=== PATIENT | male | born 1940 | race Caucasian/White ===

== ENCOUNTER → 2016-08-28 | Outpatient (CLI) | payer OTHER ==
[~2016-08-28] MED LIST: ASPEC81 PO; CMD5 PO; CRD2 PO; CRDCD240 PO; DXY100 PO; GLC5 PO; GLC500 PO; LISI-725 PO; METO1TAB69 PO; SIMV20TA2 PO; SULF800T23 PO
[2016-08-28 09:54] LABS: BASO % 0.3 %; BASO ABS # 0.02 K/uL (0-0.2); COMPLETE YES; EOS % 1.4 %; HEMATOCRIT 41.4 % (42-52); IG% 0.3 %; LYMPH ABS # 1.67 K/uL (1.2-3.4); MEAN CELL VOLUME 88.7 fL (80-100); MEAN CORPUSCULAR HEMOGLOBIN 31.5 pg (25-34); MEAN CORPUSCULAR HGB CONC 35.5 g/dl (32-36); MEAN PLATELET VOLUME 11.2 fL (7.4-10.4); MONO % 7.3 %; NEUT % 69.7 %; PLATELET COUNT 218 K/uL (130-400); RED BLOOD COUNT 4.67 M/uL (4.7-6.1); WHITE BLOOD COUNT 7.97 K/uL (4.8-10.8)
[2016-08-28 11:43] LABS: ALT/SGPT 24 U/L (12-78); BLOOD UREA NITROGEN 18 mg/dl (7-18); BUN/CREATININE RATIO 15.9 (10-20); CALCIUM 9.3 mg/dl (8.5-10.1); CARBON DIOXIDE 30 mmol/L (21-32); CHLORIDE 100 mmol/L (98-107); CHOLESTEROL 113 mg/dl (0-200); GLUCOSE 179 mg/dl (70-99); POTASSIUM 3.3 mmol/L (3.5-5.1); SODIUM 139 mmol/L (136-145)
[2016-08-28 11:56] LABS: AST/SGOT 13 U/L (15-37); CHOLESTEROL/HDL RATIO 2.5; HDL CHOLESTEROL 45 mg/dl; LDL CHOLESTEROL CALCULATED 48 mg/dl; TRIGLYCERIDES 102 mg/dl (0-150); VERY LOW DENSITY LIPOPROT CALC 20 mg/dl
[2016-08-28 12:09] LABS: URINE APPEARANCE CLEAR (CLEAR); URINE BILIRUBIN NEG (NEG); URINE COLOR YELLOW; URINE EPITHELIAL CELL AUTO 20-30 /lpf (0-5); URINE NITRITE NEG (NEG); UROBILINOGEN NEG (NEG)
[2016-08-28 12:13] LABS: ESTIMATED AVERAGE GLUCOSE 171 mg/dl; HA1C FLAG Normal (Normal)
[2016-08-28 12:14] LABS: MANUAL MICROSCOPIC REQUIRED? NO; REVIEW REQ? NO
--- NOTE | 2016-09-03 09:24 | CODING QUERY MEDICAL NECESSITY ---
SUPPORTING DIAGNOSIS NEEDED A supporting diagnosis is required for the test/procedure performed on this patient in order for us to be reimbursed by the patient's insurance. Please provide a supporting diagnosis for the following test/procedure listed below next to the test name along with your signature. *If there is no additional diagnosis for this patient that would support the following test/procedure please document that below next to the test/procedure. Test(s)/Procedure(s) that require a supporting diagnosis: * GLYCATED HEMOGLOBIN DIAGNOSIS: * DOS: 08/28/16 Provider Signature: Date: Thank you Venessa Luong Health Information Management Once completed, please kindly fax back to [phone] For questions please call [phone]
== END | disposition home or self-care (01) ==
LOC: C.LAB1850 08:59
PROVIDERS: ATTEND Internal Medicine
DX: I25.10 Atherosclerotic heart disease of native coronary artery without angina pectoris (principal); E11.9 Type 2 diabetes mellitus without complications

== ENCOUNTER → 2016-09-21 | Outpatient (CLI) | payer OTHER ==
[2016-09-21 13:09] LABS: BASO % 0.4 %; BASO ABS # 0.03 K/uL (0-0.2); COMPLETE YES; EOS % 0.3 %; HEMATOCRIT 42.7 % (42-52); IG% 0.1 %; LYMPH % 11.5 %; MEAN CELL VOLUME 89.7 fL (80-100); MEAN CORPUSCULAR HEMOGLOBIN 30.7 pg (25-34); MEAN CORPUSCULAR HGB CONC 34.2 g/dl (32-36); MEAN PLATELET VOLUME 11.2 fL (7.4-10.4); MONO % 10.7 %; PLATELET COUNT 202 K/uL (130-400); RED BLOOD COUNT 4.76 M/uL (4.7-6.1); WHITE BLOOD COUNT 7.84 K/uL (4.8-10.8)
[2016-09-21 13:18] LABS: ALT/SGPT 25 U/L (12-78); AST/SGOT 19 U/L (15-37); BLOOD UREA NITROGEN 27 mg/dl (7-18); BUN/CREATININE RATIO 18.3 (10-20); CALCIUM 8.8 mg/dl (8.5-10.1); CARBON DIOXIDE 31 mmol/L (21-32); CHLORIDE 94 mmol/L (98-107); GLUCOSE 142 mg/dl (70-99); POTASSIUM 3.3 mmol/L (3.5-5.1); SODIUM 136 mmol/L (136-145)
[2016-09-21 13:21] LABS: ALB/GLOB RATIO 1.1 (0.9-2); ALKALINE PHOSPHATASE 57 U/L (45-117)
[2016-09-21 13:23] LABS: URINE APPEARANCE CLOUDY (CLEAR); URINE BILIRUBIN NEG (NEG); URINE COLOR DK YELLOW; URINE NITRITE NEG (NEG); URINE SPECIFIC GRAVITY 1.027 (1.000-1.030); UROBILINOGEN NEG (NEG); ZZUR CULT IF INDIC CLEAN CATCH NO
[2016-09-21 13:36] LABS: MANUAL MICROSCOPIC REQUIRED? NO; REVIEW REQ? NO
== END | disposition home or self-care (01) ==
LOC: C.LABBC 11:50
PROVIDERS: ATTEND Internal Medicine
DX: R63.0 Anorexia (principal); R53.83 Other fatigue; I51.7 Cardiomegaly

== ENCOUNTER → 2016-09-21 | Outpatient (CLI) | payer OTHER ==
--- NOTE | 2016-09-21 14:08 | DIAGNOSTIC IMAGING REPORT ---
TWO VIEW CHEST CLINICAL HISTORY: Fatigue. Congestion. FINDINGS: PA and lateral chest radiographs are obtained. No prior studies are available for comparison at the time of dictation. The patient is status post midline sternotomy. The heart is enlarged and there is atherosclerotic calcification of the thoracic aorta. The pulmonary vasculature is noncongested. Nonspecific interstitial thickening is noted. Small calcified granulomas are suspected. No airspace consolidation or pleural effusion is seen. There is no pneumothorax. The skeletal structures appear osteopenic. Mild degenerative change is present in the thoracic spine. IMPRESSION: Cardiac enlargement with no acute cardiopulmonary abnormality. Electronically signed by: Burt Houser M.D. 09/21/2016 2:06 PM Dictated Date/Time: 09/21/2016 2:05 PM
== END | disposition home or self-care (01) ==
LOC: C.RADBC 12:17
PROVIDERS: ATTEND Internal Medicine
DX: R53.83 Other fatigue (principal); I51.7 Cardiomegaly

== ENCOUNTER → 2016-09-24 | Outpatient (CLI) | payer OTHER ==
[2016-09-24 15:51] LABS: BLOOD UREA NITROGEN 17 mg/dl (7-18); BUN/CREATININE RATIO 14.4 (10-20); CALCIUM 9.6 mg/dl (8.5-10.1); CARBON DIOXIDE 31 mmol/L (21-32); CHLORIDE 95 mmol/L (98-107); GLUCOSE 144 mg/dl (70-99); POTASSIUM 3.1 mmol/L (3.5-5.1); SODIUM 138 mmol/L (136-145)
== END | disposition home or self-care (01) ==
LOC: C.LAB1850 14:32
PROVIDERS: ATTEND Internal Medicine
DX: E11.9 Type 2 diabetes mellitus without complications (principal); R05 Cough; R53.83 Other fatigue

== ENCOUNTER → 2016-12-05 | Outpatient (CLI) | payer OTHER ==
[~2016-12-05] MED LIST changes: +METO100T44 PO; -METO1TAB69 PO
[2016-12-05 14:27] LABS: ESTIMATED AVERAGE GLUCOSE 171 mg/dl; HA1C FLAG Normal (Normal)
== END | disposition home or self-care (01) ==
LOC: C.LAB1850 11:40
PROVIDERS: ATTEND Internal Medicine
DX: E11.9 Type 2 diabetes mellitus without complications (principal)

== ENCOUNTER → 2017-03-06 | Outpatient (CLI) | payer OTHER ==
[~2017-03-06] MED LIST changes: -METO100T44 PO; +METO1TAB69 PO
[2017-03-06 11:58] LABS: BASO % 0.5 %; BASO ABS # 0.04 K/uL (0-0.2); COMPLETE YES; EOS % 1.5 %; HEMATOCRIT 40.9 % (42-52); IG% 0.2 %; LYMPH % 18.6 %; MEAN CELL VOLUME 89.3 fL (80-100); MEAN CORPUSCULAR HEMOGLOBIN 31.7 pg (25-34); MEAN CORPUSCULAR HGB CONC 35.5 g/dl (32-36); MEAN PLATELET VOLUME 11.6 fL (7.4-10.4); MONO % 8.4 %; NEUT % 70.8 %; PLATELET COUNT 211 K/uL (130-400); RED BLOOD COUNT 4.58 M/uL (4.7-6.1); WHITE BLOOD COUNT 8.59 K/uL (4.8-10.8)
[2017-03-06 12:08] LABS: URINE APPEARANCE CLEAR (CLEAR); URINE BILIRUBIN NEG (NEG); URINE COLOR YELLOW; URINE NITRITE NEG (NEG); URINE SPECIFIC GRAVITY 1.018 (1.000-1.030); UROBILINOGEN NEG (NEG)
[2017-03-06 12:10] LABS: MANUAL MICROSCOPIC REQUIRED? NO; REVIEW REQ? NO
[2017-03-06 12:23] LABS: ALT/SGPT 27 U/L (12-78); AST/SGOT 16 U/L (15-37); BLOOD UREA NITROGEN 23 mg/dl (7-18); BUN/CREATININE RATIO 21.1 (10-20); CALCIUM 9.1 mg/dl (8.5-10.1); CARBON DIOXIDE 33 mmol/L (21-32); CHLORIDE 101 mmol/L (98-107); CHOLESTEROL 110 mg/dl (0-200); GLUCOSE 149 mg/dl (70-99); POTASSIUM 3.5 mmol/L (3.5-5.1); SODIUM 138 mmol/L (136-145); TRIGLYCERIDES 87 mg/dl (0-150); VERY LOW DENSITY LIPOPROT CALC 17 mg/dl
[2017-03-06 12:31] LABS: ESTIMATED AVERAGE GLUCOSE 163 mg/dl; HA1C FLAG Normal (Normal)
[2017-03-06 12:35] LABS: CHOLESTEROL/HDL RATIO 2.8; HDL CHOLESTEROL 40 mg/dl; LDL CHOLESTEROL CALCULATED 53 mg/dl
[2017-03-06 12:41] LABS: RATIO 120.9 mcg/mg (0-30.0)
== END | disposition home or self-care (01) ==
LOC: C.LAB1850 10:17
PROVIDERS: ATTEND Internal Medicine
DX: E11.9 Type 2 diabetes mellitus without complications (principal)

== ENCOUNTER → 2017-06-10 | Outpatient (CLI) | payer OTHER ==
[~2017-06-10] MED LIST changes: +METO100T44 PO; -METO1TAB69 PO
[2017-06-11 08:05] LABS: ESTIMATED AVERAGE GLUCOSE 177 mg/dl; HA1C FLAG Normal (Normal)
== END | disposition home or self-care (01) ==
LOC: C.LAB1850 15:05
PROVIDERS: ATTEND Internal Medicine
DX: E11.9 Type 2 diabetes mellitus without complications (principal)

== ENCOUNTER 2017-07-25 17:07 | Emergency (ER) | payer OTHER ==
[~2017-07-25] VITALS: Ht 180.3 cm; Wt 104.0 kg
[2017-07-25 17:10] VITALS: TEMP 36.3; Ht 180.3 cm; Wt 104.0 kg
[2017-07-25] MEDS ORDERED: OXYMETAZOLINE HCL 0.05% NA SPR 15 ML BTL ONE (17:16)
[2017-07-25 18:14] LABS: BASO % 0.3 %; BASO ABS # 0.02 K/uL (0-0.2); EOS % 1.3 %; HEMOGLOBIN 15.1 g/dL (14.0-18.0); IG# 0.01 K/uL (0.00-0.02); LYMPH % 19.6 %; LYMPH ABS # 1.52 K/uL (1.2-3.4); MEAN CELL VOLUME 89.6 fL (80-100); MEAN CORPUSCULAR HEMOGLOBIN 31.5 pg (25-34); MEAN CORPUSCULAR HGB CONC 35.1 g/dl (32-36); MEAN PLATELET VOLUME 11.2 fL (7.4-10.4); MONO % 9.7 %; MONO ABS # 0.75 K/uL (0.11-0.59); NEUT ABS # 5.37 K/uL (1.4-6.5); PLATELET COUNT 228 K/uL (130-400); RED CELL DISTRIBUTION WIDTH CV 12.7 % (11.5-14.5); RED CELL DISTRIBUTION WIDTH SD 41.5 fL (36.4-46.3); WHITE BLOOD COUNT 7.77 K/uL (4.8-10.8)
[2017-07-25] MEDS ORDERED: HYDR12.55 PO (18:15)
[2017-07-25] MEDS ORDERED: COEN1CAP17 PO (18:16)
[2017-07-25] MEDS ORDERED: PSYL58.636 PO (18:16)
[2017-07-25 18:21] LABS: INR 1.9 (0.9-1.1); PTT PATIENT 29.5 SECONDS (21.0-31.0)
[2017-07-25] MEDS ORDERED: CLONIDINE HCL 0.1 MG TAB PO ONE (18:45)
[2017-07-25] MEDS ORDERED: AMOXICILLIN/CLAVULANATE TAB 875 MG TAB PO ONE (20:30)
--- NOTE | 2017-07-25 20:50 | EMERGENCY ROOM VISIT NOTE ---
ED Visit Note First contact with patient: 17:28 I have personally evaluated this patient examined her and reviewed the pertinent labs and data. I have discussed the case with Roc Nicolas, the physician assistant in nursing and agree with the plan. Please refer to the PA note. This patient comes in complaining of right-sided nosebleed. he is on Coumadin as a started shortly before arrival despite Afrin. he still was having some bleeding mostly coming down the front but a little bit in the back. This seems he caused some anxiety. I did place a rapid Rhino 5.5 cm. The patient tolerated this well. I applied approximate 5 mL of air and the patient no further bleeding he was observed in the ER multiple hours. His initial blood pressure was high and seemed to go up higher. I think secondary to pain. he was given clonidine 0.1 and his blood pressure was trending downwards to a systolic in the 170s. he was resting comfortably and seemed a little more anxious and was having some pain associated with this I think this raises blood pressure little bit as well. We are going put him on antibiotics with Augmentin and have him follow-up with ENT on Friday for removal or he can return here either Friday or Friday if he has any difficulty getting in with ENT or case management team will help him do this as well . he is to check his blood pressure frequently. Prior to discharge he had no bleeding for several hours. He had some mild discomfort from the balloon. 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 I encouraged him return to ER if he has discomfort or further bleeding or any new problems or concerns. He was happy the plan and discharged home.
[2017-07-25] MEDS ORDERED: NORCO 5/325MG HOME PACK PO ONE (21:00)
[2017-07-25] MEDS ORDERED: AMOXICIL/CLAVU 875MG HOME PACK PO ONE (21:00)
[2017-07-25] MEDS ORDERED: AMOX875T PO (21:00)
[2017-07-25 21:22] VITALS: BP 216/109; PULSE 92; O2SAT 96
--- NOTE | 2017-07-26 00:36 | EMERGENCY ROOM VISIT NOTE ---
ED Visit Note First contact with patient: 17:28 Chief Complaint: Right sided nosebleed. History of Present Illness: Mr. Brar is a 77-year-old white male who ambulates into the ED accompanied by female friend complaining of nasal bleeding from the right nostril. Historically patient reports he has never had an episode of nosebleed. He does report that he is on Coumadin. He reports his last INR was performed at couple weeks ago and was 2.3. He also has a history of hypertension. Patient reports approximately 30 minutes prior to arrival at the hospital patient was at home and at rest and reports a spontaneous start of bleeding from the right nostril. He reports he made multiple attempts to pinch the nose shot but it continued to bleed. He denies nose picking, recent trauma to his nose, changes in medication. He has not identified any aggravating or alleviating factors related to his bleeding. He has not taken any medications or therapies prior to arrival at the hospital. Associated with his bleeding he finds a difficulty breathing through his nose. He denies any associated symptoms including headache, dizziness, lightheadedness, sinus congestion, upper respiratory tract symptoms, shortness of breath, abdominal pain, nausea, vomiting, easy bruising, easy bleeding, unusual bleeding. Review of Systems: As noted above in history of present illness. Past Medical History: As noted above and diabetes, constipation, hypertension, coronary, status post CABG, unspecified ankle surgery and bilateral ankle surgery. Current Medications: Medications Dose Route/Sig Max Daily Dose Days Date Category Co Q 10 (Coenzyme Q10 (Ubidecarenone)) 100 Mg Cap 100 Mg PO DAILY 07/25/17 Reported Metamucil Fiber (Psyllium) 51.7 % Memo 1 Dose PO DAILY 07/25/17 Reported Hydrochlorothiazide 12.5 Mg Tab 25 Mg PO DAILY 07/25/17 Reported Ecotrin Or Generic * (Aspirin) 81 Mg Ectab 81 Mg PO DAILY 06/24/10 Reported Zestril (Lisinopril) 20 Mg Tab 20 Mg PO DAILY 12/09/06 Reported Coumadin * (Warfarin Sodium) 5 Mg Tab 5 Mg PO DAILY 12/09/06 Reported Zocor (Simvastatin) 20 Mg Tab 20 Mg PO QPM 12/09/06 Reported Glucophage * (Metformin HCl) 500 Mg Tab 1,000 Mg PO BID 12/09/06 Reported Glucotrol * (Glipizide) 5 Mg Tab 5 Mg PO BID 12/09/06 Reported Cardura * (Doxazosin Mesylate) 2 Mg Tab 2 Mg PO DAILY 12/09/06 Reported Cardizem Cd * (Diltiazem HCl) 240 Mg Capcr 240 Mg PO DAILY 12/09/06 Reported Toprol-Xl (Metoprolol Succinate) 100 Mg Tabcr 100 Mg PO DAILY 12/09/06 Reported Allergies to Medications: Patient denies. Social History: Patient is not currently employed; he feels safe in his home environment; he denies tobacco use. Physical Examination: Vital Signs: Date Time Temp Pulse Resp B/P (MAP) Pulse Ox O2 Delivery O2 Flow Rate FiO2 07/25/17 21:22 92 20 216/109 96 07/25/17 20:48 216/109 07/25/17 20:34 94 20 214/114 95 Room Air 07/25/17 20:12 96 20 213/113 95 Room Air 07/25/17 19:23 229/117 95 Room Air 07/25/17 19:02 203/117 07/25/17 18:30 93 20 217/118 95 Room Air 07/25/17 18:00 92 235/117 98 Room Air 07/25/17 17:30 102 208/118 91 Room Air 07/25/17 17:10 36.3 105 20 236/105 96 Room Air GENERAL: 77-year-old male in no acute distress, nontoxic-appearing, afebrile and hemodynamically stable. Patient is very anxious. NEUROLOGICAL: Awake, alert and oriented to person, place and time. Answering questions appropriately and following commands. Good hand eye coordination. SKIN: Warm, dry and pink. HEENT: Atraumatic and normocephalic. No erythema or tenderness over the frontal or maxillary sinuses. PERRLA. Sclera white and conjunctiva pink. My initial exam patient is bleeding from the right nostril; I was not able to identify the site of the bleeding. All the bleeding is bright red. He did have dried blood in the entrance to the left nostril. There was no tenderness, swelling or ecchymosis around the nose. Oral cavity moist and pink. Airway was patent. Pharynx is nonerythematous or edematous; right red blood was seen in the posterior pharyngeal area. Speech normal and clear. No jugular venous distention. THORAX: Lungs sounds are clear to auscultation and equal bilaterally with symmetrical chest wall. No wheezing, rales or rhonchi. ED Course: Patient is assessed as noted above. Patient's medication list was reviewed. Laboratory Testing: Test 07/25/17 18:00 Range/Units White Blood Count 7.77 4.8-10.8 K/uL Red Blood Count 4.80 4.7-6.1 M/uL Hemoglobin 15.1 14.0-18.0 g/dL Hematocrit 43.0 42-52 % Mean Corpuscular Volume 89.6 80-100 fL Mean Corpuscular Hemoglobin 31.5 25-34 pg Mean Corpuscular Hemoglobin Concent 35.1 32-36 g/dl Platelet Count 228 130-400 K/uL Mean Platelet Volume 11.2 7.4-10.4 fL Neutrophils (%) (Auto) 69.0 % Lymphocytes (%) (Auto) 19.6 % Monocytes (%) (Auto) 9.7 % Eosinophils (%) (Auto) 1.3 % Basophils (%) (Auto) 0.3 % Neutrophils # (Auto) 5.37 1.4-6.5 K/uL Lymphocytes # (Auto) 1.52 1.2-3.4 K/uL Monocytes # (Auto) 0.75 0.11-0.59 K/uL Eosinophils # (Auto) 0.10 0-0.5 K/uL Basophils # (Auto) 0.02 0-0.2 K/uL RDW Standard Deviation 41.5 36.4-46.3 fL RDW Coefficient of Variation 12.7 11.5-14.5 % Immature Granulocyte % (Auto) 0.1 % Immature Granulocyte # (Auto) 0.01 0.00-0.02 K/uL Prothrombin Time 19.5 9.0-12.0 SECONDS Prothromb Time International Ratio 1.9 0.9-1.1 Activated Partial Thromboplast Time 29.5 21.0-31.0 SECONDS Partial Thromboplastin Ratio 1.1 A nasal clamp was initiated which did not control bleeding. Afrin was used in the right nostril twice and the nose was reclamped instilled not control bleeding. I had a conversation with the patient about placing a Rhino Rocket in his nose. At this time he became concerned and asked many questions. He did report he wanted to contact his own primary care provider about the thoughts of her Rhino Rocket. Additionally he questioned me on my ability to place a Rhino Rocket. I did contact my attending physician, Dr. Hopper, who came to assess the patient and placed a Rhino Rocket; please see his notes for full information about his involvement with this patient. Patient was reassessed multiple times during his stay in the emergency department. Patient had multiple questions about his high blood pressure; I reviewed his case with my attending and it was decided to give the patient 0.1 mg of clonidine by mouth. Once again his blood pressure was rechecked multiple times and when he was distracted away from his nosebleed and his concerns his blood pressure did go down into the 170s. Once again patient had major concerns about possible strokes with his bleeding and high blood pressure; multiple reassessments of the patient and reassurance is were made with the patient. On his frequent re-evaluations patient had one episode where there was one drop of blood coming from underneath the Rhino Rocket. On reevaluation no additional bleeding in his nose or mouth was noted. Prior to discharge patient received 875 mg of Augmentin for antibiotic coverage. Patient was educated about today's findings and instructed on his treatment plan ; he verbalizes understanding and agreement with this plan. Clinical Impression: Right-sided epistaxis. Patient's blood pressure: Elevated. Blood pressure disposition: Situational. Follow-up with PCP. Disposition: Patient discharged home in stable condition accompanied by his ; prior to departure he was reassessed and subjectively reported he was having a pressure sensation on the right side of the face due to the Rhino Rocket. He rated his discomfort 3/10. He was offered pain medications and refused. Additionally case management was addressed with the patient and is going to actively try to find the patient an appointment with ENT specialist for Friday. Plan: A she was encouraged to continue his current medications except for his Coumadin ; he was encouraged to hold his Coumadin until he was able to speak to his Coumadin clinic for recommendations on continuation or increasing. He was encouraged to call tomorrow. Comfort measures were discussed with the patient including rating his pain every 6 hours and using appropriate acetaminophen or [place] for pain; he was given appropriate narcotic precautions and his name was checked on the state database and no red flags were noted. Patient was prescribed Augmentin 875 mg 2 times a day for total of 5 days. Patient was encouraged return to the ED for return of bleeding, worsening/ uncontrolled pain, fevers or any new/concerning symptoms.
== END 2017-07-25 21:24 | disposition home or self-care (01) ==
LOC: C.EDB 17:08 → C.EDD 21:24
DX: R04.0 Epistaxis (principal); I10 Essential (primary) hypertension; Z95.1 Presence of aortocoronary bypass graft; Z98.890 Other specified postprocedural states; Z79.01 Long term (current) use of anticoagulants; Z79.82 Long term (current) use of aspirin; Z79.899 Other long term (current) drug therapy

== ENCOUNTER → 2017-08-26 | Outpatient (CLI) | payer OTHER ==
[~2017-08-26] MED LIST changes: +COEN1CAP17 PO; -DXY100 PO; +HYDR12.55 PO; +PSYL58.636 PO; -SULF800T23 PO
[2017-08-26 12:28] LABS: HEMOGLOBIN A1C 7.3 % (4.5-5.6)
== END | disposition home or self-care (01) ==
LOC: C.LAB1850 10:53
PROVIDERS: ATTEND Internal Medicine
DX: E11.9 Type 2 diabetes mellitus without complications (principal)

== ENCOUNTER → 2017-10-28 | Outpatient (CLI) | payer OTHER ==
--- NOTE | 2017-10-28 14:49 | DIAGNOSTIC IMAGING REPORT ---
L-SPINE MIN 4 VIEWS ROUTINE CLINICAL HISTORY: 77 years-old Male presenting with S39.012A Acute lumbosacral myofascial [id number]. TECHNIQUE: Frontal, bilateral oblique, lateral, and coned in lateral views of the lumbar spine were obtained. COMPARISON: CT from 2006. FINDINGS: Mild dextrocurvature of the lumbar spine centered at L3. Osteopenia suggested. Normal lumbar lordosis otherwise. Vertebral bodies maintain normal height and alignment. Intervertebral disc height loss noted at several levels to varying degrees, most severely at L3-4. Vacuum disc phenomenon also noted at several levels most prominently at L5-S1. Anterior osteophytosis and facet arthropathy evident throughout. Osseous neural foraminal narrowing suggested from L2-3 inferiorly to L5-S1. No compression deformity. No pars defect. Gas and stool distended large bowel. Atherosclerosis. IMPRESSION: 1. No compression deformity to suggest acute osseous injury. 2. Multilevel degenerative changes of the lumbar spine. Electronically signed by: Reed Gregorio M.D. 10/28/2017 2:48 PM Dictated Date/Time: 10/28/2017 2:46 PM
== END | disposition home or self-care (01) ==
LOC: C.RAD1850 14:28
PROVIDERS: ATTEND Physician Assistant Medical
DX: S39.012A Strain of muscle, fascia and tendon of lower back, initial encounter (principal); X58.XXXA Exposure to other specified factors, initial encounter; M47.816 Spondylosis without myelopathy or radiculopathy, lumbar region

== ENCOUNTER → 2018-02-16 | Outpatient (CLI) | payer OTHER | END | disposition home or self-care (01) | LOC: C.RDSM 11:26 | PROVIDERS: ATTEND Physical Medicine & Rehabilitation Sports Medicine | DX: M79.671 Pain in right foot (principal) ==

== ENCOUNTER 2020-12-06 12:13 | Inpatient (IN) ==
--- NOTE | 2020-12-06 12:57 | Emergency Department Note ---
Impression & Plan Acute upper gastrointestinal bleeding, Anemia, Weakness, Supratherapeutic INR ED Provider Note NAME: REJI GALLEGO AGE: 80 SEX: M : 1940 ARRIVES VIA: Walk-In INFORMANT: Patient, the patient's significant other ED PROVIDER(S): Valentín Mac DO CHIEF COMPLAINT: Dizziness and weakness HPI: The patient is a 80-year-old male has a history of atrial fibrillation and takes chronic oral anticoagulation with warfarin who presented to the emergency department with generalized weakness. Apparently the patient has had worsening symptoms for the last few months. At one time he was having difficulty eating and had a decrease oral intake. Some of his medications were changed by his primary care physician and this seemed to take care of that problem. At that time he was complaining of some vague abdominal pain but this is since improved significantly. The patient presented to the emergency department today because over the last month his significant other has noticed that he has had increasing trouble ambulating. He appears to have some degree of vertigo symptoms and ataxia. His states that she had significant trouble trying to have him ambulate to the point where he was crawling around on the floor and could not walk. The patient himself states that he feels very off balance and he describes it almost like room spinning that occurs whether or not his eyes are open or closed. He denies having any headache. He has had no recent trauma that he knows of. He denies having any difficulty breathing at this time. He denies having any chest pain. He states he has been compliant with all of his outpatient med ications with the exception of this morning because he did not want to take his medications. The patient did call his primary care physician today and was referred to the emergency department. He denies having any difficulty hearing although his significant other states that this is not the case and he does have some decreased hearing. She also states that he has been very forgetful recently. ROS: See above HPI for pertinent positives & negatives. A total of 10 systems reviewed and were otherwise negative. PAST MEDICAL HISTORY: See Below PAST SURGICAL HISTORY: See Below FAMILY HISTORY: See Below SOCIAL HISTORY: See Below HOME MEDICATIONS: See Below ALLERGIES: See Below VITALS: See Below PHYSICAL EXAMINATION: GENERAL: The patient is awake and alert. He is looking around the room and does not appear to be uncomfortable. EYES: The conjunctivae are clear. The pupils are round and reactive. EARS, NOSE, MOUTH AND THROAT: The nose is without any evidence of any deformity. NECK: The neck is nontender and supple. RESPIRATORY: Normal respiratory effort is noted there is no evidence of wheezing rhonchi or rales CARDIOVASCULAR: Ectopy was noted auscultation. There is no definite murmur noted. GASTROINTESTINAL: The abdomen is mildly distended. There is no tenderness guarding rigidity. Rectal exam revealed black stool which was strongly heme positive. MUSCULOSKELETAL/EXTREMITIES: There is no evidence of gross deformity full range of motion is noted in the hips and shoulders. SKIN: Skin is warm and dry. Trace pedal edema was noted bilaterally. NEUROLOGIC: Patient is awake and interactive. He does answer questions slowly and mostly does give the appropriate answer. At this time he is oriented to person place and situation. He does struggle with the date a little bit but ultimately was able to come up with the correct answer. No facial droop was noted. There is no nystagmus elicited. [id number] test revealed some degree of intentional tremor. There is no past-pointing noted. Patient had no drift in the upper extremities. Male Impersonator strength was symmetric. Patient is able to hold both legs off the bed for greater than 5 seconds. MEDICAL DECISION MAKING: The patient is a 80-year-old male who presented to the emergency department with his significant other for an evaluation of generalized weakness. The patient was having trouble ambulating and appears to be very ataxic. The patient has a history of oral anticoagulation because of chronic atrial fibrillation. The patient was found to have anemia in the emergency department. Rectal exam was then performed which revealed black stool which was strongly heme positive. Likely this represents an upper GI bleed. The patient was ordered blood transfusion as well as fresh frozen plasma and vitamin K. I consented the patient for blood. Initially he was reluctant but ultimately was agreeable to blood transfusion. I discussed the patient's condition with the on-call [facility] hospitalist group. They have agreed to evaluate the patient in the emergency department for further management and disposition. The patient was reevaluated multiple times. Triage Nursing notes reviewed. Prior medical records reviewed Vital Signs: reviewed and remarkable for elevated blood pressure. Differential diagnosis: Infection, dehydration, metabolic abnormality, hypo/hyperglycemia, electrolyte disturbance, anemia, hypoxia, cardiac sources, intracerebral event, toxicologic, neurologic, as well as other pathologies. ER treatment provided: See below Diagnostics interpreted by me: ECG: EKG was obtained in the emergency department. My interpretation is atrial fibrillation at 70 bpm. PVCs were noted. Right bundle branch block pattern was noted with diffuse T wave abnormalities. This was compared to a tracing from February [id number]. The changes appear new compared to the previous tracing. Cardiac Monitoring: An order was placed for continuous cardiac monitoring. The monitor shows a rate of 85 bpm with atrial fibrillation rhythm. Laboratory studies: As stated above and show below. Imaging studies: See below Consultation(s): 1350: I discussed this case with Dr. Suarez who is on-call for the [facility] hospitalist group. ED COURSE: Procedures: none PDMP:reviewed and no issues Critical Care: I have personally spent greater than 45 minutes of critical care time in the direct management of this patient. This includes bedside care, interpretation of diagnostic studies, and testing, discussion with consultants, patient, and family members, and other required patient management activities. This 45 minutes is in excess of all separately billable procedures. Past Med/Surg History Medical History (Updated 12/06/20 @ 19:19 by Valentín Mac DO) Anticoagulant long-term use Arteriosclerosis of coronary artery Arthralgia of multiple sites Atrial fibrillation Benign prostatic hyperplasia Chest wall pain, chronic Coronary artery disease involving coronary bypass graft Elevated serum creatinine Foot pain Hypercholesterolemia Hypertension Low back pain Pain, foot, left, chronic Rosacea Sciatica Type 2 diabetes mellitus Surgical History H/O oral surgery History of ankle surgery History of coronary artery bypass graft Family History Mother Cardiac disorder Hypertension Father Cardiac disorder Stroke Hypertension Grandmother (Maternal) Stroke Social History Smoking Status: Former smoker Hx Alcohol Use: Yes Hx Substance Use: No Preferred Language: Kazakh Communication Ability: Effective Beliefs That Will Affect Care: None marital status: Current Living Situation: Spouse current occupational status: retired Feels Safe at Home: Yes Assistive Devices: Cane Allergies Allergies Allergy/AdvReac Type Severity Reaction Status Date / Time No Known Allergies Allergy Verified 12/06/20 14:26 Home Meds Home Medications Medication Instructions Recorded Confirmed blood sugar diagnostic #10 ea 02/25/19 11/23/20 lancets 30 gauge #25 ea 02/25/19 11/23/20 glipizide 5 mg tablet 2.5 mg PO BID tab 04/18/20 12/06/20 coenzyme Q10 100 mg capsule 100 mg PO QAM 11/23/20 12/06/20 aspirin 81 mg PO QAM 12/06/20 12/06/20 diltiazem HCl 240 mg PO QAM 12/06/20 12/06/20 metoprolol succinate 100 mg PO QAM 12/06/20 12/06/20 psyllium husk [Metamucil] 0.52 g PO QAM 12/06/20 12/06/20 simvastatin 20 mg PO QAM 12/06/20 12/06/20 warfarin 5 mg PO PM 12/06/20 12/06/20 Previous Rx's Medication Instructions Recorded doxazosin 2 mg tablet 2 mg PO BID #180 tab 02/15/20 metformin 500 mg tablet 1,000 mg PO BID #360 tab 02/15/20 compress.stocking,knee,reg,lrg #2 ea 11/23/20 furosemide 40 mg tablet 40 mg PO BID #60 tab 11/30/20 sacubitril 49 mg-valsartan 51 mg 1 tab PO BID #60 tab 11/30/20 tablet Results & Data (ED) Vital Signs Vital Signs - 24 hr 12/06/20 12:21 12/06/20 12:55 12/06/20 13:00 Temperature 36.6 C Temperature Source Temporal Artery Scan Pulse Rate 71 68 66 Respiratory Rate 19 19 16 Respiratory Effort / Characteristics Non-Labored Respiratory Depth Normal Blood Pressure 144/74 H 153/76 H 140/77 Blood Pressure Mean 97 101 98 Pulse Oximetry 98 96 96 Oxygen Delivery Method Room Air Sepsis Recent Fever Within 48 Hours No Sepsis New/Unexplained Change in Mental Status No Sepsis Action Taken by Nursing No Action Required 12/06/20 13:30 12/06/20 14:00 12/06/20 14:15 Temperature Temperature Source Pulse Rate 73 72 77 Respiratory Rate 16 18 20 Respiratory Effort / Characteristics Respiratory Depth Blood Pressure 153/84 H 141/68 H Blood Pressure Mean 107 92 Pulse Oximetry 98 96 Oxygen Delivery Method Sepsis Recent Fever Within 48 Hours Sepsis New/Unexplained Change in Mental Status Sepsis Action Taken by Nursing 12/06/20 14:30 12/06/20 14:31 12/06/20 14:45 Temperature Temperature Source Pulse Rate 76 69 76 Respiratory Rate 17 24 16 Respiratory Effort / Characteristics Respiratory Depth Blood Pressure 154/68 H Blood Pressure Mean 96 Pulse Oximetry Oxygen Delivery Method Sepsis Recent Fever Within 48 Hours Sepsis New/Unexplained Change in Mental Status Sepsis Action Taken by [facility] Medications Current Medication List: was personally reviewed by me Laboratory Data Attestation: I reviewed the patient's lab results. Result diagrams: 12/06/20 12:50 12/06/20 12:50 Lab Results 12/06/20 12/06/20 12/06/20 Range/Units 12:50 12:50 12:50 WBC 7.42 (4.8-10.8) K/uL RBC 2.45 L (4.7-6.1) M/uL Hgb 7.4 L (14.0-18.0) g/dL Hct 22.2 L (42-52) % MCV 90.6 (80-100) fL MCH 30.2 (25-34) pg MCHC 33.3 (32-36) g/dL RDW Std Deviation 47.5 H (36.4-46.3) fL RDW Coeff of Mario 14.6 H (11.5-14.5) % Plt Count 309 (130-400) K/uL MPV 9.9 (7.4-10.4) fL Immature Gran % (Auto) 0.3 % Neut % (Auto) 72.8 % Lymph % (Auto) 15.8 % [place] % (Auto) 10.2 % Eos % (Auto) 0.8 % Baso % (Auto) 0.1 % Reticulocyte % (Auto) (0.5-2.0) % Neut # (Auto) 5.40 (1.4-6.5) K/uL Lymph # (Auto) 1.17 L (1.2-3.4) K/uL [place] # (Auto) 0.76 H (0.11-0.59) K/uL Eos # (Auto) 0.06 (0-0.5) K/uL Baso # (Auto) 0.01 (0-0.2) K/uL Reticulocyte # (0.02-0.10) 10^6/uL Immature Gran # (Auto) 0.02 (0.00-0.02) K/uL Acanthocytes (Spur) 1+ PT 60.5 H (9.0-12.0) Seconds INR 7.0 H* (0.9-1.1) APTT 44.7 H (21.0-31.0) Seconds PTT Ratio 1.7 Sodium 132 L (136-145) mmol/L Potassium 3.3 L (3.5-5.1) mmol/L Chloride 93 L (98-107) mmol/L Carbon Dioxide 32 (21-32) mmol/L Anion Gap 7.0 (3-11) BUN 40 H (7-18) mg/dl Creatinine 1.33 (0.6-1.4) mg/dl Est Cr Clr Drug Dosing Not Reportable Est GFR ( Amer) 58.5 ml/min Est GFR (Non-Af Amer) 50.5 ml/min BUN/Creatinine Ratio 29.9 H (10-20) Glucose 176 H (70-99) mg/dl Osmolality (280-300) mOsm/kg Calcium 8.9 (8.5-10.1) mg/dl Magnesium 2.2 (1.8-2.4) mg/dl Total Bilirubin 1.1 H (0.2-1) mg/dl AST 24 (15-37) U/L ALT 34 (12-78) U/L Alkaline Phosphatase 68 (45-117) U/L Total Creatine Kinase 67 (39-308) U/L Troponin I 0.026 (0-0.045) ng/ml Total Protein 6.2 L (6.4-8.2) gm/dl Albumin 3.2 L (3.4-5.0) gm/dl Globulin 3.0 (2.5-4.0) gm/dl Albumin/Globulin Ratio 1.1 (0.9-2) TSH 2.440 (0.300-4.500) uIu/ml COVID-19 Eval Order SARS-CoV-2 (PCR) (Negative) Blood Type Antibody Screen Crossmatch 12/06/20 12/06/20 12/06/20 Range/Units 13:32 13:32 13:32 WBC (4.8-10.8) K/uL RBC (4.7-6.1) M/uL Hgb (14.0-18.0) g/dL Hct (42-52) % MCV (80-100) fL MCH (25-34) pg MCHC (32-36) g/dL RDW Std Deviation (36.4-46.3) fL RDW Coeff of Mario (11.5-14.5) % Plt Count (130-400) K/uL MPV (7.4-10.4) fL Immature Gran % (Auto) % Neut % (Auto) % Lymph % (Auto) % [place] % (Auto) % Eos % (Auto) % Baso % (Auto) % Reticulocyte % (Auto) 4.0 H (0.5-2.0) % Neut # (Auto) (1.4-6.5) K/uL Lymph # (Auto) (1.2-3.4) K/uL [place] # (Auto) (0.11-0.59) K/uL Eos # (Auto) (0-0.5) K/uL Baso # (Auto) (0-0.2) K/uL Reticulocyte # 0.09 (0.02-0.10) 10^6/uL Immature Gran # (Auto) (0.00-0.02) K/uL Acanthocytes (Spur) PT (9.0-12.0) Seconds INR (0.9-1.1) APTT (21.0-31.0) Seconds PTT Ratio Sodium (136-145) mmol/L Potassium (3.5-5.1) mmol/L Chloride (98-107) mmol/L Carbon Dioxide (21-32) mmol/L Anion Gap (3-11) BUN (7-18) mg/dl Creatinine (0.6-1.4) mg/dl Est Cr Clr Drug Dosing Est GFR ( Amer) ml/min Est GFR (Non-Af Amer) ml/min BUN/Creatinine Ratio (10-20) Glucose (70-99) mg/dl Osmolality 288 (280-300) mOsm/kg Calcium (8.5-10.1) mg/dl Magnesium (1.8-2.4) mg/dl Total Bilirubin (0.2-1) mg/dl AST (15-37) U/L ALT (12-78) U/L Alkaline Phosphatase (45-117) U/L Total Creatine Kinase (39-308) U/L Troponin I (0-0.045) ng/ml Total Protein (6.4-8.2) gm/dl Albumin (3.4-5.0) gm/dl Globulin (2.5-4.0) gm/dl Albumin/Globulin Ratio (0.9-2) TSH (0.300-4.500) uIu/ml COVID-19 Eval Order SARS-CoV-2 (PCR) (Negative) Blood Type A Negative Antibody Screen NEGATIVE Crossmatch See Detail 12/06/20 12/06/20 Range/Units 14:00 14:00 WBC (4.8-10.8) K/uL RBC (4.7-6.1) M/uL Hgb (14.0-18.0) g/dL Hct (42-52) % MCV (80-100) fL MCH (25-34) pg MCHC (32-36) g/dL RDW Std Deviation (36.4-46.3) fL RDW Coeff of Mario (11.5-14.5) % Plt Count (130-400) K/uL MPV (7.4-10.4) fL Immature Gran % (Auto) % Neut % (Auto) % Lymph % (Auto) % [place] % (Auto) % Eos % (Auto) % Baso % (Auto) % Reticulocyte % (Auto) (0.5-2.0) % Neut # (Auto) (1.4-6.5) K/uL Lymph # (Auto) (1.2-3.4) K/uL [place] # (Auto) (0.11-0.59) K/uL Eos # (Auto) (0-0.5) K/uL Baso # (Auto) (0-0.2) K/uL Reticulocyte # (0.02-0.10) 10^6/uL Immature Gran # (Auto) (0.00-0.02) K/uL Acanthocytes (Spur) PT (9.0-12.0) Seconds INR (0.9-1.1) APTT (21.0-31.0) Seconds PTT Ratio Sodium (136-145) mmol/L Potassium (3.5-5.1) mmol/L Chloride (98-107) mmol/L Carbon Dioxide (21-32) mmol/L Anion Gap (3-11) BUN (7-18) mg/dl Creatinine (0.6-1.4) mg/dl Est Cr Clr Drug Dosing Est GFR ( Amer) ml/min Est GFR (Non-Af Amer) ml/min BUN/Creatinine Ratio (10-20) Glucose (70-99) mg/dl Osmolality (280-300) mOsm/kg Calcium (8.5-10.1) mg/dl Magnesium (1.8-2.4) mg/dl Total Bilirubin (0.2-1) mg/dl AST (15-37) U/L ALT (12-78) U/L Alkaline Phosphatase (45-117) U/L Total Creatine Kinase (39-308) U/L Troponin I (0-0.045) ng/ml Total Protein (6.4-8.2) gm/dl Albumin (3.4-5.0) gm/dl Globulin (2.5-4.0) gm/dl Albumin/Globulin Ratio (0.9-2) TSH (0.300-4.500) uIu/ml COVID-19 Eval Order Covid19 at [facility] SARS-CoV-2 (PCR) NEGATIVE (Negative) Blood Type Antibody Screen Crossmatch Administered Medications Sodium Chloride (Nss 1000ml) 1,000 mls @ 80 mls/hr IV .[id number] HILDA Stop: 12/07/20 04:51 Last Admin: 12/06/20 17:44 Dose: 80 mls/hr Documented by: [id number] Insulin Aspart (Insulin Aspart 100 Units/Ml 3 Ml Pen) 0 units SC ACHS HILDA Stop: 01/05/21 16:29 Last Admin: 12/06/20 18:10 Dose: 1 units Documented by: [id number] Cosigned by: [id number] Discontinued Medications Pantoprazole Sodium 40 mg/ (Syringe) 10 mls @ 5 mls/min IV NOW ONE Stop: 12/06/20 13:34 Last Admin: 12/06/20 13:59 Dose: 5 mls/min Documented by: [id number] Phytonadione 5 mg/ Sodium (Chloride) 50.5 mls @ 101 mls/hr IV ONE ONE Stop: 12/06/20 14:46 Last Infusion: 12/06/20 15:27 Dose: 0 mls/hr Documented by: [id number] Admin: 12/06/20 14:44 Dose: 101 mls/hr Documented by: [id number] Imaging Data Radiologist's Impression: Abdomen/Pelvis CT 12/06/20 12:36 CT OF THE ABDOMEN AND PELVIS WITHOUT CONTRAST CLINICAL HISTORY: Weakness. COMPARISON STUDY: CT of the abdomen and pelvis December 09, 2006. IVP December 30, 2006. TECHNIQUE: Axial images of the abdomen and pelvis were obtained without IV contrast. Images were reviewed in the axial, sagittal, and coronal planes. Automated exposure control was utilized for the study. A dose lowering technique was utilized adhering to the principles of ALARA. FINDINGS: Calcified granulomas are noted within the lower lungs. Moderate cardiomegaly is noted. There is decreased attenuation of the cardiac blood pool. Evaluation of the abdomen and pelvis is suboptimal on this unenhanced examin ation. A few water attenuation hepatic lesions are indeterminate but likely benign and favor cysts. There is no biliary or pancreatic ductal dilatation. A 2.1 cm cystic lesion located between the duodenum and pancreatic head is likely benign. Unenhanced images of the spleen, adrenal glands and pancreas are unremarkable. There is no peripancreatic infiltration. There is no hydronephrosis. No renal, ureteral or bladder calculi are present. Prostate is enlarged, measuring 6.3 cm in transverse dimension. There is no evidence for a bowel obstruction. There is a moderate amount of stool within the colon. Extensive aortoiliac atherosclerotic plaque is noted. There is mild dilatation of the celiac axis which measures 1.5 cm. There is mild dilatation of the right common iliac artery. The appendix is normal. No ascites is present. No acute fracture or suspicious lesion is identified within the visualized skeletal structures. IMPRESSION: 1. No acute process within the abdomen or pelvis on unenhanced exam. 2. No urinary calculi. No hydronephrosis. Enlarged prostate. 3. No bowel obstruction. Moderate amount stool within the colon. ACT 112: Negative or not required by law. Electronically signed by: Jaswant Castanon M.D. 12/06/2020 2:14 PM Chest X-Ray 12/06/20 12:36 SINGLE VIEW CHEST CLINICAL HISTORY: Generalized weakness. FINDINGS: An AP, portable, upright chest radiograph is compared to study dated 11/21/2020. The the patient is status post midline sternotomy. The heart is enlarged noting atherosclerotic calcification of the thoracic aorta. The pulmonary vasculature is noncongested. There is elevation of the left hemidiaphragm with bibasilar atelectasis. No airspace consolidation or large pleural effusion is identified. No pneumothorax is seen. The skeletal structures are osteopenic. The bony thorax is grossly intact. IMPRESSION: Cardiomegaly with no acute cardiopulmonary abnormality. ACT 112: Negative or not required by law. Electronically signed by: Burt Houser M.D. 12/06/2020 1:[address] 12/06/20 12:36 CT head/brain wo con CLINICAL HISTORY: weakness COMPARISON STUDY: No previous studies for comparison. TECHNIQUE: Axial CT of the brain is performed from the vertex to the skull base. IV contrast was not administered for this examination. A dose lowering te chnique was utilized adhering to the principles of ALARA. CT DOSE: FINDINGS: No acute intracranial hemorrhage, no midline shift or space occupying lesions. Yin-white matter differentiation is preserved. There are patchy white matter hypodensities likely on a small vessel basis. Multiple focal areas of decreased attenuation within bilateral basal ganglia might represent old chronic lacunar infarcts or/and prominent perivascular spaces. Atrophic changes of brain parenchyma are seen and associated with mild ex vacuo dilatation of ventricles. There is no acute depressed skull fractures seen. Mucosal thickening is seen within right frontal and maxillary sinuses. Partial opacification of anterior right ethmoid air cells are seen. The rest of visualized paranasal sinuses and mastoid air cells are patent and well-aerated. Heavy vascular calcifications are seen within the cranial base. IMPRESSION: 1. No acute intracranial hemorrhage, no midline shift or space occupying lesions. 2. Sinusitis. 3. Atrophic changes of brain parenchyma associated with minimal ex vacuo dilatation of ventricles. 4. Chronic small vessel ischemia. Possible lacunar infarct within bilateral b sami ganglia. ACT 112: Negative or not required by law. The above report was generated using voice recognition software. It may contain grammatical, syntax or spelling errors. Electronically signed by: Theodora Saxena DO 12/06/2020 1:59 PM Discharge Plan Visit Data Chief Complaint: Cardiac Assessment Stated Complaint: DIZZY,HEART DS ED Provider: Valentín Mac Discharge Problem: Acute upper gastrointestinal bleeding, Anemia, Weakness, Supratherapeutic INR Patient Disposition: Admitted As Inpatient Condition: Good Discharge Instructions Interventions: ED Discharge Assessment Last Done: 12/06/20 15:56 Discharge Problem: Anemia Qualifiers: Anemia type: unspecified type Qualified Code(s): D64.9 - Anemia, unspecified
--- NOTE | 2020-12-06 13:00 | Electrocardiogram Report ---
Test Reason : Blood Pressure : / mmHG Vent. Rate : 070 BPM Atrial Rate : 068 BPM P-R Int : 000 ms QRS Dur : 166 ms QT Int : 466 ms P-R-T Axes : 000 116 -36 degrees QTc Int : 503 ms Atrial fibrillation with premature ventricular or aberrantly conducted complexes Right bundle branch block Abnormal ECG When compared with ECG of 18-FEB-1998 10:46, Atrial fibrillation has replaced Sinus rhythm Right bundle branch block is now Present Confirmed by Quan Bruce ([id number]) on 12/06/2020 1:00:39 PM Referred By: REFERRED SELF Confirmed By:Rick Bruce
[2020-12-06 13:04] LABS: Basophils # (auto) 0.01 K/uL (0-0.2); Basophils % (auto) 0.1 %; Eosinophils # (auto) 0.06 K/uL (0-0.5); Eosinophils % (auto) 0.8 %; Hematocrit (blood only) 22.2 % (42-52); Hemoglobin 7.4 g/dL (14.0-18.0); Immature Granulocytes # (auto) 0.02 K/uL (0.00-0.02); Immature Granulocytes % (auto) 0.3 %; Lymphocytes # (auto) 1.17 K/uL (1.2-3.4); Lymphocytes % (auto) 15.8 %; Mean Corpuscular Hemoglobin 30.2 pg (25-34); Mean Corpuscular Hgb Conc 33.3 g/dL (32-36); Mean Corpuscular Volume 90.6 fL (80-100); Mean Platelet Volume 9.9 fL (7.4-10.4); Monocytes # (auto) 0.76 K/uL (0.11-0.59); Monocytes % (auto) 10.2 %; Neutrophils % (auto) 72.8 %; Platelet Count 309 K/uL (130-400); RDW Coefficient of Variation 14.6 % (11.5-14.5); RDW Standard Deviation 47.5 fL (36.4-46.3); Red Blood Count 2.45 M/uL (4.7-6.1); White Blood Count 7.42 K/uL (4.8-10.8)
--- NOTE | 2020-12-06 13:07 | XRay Report ---
SINGLE VIEW CHEST CLINICAL HISTORY: Generalized weakness. FINDINGS: An AP, portable, upright chest radiograph is compared to study dated 11/21/2020. The the [place] ent is status post midline sternotomy. The heart is enlarged noting atherosclerotic calcification of the thoracic aorta. The pulmonary vasculature is noncongested. There is elevation of the left hemidia phragm with bibasilar atelectasis. No airspace consolidation or large pleural effusion is identified. No pneumothorax is seen. The skeletal structures are osteopenic. The bony thorax is grossly intact. IMPRESSION: Cardiomegaly with no acute cardiopulmonary abnormality. ACT 112: Negative or not required by law. Electronically signed by: Burt Houser M.D. 12/06/2020 1:05 PM
[2020-12-06 13:21] LABS: Albumin Level 3.2 gm/dl (3.4-5.0); Aspartate Aminotransferase 24 U/L (15-37); BUN Creatinine Ratio 29.9 (10-20); Blood Urea Nitrogen 40 mg/dl (7-18); Calcium 8.9 mg/dl (8.5-10.1); Carbon Dioxide 32 mmol/L (21-32); Chloride 93 mmol/L (98-107); Est GFR (African American) 58.5 ml/min; Est GFR (Non-African American) 50.5 ml/min; Glucose 176 mg/dl (70-99); Magnesium 2.2 mg/dl (1.8-2.4); Potassium 3.3 mmol/L (3.5-5.1); Sodium 132 mmol/L (136-145)
[2020-12-06 13:22] LABS: Partial Thromboplastin Ratio 1.7; Partial Thromboplastin Time 44.7 Seconds (21.0-31.0); Prothrombin Time 60.5 Seconds (9.0-12.0)
[2020-12-06 13:31] LABS: Acanthocytes 1+
[2020-12-06 13:32] LABS: Alanine Aminotransferase 34 U/L (12-78); Albumin Globulin Ratio 1.1 (0.9-2); Alkaline Phosphatase 68 U/L (45-117); Bilirubin,Total 1.1 mg/dl (0.2-1); Creatine Kinase 67 U/L (39-308); Total Protein 6.2 gm/dl (6.4-8.2); Troponin I 0.026 ng/ml (0-0.045)
[2020-12-06] MEDS ORDERED: PANTOprazole 40 MG in SYRINGE 0 ML IV ONE (13:33)
[2020-12-06 13:42] LABS: Reticulocytes # 0.09 10^6/uL (0.02-0.10)
--- NOTE | 2020-12-06 14:00 | CT Scan Report ---
CT head/brain wo con CLINICAL HISTORY: weakness COMPARISON STUDY: No previous studies for comparison. TECHNIQUE: Axial CT of the brain is performed from the vertex to the skull base. IV contrast was not administered for this examination. A dose lowering technique was utilized adhering to the principles of ALARA. CT DOSE: FINDINGS: No acute intracranial hemorrhage, no midline shift or space occupying lesions. Yin-white matter differentiation is preserved. There are patchy white matter hypodensities likely on a small vessel basis. Multiple focal areas of decreased attenuation within bilateral basal ganglia might represent old orchestra conductor aimee lacunar infarcts or/and prominent perivascular spaces. Atrophic changes of brain parenchyma are seen and associated with mild ex vacuo dilatation of ventric les. There is no acute depressed skull fractures seen. Mucosal thickening is seen within right frontal and maxillary sinuses. Partial opacification of anter ior right ethmoid air cells are seen. The rest of visualized paranasal sinuses and mastoid air cells are patent and well-aerated. Heavy vascular calcifications are seen within the cranial base. IMPRESSION: 1. No acute intracranial hemorrhage, no midline shift or space occupying lesions. 2. Sinusitis. 3. Atrophic changes of brain parenchyma associated with minimal ex vacuo dilatation of ventricles. 4. Chronic small vessel ischemia. Possible lacunar infarct within bilateral basal ganglia. ACT 112: Negative or not required by law. The above report was generated using voice recognition software. It may contain grammatical, syntax o r spelling errors. Electronically signed by: Theodora Saxena DO 12/06/2020 1:59 PM
--- NOTE | 2020-12-06 14:10 | History & Physical Report ---
Date of Service December 06, 2020 Assessment & Plan (1) Symptomatic anemia: CT abdomen pelvis 12/06/2020 without contrast shows no acute process in the abdomen, patient has increased risk of bleeding secondary to circulating anticoagulant with an INR of 7 from warfarin use. In the emergency department patient was given FFP and vitamin K. Hemodynamically the patient is stable at this time 2 units of packed red blood cells to be transfused given the hemoglobin is also significantly reduced. Patient will be on Protonix bolus twice daily and GI consult be undertaken (2) Dizziness: Dizziness with description of ataxia and vertigo. CT scan of the head on presentation shows no acute intracranial hemorrhage midline shift or space- occupying lesions. There is atrophic changes in the brain parenchyma with minimal ex vacuo dilatation of ventricles. Chronic small vessel ischemia. Possible lacunar infarct in the bilateral basal ganglia with evidence of cerebrovascular disease aspirin can be considered but with GI bleeding this will be contraindicated at this point time. Once his GI bleed is stabilized consideration for neurology consultation could be undertaken once he is more confrontational testing in his hemodynamics is more assuredly stable (3) CHF (congestive heart failure): Patient is heart failure reduced ejection fraction EF of 30 to 35% on echocardiogram from November 21, 2020 patient typically is on Entresto 49/51 twice daily metoprolol succinate 100 every 24 Lasix 40 twice daily diltiazem 240 daily. Certainly volume resuscitation may be complex in this patient given his systolic dysfunction (4) Type 2 diabetes mellitus: Patient typically is on oral medications to control his diabetes these will be held this will include glipizide 2.5 twice daily and Metformin 1000 twice daily. He will be put on basal bolus insulin with glycemic pharmacy consult on an A1c checked in the morning (5) Hypertension: His hypertension is controlled with metoprolol furosemide and diltiazem. Likely also influenced significantly by his Entresto (6) Hypercholesterolemia: Bennett on simvastatin (7) Atrial fibrillation: Controlled with metoprolol succinate and anticoagulated with warfarin. Currently anticoagulation is held History of Present Illness Primary Care Provider: Mt Vasquez MD 80-year-old male has a history of atrial fibrillation and takes chronic oral anticoagulation with warfarin who presented to the emergency department with generalized weakness. Apparently the patient has had worsening symptoms for the last few months. During this time he was having decreased oral intake abdominal discomfort was placed on medications by his primary care physician which improved the symptoms.. Additional symptoms include difficulty ambulating dizziness and ataxia over the last few months. The patient himself states that he feels very off balance and he describes spinning sensation that occurs whether or not his eyes are open or closed. He denies having any headache. H He states he has been compliant with all of his outpatient medications with the exception of this morning because he did not want to take his medications. Allergies Allergy/AdvReac Type Severity Reaction Status Date / Time No Known Allergies Allergy Verified 12/06/20 14:26 Home Medications Medication Instructions Recorded Confirmed Type blood sugar diagnostic #10 ea 02/25/19 11/23/20 History lancets 30 gauge #25 ea 02/25/19 11/23/20 History doxazosin 2 mg tablet 2 mg PO BID #180 tab 02/15/20 12/06/20 Rx metformin 500 mg tablet 1,000 mg PO BID #360 tab 02/15/20 12/06/20 Rx glipizide 5 mg tablet 2.5 mg PO BID tab 04/18/20 12/06/20 History coenzyme Q10 100 mg capsule 100 mg PO [facility] 11/23/20 12/06/20 History compress.stocking,knee,reg,lrg #2 ea 11/23/20 Rx furosemide 40 mg tablet 40 mg PO BID #60 tab 11/30/20 12/06/20 Rx sacubitril 49 mg-valsartan 51 mg 1 tab PO BID #60 tab 11/30/20 12/06/20 Rx tablet aspirin 81 mg PO [facility] 12/06/20 12/06/20 History diltiazem HCl 240 mg PO [facility] 12/06/20 12/06/20 History metoprolol succinate 100 mg PO [facility] 12/06/20 12/06/20 History psyllium husk [Metamucil] 0.52 g PO QAM 12/06/20 12/06/20 History simvastatin 20 mg PO QAM 12/06/20 12/06/20 History warfarin 5 mg PO PM 12/06/20 12/06/20 History Past Med/Surg History Medical History (Updated 12/07/20 @ 12:06 by Seb Choudhary MD) Anticoagulant long-term use Arteriosclerosis of coronary artery Arthralgia of multiple sites Atrial fibrillation Benign prostatic hyperplasia Chest wall pain, chronic Coronary artery disease involving coronary bypass graft Elevated serum creatinine Foot pain Hypercholesterolemia Hypertension Low back pain Pain, foot, left, chronic Rosacea Sciatica Type 2 diabetes mellitus Surgical History H/O oral surgery History of ankle surgery History of coronary artery bypass graft Family History Mother Cardiac disorder Hypertension Father Cardiac disorder Stroke Hypertension Grandmother (Maternal) Stroke Social History Smoking Status: Former smoker Hx Alcohol Use: Yes Hx Substance Use: No Preferred Language: [place]an Communication Ability: Effective Beliefs That Will Affect Care: None marital status: Current Living Situation: Spouse current occupational status: retired Feels Safe at Home: Yes Assistive Devices: Cane Review of Systems Review of Systems: Mild distress and fatigue no headache, blurry or double vision no speech or swallowing issues no chest pain, pressure or palpitations no shortness of breath, cough or wheezes no abdominal pain, nausea or vomiting, diarrhea or constipation no dysuria, hematuria or frequency no focal joint pain or swelling no back pain, CVA tenderness or radicular pain no bruising, bleeding or rashes no focal signs of weakness or numbness or altered sensation no complaints of anxiety or depression.. Physical Exam Physical Exam: The patient appeared well nourished and normally developed. Vital signs as documented. Head exam is normocephalic atraumatic Neck is without JVD, thyromegaly, or carotid bruits. Lungs are clear to auscultation, no focal loss of breath sounds Cardiac exam, Rhythm is regular.. No murmurs, rubs or gallops. Abdominal exam reveals normal bowel sounds, soft non tender, no masses Extremities are nonedematous and both pedal pulses are present Neurologic exam is alert and oriented, no focal loss of strength or sensation Skin is without bruises or rashes Psychologically is without concerns for anxiety or depression Results & Data Results & Data ([facility]) Vital Signs (Past 12 Hours) Vital Signs Temp Pulse Resp BP Pulse Ox 12/06/20 12:21 97.9 F 71 19 144/74 H 98 PG Care Time/CCT Total # of Minutes Spent Total Time Spent with Patient: Total time spent is greater than 50% in coordination of care (as documented) at patient's floor/unit and/or counseling patient: Coding Level of Care Code 08206 Initial Inpt Care Lvl 3 Diagnoses Symptomatic anemia D64.9 Dizziness R42 CHF (congestive heart failure) I50.9 Type 2 diabetes mellitus E11.9 Hypertension I10 Hypercholesterolemia E78.00 Atrial fibrillation I48.91
--- NOTE | 2020-12-06 14:16 | CT Scan Report ---
CT OF THE ABDOMEN AND PELVIS WITHOUT CONTRAST CLINICAL HISTORY: Weakness. COMPARISON STUDY: CT of the abdomen and pelvis December 09, 2006. IVP December 30, 2006. TECHNIQUE: Axial images of the abdomen and pelvis were obtained without IV contrast. Images were revi ewed in the axial, sagittal, and coronal planes. Automated exposure control was utilized for the atiya dy. A dose lowering technique was utilized adhering to the principles of ALARA. FINDINGS: Calcified granulomas are noted within the lower lungs. Moderate cardiomegaly is noted. Ther e is decreased attenuation of the cardiac blood pool. Evaluation of the abdomen and pelvis is subopti mal on this unenhanced examination. A few water attenuation hepatic lesions are indeterminate but lik nimo benign and favor cysts. There is no biliary or pancreatic ductal dilatation. A 2.1 cm cystic lesi on located between the duodenum and pancreatic head is likely benign. Unenhanced images of the spleen , adrenal glands and pancreas are unremarkable. There is no peripancreatic infiltration. There is no hydronephrosis. No renal, ureteral or bladder calculi are present. Prostate is enlarged, measuring 6. 3 cm in transverse dimension. There is no evidence for a bowel obstruction. There is a moderate amoun t of stool within the colon. Extensive aortoiliac atherosclerotic plaque is noted. There is mild dila tation of the celiac axis which measures 1.5 cm. There is mild dilatation of the right common iliac a rtery. The appendix is normal. No ascites is present. No acute fracture or suspicious lesion is ident ified within the visualized skeletal structures. IMPRESSION: 1. No acute process within the abdomen or pelvis on unenhanced exam. 2. No urinary calculi. No hydronephrosis. Enlarged prostate. 3. No bowel obstruction. Moderate amount stool within the colon. ACT 112: Negative or not required by law. Electronically signed by: Jaswant Castanon M.D. 12/06/2020 2:14 PM
[2020-12-06] MEDS ORDERED: SODIUM CHLORIDE 0.9% 250 ML IV PRN (14:17)
[2020-12-06] MEDS ORDERED: PHYTONADIONE 5 MG in SODIUM CHLORIDE 0.9% 50 ML IV ONE (14:17)
[2020-12-06 15:40] LABS: Appearance Urine Clear (Clear); Bacteria Urine Automated Negative (Negative); Bilirubin Urine Negative (Negative); Blood Urine 3+ (Negative); Cast Urine Automated 0 /lpf (0-5); Color Urine Yellow; Epithelial Cell Urine Auto 0-5 /lpf (0-5); Glucose Urine UA Negative (Negative); Ketones Urine Negative (Negative); Leukocyte Esterase Urine Negative (Negative); Nitrite Urine Negative (Negative); Protein Urine Trace (Negative); RBC Urine Automated >30 /hpf (0-4); Specific Gravity Urine 1.014 (1.000-1.030); Urobilinogen Urine Negative (Negative); WBC Urine Automated 0 /hpf (0-5)
[2020-12-06] MEDS ORDERED: DEXTROSE 50% 50 ML SYRINGE IV PRN (16:22)
[2020-12-06] MEDS ORDERED: ONDANSETRON INJ 2 MG/ML 2 ML VIAL IV PRN (16:22)
[2020-12-06] MEDS ORDERED: ACETAMINOPHEN 325 MG TAB PO PRN (16:22)
[2020-12-06] MEDS ORDERED: GLUCAGON FOR INJ 1 MG VIAL SQ PRN (16:22)
[2020-12-06] MEDS ORDERED: CARBOHYDRATES FOR HYPOGLYCEMIA PO PRN (16:22)
[2020-12-06] MEDS ORDERED: SODIUM CHLORIDE 0.9% 1000ML 1,000 ML IV SCH (16:22)
[2020-12-06] MEDS ORDERED: GLUCOSE 10 TABS/TUBE PO PRN (16:22)
[2020-12-06] MEDS ORDERED: GLUCOSE 40% GEL 15 GM TUBE PO PRN (16:22)
[2020-12-06] MEDS ORDERED: PHARMACY GLYCEMIC MGMT CONSULT PRN (16:37)
[2020-12-06] MEDS: INSULIN ASPART 100 UNITS/ML 3 ML PEN SC SCH ×2 (18:10→20:32)
[2020-12-06] MEDS: FUROSEMIDE 40 MG TAB PO SCH (21:08)
[2020-12-06] MEDS: DOXAZosin MESYLATE TAB 2 MG TAB PO SCH (21:08)
[2020-12-06] MEDS ORDERED: POTASSIUM CHLORIDE CRTAB 20 MEQ TABCR PO STA (21:40)
[2020-12-07 05:13] LABS: Hematocrit (blood only) 24.3 % (42-52); Hemoglobin 8.4 g/dL (14.0-18.0); Mean Corpuscular Hgb Conc 34.6 g/dL (32-36); Mean Corpuscular Volume 86.8 fL (80-100); Mean Platelet Volume 9.8 fL (7.4-10.4); Platelet Count 236 K/uL (130-400); RDW Coefficient of Variation 14.9 % (11.5-14.5); RDW Standard Deviation 45.8 fL (36.4-46.3); White Blood Count 6.65 K/uL (4.8-10.8)
[2020-12-07 05:23] LABS: INR 1.6 (0.9-1.1); Prothrombin Time 15.3 Seconds (9.0-12.0)
[2020-12-07 05:38] LABS: BUN Creatinine Ratio 26.1 (10-20); Calcium 8.3 mg/dl (8.5-10.1); Creatinine Clr Calc Pharmacy 52.9 ml/min; Est GFR (African American) 68.3 ml/min; Est GFR (Non-African American) 58.9 ml/min; Potassium 3.4 mmol/L (3.5-5.1)
[2020-12-07 07:58] LABS: Estimated Average Glucose 128 mg/dl; Hemoglobin A1C 6.1 % (4.5-5.6)
[2020-12-07] MEDS: INSULIN ASPART 100 UNITS/ML 3 ML PEN SC SCH ×3 (08:37→20:49)
[2020-12-07] MEDS: DOXAZosin MESYLATE TAB 2 MG TAB PO SCH ×2 (08:48→20:50)
[2020-12-07] MEDS: METOPROLOL SUCC 50MG EXT REL TAB PO SCH (08:48)
[2020-12-07] MEDS: FUROSEMIDE 40 MG TAB PO SCH ×2 (08:48→21:40)
--- NOTE | 2020-12-07 09:52 | Gastrointestinal Consultation ---
Date of Consultation December 07, 2020 Assessment & Plan (1) Acute upper gastrointestinal bleeding: (2) Anemia: -Protonix 40 mg IV BID -Keep NPO for EGD today, discussed with patient & Dr. Vasquez as well as nursing team. -Continue to monitor H/H -Further recommendations to be based upon endoscopy findings. Thank you for allowing us to participate in the care of this patient. If you should have any further questions or concerns, do not hesitate to contact us at extension [phone] or [phone]. Supervising Physician Co-Signing Physician Notes Agree with CARLITOS Aragon as above Abd: Soft, NT, ND, +BS Continue current therapy and supportive care Proceed with EGD today. History of Present Illness Reason for Consultation: Anemia, Concern for upper GI bleeding Attending Physician: Jacob Schwab DO History of Present Illness Patient is a 80 yo male with a PMH of CHF, ASCVD, CABG, SCC, HLD, rosacea, sciatic, DM2, & Afib on chronic oral anticoagulation with Coumadin. He reports that over the past several weeks, he was experiencing progressive weakness, fatigue, & DESOUZA. He notes that he had laboratory studies done as an outpatient & was sent to the ED. It appears that his H/H was 7.4/22.2 when checked as an outpatient. He was noted to have an INR of 7. His baseline hemoglobin is typically around 14. Since admission, his H/H has been improved to 8.4/24.3. He received Vitamin K in the ED and INR is now 1.6. He denies any known GI symptoms such as epigastric pain, melena, hematemesis, hematochezia, abdominal pain, diarrhea, constipation, reflux, or heartburn. He reports intermittent GERD symptoms every few years but has not experienced this recently. Other than a baby Aspirin daily, he takes no other NSAIDs. He notes that he has a distant history of a duodenal ulcer over 20 years ago. He is unsure how this was managed at that time. CT of the abdomen/pelvis in the ED was unremarkable for acute issues. CT of the head shows old, chronic possible lacunar infarcts. No acute process identified. Patient is currently on Protonix. Stool was heme positive in the ED. Allergies Allergy/AdvReac Type Severity Reaction Status Date / Time No Known Allergies Allergy Verified 12/06/20 14:26 Home Medications Medication Instructions Recorded Confirmed Type blood sugar diagnostic #10 ea 02/25/19 11/23/20 History lancets 30 gauge #25 ea 02/25/19 11/23/20 History doxazosin 2 mg tablet 2 mg PO BID #180 tab 02/15/20 12/06/20 Rx metformin 500 mg tablet 1,000 mg PO BID #360 tab 02/15/20 12/06/20 Rx glipizide 5 mg tablet 2.5 mg PO BID tab 04/18/20 12/06/20 History coenzyme Q10 100 mg capsule 100 mg PO QAM 11/23/20 12/06/20 History compress.stocking,knee,reg,lrg #2 ea 11/23/20 Rx furosemide 40 mg tablet 40 mg PO BID #60 tab 11/30/20 12/06/20 Rx sacubitril 49 mg-valsartan 51 mg 1 tab PO BID #60 tab 11/30/20 12/06/20 Rx tablet aspirin 81 mg PO QAM 12/06/20 12/06/20 History diltiazem HCl 240 mg PO QAM 12/06/20 12/06/20 History metoprolol succinate 100 mg PO QAM 12/06/20 12/06/20 History psyllium husk [Metamucil] 0.52 g PO QAM 12/06/20 12/06/20 History simvastatin 20 mg PO QAM 12/06/20 12/06/20 History warfarin 5 mg PO PM 12/06/20 12/06/20 History Patient History Medical History Anticoagulant long-term use Arteriosclerosis of coronary artery Arthralgia of multiple sites Atrial fibrillation Benign prostatic hyperplasia Chest wall pain, chronic Coronary artery disease involving coronary bypass graft Elevated serum creatinine Foot pain Hypercholesterolemia Hypertension Low back pain Pain, foot, left, chronic Rosacea Sciatica Type 2 diabetes mellitus Surgical History H/O oral surgery History of ankle surgery History of coronary artery bypass graft Family History Mother Cardiac disorder Hypertension Father Cardiac disorder Stroke Hypertension Grandmother (Maternal) Stroke Social History Smoking Status: Former smoker Hx Alcohol Use: Yes Hx Substance Use: No Preferred Language: Burkinan Communication Ability: Effective Beliefs That Will Affect Care: None marital status: Current Living Situation: Spouse current occupational status: retired Feels Safe at Home: Yes Assistive Devices: Cane Review of Systems Constitutional: no fever and no chills Respiratory: no cough and no dyspnea Cardiovascular: no chest pain Gastrointestinal: no abdominal pain, no heartburn, no coffee ground emesis, no hematemesis, no change in bowel habits, no constipation, no diarrhea/loose stools, no blood in stools and no melena Integumentary: no problem reported Psychiatric: no problem reported Hematologic / Lymphatic: no unexplained weight loss Physical Exam Constitutional: WD/WN, vitals as above well developed Neck: normal visual inspection Respiratory: normal respiratory effort, lungs clear to auscultation normal respiratory effort Cardiovascular: RRR, no murmur, no edema Extremities: no edema Gastrointestinal (Abdomen): normal bowel sounds, soft, nontender, no hepatosplenomegaly Inspection/Auscultation: abdomen normal to inspection Percussion/Palpation: abdomen soft; abdomen nontender Musculoskeletal: Head/Neck/Chest: normocephalic Psychiatric: A+Ox3, euthymic affect Results & Data ([facility]) Vital Signs (Past 12 Hours) Vital Signs Temp Pulse Pulse Resp BP BP Pulse Ox 12/07/20 07:15 36.7 C 82 17 152/79 H 94 12/07/20 03:40 36.6 C 81 15 158/80 H 94 12/07/20 03:20 36.8 C 82 16 168/85 H 93 12/07/20 02:33 36.8 C 79 16 155/80 H 93 12/07/20 01:33 36.8 C 83 16 134/71 94 12/07/20 01:03 36.7 C 76 16 158/83 H 96 12/07/20 00:48 36.7 C 80 18 147/81 H 96 12/07/20 00:32 36.6 C 79 16 158/83 H 98 12/07/20 00:12 36.7 C 71 14 161/63 H 95 12/07/20 00:06 36.7 C 86 18 148/73 H 96 12/07/20 00:00 78 12/06/20 23:06 36.9 C 77 18 156/76 H 96 12/06/20 22:20 81 12/06/20 22:10 74 19 95 12/06/20 22:06 36.6 C 78 18 138/71 93 12/06/20 22:05 79 20 96 12/06/20 22:00 85 15 150/74 H 96 12/06/20 21:45 76 15 119/56 L 93 Laboratory Results CBC reviewed Diagnostic Findings CT scan of abdomen/pelvis & head reviewed PG Care Time/CCT Total # of Minutes Spent Total Time Spent with Patient: Total time spent is greater than 50% in coordination of care (as documented) at patient's floor/unit and/or counseling patient: Coding Level of Care Code 91727 Initial Inpt Care Lvl 3 Diagnoses Acute upper gastrointestinal bleeding K92.2 Anemia D64.9 Anemia type: unspecified type (1) Anemia Anemia type: unspecified type Qualified Code(s): D64.9 - Anemia, unspecified
--- NOTE | 2020-12-07 10:41 | Pharmacy Report ---
Pharmacy Glycemic Short Note 2 - Date of Service December 07, 2020 - Glycemic Short BSG Results (Last 24 hours): 12/06/20 12/06/20 12/06/20 12:50 17:46 20:31 Glucose 176 H POC Glucose 169 H 155 H 12/07/20 12/07/20 04:58 06:13 Glucose 126 H POC Glucose 137 H OUTPATIENT ANTIDIABETIC REGIMEN: * Metformin * Glipizide * HbA1c 7.6% on 11/21/20 ASSESSMENT: * 80 yo M with well controlled T2DM per recent A1c admitted 12/06 with symptomatic anemia * Currently NPO - no Lantus at this time as BSG's have been in goal * Continue Novolog - currently similar to weight-based moderate stress estimate, but slightly tighter correction factor and slightly looser CHO ratio PLAN FOR INPATIENT GLYCEMIC CONTROL: * Hold outpatient oral diabetes medications * Basal insulin * None for now * Bolus insulin * NovoLog per scale ACHS or Q6hrs while NPO * Goal Range: Low 110 mg/dL - High 150 mg/dL * Correction Factor: 25 mg/dL/unit * Nutritional / Prandial insulin per carb ratio of 1 unit per 12 grams CHO consumed
[2020-12-07] MEDS ORDERED: PANTOprazole 40 MG in SYRINGE 0 ML IV SCH (11:00)
[2020-12-07] MEDS ORDERED: INSULIN ASPART 100 UNITS/ML 3 ML PEN SC SCH (12:00)
[2020-12-07] MEDS ORDERED: LIDOCAINE 2% 2 ML VIAL/AMP(20MG/ML) INFIL ONE (12:05)
[2020-12-07] MEDS ORDERED: PROPOFOL IV EMULSION 10 MG/ML 20 ML VIAL IV ONE ×3 (12:05→12:38)
--- NOTE | 2020-12-07 12:06 | Anesthesiology Consultation ---
Date of Service December 07, 2020 Assessment & Plan (1) Encounter for pre-operative examination: Chart Review Chart Review: Acceptable Risk for Surgery and Patient NOT seen in Pre Admission Testing Consults Requested none ASA ASA4 Proposed Anesthesia Anesthesia Type: MAC Risk / Benefits Reviewed With: PT / POA / Parent / Guardian, Accepts Plan and Informed Consent Obtained History Surgery Operation Date: 12/07/20 16:40 Proposed Procedures p Esophagogastroduodenoscopy Dr Savage - Rasheed Cole Case, DO Height/Weight Height: 5 ft 10 in Weight: 81.8 kg Allergies Allergy/AdvReac Type Severity Reaction Status Date / Time No Known Allergies Allergy Verified 12/06/20 14:26 Medications Home Medications Medication Instructions Recorded Confirmed Last Taken blood sugar diagnostic #10 ea 02/25/19 11/23/20 Unknown lancets 30 gauge #25 ea 02/25/19 11/23/20 Unknown doxazosin 2 mg tablet 2 mg PO BID #180 tab 02/15/20 12/06/20 12/05/20 metformin 500 mg tablet 1,000 mg PO BID #360 tab 02/15/20 12/06/20 12/05/20 glipizide 5 mg tablet 2.5 mg PO BID tab 04/18/20 12/06/20 12/05/20 coenzyme Q10 100 mg capsule 100 mg PO QAM 11/23/20 12/06/20 12/05/20 compress.stocking,knee,reg,lrg #2 ea 11/23/20 Unknown furosemide 40 mg tablet 40 mg PO BID #60 tab 11/30/20 12/06/20 12/05/20 sacubitril 49 mg-valsartan 51 mg 1 tab PO BID #60 tab 11/30/20 12/06/20 12/05/20 tablet aspirin 81 mg PO QAM 12/06/20 12/06/20 12/05/20 diltiazem HCl 240 mg PO QAM 12/06/20 12/06/20 12/05/20 metoprolol succinate 100 mg PO QAM 12/06/20 12/06/20 12/05/20 psyllium husk [Metamucil] 0.52 g PO QAM 12/06/20 12/06/20 12/05/20 simvastatin 20 mg PO QAM 12/06/20 12/06/20 12/05/20 warfarin 5 mg PO PM 12/06/20 12/06/20 12/05/20 Active Medications Generic Name Dose Route Start Last Admin Trade Name Gerard PRN Reason Stop Dose Admin Doxazosin Mesylate 2 mg 12/06/20 21:00 12/07/20 08:48 Doxazosin Mesylate Tab 2 Mg Tab PO 01/05/21 20:59 2 mg BID HILDA Administration Furosemide 40 mg 12/06/20 21:00 12/07/20 08:48 Furosemide 40 Mg Tab PO 01/05/21 20:59 40 mg BID HILDA Administration Metoprolol Succinate 100 mg 12/07/20 09:00 12/07/20 08:48 Metoprolol Succ 50mg Ext Rel Tab PO 01/06/21 08:59 100 mg QAM HILDA Administration Past Medical History Medical History (Updated 12/07/20 @ 12:06 by Seb Choudhary MD) Anticoagulant long-term use Arteriosclerosis of coronary artery Arthralgia of multiple sites Atrial fibrillation Benign prostatic hyperplasia Chest wall pain, chronic Coronary artery disease involving coronary bypass graft Elevated serum creatinine Foot pain Hypercholesterolemia Hypertension Low back pain Pain, foot, left, chronic Rosacea Sciatica Type 2 diabetes mellitus Exercise / Class Metabolic Activity II 4-5 Yardwork/Stairs/Walk up hill Past Family History Family History Mother Cardiac disorder Hypertension Father Cardiac disorder Stroke Hypertension Grandmother (Maternal) Stroke Past Surgical History Surgical History H/O oral surgery History of ankle surgery History of coronary artery bypass graft Past Anesthesia History No Hx of Anesthesia Complications and No Family Hx of Anesthesia Complications History of PONV No Hx of PONV and No Hx of Motion Sickness Social History Smoking Status: Former smoker Hx Alcohol Use: Yes Hx Substance Use: No Physical Exam Vital Signs Last Vital Signs Temp 36.7 C 12/07/20 10:43 Pulse 84 12/07/20 10:43 Resp 20 12/07/20 10:43 BP 150/64 H 12/07/20 10:43 Pulse Ox 98 12/07/20 10:43 ENMT Mouth: no dentition abnormality Thyromental Distance: > or= 3.5 Finger Breadths Mallampati Class: II Neck normal visual inspection Respiratory normal respiratory effort Auscultation: lungs clear to auscultation bilaterally Cardiovascular Rate/Rhythm: regular rate and regular rhythm Extremities: + pedal edema (1+) Psychiatric Orientation: alert Lab Results Anesthesia Preop Results Results Anesthesia Widget: WBC 6.65 K/uL (4.8-10.8) 12/07/20 Hgb 8.4 g/dL (14.0-18.0) L 12/07/20 Hct 24.3 % (42-52) L 12/07/20 Plt 236 K/uL (130-400) 12/07/20 Na 140 mmol/L (136-145) 12/07/20 K 3.4 mmol/L (3.5-5.1) L 12/07/20 Cl 103 mmol/L (98-107) 12/07/20 CO2 33 mmol/L (21-32) H 12/07/20 BUN 31 mg/dl (7-18) H 12/07/20 Creat 1.17 mg/dl (0.6-1.4) 12/07/20 Glucose Level 126 mg/dl (70-99) H 12/07/20 PT 15.3 Seconds (9.0-12.0) H 12/07/20 PTT 44.7 Seconds (21.0-31.0) H 12/06/20 INR 1.6 (0.9-1.1) H 12/07/20 TSH 2.440 uIu/ml (0.300-4.500) 12/06/20 HA1c 6.1 % (4.5-5.6) H 12/07/20 Urine Color Yellow 12/06/20 Urine Appearance Clear (Clear) 12/06/20 Urine pH 7.0 (4.5-7.5) 12/06/20 Urine Specific [place] 1.014 (1.000-1.030) 12/06/20 Urine Protein Trace (Negative) H 12/06/20 Urine Glucose (UA) Negative (Negative) 12/06/20 Urine Ketones Negative (Negative) 12/06/20 Urine Blood 3+ (Negative) H 12/06/20 Urine Nitrite Negative (Negative) 12/06/20 Urine Bilirubin Negative (Negative) 12/06/20 Urine Urobilinogen Negative (Negative) 12/06/20 Urine Leukocyte Esterase Negative (Negative) 12/06/20 Urine WBC (Auto) 0 /hpf (0-5) 12/06/20 Urine RBC (Auto) >30 /hpf (0-4) H 12/06/20 Urine Hyaline Casts (Auto) 0 /lpf (0-5) 12/06/20 Urine Epithelial Cells (Auto) 0-5 /lpf (0-5) 12/06/20 Urine Bacteria (Auto) Negative (Negative) 12/06/20 COVID-19 PCR NEGATIVE (Negative) 12/06/20 Blood Type A Negative 12/06/20 Antibody Screen NEGATIVE 12/06/20 Testing Laboratory Results 12/07/20 04:58 12/07/20 04:58 PT 15.3 Seconds (9.0-12.0) H 12/07/20 04:58 INR 1.6 (0.9-1.1) H 12/07/20 04:58 APTT 44.7 Seconds (21.0-31.0) H 12/06/20 12:50 Hemoglobin A1c 6.1 % (4.5-5.6) H 12/07/20 04:58 Urine Color Yellow 12/06/20 15:15 Urine Appearance Clear (Clear) 12/06/20 15:15 Urine pH 7.0 (4.5-7.5) 12/06/20 15:15 Ur Specific [place] 1.014 (1.000-1.030) 12/06/20 15:15 Urine Protein Trace (Negative) H 12/06/20 15:15 Urine Glucose (UA) Negative (Negative) 12/06/20 15:15 Urine Ketones Negative (Negative) 12/06/20 15:15 Urine Nitrite Negative (Negative) 12/06/20 15:15 Ur Leukocyte Esterase Negative (Negative) 12/06/20 15:15 Urine WBC (Auto) 0 /hpf (0-5) 12/06/20 15:15 Urine RBC (Auto) >30 /hpf (0-4) H 12/06/20 15:15 U Hyaline Cast (Auto) 0 /lpf (0-5) 12/06/20 15:15 U Epithel Cells (Auto) 0-5 /lpf (0-5) 12/06/20 15:15 Urine Bacteria (Auto) Negative (Negative) 12/06/20 15:15 Blood Type A Negative 12/06/20 13:32 Antibody Screen NEGATIVE 12/06/20 13:32 12/07/20 12/07/20 11:19 06:13 POC Glucose 165 H 137 H
--- NOTE | 2020-12-07 12:44 | GI REPORT ---
Patient Name: Tono Brar Procedure Date: 12/07/2020 12:02 PM Date of : 1940 Admit Type: Inpatient Age: 80 Gender: Male Attending MD: Rasheed Savage DO Procedure: Upper GI endoscopy Providers: Rasheed Savage DO Referring MD: Mt Vasquez Indications: Acute post hemorrhagic anemia, Melena Medicines: Monitored Anesthesia Care Complications: No immediate complications. Estimated Blood Loss: Estimated blood loss: none. Procedure: Pre-Anesthesia Assessment: - Prior to the procedure, a History and Physical was performed, and patient medications and allergies were reviewed. The patient's tolerance of previous anesthesia was also reviewed. The risks and benefits of the procedure and the sedation options and risks were discussed with the patient. All questions were answered, and informed consent was obtained. Prior Anticoagulants: The patient has taken Coumadin (warfarin), last dose was 1 day prior to procedure. ASA Grade Assessment: IV - A patient with severe systemic disease that is a constant threat to life. After reviewing the risks and benefits, the patient was deemed in satisfactory condition to undergo the procedure. After obtaining informed consent, the endoscope was passed under direct vision. Throughout the procedure, the patient's blood pressure, pulse, and oxygen saturations were monitored continuously. The Endoscope was introduced through the mouth, and advanced to the second part of duodenum. The upper GI endoscopy was accomplished without difficulty. The patient tolerated the procedure well. Findings: The esophagus was normal. The stomach was normal. Two oozing cratered duodenal ulcers with adherent clot were found in the duodenal bulb. The largest lesion was 15 mm in largest dimension. Area was successfully injected with 5 mL of a 1:10,000 solution of epinephrine for hemostasis. Fulguration to ablate the lesion by heater probe was successful. Impression: - Normal esophagus. - Normal stomach. - Oozing duodenal ulcers with adherent clot. Injected. Treated with a heater probe. - No specimens collected. Recommendation: - [facility] patient to [facility] for [facility] care. - Clear liquid diet. - Give Protonix (pantoprazole): 8 mg/hr IV by continuous infusion for 3 days. - Check H. pylori stool Ag Rasheed Savage DO 12/07/2020 12:43:59 PM This report has been signed electronically. Note Initiated On: 12/07/2020 12:02 PM Number of Addenda: 0 I attest to the content of the Intraoperative Record and orders documented therein, exceptions below {[id number]}
--- NOTE | 2020-12-07 14:45 | Hospitalist Progress Note ---
Date of Service December 07, 2020 Assessment & Plan (1) Acute upper gastrointestinal bleeding: Tono is a 80 year old male with a history of reported PUD in the past, atrial fibrillation on chronic anticoagulation, CAD s/p CABG, HLD, HTN who presented to [facility] for two weeks of ongoing, but worsening weakness, dizziness, ambulatory difficulty, dyspnea on exertion, and GI discomfort; he was subsequently found to have acute blood loss anemia, suspected to be from duodenal ulcers. He is hemodynamically stable and s/p 2U pRBC in the ED. Upper GI Bleed -- secondary to duodenal ulcerations seen on EGD - In the setting of chronic warfarin anticoagulation and supratherapeutic INR (>7) on admission - EGD revealing of two bleeding duodenal ulcers that were cauterized - No chronic use of NSAIDs, steroids, alcohol - H. pylori stool antigen testing sent - Continue IV PPIs -- will proceed w/ boluses rather than gtt given HFrEF (LVEF 30-35%; severe inferior hypokinesis) - Clear liquid diet, advance as tolerated - Otherwise as below Acute Blood Loss Anemia -- normocytic; secondary to UGIB, as above - Hemodynamically stable since arrival - Approx. 2 weeks ago, Hgb noted at 14.2 (11/21) - On admission, Hgb noted to be 7.4 / symptomatic with +DESOUZA, +fatigue, +dizziness x 2 weeks - s/p 2U pRBC in the ED - Transfuse Hgb < 8 and symptomatic given CAD history Dizziness Occurring over the last several months without clear etiology -- before anemia (acute) was a concern CThead demonstrated no acute insult/lesions, however atrophic changes to the parenchyma and chronic small vessel ischemia are noted Electrolytes peering stable overall; vitamin b12 nml; B6 pending. TSH nml. In the setting of acute symptomatic anemia, difficult to assess until patient recovers. Once appropriate, should consider orthostatic vital signs, neurologic exam assessing for peripheral causes, Consider neurology consult either as inpatient or outpatient HFrEF Echo 11/21 demonstrating reduced left ventricular function, LVEF at 30 to 35%, global hypokinesis and severe hypokinesis at the inferior wall Continue Entresto Continue metoprolol, diltiazem Continue Lasix careful volume resuscitation if needed Chronic Medical Problems T2DM: Hold oral meds. Glycemic consult- thank you HTN: Continue entresto, metoprolol, diltiazem AFib: Continue metoprolol, diltiazem -- HOLD WARFARIN in setting of acute GIB -- can consider discussion about alternative forms of anticoagulation once acute concerns are passed Dispo: PCU FENGI: Clear liquid, advance as tolerated s/p procedure PPX: SCDs Code: FULL CODE (2) Anemia: (3) Weakness: (4) Supratherapeutic INR: (5) Dizziness: (6) Symptomatic anemia: (7) CHF (congestive heart failure): (8) ASCVD (arteriosclerotic cardiovascular disease): (9) Poor appetite: (10) Nausea: (11) Lower extremity edema: (12) SOB (shortness of breath): (13) Idiopathic polyneuropathy: (14) History of coronary artery bypass graft: (15) Arteriosclerosis of coronary artery: (16) Benign prostatic hyperplasia: (17) Hypertension: (18) Hypercholesterolemia: (19) Type 2 diabetes mellitus: (20) Atrial fibrillation: (21) Anticoagulant long-term use: Admission and Anticipated Discharge Date Admission Date: December 06, 2020 Supervising Physician Co-Signing Physician Notes Patient seen and examined with PGY-1 Dr. Pagan. Agree with history, exam findings, assessment and plan as outlined with the following updates. In brief, Mr. Coker is a 80 year old male with history of CHF (prior CABG many years ago), DME, HTN, Afib admitted with dizziness found to be anemic secondary to GI bleed. PCP Dr. Vasquez. Feeling well. Denies abdominal pain. 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 Did also speak with daughter, Anders. She reports family has noticed some changes in dad's memory and personality in the last several months. He is not as functional as he used to be. Mom has been looking into moving to a place like assisted living. Well appearing. Heart irregularly irregular. Systolic murmu. Lungs are clear to auscultation throughout. Abdomen is soft, nontender. 1. Symptomatic acute blood losss anemia secondary to GI bleed in the setting of supratherapeutic INR from warfarin use. S/p 2 units PRBCs with improvement in hemoglobin. 2. Duodenal ulcer x 2. Seen on EGD today. IV Protonix BID over gtt to minimize IVFs in the setting of stable CHF (EF 30-35%). Stool H. Pylori Ag pending. 3. Supratherapeutic INR in the setting of coumadin usage. INR 7 on admission. s/p FFP and vitamin K in the ED. INR today 1.6. Hold anticoagulation for now. 4. dizziness. may be from anemia, but dizziness/balance issue may have predated acute anemia. If no improvement once hgb has stabilized, consider additional imaging +/- neurology consult. 5. Abnl CT Head--chronic small vessel ischemia, possible prior lacunar infarct. Holding ASA. Already on statin, but can consider switching to a high intensity statin, especially in the setting of DM and prior CABG. 6. HFrEF. Not in exacerbation. Prior Echo with EF 30-35% with inferior wall motion abnormality. Continue home Entresto, metoprolol, lasix. 7. Afib. Rate controlled. Continue dilt. Holding anticoagulation. Does need anticaog given high risk for stroke in the future. Consider Xa inhibitor in the future. 8. DM. Holding home metfomrin and glipizide. Basal-bolus while here. A1C 6.1%. 9. HTN. Well controlled. Continue home medications as above. Dispo: pending clinical improvement. PT/OT to assist with discharge planning. Subjective Patient seen at the bedside this morning. History is obtained from both him and his , who participates over the phone. No significant additions to add to the HPI. Briefly, patient reports several months of decreased functionality, fatigue, appetite, and p.o. intake. Has also had increased episodes of dizziness. Then, over the last 2 weeks, became much worsefatigue was much more severe, developed dyspnea on exertion, develop stomach problemwhich she describes as certain foods not "sitting well" and feeling more bloated than usual. Otherwise, feels okay right now. Denies any pain. No shortness of breath. Dizziness not present at the time of the exam. Review of Systems Review of Systems: As per HPI Physical Exam Physical Exam: General: 80yoM who is sitting back in his hospital bed, relaxed, upon my arrival. He is in NAD HEENT: NCAT. Eyes - Sclera are white, anicteric, and without injection. Cardiac: Normal rate and irregular rhythm; S1 and S2 present with grade 1/6 CRISTIAN at the RUSB Pulmonary: Good respiratory effort with symmetric expansion of the chest. No use of accessory muscles. Lungs were clear to auscultation bilaterally with no crackles or wheezes. Abdominal: Abdomen was soft, nondistended, and non-tender to palpation. Results & Data Results & Data ([facility]) Vital Signs (Past 12 Hours) Vital Signs Temp Pulse Pulse Resp BP BP BP 12/07/20 13:19 78 16 166/83 H 12/07/20 13:00 80 16 166/83 H 12/07/20 12:47 36.5 C 73 16 144/74 H 12/07/20 11:56 36.8 C 85 16 190/88 H 12/07/20 10:43 36.7 C 84 20 150/64 H 12/07/20 07:15 36.7 C 82 17 152/79 H 12/07/20 03:40 36.6 C 81 15 158/80 H 12/07/20 03:20 36.8 C 82 16 168/85 H Pulse Ox 12/07/20 13:19 98 12/07/20 13:00 98 12/07/20 12:47 100 12/07/20 11:56 95 12/07/20 10:43 98 12/07/20 07:15 94 12/07/20 03:40 94 12/07/20 03:20 93 Resident Activity Tracking Resident Involvement: Resident Care Provided Care Provided: Adult Hospital Medicine (1) Anemia Anemia type: unspecified type Qualified Code(s): D64.9 - Anemia, unspecified
--- NOTE | 2020-12-07 15:00 | Anesthesiology Progress Note ---
Date of Service December 07, 2020 Anesthesia Post Procedure Vital Signs Vital Signs: Temp Pulse Pulse Resp BP BP BP 12/07/20 13:19 78 16 166/83 H 12/07/20 13:00 80 16 166/83 H 12/07/20 12:47 36.5 C 73 16 144/74 H 12/07/20 11:56 36.8 C 85 16 190/88 H 12/07/20 10:43 36.7 C 84 20 150/64 H 12/07/20 07:15 36.7 C 82 17 152/79 H 12/07/20 03:40 36.6 C 81 15 158/80 H 12/07/20 03:20 36.8 C 82 16 168/85 H 12/07/20 02:33 36.8 C 79 16 155/80 H 12/07/20 01:33 36.8 C 83 16 134/71 12/07/20 01:03 36.7 C 76 16 158/83 H 12/07/20 00:48 36.7 C 80 18 147/81 H 12/07/20 00:32 36.6 C 79 16 158/83 H 12/07/20 00:12 36.7 C 71 14 161/63 H 12/07/20 00:06 36.7 C 86 18 148/73 H 12/07/20 00:00 78 12/06/20 23:06 36.9 C 77 18 156/76 H 12/06/20 22:20 81 12/06/20 22:10 74 19 12/06/20 22:06 36.6 C 78 18 138/71 12/06/20 22:05 79 20 12/06/20 22:00 85 15 150/74 H 12/06/20 21:45 76 15 119/56 L 12/06/20 21:36 36.8 C 78 18 144/73 H 12/06/20 21:30 72 23 129/53 L 12/06/20 21:21 36.9 C 78 18 152/67 H 12/06/20 21:15 76 14 116/60 12/06/20 21:04 37.0 C 76 16 119/60 12/06/20 21:00 73 16 119/60 12/06/20 20:45 77 21 140/80 12/06/20 20:38 36.8 C 83 18 133/71 05/19/21 20:36 74 15 12/06/20 20:35 75 17 12/06/20 20:30 74 15 132/100 12/06/20 20:15 77 20 136/95 12/06/20 20:00 36.8 C 77 16 148/70 H 12/06/20 19:46 76 18 122/57 L 12/06/20 19:45 77 16 12/06/20 19:38 72 13 12/06/20 19:31 78 17 137/90 12/06/20 18:46 79 20 139/61 12/06/20 18:31 36.9 C 77 18 148/62 H 12/06/20 18:29 36.9 C 79 16 150/62 H 12/06/20 18:28 80 14 150/62 H 12/06/20 18:17 36.9 C 84 18 139/65 12/06/20 18:00 36.6 C 78 17 148/62 H 12/06/20 17:45 78 19 159/77 H 12/06/20 17:30 36.6 C 105 H 12 161/69 H 12/06/20 17:21 120/86 12/06/20 17:18 75 12/06/20 17:17 77 139/58 L 12/06/20 17:15 82 21 159/82 H 12/06/20 17:10 100 H 19 120/86 12/06/20 17:06 81 139/58 L 12/06/20 17:01 97 H 18 12/06/20 17:00 76 19 156/76 H 12/06/20 16:59 98 H 18 120/86 12/06/20 16:55 73 147/61 H 12/06/20 16:49 100 H 20 120/86 12/06/20 16:46 78 12/06/20 16:45 76 71 14 147/61 H 139/80 12/06/20 16:38 99 H 17 120/86 12/06/20 16:34 78 147/61 H 12/06/20 16:30 95 H 19 12/06/20 16:27 99 H 18 120/86 12/06/20 16:23 73 148/60 H 12/06/20 16:22 36.9 C 77 17 143/68 H 12/06/20 16:20 99 H 17 12/06/20 16:08 97 H 17 120/86 12/06/20 16:00 36.9 C 73 12 143/68 H 12/06/20 15:56 73 18 154/93 H 12/06/20 15:51 37.1 C 76 23 154/93 H 12/06/20 15:45 70 16 12/06/20 15:38 36.9 C 70 16 164/90 H 12/06/20 15:31 71 14 12/06/20 15:30 71 18 164/90 H 12/06/20 15:23 83 19 158/92 H 12/06/20 15:15 87 9 L Pulse Ox Pulse Ox 12/07/20 13:19 98 12/07/20 13:00 98 12/07/20 12:47 100 12/07/20 11:56 95 12/07/20 10:43 98 12/07/20 07:15 94 12/07/20 03:40 94 12/07/20 03:20 93 12/07/20 02:33 93 12/07/20 01:33 94 12/07/20 01:03 96 12/07/20 00:48 96 12/07/20 00:32 98 12/07/20 00:12 95 12/07/20 00:06 96 12/07/20 00:00 12/06/20 23:06 96 12/06/20 22:20 12/06/20 22:10 95 12/06/20 22:06 93 12/06/20 22:05 96 12/06/20 22:00 96 12/06/20 21:45 93 12/06/20 21:36 95 12/06/20 21:30 97 12/06/20 21:21 100 12/06/20 21:15 94 12/06/20 21:04 90 12/06/20 21:00 92 12/06/20 20:45 90 12/06/20 20:38 99 12/06/20 20:36 98 12/06/20 20:35 97 12/06/20 20:30 97 12/06/20 20:15 98 12/06/20 20:00 91 12/06/20 19:46 99 12/06/20 19:45 97 12/06/20 19:38 94 12/06/20 19:31 97 12/06/20 18:46 92 12/06/20 18:31 97 12/06/20 18:29 94 12/06/20 18:28 98 12/06/20 18:17 98 12/06/20 18:00 95 12/06/20 17:45 97 12/06/20 17:30 98 12/06/20 17:21 12/06/20 17:18 95 12/06/20 17:17 95 12/06/20 17:15 98 12/06/20 17:10 87 L 12/06/20 17:06 95 12/06/20 17:01 86 L 12/06/20 17:00 93 12/06/20 16:59 86 L 12/06/20 16:55 95 12/06/20 16:49 98 12/06/20 16:46 95 12/06/20 16:45 94 12/06/20 16:38 97 12/06/20 16:34 95 12/06/20 16:30 87 L 12/06/20 16:27 87 L 12/06/20 16:23 95 12/06/20 16:22 95 95 12/06/20 16:20 88 L 12/06/20 16:08 87 L 12/06/20 16:00 95 12/06/20 15:56 98 12/06/20 15:51 96 12/06/20 15:45 97 12/06/20 15:38 97 12/06/20 15:31 12/06/20 15:30 12/06/20 15:23 12/06/20 15:15 Transfer of Care Handoff Completed per policy Notes Mental Status: alert / awake / arousable Patient Amnestic to Procedure: Yes Nausea / Vomiting: adequately controlled Pain: adequately controlled Airway Patency, RR, SpO2: stable & adequate BP & HR: stable & adequate Hydration State: stable & adequate Anesthetic Complications: no major complications apparent
[2020-12-07 16:28] LABS: Hematocrit (blood only) 26.2 % (42-52); Hemoglobin 8.6 g/dL (14.0-18.0)
[2020-12-07] MEDS ORDERED: Nursing to Pharmacy Communication SCH (16:45)
[2020-12-07] MEDS: PANTOprazole 40 MG in SYRINGE 0 ML IV SCH (20:48)
[2020-12-08 06:17] LABS: Basophils # (auto) 0.01 K/uL (0-0.2); Basophils % (auto) 0.2 %; Eosinophils # (auto) 0.16 K/uL (0-0.5); Eosinophils % (auto) 2.7 %; Hematocrit (blood only) 23.7 % (42-52); Immature Granulocytes # (auto) 0.01 K/uL (0.00-0.02); Immature Granulocytes % (auto) 0.2 %; Lymphocytes % (auto) 20.2 %; Mean Corpuscular Hemoglobin 29.9 pg (25-34); Mean Corpuscular Hgb Conc 33.8 g/dL (32-36); Mean Corpuscular Volume 88.4 fL (80-100); Mean Platelet Volume 10.3 fL (7.4-10.4); Monocytes # (auto) 0.65 K/uL (0.11-0.59); Monocytes % (auto) 10.9 %; Neutrophils # (auto) 3.91 K/uL (1.4-6.5); Neutrophils % (auto) 65.8 %; Platelet Count 236 K/uL (130-400); RDW Coefficient of Variation 15.9 % (11.5-14.5); Red Blood Count 2.68 M/uL (4.7-6.1); White Blood Count 5.94 K/uL (4.8-10.8)
[2020-12-08 06:33] LABS: INR 1.4 (0.9-1.1); Prothrombin Time 13.7 Seconds (9.0-12.0)
[2020-12-08 06:58] LABS: Calcium 8.2 mg/dl (8.5-10.1); Creatinine Clr Calc Pharmacy 58.1 ml/min; Est GFR (Non-African American) 59.6 ml/min; Potassium 3.1 mmol/L (3.5-5.1)
[2020-12-08] MEDS: DOXAZosin MESYLATE TAB 2 MG TAB PO SCH ×2 (08:21→19:38)
[2020-12-08] MEDS: FUROSEMIDE 40 MG TAB PO SCH ×2 (08:22→19:38)
[2020-12-08] MEDS: METOPROLOL SUCC 50MG EXT REL TAB PO SCH (08:22)
[2020-12-08] MEDS: INSULIN ASPART 100 UNITS/ML 3 ML PEN SC SCH ×4 (08:23→21:28)
[2020-12-08] MEDS: PANTOprazole 40 MG in SYRINGE 0 ML IV SCH (08:24)
[2020-12-08] MEDS: POTASSIUM CHLORIDE CRTAB 20 MEQ TABCR PO SCH ×2 (10:06→19:59)
--- NOTE | 2020-12-08 10:29 | Pharmacy Report ---
Pharmacy Glycemic Short Note 2 - Date of Service December 08, 2020 - Glycemic Short BSG Results (Last 24 hours): 12/07/20 12/07/20 12/07/20 11:19 16:33 20:26 Glucose POC Glucose 165 H 338 H* 48 L* 12/07/20 12/07/20 12/08/20 20:27 20:44 05:42 Glucose 94 POC Glucose 49 L* 75 12/08/20 07:18 Glucose POC Glucose 131 H OUTPATIENT ANTIDIABETIC REGIMEN: * Metformin * Glipizide * HbA1c 7.6% on 11/21/20 ASSESSMENT: 12/08: * Patient did have one BSG in the 300s, received 12 units of novolog and subsequently went hypoglycemic. Although novolog scale was fairly conservative, will loosen further. Patient was ordered a diet yesterday at lunchtime. Will continue to defer basal insulin at this time and monitor BSG trends. 12/07 * 80 yo M with well controlled T2DM per recent A1c admitted 12/06 with symptomatic anemia * Currently NPO - no Lantus at this time as BSG's have been in goal * Continue Novolog - currently similar to weight-based moderate stress estimate, but slightly tighter correction factor and slightly looser CHO ratio PLAN FOR INPATIENT GLYCEMIC CONTROL: * Hold outpatient oral diabetes medications * Basal insulin * None for now * Bolus insulin * NovoLog per scale ACHS or Q6hrs while NPO * Goal Range: Low 110 mg/dL - High 150 mg/dL * Correction Factor: 30 mg/dL/unit * Nutritional / Prandial insulin per carb ratio of 1 unit per 14 grams CHO consumed
--- NOTE | 2020-12-08 10:36 | Gastroenterology Progress Note ---
Date of Service December 08, 2020 Assessment & Plan (1) Anemia: (2) Duodenal ulcer: -Would advise changing IV Protonix BID dosing to a continuous Protonix drip x [address] Pagan. -When discharged, will need Protonix 40 mg BID. -Follow H/H and monitor for s/s of further GI bleeding. -Avoid NSAIDs. -Supportive care per primary team. Admission and Anticipated Discharge Date Admission Date: December 06, 2020 Supervising Physician Co-Signing Physician Notes Agree with CARLITOS Aragon as above Abd: Soft, NT, ND, +BS Continue Protonix gtt for 72 hours, as per current guidelines, then Protonix 40 mg PO BID x8 weeks, then can decrease to Protonix 40 mg by mouth daily thereafter. Transfuse to maintain H/H around 8/24 Mr. Brar and his have several questions regarding discharge planning, which I will defer to the Hospitalist team and social media job titles at this time. Subjective Patient is a 80 yo male with anemia who underwent an EGD on 12/07/20 that indicated 2 oozing cratered duodenal ulcers with adherent clot in the duodenal bulb. The area was injected with epinephrine & heater probe ablation was performed. The patient denies any melena today. H/H at present is 8.0/23.7. INR is notably improved from where it was on admission. He is receiving Protonix via IV. He denies further issues at present. Review of Systems Constitutional: no fever and no chills Respiratory: no cough and no dyspnea Cardiovascular: no chest pain Gastrointestinal: no abdominal pain and no melena Physical Exam Constitutional: well developed Respiratory: normal respiratory effort Cardiovascular: Extremities: no edema Gastrointestinal (Abdomen): Inspection/Auscultation: abdomen normal to inspection Musculoskeletal: Head/Neck/Chest: normocephalic Psychiatric: A+Ox3, euthymic affect Results & Data Results & Data ([facility]) Vital Signs (Past 12 Hours) Vital Signs Temp Pulse Resp BP Pulse Ox 12/08/20 08:33 36.7 C 84 18 152/77 H 99 12/08/20 03:39 37.1 C 84 16 119/58 L 97 PG Care Time/CCT Total # of Minutes Spent Total Time Spent with Patient: Total time spent is greater than 50% in coordination of care (as documented) at patient's floor/unit and/or counseling patient: Coding Level of Care Code 57735 Subseq Hosp Care Lvl 3 Diagnoses Anemia D64.9 Anemia type: unspecified type Duodenal ulcer K26.9 (1) Anemia Anemia type: unspecified type Qualified Code(s): D64.9 - Anemia, unspecified
[2020-12-08] MEDS: PANTOprazole 40 MG in DEXTROSE 5% 100 ML IV SCH ×3 (11:17→20:34)
[2020-12-08 12:28] LABS: Hematocrit (blood only) 25.8 % (42-52); Hemoglobin 8.6 g/dL (14.0-18.0)
--- NOTE | 2020-12-08 17:34 | Hospitalist Progress Note ---
Date of Service December 08, 2020 Assessment & Plan (1) Acute upper gastrointestinal bleeding: Tono is a 80 year old male with a history of reported PUD in the past, atrial fibrillation on chronic anticoagulation, CAD s/p CABG, HLD, HTN who presented to [facility] for two weeks of ongoing, but worsening weakness, dizziness, ambulatory difficulty, dyspnea on exertion, and GI discomfort; he was subsequently found to have acute blood loss anemia, suspected to be from duodenal ulcers. He is hemodynamically stable and s/p 2U pRBC in the ED. Upper GI Bleed -- secondary to duodenal ulcerations seen on EGD - In the setting of chronic warfarin anticoagulation and supratherapeutic INR (>7) on admission - EGD revealing of two bleeding duodenal ulcers that were cauterized - No chronic use of NSAIDs, steroids, alcohol - H. pylori stool antigen testing sent - Continue gtt IV PPIs for 72 hours - Will require Protonix 40mg PO b.i.d. x 8 weeks, then decrease to 40 mg daily thereafater - Advance diet as tolerated - Otherwise as below Acute Blood Loss Anemia -- normocytic; secondary to UGIB, as above - Hemodynamically stable since arrival - Approx. 2 weeks ago, Hgb noted at 14.2 (11/21) - On admission, Hgb noted to be 7.4 / symptomatic with +DESOUZA, +fatigue, +dizziness x 2 weeks - s/p 2U pRBC in the ED - Hgb's persistently >8 since transfusions -- monitor - Transfuse Hgb < 8 and symptomatic given CAD history Dizziness / Ambulatory Dysfunction / Decreased Functional Status Occurring over the last several months without clear etiology -- before anemia (acute) was a concern CThead demonstrated no acute insult/lesions, however atrophic changes to the parenchyma and chronic small vessel ischemia are noted Electrolytes peering stable overall; vitamin b12 nml; B6 pending. TSH nml. In the setting of acute symptomatic anemia, difficult to assess until patient recovers. Once appropriate, should consider orthostatic vital signs, neurologic exam assessing for peripheral causes, Thorough discussion held with patient and his today regarding needs and goals for care going forward; endorses that his functional status at home has declined over the last several months, going up steps has become progressively more difficult, and the dizziness has continued. They are concerned about his dispositional planning and will what setting would be most appropriate for him. PT and OT actively seeing, initially recommending home. Will discuss with them tomorrow + CM -- especially now since the acute concerns with GI bleed are subsiding. If they do say that he is good for home, will discuss possible planning with patient's primary care physician and needs that may assist with him going forward. HFrEF Echo 11/21 demonstrating reduced left ventricular function, LVEF at 30 to 35%, global hypokinesis and severe hypokinesis at the inferior wall Continue Entresto Continue metoprolol, diltiazem Continue Lasix careful volume resuscitation if needed Chronic Medical Problems T2DM: Hold oral meds. Glycemic consult- thank you HTN: Continue entresto, metoprolol, diltiazem AFib: Continue metoprolol, diltiazem -- HOLD WARFARIN in setting of acute GIB -- can consider discussion about alternative forms of anticoagulation once acute concerns are passed Dispo: PCU FENGI: Advance per GI PPX: SCDs Code: FULL CODE (2) Anemia: (3) Weakness: (4) Supratherapeutic INR: (5) Dizziness: (6) Symptomatic anemia: (7) CHF (congestive heart failure): (8) ASCVD (arteriosclerotic cardiovascular disease): (9) Poor appetite: (10) Nausea: (11) Lower extremity edema: (12) SOB (shortness of breath): (13) Idiopathic polyneuropathy: (14) History of coronary artery bypass graft: (15) Arteriosclerosis of coronary artery: (16) Benign prostatic hyperplasia: (17) Hypertension: (18) Hypercholesterolemia: (19) Type 2 diabetes mellitus: (20) Atrial fibrillation: (21) Anticoagulant long-term use: Admission and Anticipated Discharge Date Admission Date: December 06, 2020 Supervising Physician Co-Signing Physician Notes Attending attestation Pt seen and examined in concert with Dr. Pagan. In agreement with the documented findings as noted in the resident documentation with any exceptions or additions as noted here. Resting comfortably in bed with minimal c/o pain, fatigue or weakness. Tolerating PT/OT well by report and would benefit from acute rehab services while inpatient. Spoke at length with patient and spouse regarding course of care including the impact of PT/OT assessment on placement to facility, the need for further management, the connection with care management, services and supplies and their ongoing home health evaluation. On examination, S1/S2 nl RRR no MCG. CTAB. Abd NT/ND BS+ve Acute GIB with blood loss anemia - gastroenterology - transition to protonix drip. Monitor H/H and for symptomatic GIB Chronic gait dysfunction and mood changes - PT/OT - case management consultation re: options for placement and safety. Discussion w/ PT/OT for course of rehab and expected recovery Else see resident documentation as noted. Total attending time spent including evaluation, management, counseling and care coordination elements as noted above: 65 minutes. Over 50% spent on counseling Subjective No acute events overnight. At the bedside this morning, patient reports feeling well. He is eager to participate in PT and OT. Denies any abdominal pain. Says he has not yet had a bowel movement. Denies any chest pain, palpitations, shortness of breath. Not getting lightheaded or dizzy. Review of Systems Review of Systems: As per HPI Physical Exam Physical Exam: General: 80yoM who is sitting back in his hospital bed, relaxed, upon my arrival. He is in NAD HEENT: NCAT. Eyes - Sclera are white, anicteric, and without injection. Cardiac: Normal rate and irregular rhythm; S1 and S2 present with grade 1/6 CRISTIAN at the RUSB Pulmonary: Good respiratory effort with symmetric expansion of the chest. No use of accessory muscles. Lungs were clear to auscultation bilaterally with no crackles or wheezes. Abdominal: Abdomen was soft, nondistended, and non-tender to palpation. Results & Data Results & Data ([facility]) Vital Signs (Past 12 Hours) Vital Signs Temp Pulse Pulse Resp BP Pulse Ox 12/08/20 16:00 87 12/08/20 14:48 36.7 C 109 H 20 170/82 H 98 12/08/20 11:27 36.8 C 85 19 162/85 H 93 12/08/20 08:33 36.7 C 84 18 152/77 H 99 Resident Activity Tracking Resident Involvement: Resident Care Provided Care Provided: Adult Hospital Medicine (1) Anemia Anemia type: unspecified type Qualified Code(s): D64.9 - Anemia, unspecified
[2020-12-09] MEDS: PANTOprazole 40 MG in DEXTROSE 5% 100 ML IV SCH ×5 (01:36→22:57)
[2020-12-09 06:05] LABS: Hematocrit (blood only) 24.8 % (42-52); Hemoglobin 8.2 g/dL (14.0-18.0); Mean Corpuscular Hgb Conc 33.1 g/dL (32-36); Mean Corpuscular Volume 90.8 fL (80-100); Mean Platelet Volume 10.4 fL (7.4-10.4); Platelet Count 273 K/uL (130-400); RDW Coefficient of Variation 15.9 % (11.5-14.5); RDW Standard Deviation 51.2 fL (36.4-46.3); Red Blood Count 2.73 M/uL (4.7-6.1); White Blood Count 6.13 K/uL (4.8-10.8)
[2020-12-09 06:18] LABS: INR 1.5 (0.9-1.1); Prothrombin Time 15.1 Seconds (9.0-12.0)
[2020-12-09 06:37] LABS: BUN Creatinine Ratio 11.4 (10-20); Calcium 8.3 mg/dl (8.5-10.1); Creatinine Clr Calc Pharmacy 53.8 ml/min; Est GFR (African American) 62.5 ml/min; Est GFR (Non-African American) 53.9 ml/min; Potassium 3.2 mmol/L (3.5-5.1)
[2020-12-09] MEDS: METOPROLOL SUCC 50MG EXT REL TAB PO SCH (08:55)
[2020-12-09] MEDS: FUROSEMIDE 40 MG TAB PO SCH ×2 (08:55→21:00)
[2020-12-09] MEDS: DOXAZosin MESYLATE TAB 2 MG TAB PO SCH ×2 (08:55→21:00)
[2020-12-09] MEDS: POTASSIUM CHLORIDE CRTAB 20 MEQ TABCR PO SCH ×2 (09:04→21:04)
[2020-12-09] MEDS: INSULIN ASPART 100 UNITS/ML 3 ML PEN SC SCH ×4 (09:20→21:02)
--- NOTE | 2020-12-09 12:29 | Pharmacy Report ---
Pharmacy Glycemic Short Note 2 - Date of Service December 09, 2020 - Glycemic Short BSG Results (Last 24 hours): 12/08/20 12/08/20 12/08/20 16:49 20:08 21:05 Glucose POC Glucose 142 H 236 H 231 H 12/09/20 12/09/20 12/09/20 05:30 07:14 11:22 Glucose 108 H POC Glucose 146 H 200 H OUTPATIENT ANTIDIABETIC REGIMEN: * Metformin * Glipizide * HbA1c 7.6% on 11/21/20 ASSESSMENT: 12/09: * Pt received total of 9 units of bolus insulin yesterday and no basal. * Fasting BSG was 108 mg/dl. Will continue without bolus insulin. * Pre-lunch BSGs yesterday and today are elevated ~200 mg/dl. Also HS BSG y ester was also high. Novolog parameters tightened. 12/08: * Patient did have one BSG in the 300s, received 12 units of novolog and subsequently went hypoglycemic. Although novolog scale was fairly c onservative, will loosen further. Patient was ordered a diet yesterday at lunchtime. Will continue to defer basal insulin at this time and monitor BSG trends. 12/07 * 80 yo M with well controlled T2DM per recent A1c admitted 12/06 with symptomatic anemia * Currently NPO - no Lantus at this time as BSG's have been in goal * Continue Novolog - currently similar to weight-based moderate stress estimate, but slightly tighter correction factor and slightly looser CHO ratio PLAN FOR INPATIENT GLYCEMIC CONTROL: * Hold outpatient oral diabetes medications * Basal insulin * None * Bolus insulin: CF and CR tightened * NovoLog per scale ACHS or Q6hrs while NPO * Goal Range: Low 110 mg/dL - High 150 mg/dL * Correction Factor: 25 mg/dL/unit * Nutritional / Prandial insulin per carb ratio of 1 unit per 10 grams CHO consumed
--- NOTE | 2020-12-09 15:01 | Hospitalist Progress Note ---
Date of Service December 09, 2020 Assessment & Plan (1) Acute upper gastrointestinal bleeding: Tono is a 80 year old male with a history of reported PUD in the past, atrial fibrillation on chronic anticoagulation, CAD s/p CABG, HLD, HTN who presented to [facility] for two weeks of ongoing, but worsening weakness, dizziness, ambulatory difficulty, dyspnea on exertion, and GI discomfort; he was subsequently found to have acute blood loss anemia, suspected to be from duodenal ulcers. He is hemodynamically stable and s/p 2U pRBC in the ED. Upper GI Bleed -- secondary to duodenal ulcerations seen on EGD - In the setting of chronic warfarin anticoagulation and supratherapeutic INR (>7) on admission - EGD revealing of two bleeding duodenal ulcers that were cauterized - No chronic use of NSAIDs, steroids, alcohol - H. pylori stool antigen -- pending stool collection - Continue gtt IV PPIs for 72 hours - Will require Protonix 40mg PO b.i.d. x 8 weeks, then decrease to 40 mg daily thereafter; f/u GI in one week as outpatient - Advance diet as tolerated - Otherwise as below Acute Blood Loss Anemia -- normocytic; secondary to UGIB, as above - Hemodynamically stable since arrival - Approx. 2 weeks ago, Hgb noted at 14.2 (11/21) - On admission, Hgb noted to be 7.4 / symptomatic with +DESOUZA, +fatigue, +dizziness x 2 weeks -- s/p 2U pRBC in the ED - Hgb's persistently >8 since transfusions -- monitor - Transfuse Hgb < 8 and symptomatic given CAD history Dizziness / Ambulatory Dysfunction / Decreased Functional Status Occurring over the last several months without clear etiology -- before anemia (acute) was a concern CThead demonstrated no acute insult/lesions, however atrophic changes to the parenchyma and chronic small vessel ischemia are noted -- vascular CI? Electrolytes peering stable overall; vitamin b12 nml; B6 pending. TSH nml. Thorough discussion held with patient and his 12/08 regarding needs and goals for care going forward; endorses that his functional status at home has declined over the last several months, going up steps has become progressively more difficult, and the dizziness has continued. They are concerned about his dispositional planning and what setting would be most appropriate for him. PT and OT actively seeing, recommending home with continued PT, OT. This discussion is ongoing. Will discuss with case management regarding thorough needs assessment with regards to optimizing success, decreasing barriers if they do go home - Consider neurology involvement moving forward HFrEF Echo 11/21 demonstrating reduced left ventricular function, LVEF at 30 to 35%, global hypokinesis and severe hypokinesis at the inferior wall Continue Entresto Continue metoprolol, diltiazem Continue Lasix Careful monitoring of volume status with ongoing gtt Chronic Medical Problems T2DM: Hold oral meds. Glycemic consult- thank you HTN: Continue entresto, metoprolol, diltiazem AFib: Continue metoprolol, diltiazem -- HOLD WARFARIN in setting of acute GIB -- can consider discussion about alternative forms of anticoagulation once acute concerns are passed Dispo: PCU FENGI: Advance per GI PPX: SCDs Code: FULL CODE (2) Anemia: (3) Weakness: (4) Supratherapeutic INR: (5) Dizziness: (6) Symptomatic anemia: (7) CHF (congestive heart failure): (8) ASCVD (arteriosclerotic cardiovascular disease): (9) Poor appetite: (10) Nausea: (11) Lower extremity edema: (12) SOB (shortness of breath): (13) Idiopathic polyneuropathy: (14) History of coronary artery bypass graft: (15) Arteriosclerosis of coronary artery: (16) Benign prostatic hyperplasia: (17) Hypertension: (18) Hypercholesterolemia: (19) Type 2 diabetes mellitus: (20) Atrial fibrillation: (21) Anticoagulant long-term use: Admission and Anticipated Discharge Date Admission Date: December 06, 2020 Supervising Physician Co-Signing Physician Notes Attending attestation Pt seen and examined in concert with Dr. Pagan. In agreement with the documented findings as noted in the resident documentation with any exceptions or additions as noted here. Per family, considerable improvement in mental acuity and function at bedside. Working with PT/OT with cane. Considerable resistance to the idea of moving bedroom to office (1st floor setup) and walking with assistive device (cane) which is concerning to pt's spouse, daughter, medical team. On examination, S1/S2 nl RRR no MCG. CTAB. Abd NT/ND BS+ve Acute GIB with blood loss anemia - gastroenterology - continue protonix drip to 72hr. Monitor H/H and for symptomatic GIB. F/U H. Pylori testing Chronic gait dysfunction and mood changes - PT/OT - case management consultation re: options for placement and safety. Else see resident documentation as noted. Subjective Patient seen at bedside this morning, no acute events overnight. He reports feeling well overall. Not getting lightheaded or dizzy when he goes to stand up and walk around. No shortness of breath with walking around. No pain or discomfort. Still has not had a bowel movement. Eager to learn more about H pylori as a possible cause. He does reflect on yesterday's conversation about dispositional planning and where would be most appropriate with him after, he says that he will do whatever his family and his physical and occupational therapists think are best for him. He is certainly nervous when it comes to reflecting on the past several months and noticing that he has had more ambulatory dysfunction than before. Review of Systems Review of Systems: Per HPI Physical Exam Physical Exam: General: 80yoM who is sitting back in his hospital bed, relaxed, upon my arrival. He is in NAD HEENT: NCAT. Eyes - Sclera are white, anicteric, and without injection. Cardiac: Normal rate and irregular rhythm; S1 and S2 present with grade 1/6 CRISTIAN at the RUSB Pulmonary: Good respiratory effort with symmetric expansion of the chest. No use of accessory muscles. Lungs were clear to auscultation bilaterally with no crackles or wheezes. Abdominal: Abdomen was soft, nondistended, and non-tender to palpation. Extremities: 1+ pitting edema in the lower extremities bilaterally. Results & Data Results & Data ([facility]) Vital Signs (Past 12 Hours) Vital Signs Temp Pulse Resp BP BP Pulse Ox 12/09/20 11:24 36.7 C 80 19 134/73 98 12/09/20 07:14 36.6 C 80 18 175/75 H 95 12/09/20 03:48 36.7 C 84 17 156/89 H 98 Resident Activity Tracking Resident Involvement: Resident Care Provided Care Provided: Adult Hospital Medicine (1) Anemia Anemia type: unspecified type Qualified Code(s): D64.9 - Anemia, unspecified
--- NOTE | 2020-12-09 15:47 | Gastroenterology Progress Note ---
Date of Service December 09, 2020 Assessment & Plan (1) Duodenal ulcer: s/p EGD with dual therapy and hemostasis. no further bleeding. on protonix drip. Recs: --complete 72 hours of protonix drip, then protonix 40 mg BID thereafter --follow up with Dr. Savage as an outpatient in 1 week --diet as tolerated --would benefit from neurology evaluation for his balance issues and falls, consider referral/consultation -trend H/H, transfuse prn Admission and Anticipated Discharge Date Admission Date: December 06, 2020 Subjective no events overnight, denies any dizziness, hematochezia or issues today. He does note recent falls and balance issues though as an outpatient Review of Systems Constitutional: no fever and no chills Respiratory: no cough, no dyspnea and no dyspnea on exertion Cardiovascular: no chest pain and no dyspnea Gastrointestinal: as per Subjective / HPI Psychiatric: no depression and no anxiety Physical Exam Constitutional: WD/WN, vitals as above Respiratory: normal respiratory effort, lungs clear to auscultation Cardiovascular: RRR, no murmur, no edema Gastrointestinal (Abdomen): normal bowel sounds, soft, nontender, no hepatosplenomegaly Musculoskeletal: no lower extremity edema, hematoma on left hip/qudriceps region Psychiatric: A+Ox3, euthymic affect Results & Data Results & Data ([facility]) Vital Signs (Past 12 Hours) Vital Signs Temp Pulse Resp BP BP Pulse Ox 12/09/20 15:32 36.6 C 96 H 19 151/92 H 97 12/09/20 11:24 36.7 C 80 19 134/73 98 12/09/20 07:14 36.6 C 80 18 175/75 H 95 12/09/20 03:48 36.7 C 84 17 156/89 H 98 PG Care Time/CCT Total # of Minutes Spent Total Time Spent with Patient: Total time spent is greater than 50% in coordination of care (as documented) at patient's floor/unit and/or counseling patient: Coding Level of Care Code 44158 Subseq Hosp Care Lvl 3 Diagnoses Duodenal ulcer K26.9
[2020-12-10] MEDS ORDERED: CALCIUM CARBONATE 500 MG CHEWABLE TAB PO PRN (01:36)
[2020-12-10] MEDS ORDERED: ALUMINUM/MAGNESIUM SUSP 30 ML UDC PO PRN (01:52)
[2020-12-10] MEDS ORDERED: FAMOTIDINE SUSP 20 MG/2.5 ML UDP PO STA (02:45)
[2020-12-10 03:17] LABS: Hemoglobin 8.6 g/dL (14.0-18.0)
[2020-12-10] MEDS: PANTOprazole 40 MG in DEXTROSE 5% 100 ML IV SCH ×5 (04:08→23:27)
[2020-12-10 05:46] LABS: Hematocrit (blood only) 25.2 % (42-52); Hemoglobin 8.5 g/dL (14.0-18.0); Mean Corpuscular Hgb Conc 33.7 g/dL (32-36); Mean Platelet Volume 10.3 fL (7.4-10.4); Platelet Count 276 K/uL (130-400); RDW Coefficient of Variation 15.6 % (11.5-14.5); RDW Standard Deviation 49.9 fL (36.4-46.3); Red Blood Count 2.83 M/uL (4.7-6.1); White Blood Count 8.57 K/uL (4.8-10.8)
[2020-12-10 06:24] LABS: BUN Creatinine Ratio 11.6 (10-20); Calcium 8.4 mg/dl (8.5-10.1); Creatinine Clr Calc Pharmacy 52.5 ml/min; Est GFR (African American) 60.7 ml/min; Est GFR (Non-African American) 52.4 ml/min; Potassium 3.6 mmol/L (3.5-5.1)
[2020-12-10] MEDS: INSULIN ASPART 100 UNITS/ML 3 ML PEN SC SCH ×4 (08:13→21:24)
[2020-12-10] MEDS: METOPROLOL SUCC 50MG EXT REL TAB PO SCH (08:28)
[2020-12-10] MEDS: FUROSEMIDE 40 MG TAB PO SCH ×2 (08:28→21:24)
[2020-12-10] MEDS: DOXAZosin MESYLATE TAB 2 MG TAB PO SCH ×2 (08:28→21:24)
[2020-12-10] MEDS: POTASSIUM CHLORIDE CRTAB 20 MEQ TABCR PO SCH ×2 (08:36→21:27)
[2020-12-10] MEDS ORDERED: LANTUS PER UNIT CHARGE SQ ONE (09:00)
[2020-12-10] MEDS ORDERED: INSULIN GLARGINE SOLOSTAR 100 UNITS/ML 3 ML PEN SC SCH (09:00)
--- NOTE | 2020-12-10 10:39 | Hospitalist Progress Note ---
Date of Service December 10, 2020 Assessment & Plan (1) Acute upper gastrointestinal bleeding: Tono is a 80 year old male with a history of reported PUD in the past, atrial fibrillation on chronic anticoagulation, CAD s/p CABG, HLD, HTN who presented to [facility] for two weeks of ongoing, but worsening weakness, dizziness, ambulatory difficulty, dyspnea on exertion, and GI discomfort; he was subsequently found to have acute blood loss anemia, suspected to be from duodenal ulcers. He is hemodynamically stable and s/p 2U pRBC in the ED. Upper GI Bleed -- secondary to duodenal ulcerations seen on EGD - In the setting of chronic warfarin anticoagulation and supratherapeutic INR (>7) on admission - EGD revealing of two bleeding duodenal ulcers that were cauterized - No chronic use of NSAIDs, steroids, alcohol - H. pylori stool antigen -- pending stool collection, nursing aware (added MiraLAX) - Continue gtt IV PPIs for 24 more hours (est. transition on 12/11 in AM) - Thereafter transition to Protonix 40mg PO b.i.d. x 8 weeks, then decrease to 40 mg daily thereafter; f/u GI in one week as outpatient - Pepsid IV p.r.n. for new-onset abdominal pain - Advance diet as tolerated per GI - Otherwise as below Acute Blood Loss Anemia -- normocytic; secondary to UGIB, as above - Hemodynamically stable since arrival - Approx. 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 Electrolytes peering stable overall; vitamin b12 nml; B6 pending. TSH nml. Thorough discussion held with patient and his 12/08 regarding needs and goals for care going forward; endorses that his functional status at home has declined over the last several months, going up steps has become progressively more difficult, and the dizziness has continued. They are concerned about his dispositional planning and what setting would be most appropriate for him. PT and OT actively seeing, recommending home with continued PT, OT. This discussion is ongoing. Will discuss with case management regarding thorough needs assessment with regards to optimizing success, decreasing barriers if they do go home - Patient reporting numerous falls (>4) over the last several months due to "balance problems." Says this has become much worse over the last few years. Wonder if some of functional decline has been secondary to pain/motor dif ficulties caused by these falls, or vice versa. - Discuss w/ case management re: thorough needs planning -- including transitioning 2-story home set-up to doing everything oon the first floor. - Per OT, family leaning towards frequent home health and regular PCP follow- ups, regular needs assessments - Consider neurology involvement moving forward HFrEF Echo 11/21 demonstrating reduced left ventricular function, LVEF at 30 to 35%, global hypokinesis and severe hypokinesis at the inferior wall Continue Entresto Continue metoprolol, diltiazem Continue Lasix Careful monitoring of volume status with ongoing gtt Chronic Medical Problems T2DM: Hold oral meds. Glycemic consult- thank you HTN: Continue entresto, metoprolol, diltiazem AFib: Continue metoprolol, diltiazem -- HOLD WARFARIN in setting of acute GIB -- can consider discussion about alternative forms of anticoagulation once acute concerns are passed Dispo: PCU --> [facility]: HH PPX: SCDs Code: FULL CODE (2) Anemia: (3) Weakness: (4) Supratherapeutic INR: (5) Dizziness: (6) Symptomatic anemia: (7) CHF (congestive heart failure): (8) ASCVD (arteriosclerotic cardiovascular disease): (9) Poor appetite: (10) Nausea: (11) Lower extremity edema: (12) SOB (shortness of breath): (13) Idiopathic polyneuropathy: (14) History of coronary artery bypass graft: (15) Arteriosclerosis of coronary artery: (16) Benign prostatic hyperplasia: (17) Hypertension: (18) Hypercholesterolemia: (19) Type 2 diabetes mellitus: (20) Atrial fibrillation: (21) Anticoagulant long-term use: Admission and Anticipated Discharge Date Admission Date: December 06, 2020 Supervising Physician Co-Signing Physician Notes Attending attestation Pt seen and examined in concert with Dr. Pagan. In agreement with the documented findings as noted in the resident documentation with any exceptions or additions as noted here. Episode of abdominal pain overnight which 'felt like his old ulcers' and faded with antacid therapy and has not recurrent following the two subsequent meals. BM without blood/tarry stool. Tolerating PT well and looking forward to going home. Per yesterday's conversation w/ family: considerable improvement in mental acuity and function at bedside. Considerable resistance to the idea of moving bedroom to office (1st floor setup) and walking with assistive device (cane) which is concerning to pt's spouse, daughter, medical team. On examination, S1/S2 nl RRR no MCG. CTAB. Abd NT/ND BS+ve Acute GIB with blood loss anemia - gastroenterology - continue protonix drip to 72hr (tomorrow). Monitor CBC. F/U H. Pylori testing Chronic gait dysfunction and mood changes - PT/OT - close coordination with case management to streamline discharge preparedness. Else see resident documentation as noted. Subjective Patient woke up in middle the night last night from severe, epigastric/right upper quadrant pain. He notes "it felt exactly like the pain I had with my first ulcers 15-20 years ago." He did have his first solid meal last night. He denies any nausea or vomiting around this time. He was given Maalox and Pepsid x 1 each with good relief of his symptoms over the following hour. This morning, he notes the pain is gone. Worried that he may have reopened up an ulcer. Denies BM yet. No chest pain, palpitations, shortness of breath. No lightheadedness/dizziness upon standing. No other concerns this AM. He does endorse that over the last several months, he thinks he may have had 4-5 falls in total at home from 'difficulties with my balance.' He said that this has been getting worse over the last several years. At some point, he fell onto his L hip, which left a big bruise. He recognizes the concern with this, as well as his 's. He is eager to move into a one-floor place. Review of Systems Review of Systems: as per HPI Physical Exam Physical Exam: General: 80yoM who is sitting back in his hospital bed, relaxed, upon my arrival. He is in NAD HEENT: NCAT. Eyes - Sclera are white, anicteric, and without injection. Cardiac: Normal rate and irregular rhythm; S1 and S2 present with grade 1/6 CRISTIAN at the RUSB Pulmonary: Good respiratory effort with symmetric expansion of the chest. No use of accessory muscles. Lungs were clear to auscultation bilaterally with no crackles or wheezes. Abdominal: Abdomen was soft, nondistended, and non-tender to palpation. Extremities: 1+ pitting edema in the lower extremities bilaterally. Derm: There is extensive ecchymoses overlying the left lateral hip/thigh. There is mild induration over the anterior surface over the rectus femoris. No TTP. Skin is otherwise well perfused. Results & Data Results & Data ([facility]) Vital Signs (Past 12 Hours) Vital Signs Temp Pulse Pulse Resp BP BP Pulse Ox 12/10/20 07:05 37.2 C 87 17 151/89 H 94 12/10/20 02:37 36.8 C 85 18 170/81 H 95 12/09/20 23:33 37.0 C 78 17 154/74 H 97 12/09/20 23:12 73 Resident Activity Tracking Resident Involvement: Resident Care Provided Care Provided: Adult Hospital Medicine (1) Anemia Anemia type: unspecified type Qualified Code(s): D64.9 - Anemia, unspecified
[2020-12-10] MEDS: POLYETHYLENE (MIRALAX) 17 GM PACK PO SCH (12:00)
--- NOTE | 2020-12-10 13:43 | Pharmacy Report ---
Pharmacy Glycemic Short Note 2 - Date of Service December 10, 2020 - Glycemic Short BSG Results (Last 24 hours): 12/09/20 12/09/20 12/10/20 16:33 20:21 05:24 Glucose 208 H POC Glucose 138 H 162 H 12/10/20 12/10/20 07:13 11:13 Glucose POC Glucose 220 H 198 H OUTPATIENT ANTIDIABETIC REGIMEN: * Metformin * Glipizide * HbA1c 7.6% on 11/21/20 ASSESSMENT: 12/10: * Pt received total of 17 units of insulin yesterday, all of which was bolus. * Fasting BSG today was elevated = 220 mg/dl. Added basal dose this AM. Will continue this. * Pt has started to eat better and this is probably why BSGs are trending up. Additionally pt is on a protonix drip that is mixed in dextrose. * Novolog parameters further tightened this AM to have better post-prandial coverage. 12/09: * Pt received total of 9 units of bolus insulin yesterday and no basal. * Fasting BSG was 108 mg/dl. Will continue without bolus insulin. * Pre-lunch BSGs yesterday and today are elevated ~200 mg/dl. Also HS BSG yesterday was also high. Novolog parameters tightened. 12/08: * Patient did have one BSG in the 300s, received 12 units of novolog and subsequently went hypoglycemic. Although novolog scale was fairly conservative, will loosen further. Patient was ordered a diet yesterday at lunchtime. Will continue to defer basal insulin at this time and monitor BSG trends. 12/07 * 80 yo M with well controlled T2DM per recent A1c admitted 12/06 with symptomatic anemia * Currently NPO - no Lantus at this time as BSG's have been in goal * Continue Novolog - currently similar to weight-based moderate stress estimate, but slightly tighter correction factor and slightly looser CHO ratio PLAN FOR INPATIENT GLYCEMIC CONTROL: * Hold outpatient oral diabetes medications * Basal insulin * Lantus 10 units SQ QAM * Bolus insulin: CF and CR tightened * NovoLog per scale ACHS or Q6hrs while NPO * Goal Range: Low 110 mg/dL - High 150 mg/dL * Correction Factor: 20 mg/dL/unit * Nutritional / Prandial insulin per carb ratio of 1 unit per 8 grams CHO consumed
[2020-12-11] MEDS: PANTOprazole 40 MG in DEXTROSE 5% 100 ML IV SCH ×3 (05:21→13:12)
[2020-12-11 06:59] LABS: Basophils # (auto) 0.01 K/uL (0-0.2); Basophils % (auto) 0.2 %; Eosinophils # (auto) 0.13 K/uL (0-0.5); Eosinophils % (auto) 2.5 %; Hematocrit (blood only) 24.2 % (42-52); Hemoglobin 8.1 g/dL (14.0-18.0); Immature Granulocytes # (auto) 0.02 K/uL (0.00-0.02); Immature Granulocytes % (auto) 0.4 %; Lymphocytes # (auto) 1.08 K/uL (1.2-3.4); Mean Corpuscular Hemoglobin 30.2 pg (25-34); Mean Corpuscular Hgb Conc 33.5 g/dL (32-36); Mean Corpuscular Volume 90.3 fL (80-100); Mean Platelet Volume 10.2 fL (7.4-10.4); Monocytes # (auto) 0.55 K/uL (0.11-0.59); Monocytes % (auto) 10.7 %; Neutrophils # (auto) 3.35 K/uL (1.4-6.5); Neutrophils % (auto) 65.2 %; Platelet Count 274 K/uL (130-400); RDW Coefficient of Variation 15.7 % (11.5-14.5); RDW Standard Deviation 51.4 fL (36.4-46.3); Red Blood Count 2.68 M/uL (4.7-6.1); White Blood Count 5.14 K/uL (4.8-10.8)
[2020-12-11] MEDS: INSULIN ASPART 100 UNITS/ML 3 ML PEN SC SCH ×3 (08:11→17:03)
[2020-12-11] MEDS: FUROSEMIDE 40 MG TAB PO SCH (08:12)
[2020-12-11] MEDS: METOPROLOL SUCC 50MG EXT REL TAB PO SCH (08:12)
[2020-12-11] MEDS: DOXAZosin MESYLATE TAB 2 MG TAB PO SCH (08:13)
[2020-12-11] MEDS: POLYETHYLENE (MIRALAX) 17 GM PACK PO SCH (08:24)
[2020-12-11] MEDS ORDERED: INSULIN GLARGINE SOLOSTAR 100 UNITS/ML 3 ML PEN SC SCH (09:00)
[2020-12-11] MEDS: POTASSIUM CHLORIDE CRTAB 20 MEQ TABCR PO SCH (09:08)
--- NOTE | 2020-12-11 17:10 | Discharge Summary ---
Date of Service December 11, 2020 Admission HPI Per Admitting Provider 80-year-old male has a history of atrial fibrillation and takes chronic oral anticoagulation with warfarin who presented to the emergency department with generalized weakness. Apparently the patient has had worsening symptoms for the last few months. During this time he was having decreased oral intake abdominal discomfort was placed on medications by his primary care physician which improved the symptoms.. Additional symptoms include difficulty ambulating dizziness and ataxia over the last few months. The patient himself states that he feels very off balance and he describes spinning sensation that occurs whether or not his eyes are open or closed. He denies having any headache. H He states he has been compliant with all of his outpatient medications with the exception of this morning because he did not want to take his medications. Admission Exam Per Admitting Provider The patient appeared well nourished and normally developed. Vital signs as documented. Head exam is normocephalic atraumatic Neck is without JVD, thyromegaly, or carotid bruits. Lungs are clear to auscultation, no focal loss of breath sounds Cardiac exam, Rhythm is regular.. No murmurs, rubs or gallops. Abdominal exam reveals normal bowel sounds, soft non tender, no masses Extremities are nonedematous and both pedal pulses are present Neurologic exam is alert and oriented, no focal loss of strength or sensation Skin is without bruises or rashes Psychologically is without concerns for anxiety or depression Principal Diagnosis Symptomatic anemia secondary to upper GI bleed Discharge Exam GENERAL: No acute distress. Well developed and well nourished. Vital signs reviewed as above. A/O x3. EYES: PERRLA. EOMI. Anicteric sclerae. HENT: Moist mucous membranes. RESPIRATORY: Clear to auscultation bilaterally. No wheezing, rales, or rhonchi. CARDIOVASCULAR: Regular rate and rhythm. No murmurs. ABDOMEN: Soft, non-tender and non-distended. Normal bowel sounds. EXTREMITIES: No edema. Non-tender. SKIN: Warm, dry. Cap refill < 2 seconds. NEUROLOGIC: A/O x3. No focal neurological deficits. PSYCHIATRIC: Cooperative. Appropriate mood and affect. Discharge Data Allergies Allergy/AdvReac Type Severity Reaction Status Date / Time No Known Allergies Allergy Verified 12/06/20 14:26 Consultations 12/06/20 13:53 ED Decision to Admit Stat 12/06/20 16:22 Consult Gastroenterology Routine Procedures Performed Operation Date: 12/07/20 16:40 Actual Procedures p EGD Hemostasis - Rasheed Cole Case, DO Ordered Studies 12/06/20 12:36 CT abd pelvis wo con Stat CT head/brain wo con Stat Hospital Course (1) Acute upper gastrointestinal bleeding: Tono is a 80 year old male with a history of reported PUD in the past, atrial fibrillation on chronic anticoagulation, CAD s/p CABG, HLD, HTN who presented to [facility] for two weeks of ongoing, but worsening weakness, dizziness, a mbulatory difficulty, dyspnea on exertion, and GI discomfort; he was subsequently found to have acute blood loss anemia, suspected to be from duodenal ulcers. He is hemodynamically stable and s/p 2U pRBC in the ED. Upper GI Bleed -- secondary to duodenal ulcerations seen on EGD - In the setting of chronic warfarin anticoagulation and supratherapeutic INR (>7) on admission - EGD revealing of two bleeding duodenal ulcers that were cauterized - No chronic use of NSAIDs, steroids, alcohol - H. pylori stool antigen -- stool collection, but result is pending - Started on Miralax while admitted - Received IV PPI and transitioned to po on discharge 12/11; specifically, transitioned to Protonix 40mg PO b.i.d. x 8 weeks, then decrease to 40 mg daily thereafter - Recommend that patient f/u GI in one week as outpatient Acute Blood Loss Anemia -- normocytic; secondary to UGIB, as above - Hemodynamically stable since arrival - Approx. 2 weeks ago, Hgb noted at 14.2 (11/21) - On admission, Hgb noted to be 7.4 / symptomatic with +DESOUZA, +fatigue, +dizziness x 2 weeks -- s/p 2U pRBC in the ED - Hgb's persistently >8 since transfusions - Orders placed for patient to have repeat H&H testing in 3 days prior to outpatient PCP f/u Dizziness / Ambulatory Dysfunction / Decreased Functional Status - Occurring over the last several months without clear etiology -- before anemia (acute) was a concern - CThead demonstrated no acute insult/lesions, however atrophic changes to the parenchyma and chronic small vessel ischemia are noted -- 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 - Electrolytes peering stable overall; vitamin b12 nml; B6 pending. TSH nml. - Thorough discussion held with patient and his 12/08 regarding needs and goals for care going forward; endorses that his functional status at home has declined over the last several months, going up steps has become progressively more difficult, and the dizziness has continued. They are concerned about his dispositional planning and what setting would be most appropriate for him. PT and OT actively seeing, recommending home with continued PT, OT. On discharge, patient was provided with script for outpatient PT. Patient also provided with script for DME bedside commode. - Patient reporting numerous falls (>4) over the last several months due to "balance problems." Says this has become much worse over the last few years. Wonder if some of functional decline has been secondary to pain/motor difficulties caused by these falls, or vice versa. - Consider neurology involvement moving forward HFrEF - Echo 11/21 demonstrating reduced left ventricular function, LVEF at 30 to 35%, global hypokinesis and severe hypokinesis at the inferior wall - Continue Entresto, metoprolol, diltiazem, and Lasix Chronic Medical Problems T2DM: Oral meds held during admission. On discharge, patient restarted on home medications. HTN: Continue entresto, metoprolol, diltiazem. AFib: Continue metoprolol, diltiazem -- HOLD WARFARIN in setting of acute GIB. Discussed with patient that warfarin will need to be held during period of healing ulcer, likely ~1-2 weeks but that this will be managed further by PCP. Can consider discussion about alternative forms of anticoagulation once acute concerns are passed (2) Anemia: (3) Weakness: (4) Supratherapeutic INR: (5) Dizziness: (6) Symptomatic anemia: (7) CHF (congestive heart failure): (8) ASCVD (arteriosclerotic cardiovascular disease): (9) Poor appetite: (10) Nausea: (11) Lower extremity edema: (12) SOB (shortness of breath): (13) Idiopathic polyneuropathy: (14) History of coronary artery bypass graft: (15) Arteriosclerosis of coronary artery: (16) Benign prostatic hyperplasia: (17) Hypertension: (18) Hypercholesterolemia: (19) Type 2 diabetes mellitus: (20) Atrial fibrillation: (21) Anticoagulant long-term use: Total Time Total Time Spent Total Time Spent (In Minutes): <30 Discharge Plan Discharge Items Patient Disposition: Home - Home Health Services Reason For Visit: SYMPTOMATIC ANEMIA Discharge Diagnosis: Upper GI bleed Condition on Discharge: Good Activity: Resume your previous activity Non-emergency contact: Primary Care Provider Call non-emergency contact if: you have any medication questions Follow-up/Referrals: Mt Vasquez MD [Primary Care Provider] - Diet: Carb Consistent or DM2 and Heart Healthy Ambulatory Orders: Hemoglobin and Hematocrit (Routine) Timeframe: 3 Days Location: Determined by Patient Ordered By: Wanda Moser Attending Provider Instructions: Mr. Brar, It was our pleasure to care for you at [facility] from 12/06/20 to 12/11/20. You initially presented to the ED with two weeks of ongoing, but worsening, weaknes s, dizziness, ambulatory difficulty, shortness of breath on exertion, and GI discomfort. While in the ED, you received 2 units of blood due to low blood counts. You were found to have an upper GI bleed due to ulcers seen on upper endoscopy. These ulcers were cauterized (the bleeding was stopped) during the procedure and they are now healing. You received IV pantoprazole (Protonix, an antacid m edication) for several days and on day of discharge have been switched to oral antacid. You should continue Protonix 40mg by mouth twice a day for 8 weeks, then decrease to Protonix 40mg by mouth once a day thereafter; this will be managed by your primary care doctor. You are also being started on Carafate (to help coat the lining in the stomach/ulcers); you should take this medication 4 times a day for 1 week. As we discussed, you should continue to HOLD your home Aspirin and Warfarin; this will be managed by your primary care doctor and you can expect to restart these medications over the next couple weeks. You have done well and are tolerating oral intake/diet well. For the anemia (low blood count), you received a blood transfusion in the ED (as noted above). Symptomatically, you have done well but your blood counts have remained on the lower side. At this point, we feel that it is safe for you to be discharged home but we do recommend that you have your blood counts rechecked in 3 days prior to your primary care doctor outpatient hospital follow up appointment. You were also evaluated by physical therapy and occupational therapy due to concerns of the ambulatory difficulty and functional status. PT and OT feel that it is safe for you to go home with outpatient home therapy services and regular primary care physician follow ups. Please follow up with your primary care doctor in 3 days. Return to the emergency department or call 911 if your symptoms return or if you have any concerning symptoms including shortness of breath, dizziness, difficulty walking. Pending Studies at Discharge: Yes Studies:: H. pylori stool ag Stand-Alone Forms: My [employer], Smoking Cessation Medications and DC Order Prescriptions: New sucralfate [Carafate] 1 gram tablet 1 g PO Q6H 7 Days Qty: 28 RF: 0 pantoprazole 40 mg tablet,delayed release (DR/EC) 40 mg PO BID 28 Days Qty: 56 RF: 1 (DME) Bed Side Commode Misc 1 ea .Route Q24H 360 Days Qty: 1 RF: 0 Continued doxazosin 2 mg tablet 2 mg PO BID Qty: 180 RF: 3 metformin 500 mg tablet 1,000 mg PO BID Qty: 360 RF: 3 (DME) compress.stocking,knee,reg,lrg Misc See Rx Instructions .ROUTE .MEDSUPPLY Qty: 2 RF: 0 coenzyme Q10 [CoQ-10] 100 mg capsule 100 mg PO QAM RF: 0 furosemide 40 mg tablet 40 mg PO BID Qty: 60 RF: 2 Entresto 49-51 mg tablet 1 tab PO BID Qty: 60 RF: 2 (DME) OneTouch Ultra Blue Test Strip strip See Dose Instructions .ROUTE .MEDSUPPLY Qty: 10 RF: 0 (DME) lancets [OneTouch Delica Lancets] 30 gauge misc See Dose Instructions .ROUTE .MEDSUPPLY Qty: 25 RF: 0 glipizide 5 mg tablet 2.5 mg PO BID RF: 0 psyllium husk [Metamucil] 0.52 gram Capsule 0.52 g PO QAM RF: 0 diltiazem HCl 240 mg capsule,extended release 24hr 240 mg PO QAM RF: 0 metoprolol succinate 100 mg tablet extended release 24 hr 100 mg PO QAM RF: 0 simvastatin 20 mg tablet 20 mg PO QAM RF: 0 Discontinued aspirin 81 mg Tablet,Delayed Release (Dr/Ec) 81 mg PO QAM RF: 0 warfarin 5 mg tablet 5 mg PO PM RF: 0 Discharge Orders: Discharge Order (Routine); Ordered 12/11/20 Ordered By: Raj Mcfarlane/Other Patient Handouts: Managing Type 2 Diabetes, A1C Admission Data Admit Date/Time: 12/06/20 14:46 Attending Provider: Saravanan Cheung Admit Provider: Trenton Suarez Primary Care Provider: Mt Vasquez Other Providers: Trenton Suarez ; Hussein,Rasheed Cole ; [place] Other Interventions: Discharge Summary Assessment (RN) Last Done: 12/11/20 16:33 Supervising Physician Co-Signing Physician Notes I personally examined the patient and verified all olivo points of history and exam, discussed case, and agree with decision making with Dr Garnett Feeling good overall. Feels up to going home. Is still weaker than he would like, but understands that it would be not possible to get him to inpatient rehab. Discussed plans, and he is amenable to an outpatient therapy plan. Vitals noted, in general he is awake and alert pleasant no distress. HEENT normocephalic atraumatic mucous membranes are moist. Breathing unlabored no accessory muscle use good effort. Skin shows no rashes no pallor or icterus. Neuro shows no focal deficits. Duodenal ulcer disease with acute blood loss anemianow stable. Home on twice daily Protonix. Hold aspirin and anticoagulation for now, continue to follow closely, likely resume 1 treatment in about 2 weeks, and as long as he stays stable resume the other week later. Would discuss with his PCP the feasibility of a DOAC versus resuming Coumadin and following closely. Weakness and unsteady gaitoutpatient PT referral, he would also like a home visit for in-home assessment, we discussed this is likely not going to be able to be done at the same time is doing outpatient PTbut that outpatient PT would have a better chance of strengthening, so if need be we will do this seque ntially. Stable for home, otherwise as above Resident Activity Tracking Resident Involvement: Resident Care Provided Care Provided: Adult Hospital Medicine
--- NOTE | 2020-12-11 17:56 | Billing Data ---
Date of Service December 11, 2020 Coding Level of Care Code D/C Day Management <30 mins
== END 2020-12-11 17:29 | disposition home health service (06) | DRG 813 ==
LOC: ED 12:13 → 1E 14:46 → SUATTDRO 14:46 → 1E 15:56 → 2S 22:20

== ENCOUNTER 2021-04-01 21:18 | Inpatient (IN) ==
[2021-04-01] MEDS ORDERED: CEFEPIME 2,000 MG/20 ML VIAL IV STA (21:52)
[2021-04-01] MEDS ORDERED: SODIUM CHLORIDE 0.9% 1000ML 1,000 ML IV SCH (22:00)
--- NOTE | 2021-04-01 22:31 | Emergency Department Note ---
Impression & Plan Weakness, NIGEL (acute kidney injury), Acute hyponatremia, Acute UTI ED Provider Note NAME: REJI GALLEGO AGE: 81 SEX: M : 1940 ARRIVES VIA: Ambulance INFORMANT: [Patient][] ED PROVIDER(S): [Burt Nicholas MD] CHIEF COMPLAINT: Weakness HISTORY OF PRESENT ILLNESS: The patient is an 81-year-old male who has had a decline in his strength for the last week. He has been more tired and fatigued. He has been sleeping a lot. In the last 3 days, things have really worsened. Tonight, he slid onto the floor because of his weakness. His urine has been strong smelling as per his . There has been no vomiting or diarrhea but his intake of liquids has been poor. She is concerned he could be dehydrated. There has been no cough, no vomiting or diarrhea. No rash. No documented fever but he has had some chills. The patient is vaccinated against COVID-19, no Covid exposures. REVIEW OF SYSTEMS: See HPI for pertinent positives and negatives. A total of ten systems were reviewed and were otherwise negative. PMHx/PSHx: See Below SOCIAL HISTORY: See Below. PHYSICAL EXAM: GENERAL: Patient is in no acute distress. HEENT: No acute trauma, normocephalic atraumatic, mucous membranes dry, no nasal congestion, no scleral icterus. NECK: No stridor, no adenopathy, no meningismus, trachea is midline. LUNGS: Clear to auscultation bilaterally, no wheeze, no rhonchi, breath sounds equal. HEART: 2/6 systolic murmur, irregular rhythm, normal rate. ABDOMEN: Soft, nontender, bowel sounds positive, no hernias, no peritonitis. EXTREMITIES: No cyanosis or edema, full range of motion of all the joints without pain or difficulty, no signs for acute trauma. NEUROLOGIC: Awake alert, no acute motor or sensory deficits, no focal weakness. No speech slur. SKIN: No rash, no jaundice, no diaphoresis. DIFFERENTIAL DIAGNOSIS: Sepsis, UTI, pneumonia, metabolic abnormality, electrolyte abnormalities, COVID- 19, cardiac sources, cellulitis, bacteremia, intracerebral event, toxicologic etiology, neurologic event, as well as other pathologies. EMERGENCY DEPARTMENT COURSE/PROCEDURES: ECG: Indication was weakness. The ECG shows what appears to be atrial fibrillation with a right bundle branch block. The rate is 91. There is no ST elevation. No PVCs. The QTc is 521. Compared to an ECG from 06 Dec 2020, there is no significant change. Continuous Cardiac Monitoring: An order was placed for continuous cardiac monitoring. The monitor shows a rate of 85 with atrial fibrillation. Critical Care Note: I have personally spent 51 minutes of critical care time in the direct management of this patient. This includes bedside care, int erpretation of diagnostic studies, and testing, discussion with consultants, patient, and family members, and other required patient management activities. This 51 minutes is in excess of all separately billable procedures. MEDICAL DECISION MAKING: There is a moderate leukocytosis which would be consistent with infection. Patient is anemic with a hemoglobin of 11.4. The anemia is not new. There is a normal platelet count. INR slightly elevated at 1.4. Sodium is low at 130. Potassium is low at 3.4. Creatinine was elevated 2.37, this is higher than his baseline creatinine value. Lactic acid level was elevated consistent with possible infection/sepsis. Magnesium was low at 1.6. No worrisome liver enzyme elevation. ECG shows what appears to be atrial fibrillation. There is no acute ischemia. Cardiac enzyme testing x1 is not consistent with acute cardiac injury. Urinalysis is consistent with infection. Covid testing is negative. Chest film shows some chronic findings, no obvious pneumonia. The patient received IV saline, 2 L. He was given IV Tylenol, IV cefepime. He received IV magnesium. The patient is in need of a hospital stay. He is dehydrated, hyponatremic, he has a UTI, there is some acute kidney injury. He is in no condition to be discharged. I did speak with the patient and case management. The on-call hospitalist was consulted. Past Med/Surg History Medical History Anemia From GI Bleed Anticoagulant long-term use hx -- has been on hold since October 2020 d/t the gastric ulcer Arteriosclerosis of coronary artery Atrial fibrillation Benign prostatic hyperplasia CHF (congestive heart failure) Follows with Dr. 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 Required: No Beliefs That Will Affect Care: None marital status: Current Living Situation: Spouse current occupational status: retired Feels Safe at Home: Yes Assistive Devices: Cane Allergies Allergies Allergy/AdvReac Type Severity Reaction Status Date / Time No Known Allergies Allergy Verified 04/01/21 21:36 Home Meds Home Medications Medication Instructions Recorded Confirmed coenzyme Q10 100 mg capsule 100 mg PO QAM 11/23/20 04/01/21 (CoQ-10) psyllium husk 0.52 gram capsule 0.52 g PO QAM 12/06/20 04/01/21 (Metamucil) doxazosin 2 mg tablet 2 mg PO HS 02/28/21 04/01/21 ferrous sulfate 325 mg (65 mg 325 mg PO BID 02/28/21 04/01/21 iron) tablet,delayed release pantoprazole 40 mg tablet,delayed 40 mg PO QAM 02/28/21 04/01/21 release Previous Rx's Medication Instructions Recorded compress.stocking,knee,reg,lrg #2 ea 11/23/20 Bed Side Commode #1 ea 12/11/20 lancets (OneTouch UltraSoft #100 ea 12/18/20 Lancets) blood-glucose meter (OneTouch #1 ea 12/25/20 Verio Flex Start) blood sugar diagnostic (OneTouch #2 box 12/27/20 Verio test strips) furosemide 40 mg tablet 40 mg PO BID #60 tab 12/28/20 glipizide 5 mg tablet 2.5 mg PO BID #90 tab 02/19/21 metformin 500 mg tablet 1,000 mg PO BID #360 tab 02/22/21 metoprolol succinate 100 mg 100 mg PO QAM #90 tab 02/22/21 tablet,extended release 24 hr simvastatin 20 mg tablet 20 mg PO QPM #90 tab 02/26/21 sacubitril 49 mg-valsartan 51 mg 1 tab PO BID #180 tab 03/23/21 tablet (Entresto) Results & Data (ED) Vital Signs Vital Signs - 24 hr 04/01/21 21:22 04/01/21 21:26 04/01/21 21:29 Temperature 38 C H Temperature Source Oral Pulse Rate 97 H 99 H Pulse Rate [Radial] Pulse Rate from SpO2 Sensor 99 H Respiratory Rate 30 H 30 H Respiratory Effort / Characteristics Blood Pressure 170/95 H 170/95 H Blood Pressure [Left Arm] Blood Pressure Mean 120 120 Blood Pressure Mean [Left Arm] Pulse Oximetry 93 92 Oxygen Delivery Method Room Air Room Air Sepsis Recent Fever Within 48 Hours Yes Sepsis New/Unexplained Change in Mental Status No Sepsis Action Taken by Nursing No Action Required 04/01/21 22:03 04/01/21 23:07 04/02/21 01:01 Temperature Temperature Source Pulse Rate 85 Pulse Rate [Radial] 85 Pulse Rate from SpO2 Sensor 81 Respiratory Rate 30 H 20 Respiratory Effort / Characteristics Non-Labored Spontaneous Non-Labored Blood Pressure 167/101 H Blood Pressure [Left Arm] 170/95 H Blood Pressure Mean 123 Blood Pressure Mean [Left Arm] 120 Pulse Oximetry 93 96 Oxygen Delivery Method Room Air Sepsis Recent Fever Within 48 Hours Sepsis New/Unexplained Change in Mental Status Sepsis Action Taken by Nursing 04/02/21 01:30 Temperature Temperature Source Pulse Rate 89 Pulse Rate [Radial] Pulse Rate from SpO2 Sensor 83 Respiratory Rate 24 Respiratory Effort / Characteristics Blood Pressure 165/102 H Blood Pressure [Left Arm] Blood Pressure Mean 123 Blood Pressure Mean [Left Arm] Pulse Oximetry 93 Oxygen Delivery Method Sepsis Recent Fever Within 48 Hours Sepsis New/Unexplained Change in Mental Status Sepsis Action Taken by Prison Medications Current Medication List: was personally reviewed by me Laboratory Data Attestation: I reviewed the patient's lab results. Result diagrams: 04/01/21 23:16 04/01/21 21:44 Lab Results 04/01/21 04/01/21 04/01/21 Range/Units 21:44 21:44 22:13 WBC (4.8-10.8) K/uL RBC (4.7-6.1) M/uL Hgb (14.0-18.0) g/dL Hct (42-52) % MCV (80-100) fL MCH (25-34) pg MCHC (32-36) g/dL RDW Std Deviation (36.4-46.3) fL RDW Coeff of Mario (11.5-14.5) % Plt Count (130-400) K/uL MPV (7.4-10.4) fL Immature Gran % (Auto) % Neut % (Auto) % Lymph % (Auto) % [place] % (Auto) % Eos % (Auto) % Baso % (Auto) % Neut # (Auto) (1.4-6.5) K/uL Lymph # (Auto) (1.2-3.4) K/uL [place] # (Auto) (0.11-0.59) K/uL Eos # (Auto) (0-0.5) K/uL Baso # (Auto) (0-0.2) K/uL Immature Gran # (Auto) (0.00-0.02) K/uL PT (9.0-12.0) Seconds INR (0.9-1.1) APTT (21.0-31.0) Seconds PTT Ratio Sodium 130 L (136-145) mmol/L Potassium 3.4 L (3.5-5.1) mmol/L Chloride 95 L (98-107) mmol/L Carbon Dioxide 21 (21-32) mmol/L Anion Gap 14.0 H (3-11) BUN 33 H (7-18) mg/dl Creatinine 2.37 H (0.6-1.4) mg/dl Est Cr Clr Drug Dosing 30.9 ml/min Est GFR ( Amer) 28.9 ml/min Est GFR (Non-Af Amer) 24.9 ml/min BUN/Creatinine Ratio 13.8 (10-20) Glucose 194 H (70-99) mg/dl Lactate 2.8 H* (0.4-2.0) mmol/L Calcium 9.0 (8.5-10.1) mg/dl Magnesium 1.6 L (1.8-2.4) mg/dl Total Bilirubin 2.4 H (0.2-1) mg/dl AST 16 (15-37) U/L ALT 21 (12-78) U/L Alkaline Phosphatase 97 (45-117) U/L Troponin I 0.023 (0-0.045) ng/ml Total Protein 7.1 (6.4-8.2) gm/dl Albumin 3.2 L (3.4-5.0) gm/dl Globulin 3.9 (2.5-4.0) gm/dl Albumin/Globulin Ratio 0.8 L (0.9-2) Procalcitonin 0.49 (0-0.5) ng/ml Urine Color Urine Appearance (Clear) Urine pH (4.5-7.5) Ur Specific [place] (1.000-1.030) Urine Protein (Negative) Urine Glucose (UA) (Negative) Urine Ketones (Negative) Urine Blood (Negative) Urine Nitrite (Negative) Urine Bilirubin (Negative) Urine Urobilinogen (Negative) Ur Leukocyte Esterase (Negative) Urine WBC (Auto) (0-5) /hpf Urine RBC (Auto) (0-4) /hpf U Hyaline Cast (Auto) (0-5) /lpf U Epithel Cells (Auto) (0-5) /lpf Urine Bacteria (Auto) (Negative) COVID-19 Eval Order SARS-CoV-2 (PCR) (Negative) 04/01/21 04/01/21 04/01/21 Range/Units 22:19 22:19 23:04 WBC (4.8-10.8) K/uL RBC (4.7-6.1) M/uL Hgb (14.0-18.0) g/dL Hct (42-52) % MCV (80-100) fL MCH (25-34) pg MCHC (32-36) g/dL RDW Std Deviation (36.4-46.3) fL RDW Coeff of Mario (11.5-14.5) % Plt Count (130-400) K/uL MPV (7.4-10.4) fL Immature Gran % (Auto) % Neut % (Auto) % Lymph % (Auto) % [place] % (Auto) % Eos % (Auto) % Baso % (Auto) % Neut # (Auto) (1.4-6.5) K/uL Lymph # (Auto) (1.2-3.4) K/uL [place] # (Auto) (0.11-0.59) K/uL Eos # (Auto) (0-0.5) K/uL Baso # (Auto) (0-0.2) K/uL Immature Gran # (Auto) (0.00-0.02) K/uL PT (9.0-12.0) Seconds INR (0.9-1.1) APTT (21.0-31.0) Seconds PTT Ratio Sodium (136-145) mmol/L Potassium (3.5-5.1) mmol/L Chloride (98-107) mmol/L Carbon Dioxide (21-32) mmol/L Anion Gap (3-11) BUN (7-18) mg/dl Creatinine (0.6-1.4) mg/dl Est Cr Clr Drug Dosing ml/min Est GFR ( Amer) ml/min Est GFR (Non-Af Amer) ml/min BUN/Creatinine Ratio (10-20) Glucose (70-99) mg/dl Lactate (0.4-2.0) mmol/L Calcium (8.5-10.1) mg/dl Magnesium (1.8-2.4) mg/dl Total Bilirubin (0.2-1) mg/dl AST (15-37) U/L ALT (12-78) U/L Alkaline Phosphatase (45-117) U/L Troponin I (0-0.045) ng/ml Total Protein (6.4-8.2) gm/dl Albumin (3.4-5.0) gm/dl Globulin (2.5-4.0) gm/dl Albumin/Globulin Ratio (0.9-2) Procalcitonin (0-0.5) ng/ml Urine Color Dark Yellow Urine Appearance Cloudy A (Clear) Urine pH 5.0 (4.5-7.5) Ur Specific [place] 1.013 (1.000-1.030) Urine Protein 2+ H (Negative) Urine Glucose (UA) Negative (Negative) Urine Ketones Negative (Negative) Urine Blood 2+ H (Negative) Urine Nitrite Negative (Negative) Urine Bilirubin Negative (Negative) Urine Urobilinogen Negative (Negative) Ur Leukocyte Esterase 2+ H (Negative) Urine WBC (Auto) >30 H (0-5) /hpf Urine RBC (Auto) 5-10 H (0-4) /hpf U Hyaline Cast (Auto) 5-10 H (0-5) /lpf U Epithel Cells (Auto) 0-5 (0-5) /lpf Urine Bacteria (Auto) 4+ H (Negative) COVID-19 Eval Order Covid19 at [facility] SARS-CoV-2 (PCR) NEGATIVE (Negative) 04/01/21 04/01/21 Range/Units 23:16 23:16 WBC 15.08 H (4.8-10.8) K/uL RBC 3.91 L (4.7-6.1) M/uL Hgb 11.4 L (14.0-18.0) g/dL Hct 33.9 L (42-52) % MCV 86.7 (80-100) fL MCH 29.2 (25-34) pg MCHC 33.6 (32-36) g/dL RDW Std Deviation 50.9 H (36.4-46.3) fL RDW Coeff of Mario 15.9 H (11.5-14.5) % Plt Count 208 (130-400) K/uL MPV 11.1 H (7.4-10.4) fL Immature Gran % (Auto) 0.4 % Neut % (Auto) 88.7 % Lymph % (Auto) 7.6 % [place] % (Auto) 3.2 % Eos % (Auto) 0.0 % Baso % (Auto) 0.1 % Neut # (Auto) 13.37 H (1.4-6.5) K/uL Lymph # (Auto) 1.15 L (1.2-3.4) K/uL [place] # (Auto) 0.49 (0.11-0.59) K/uL Eos # (Auto) 0.00 (0-0.5) K/uL Baso # (Auto) 0.01 (0-0.2) K/uL Immature Gran # (Auto) 0.06 H (0.00-0.02) K/uL PT 14.0 H (9.0-12.0) Seconds INR 1.4 H (0.9-1.1) APTT 32.0 H (21.0-31.0) Seconds PTT Ratio 1.2 Sodium (136-145) mmol/L Potassium (3.5-5.1) mmol/L Chloride (98-107) mmol/L Carbon Dioxide (21-32) mmol/L Anion Gap (3-11) BUN (7-18) mg/dl Creatinine (0.6-1.4) mg/dl Est Cr Clr Drug Dosing ml/min Est GFR ( Amer) ml/min Est GFR (Non-Af Amer) ml/min BUN/Creatinine Ratio (10-20) Glucose (70-99) mg/dl Lactate (0.4-2.0) mmol/L Calcium (8.5-10.1) mg/dl Magnesium (1.8-2.4) mg/dl Total Bilirubin (0.2-1) mg/dl AST (15-37) U/L ALT (12-78) U/L Alkaline Phosphatase (45-117) U/L Troponin I (0-0.045) ng/ml Total Protein (6.4-8.2) gm/dl Albumin (3.4-5.0) gm/dl Globulin (2.5-4.0) gm/dl Albumin/Globulin Ratio (0.9-2) Procalcitonin (0-0.5) ng/ml Urine Color Urine Appearance (Clear) Urine pH (4.5-7.5) Ur Specific [place] (1.000-1.030) Urine Protein (Negative) Urine Glucose (UA) (Negative) Urine Ketones (Negative) Urine Blood (Negative) Urine Nitrite (Negative) Urine Bilirubin (Negative) Urine Urobilinogen (Negative) Ur Leukocyte Esterase (Negative) Urine WBC (Auto) (0-5) /hpf Urine RBC (Auto) (0-4) /hpf U Hyaline Cast (Auto) (0-5) /lpf U Epithel Cells (Auto) (0-5) /lpf Urine Bacteria (Auto) (Negative) COVID-19 Eval Order SARS-CoV-2 (PCR) (Negative) Administered Medications Discontinued Medications Acetaminophen (Acetaminophen 1000 Mg/100 Ml Iv) 1,000 mg IV NOW STA Stop: 04/02/21 00:26 Last Admin: 04/02/21 00:36 Dose: 1,000 mg Documented by: [id number] Sodium Chloride (Nss 1000ml) 1,000 mls @ 999 mls/hr IV .Q1H1M HILDA Stop: 04/01/21 23:00 Last Infusion: 04/01/21 23:06 Dose: 0 mls/hr Documented by: [id number] Admin: 04/01/21 21:50 Dose: 999 mls/hr Documented by: [id number] Cefepime HCl (Maxipime) 2,000 mg in 20 mls @ 5 mls/min IV NOW STA; Protocol Stop: 04/01/21 21:55 Last Admin: 04/01/21 22:59 Dose: 5 mls/min Documented by: [id number] Magnesium Sulfate/Dextrose (Magnesium Sulfate / D5w) 1 gm in 100 mls @ 100 mls/hr IV NOW STA Stop: 04/01/21 23:48 Last Infusion: 04/01/21 23:06 Dose: 0 mls/hr Documented by: [id number] Admin: 04/01/21 22:59 Dose: 100 mls/hr Documented by: [id number] Sodium Chloride (Nss 1000ml) 1,000 mls @ 999 mls/hr IV .Q1H1M ONE Stop: 04/02/21 01:25 Last Infusion: 04/02/21 01:41 Dose: 0 mls/hr Documented by: [id number] Admin: 04/02/21 00:36 Dose: 999 mls/hr Documented by: [id number] Imaging Data Attestation: I personally reviewed and interpreted this imaging study as follows: My Impression: Chest x-ray: There is some chronic congestion at the left base. Some mild cardiomegaly was noted. No obvious focal infiltrate. No CHF or pneumothorax. Discharge Plan Visit Data Chief Complaint: Weakness Stated Complaint: WEAKNESS, NAUSEA, UNABLE TO AMBULATE ED Provider: Burt Nicholas Discharge Problem: Weakness, NIGEL (acute kidney injury), Acute hyponatremia, Acute UTI Patient Disposition: Admitted As Inpatient Condition: Fair Forms Stand Alone Forms: My [facility] Prescriptions Prescriptions: No Action (DME) compress.stocking,knee,reg,lrg Misc See Rx Instructions .ROUTE .MEDSUPPLY Qty: 2 RF: 0 (DME) OneTouch Verio test strips Strip See Rx Instructions .ROUTE .MEDSUPPLY Qty: 2 RF: 3 furosemide 40 mg tablet 40 mg PO BID Qty: 60 RF: 2 glipizide 5 mg tablet 2.5 mg PO BID Qty: 90 RF: 3 metformin 500 mg tablet 1,000 mg PO BID Qty: 360 RF: 3 metoprolol succinate 100 mg tablet extended release 24 hr 100 mg PO QAM Qty: 90 RF: 3 simvastatin 20 mg tablet 20 mg PO QPM Qty: 90 RF: 3 Entresto 49-51 mg tablet 1 tab PO BID Qty: 180 RF: 3 coenzyme Q10 [CoQ-10] 100 mg capsule 100 mg PO QAM RF: 0 (DME) lancets [OneTouch UltraSoft Lancets] Misc See Rx Instructions .ROUTE .MEDSUPPLY Qty: 100 RF: 0 (DME) blood-glucose meter [OneTouch Verio Flex Start] Kit See Rx Instructions .ROUTE .MEDSUPPLY Qty: 1 RF: 0 pantoprazole 40 mg tablet,delayed release (DR/EC) 40 mg PO QAM RF: 0 ferrous sulfate 325 mg (65 mg iron) tablet,delayed release (DR/EC) 325 mg PO BID RF: 0 doxazosin 2 mg tablet 2 mg PO HS RF: 0 psyllium husk [Metamucil] 0.52 gram Capsule 0.52 g PO QAM RF: 0 (DME) Bed Side Commode Misc 1 ea .Route Q24H 360 Days Qty: 1 RF: 0 Referrals Referrals: Jessica Silverman CRNP [Primary Care Provider] -
[2021-04-01 22:45] LABS: Albumin Level 3.2 gm/dl (3.4-5.0); BUN Creatinine Ratio 13.8 (10-20); Creatinine Clr Calc Pharmacy 30.9 ml/min; Est GFR (African American) 28.9 ml/min; Est GFR (Non-African American) 24.9 ml/min; Magnesium 1.6 mg/dl (1.8-2.4); Potassium 3.4 mmol/L (3.5-5.1)
[2021-04-01] MEDS ORDERED: MAGNESIUM SULFATE / D5W 1 GM/100 ML BAG IV STA (22:49)
[2021-04-01 22:50] LABS: Albumin Globulin Ratio 0.8 (0.9-2); Bilirubin,Total 2.4 mg/dl (0.2-1); Globulin 3.9 gm/dl (2.5-4.0); Total Protein 7.1 gm/dl (6.4-8.2); Troponin I 0.023 ng/ml (0-0.045)
[2021-04-01 23:20] LABS: Appearance Urine Cloudy (Clear); Bacteria Urine Automated 4+ (Negative); Bilirubin Urine Negative (Negative); Blood Urine 2+ (Negative); Color Urine Dark Yellow; Epithelial Cell Urine Auto 0-5 /lpf (0-5); Glucose Urine UA Negative (Negative); Ketones Urine Negative (Negative); Leukocyte Esterase Urine 2+ (Negative); Nitrite Urine Negative (Negative); Protein Urine 2+ (Negative); Specific Gravity Urine 1.013 (1.000-1.030); Urobilinogen Urine Negative (Negative); WBC Urine Automated >30 /hpf (0-5)
[2021-04-01 23:27] LABS: Basophils # (auto) 0.01 K/uL (0-0.2); Basophils % (auto) 0.1 %; Hematocrit (blood only) 33.9 % (42-52); Hemoglobin 11.4 g/dL (14.0-18.0); Immature Granulocytes # (auto) 0.06 K/uL (0.00-0.02); Immature Granulocytes % (auto) 0.4 %; Lymphocytes # (auto) 1.15 K/uL (1.2-3.4); Lymphocytes % (auto) 7.6 %; Mean Corpuscular Hemoglobin 29.2 pg (25-34); Mean Corpuscular Hgb Conc 33.6 g/dL (32-36); Mean Corpuscular Volume 86.7 fL (80-100); Mean Platelet Volume 11.1 fL (7.4-10.4); Monocytes # (auto) 0.49 K/uL (0.11-0.59); Monocytes % (auto) 3.2 %; Neutrophils # (auto) 13.37 K/uL (1.4-6.5); Neutrophils % (auto) 88.7 %; Platelet Count 208 K/uL (130-400); RDW Coefficient of Variation 15.9 % (11.5-14.5); RDW Standard Deviation 50.9 fL (36.4-46.3); Red Blood Count 3.91 M/uL (4.7-6.1); White Blood Count 15.08 K/uL (4.8-10.8)
[2021-04-01 23:37] LABS: INR 1.4 (0.9-1.1); Partial Thromboplastin Ratio 1.2
[2021-04-02] MEDS ORDERED: ACETAMINOPHEN 1000 MG/100 ML IV IV STA (00:25)
[2021-04-02] MEDS ORDERED: SODIUM CHLORIDE 0.9% 1000ML 1,000 ML IV ONE (00:25)
--- NOTE | 2021-04-02 00:36 | History & Physical Report ---
Date of Service April 02, 2021 Assessment & Plan (1) UTI (urinary tract infection): Plan: 81 yo m w/ pMHx. 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 - given Cefepime in the ER - transitioned to Ceftriaxone - continue fluids w/ LR @ 125/hr for 1L - holding Lasix while giving fluid - bladder scan as needed - continue to trend CBC, lactate - follow up urine and blood cultures NIGEL on CKD III Cr. 2.37 up from prior 1.49 likely related to dehydration in the setting of poor oral intake and Lasix use - IVF as above, holding Lasix - continue to follow bmp HFrEF (30-35% in November) - continue Entresto - continue Metoprolol - holding Lasix as above DM II complicated by neuropathy - SSI order set utilized - continue to follow bsg and adjust as needed Anemia, normocytic appears stable from prior w/ hgb at 11, potentially contributing to weakness and fatigue - continue to follow Hx. 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 He is presenting today with his for weakness and confusion. He has been having decreased strength over the last week along with not feeling well and sleeping more. He did improve mid- week and then worsened over the weekend. 9/12 in the evening he was not able to get into bed and slid to the floor without hitting his head. He has not been eating well over the last week with a decreased appetite. He has not had pain with urination but has noted increased urgency and he has chronic incontinence that has been unchanged over the last week. He does have darker urine. would like to be updated with any changes #[phone] ED course: IVF, Cefepime, Mg., IVF, urine culture, blood cultures Allergies Allergy/AdvReac Type Severity Reaction Status Date / Time No Known Allergies Allergy Verified 04/01/21 21:36 Home Medications Medication Instructions Recorded Confirmed Type coenzyme Q10 100 mg capsule 100 mg PO QAM 11/23/20 04/01/21 History (CoQ-10) compress.stocking,knee,reg,lrg #2 ea 11/23/20 03/19/21 Rx psyllium husk 0.52 gram capsule 0.52 g PO QAM 12/06/20 04/01/21 History (Metamucil) Bed Side Commode #1 ea 12/11/20 03/19/21 Rx lancets (OneTouch UltraSoft #100 ea 12/18/20 03/19/21 Rx Lancets) blood-glucose meter (OneTouch #1 ea 12/25/20 03/19/21 Rx Verio Flex Start) blood sugar diagnostic (OneTouch #2 box 12/27/20 03/19/21 Rx Verio test strips) furosemide 40 mg tablet 40 mg PO BID #60 tab 12/28/20 04/01/21 Rx glipizide 5 mg tablet 2.5 mg PO BID #90 tab 02/19/21 04/01/21 Rx metformin 500 mg tablet 1,000 mg PO BID #360 tab 02/22/21 04/01/21 Rx metoprolol succinate 100 mg 100 mg PO QAM #90 tab 02/22/21 04/01/21 Rx tablet,extended release 24 hr simvastatin 20 mg tablet 20 mg PO QPM #90 tab 02/26/21 04/01/21 Rx doxazosin 2 mg tablet 2 mg PO HS 02/28/21 04/01/21 History ferrous sulfate 325 mg (65 mg 325 mg PO BID 02/28/21 04/01/21 History iron) tablet,delayed release pantoprazole 40 mg tablet,delayed 40 mg PO QAM 02/28/21 04/01/21 History release sacubitril 49 mg-valsartan 51 mg 1 tab PO BID #180 tab 03/23/21 04/01/21 Rx tablet (Entresto) Past Med/Surg History Medical History Anemia From GI Bleed Anticoagulant long-term use hx -- has been on hold since October 2020 d/t the gastric ulcer Arteriosclerosis of coronary artery Atrial fibrillation Benign prostatic hyperplasia CHF (congestive heart failure) Follows with Dr. 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 History of surgical removal of skin lesion History of tonsillectomy S/P right knee arthroscopy Family History Mother Cardiac disorder Hypertension Father Cardiac disorder Stroke Hypertension Grandmother (Maternal) Stroke Denies family history of Ovarian cancer Prostate cancer Myocardial infarction Breast cancer Colorectal cancer Social History Smoking Status: Former smoker Second Hand Exposure: No; Do You Dip or Chew Tobacco: No; Tobacco Cessation Education Requested by Patient: No Hx Alcohol Use: Yes Alcohol type: wine Hx Substance Use: No Preferred Language: [place]al[place] Communication Ability: Effective Neuropsychologist Required: No Beliefs That Will Affect Care: None marital status: Current Living Situation: Spouse current occupational status: retired Feels Safe at Home: Yes Safety Concerns: Feels Safe At This Time Assistive Devices: Cane and Glasses Review of Systems Review of Systems: Constitutional: denies fevers, chills, diaphoresis, night sweats admits nausea w/o vomiting, fatigue, generalized weakness, weight loss Head: denies trauma, LOC, headache, lightheadedness, vision changes admits confusion Neurologic: denies slurring of speech, focal weakness ENT: denies stuffiness, sneezing, sore throat admits chronic rhinorrhea Cardiac: denies chest pain, palpitations, orthopnea, worsening leg edema Pulm.: denies cough, shortness of breath, trouble breathing, sputum production GI: denies blood in stool admits changes in bowel habits with occasional wet stools : denies dysuria admits urgency and incontinence (chronic, unchanged) Physical Exam Constitutional: cooperative and comfortable; no acute distress Eyes: PERRL, conjunctivae normal, anicteric sclerae ENMT: external ear and nose normal, oropharynx normal Neck: normal visual inspection Respiratory: normal respiratory effort, lungs clear to auscultation Aus cultation: no crackles Cardiovascular: Rate/Rhythm: regular rate and regular rhythm Vessels: no JVD Extremities: + edema (2+ pitting edema bilaterally) Gastrointestinal (Abdomen): normal bowel sounds, soft, nontender, no hepatosplenomegaly Skin: no rashes, warm and dry Neurologic: moves all extremities and awake Speech / Cognition: normal speech Motor/Sensory: no tremor Psychiatric: Orientation: alert and oriented x 3 Affect: euthymic affect Results & Data Results & Data ([facility]) Vital Signs (Past 12 Hours) Vital Signs Temp Pulse Pulse Resp BP BP Pulse Ox 04/01/21 22:03 85 30 H 170/95 H 93 04/01/21 21:26 38 C H 99 H 30 H 170/95 H 92 CBC Results Results Complete Blood Count Results: RBC 3.91 M/uL (4.7-6.1) L 04/01/21 WBC 15.08 K/uL (4.8-10.8) H 04/01/21 Hgb 11.4 g/dL (14.0-18.0) L 04/01/21 Hct 33.9 % (42-52) L 04/01/21 Plt Count 208 K/uL (130-400) 04/01/21 Chemistry (BMP) Results BMP Results: Sodium 130 mmol/L (136-145) L 04/01/21 Potassium 3.4 mmol/L (3.5-5.1) L 04/01/21 Chloride 95 mmol/L (98-107) L 04/01/21 BUN 33 mg/dl (7-18) H 04/01/21 Creatinine 2.37 mg/dl (0.6-1.4) H 04/01/21 Glucose 194 mg/dl (70-99) H 04/01/21 Supervising Physician Co-Signing Physician Notes Patient seen and examined, chart reviewed, case discussed with Dr. Gonzalez's and I agree with his assessment and plan as documented above. In brief, patient is an 81-year-old male with history of coronary artery disease, atrial fibrillation, diabetes, CKD, hypertension, CHF with last recorded EF of 30 to 35% presenting with somnolence, weakness and confusion. Work-up suggestive of UTI. On physical exam patient appears comfortable, no acute distress Skinwarm, dry, intact, no rashes or lesions HEENTnormocephalic/atraumatic, pupils equal round and reactive, moist mucous membranes Heart+ S1, S2, irregularly irregular Lungsclear to auscultation Abdomenpositive bowel sounds, soft, nontender, nondistended Extremitieswarm, 2+ edema bilateral lower extremities Labs and images reviewed and are significant for WBC = 15.18, Hgb = 11.4, HCT = 33.9 Potassium = 3.4, BUN = 33, creatinine = 2.37 Lactate = 2.8 Magnesium = 1.6 Urinalysis appears infected Assessment/[id number] male with multiple medical comorbidities presenting with weakness, fatigue, somnolence, found with UTI. Also with mild electrolyte derangements to include hypokalemia and hypomagnesemia, NIGEL with BUN = 33, creatinine = 2.37 as well as leukocytosis -Treatment with ceftriaxone, follow cultures IV fluidsLR at 125 mL per 1 L then reassess. Patient with history of CHF with depressed EF of 30 to 35%. Will hold Lasix Follow chemistry to assess electrolytes and renal function. Potassium and magnesium repletion as above Insulin Remainder of plan as above Resident Activity Tracking Resident Involvement: Resident Care Provided Care Provided: Adult [facility] Medicine
[2021-04-02] MEDS ORDERED: POTASSIUM CHLORIDE CRTAB 20 MEQ TABCR PO STA (01:11)
[2021-04-02] MEDS ORDERED: DEXTROSE 50% 50 ML SYRINGE IV PRN ×2 (02:39)
[2021-04-02] MEDS ORDERED: GLUCOSE 10 TABS/TUBE PO PRN ×2 (02:39)
[2021-04-02] MEDS ORDERED: GLUCAGON FOR INJ 1 MG VIAL SQ PRN ×2 (02:39)
[2021-04-02] MEDS ORDERED: LACTATED RINGER'S 1,000 ML IV SCH (02:39)
[2021-04-02] MEDS ORDERED: CARBOHYDRATES FOR HYPOGLYCEMIA PO PRN ×2 (02:39)
[2021-04-02] MEDS ORDERED: GLUCOSE 40% GEL 15 GM TUBE PO PRN ×2 (02:39)
[2021-04-02] MEDS ORDERED: [UNRECOGNIZED DRUG - OTHER] SCH (02:39)
--- NOTE | 2021-04-02 05:48 | Billing Data ---
Date of Service April 02, 2021 Coding Level of Care Code 99697 Initial Inpt Care Lvl 3
--- NOTE | 2021-04-02 07:51 | XRay Report ---
XR chest 1V portable INDICATION: MN ^SEPSIS . TECHNIQUE: Single frontal radiograph of the chest was obtained. Comparison: Comparison is made to chest one view 12/06/2020 FINDINGS: Interval stability of median sternotomy wires including fractured third wire. Calcified aortic knob i s seen. Atelectasis is seen in the left lung base. No evidence of pleural effusion or pneumothorax. IMPRESSION: No acute chest disease. ACT 112: Negative or not required by law. Electronically signed by: Demetrio Chamberlain M.D. 04/02/2021 7:49 AM
[2021-04-02] MEDS: SACUBITRIL-VALSARTAN 49/51 MG TAB PO SCH ×2 (08:46→20:48)
[2021-04-02] MEDS: METOPROLOL SUCC 50MG EXT REL TAB PO SCH (08:46)
[2021-04-02] MEDS: INSULIN ASPART 100 UNITS/ML 3 ML PEN SC SCH ×4 (08:47→20:49)
[2021-04-02] MEDS: PANTOprazole 40 MG TAB PO SCH (08:47)
[2021-04-02] MEDS: cefTRIAXone SODIUM 2,000 MG in DEXTROSE 5% 50 ML IV SCH (08:49)
[2021-04-02] MEDS: ENOXAPARIN INJ 40 MG/0.4 ML SYR SQ SCH (08:54)
[2021-04-02] MEDS ORDERED: FUROSEMIDE 40 MG TAB PO SCH (09:00)
[2021-04-02] MEDS: ACETAMINOPHEN 500 MG TAB PO SCH ×2 (09:27→17:20)
[2021-04-02 14:57] LABS: BUN Creatinine Ratio 12.9 (10-20); Blood Urea Nitrogen 36 mg/dl (7-18); Calcium 8.8 mg/dl (8.5-10.1); Carbon Dioxide 25 mmol/L (21-32); Chloride 98 mmol/L (98-107); Creatinine Clr Calc Pharmacy 24.7 ml/min; Est GFR (African American) 23.5 ml/min; Est GFR (Non-African American) 20.3 ml/min; Glucose 183 mg/dl (70-99); Potassium 3.7 mmol/L (3.5-5.1); Sodium 131 mmol/L (136-145)
[2021-04-02 15:05] LABS: Troponin I < 0.015 ng/ml (0-0.045)
[2021-04-02] MEDS: SODIUM CHLORIDE 0.9% 1000ML 1,000 ML IV SCH ×2 (15:19→20:49)
--- NOTE | 2021-04-02 15:31 | Electrocardiogram Report ---
Test Reason : Blood Pressure : / mmHG Vent. Rate : 091 BPM Atrial Rate : 080 BPM P-R Int : 000 ms QRS Dur : 168 ms QT Int : 424 ms P-R-T Axes : 000 176 035 degrees QTc Int : 521 ms Atrial fibrillation Right bundle branch block Abnormal ECG When compared with ECG of 06-DEC-2020 12:38, Nonspecific T wave abnormality has replaced inverted T waves in Inferior leads T wave inversion less evident in Anterior leads Confirmed by Valentín Cedeno ([id number]) on 04/02/2021 3:31:35 PM Referred By: REFERRED SELF Confirmed By:Valentín Cedeno
[2021-04-02] MEDS: SIMVASTATIN 20 MG TAB PO SCH (20:48)
[2021-04-02] MEDS: DOXAZosin MESYLATE TAB 2 MG TAB PO SCH (20:48)
[2021-04-03] MEDS: ACETAMINOPHEN 500 MG TAB PO SCH ×3 (01:31→17:06)
[2021-04-03] MEDS: SODIUM CHLORIDE 0.9% 1000ML 1,000 ML IV SCH ×3 (04:42→20:32)
[2021-04-03 07:29] LABS: Basophils # (auto) 0.01 K/uL (0-0.2); Basophils % (auto) 0.1 %; Hematocrit (blood only) 33.3 % (42-52); Hemoglobin 11.2 g/dL (14.0-18.0); Immature Granulocytes # (auto) 0.04 K/uL (0.00-0.02); Immature Granulocytes % (auto) 0.3 %; Lymphocytes # (auto) 0.36 K/uL (1.2-3.4); Lymphocytes % (auto) 2.6 %; Mean Corpuscular Hemoglobin 28.6 pg (25-34); Mean Corpuscular Hgb Conc 33.6 g/dL (32-36); Mean Corpuscular Volume 84.9 fL (80-100); Mean Platelet Volume 11.7 fL (7.4-10.4); Monocytes # (auto) 0.87 K/uL (0.11-0.59); Monocytes % (auto) 6.4 %; Neutrophils # (auto) 12.41 K/uL (1.4-6.5); Neutrophils % (auto) 90.6 %; Platelet Count 235 K/uL (130-400); RDW Coefficient of Variation 15.9 % (11.5-14.5); RDW Standard Deviation 49.5 fL (36.4-46.3); Red Blood Count 3.92 M/uL (4.7-6.1); White Blood Count 13.69 K/uL (4.8-10.8)
[2021-04-03 08:01] LABS: BUN Creatinine Ratio 16.8 (10-20); Calcium 8.5 mg/dl (8.5-10.1); Creatinine Clr Calc Pharmacy 29.9 ml/min; Est GFR (African American) 29.7 ml/min; Est GFR (Non-African American) 25.6 ml/min; Potassium 3.4 mmol/L (3.5-5.1)
[2021-04-03] MEDS: SACUBITRIL-VALSARTAN 49/51 MG TAB PO SCH ×2 (08:07→20:32)
[2021-04-03] MEDS: PANTOprazole 40 MG TAB PO SCH (08:07)
[2021-04-03] MEDS: ENOXAPARIN INJ 40 MG/0.4 ML SYR SQ SCH (08:08)
[2021-04-03] MEDS: METOPROLOL SUCC 50MG EXT REL TAB PO SCH (08:08)
[2021-04-03] MEDS: cefTRIAXone SODIUM 2,000 MG in DEXTROSE 5% 50 ML IV SCH (08:09)
[2021-04-03] MEDS: INSULIN ASPART 100 UNITS/ML 3 ML PEN SC SCH ×4 (08:12→20:33)
--- NOTE | 2021-04-03 10:09 | Hospitalist Progress Note ---
Date of Service April 03, 2021 Assessment & Plan (1) UTI (urinary tract infection): Plan: 81 yo m w/ pMHx. 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 Complicated UTI with hx BPH and urinary incontinence - WBC downtrending, lactate normal. afebrile. - on ceftriaxone, urine and blood cultures growing gram negative bacilli. sensitivities pending. - continue fluids w/ LR @ 125/hr, encourage PO fluid intake - holding Lasix while giving fluid - bladder scan as needed NIGEL on CKD III, improving Cr. down to 2.32, likely related to dehydration in the setting of poor oral intake and Lasix use - IVF as above, holding Lasix - continue to follow bmp HFrEF (30-35% in November) - continue Entresto - continue Metoprolol - holding Lasix as above DM II complicated by neuropathy - SSI order set utilized - continue to follow bsg and adjust as needed Anemia, normocytic appears stable from prior w/ hgb at 11, potentially contributing to weakness and fatigue - continue to follow Hx. duodenal ulcer; no blood in stool hgb stable - continue Pantoprazole Afib - intermittent, rate controlled on telemetry - holding prior eliquis anticoagulation given hx peptic ulcers, - lovenox DVT ppx - may need to revisit issue with engineering model maker HTN: appears well controlled currently continue Metoprolol Generalized weakness - PT, OT ordered for further evaluation Code: DNR/DNI Diet: HH, carb consistent with DM II DVT: Lovenox 40 Q24H (2) Diabetes mellitus type II, uncontrolled: (3) CHF (congestive heart failure): Admission and Anticipated Discharge Date Admission Date: April 02, 2021 Supervising Physician Co-Signing Physician Notes I personally examined the patient and verified all olivo points of history and exam, discussed case, and agree with decision making with Dr Casillas. Sleeping every time I see him, discussed with nursingseems to have been a bit confused at times, but otherwise no new issues have arisen. Vitals noted, in general he is sleeping comfortably no distress. Breathing unlabored no accessory muscle use good effort. Skin shows no rashes no pallor or icterus. Neuro without focal asymmetry at rest. Gram-negative bacteremiaalmost certainly related to UTI. Continue empiric antibiotics pending further culture results, follow urine outputcreatinine appears to be improving again, if any overt urinary retentionFoley, otherwise continue fluids/supportive care/treating infection. Otherwise as above. Subjective doing well this am. no more complaints of rigors/chills. has been tolerating food and drink well. frequent urination and incontinence without pain. Review of Systems Review of Systems: All systems reviewed & are unremarkable except as noted in Subjective Physical Exam Physical Exam: Constitutional: pleasant elderly man in no apparent distress, sitting comfortably in bed. Cardiac: RRR, no murmurs, gallops or rubs. Normal S1, S2 Pulm: CTA BL, no wheezes, rhonchi, crackles or rubs, moving air well throughout both lungs, breathing comfortably on room air abd: nontender to suprapubic palpation Results & Data Results & Data ([facility]) Vital Signs (Past 12 Hours) Vital Signs Temp Pulse Pulse Resp BP BP Pulse Ox 04/03/21 07:37 101 H 04/03/21 07:00 36.6 C 96 H 18 163/93 H 96 04/03/21 05:17 170/88 H 04/03/21 04:51 36.6 C 60 18 189/90 H 97 04/03/21 03:14 37.4 C 04/03/21 00:00 78 04/02/21 23:37 36.6 C 100 H 20 168/78 H 94 Laboratory Results WBC 13.69 K/uL (4.8-10.8) H 04/03/21 06:59 RBC 3.92 M/uL (4.7-6.1) L 04/03/21 06:59 Hgb 11.2 g/dL (14.0-18.0) L 04/03/21 06:59 Hct 33.3 % (42-52) L 04/03/21 06:59 MCV 84.9 fL (80-100) 04/03/21 06:59 MCH 28.6 pg (25-34) 04/03/21 06:59 MCHC 33.6 g/dL (32-36) 04/03/21 06:59 RDW Std Deviation 49.5 fL (36.4-46.3) H 04/03/21 06:59 RDW Coeff of Mario 15.9 % (11.5-14.5) H 04/03/21 06:59 Plt Count 235 K/uL (130-400) 04/03/21 06:59 MPV 11.7 fL (7.4-10.4) H 04/03/21 06:59 Immature Gran % (Auto) 0.3 % 04/03/21 06:59 Neut % (Auto) 90.6 % 04/03/21 06:59 Lymph % (Auto) 2.6 % 04/03/21 06:59 [place] % (Auto) 6.4 % 04/03/21 06:59 Eos % (Auto) 0.0 % 04/03/21 06:59 Baso % (Auto) 0.1 % 04/03/21 06:59 Neut # (Auto) 12.41 K/uL (1.4-6.5) H 04/03/21 06:59 Lymph # (Auto) 0.36 K/uL (1.2-3.4) L 04/03/21 06:59 [place] # (Auto) 0.87 K/uL (0.11-0.59) H 04/03/21 06:59 Eos # (Auto) 0.00 K/uL (0-0.5) 04/03/21 06:59 Baso # (Auto) 0.01 K/uL (0-0.2) 04/03/21 06:59 Immature Gran # (Auto) 0.04 K/uL (0.00-0.02) H 04/03/21 06:59 PT 14.0 Seconds (9.0-12.0) H 04/01/21 23:16 INR 1.4 (0.9-1.1) H 04/01/21 23:16 APTT 32.0 Seconds (21.0-31.0) H 04/01/21 23:16 PTT Ratio 1.2 04/01/21 23:16 Sodium 132 mmol/L (136-145) L 04/03/21 06:59 Potassium 3.4 mmol/L (3.5-5.1) L 04/03/21 06:59 Chloride 101 mmol/L (98-107) 04/03/21 06:59 Carbon Dioxide 23 mmol/L (21-32) 04/03/21 06:59 Anion Gap 8.0 (3-11) 04/03/21 06:59 BUN 39 mg/dl (7-18) H 04/03/21 06:59 Creatinine 2.32 mg/dl (0.6-1.4) H D 04/03/21 06:59 Est Cr Clr Drug Dosing 29.9 ml/min 04/03/21 06:59 Est GFR ( Amer) 29.7 ml/min 04/03/21 06:59 Est GFR (Non-Af Amer) 25.6 ml/min 04/03/21 06:59 BUN/Creatinine Ratio 16.8 (10-20) 04/03/21 06:59 Glucose 175 mg/dl (70-99) H 04/03/21 06:59 POC Glucose 194 mg/dl (70-99) H 04/03/21 16:24 Lactate 1.4 mmol/L (0.4-2.0) 04/02/21 01:41 Calcium 8.5 mg/dl (8.5-10.1) 04/03/21 06:59 Magnesium 1.6 mg/dl (1.8-2.4) L 04/01/21 21:44 Total Bilirubin 2.4 mg/dl (0.2-1) H 04/01/21 21:44 AST 16 U/L (15-37) 04/01/21 21:44 ALT 21 U/L (12-78) 04/01/21 21:44 Alkaline Phosphatase 97 U/L (45-117) 04/01/21 21:44 Troponin I < 0.015 ng/ml (0-0.045) 04/02/21 13:54 Total Protein 7.1 gm/dl (6.4-8.2) 04/01/21 21:44 Albumin 3.2 gm/dl (3.4-5.0) L 04/01/21 21:44 Globulin 3.9 gm/dl (2.5-4.0) 04/01/21 21:44 Albumin/Globulin Ratio 0.8 (0.9-2) L 04/01/21 21:44 Procalcitonin 0.49 ng/ml (0-0.5) 04/01/21 21:44 Urine Color Dark Yellow 04/01/21 23:04 Urine Appearance Cloudy (Clear) A 04/01/21 23:04 Urine pH 5.0 (4.5-7.5) 04/01/21 23:04 Ur Specific [place] 1.013 (1.000-1.030) 04/01/21 23:04 Urine Protein 2+ (Negative) H 04/01/21 23:04 Urine Glucose (UA) Negative (Negative) 04/01/21 23:04 Urine Ketones Negative (Negative) 04/01/21 23:04 Urine Blood 2+ (Negative) H 04/01/21 23:04 Urine Nitrite Negative (Negative) 04/01/21 23:04 Urine Bilirubin Negative (Negative) 04/01/21 23:04 Urine Urobilinogen Negative (Negative) 04/01/21 23:04 Ur Leukocyte Esterase 2+ (Negative) H 04/01/21 23:04 Urine WBC (Auto) >30 /hpf (0-5) H 04/01/21 23:04 Urine RBC (Auto) 5-10 /hpf (0-4) H 04/01/21 23:04 U Hyaline Cast (Auto) 5-10 /lpf (0-5) H 04/01/21 23:04 U Epithel Cells (Auto) 0-5 /lpf (0-5) 04/01/21 23:04 Urine Bacteria (Auto) 4+ (Negative) H 04/01/21 23:04 COVID-19 Eval Order Covid19 at [facility] 04/01/21 22:19 SARS-CoV-2 (PCR) NEGATIVE (Negative) 04/01/21 22:19 Impressions Chest X-Ray 04/01/21 21:52 XR chest 1V portable INDICATION: MN ^SEPSIS . TECHNIQUE: Single frontal radiograph of the chest was obtained. Comparison: Comparison is made to chest one view 12/06/2020 FINDINGS: Interval stability of median sternotomy wires including fractured third wire. Calcified aortic knob is seen. Atelectasis is seen in the left lung base. No evidence of pleural effusion or pneumothorax. IMPRESSION: No acute chest disease. ACT 112: Negative or not required by law. Electronically signed by: Demetrio Chamberlain M.D. 04/02/2021 7:49 AM Resident Activity Tracking Resident Involvement: Resident Care Provided Care Provided: Adult [facility] Medicine
[2021-04-03] MEDS ORDERED: POTASSIUM CHLORIDE CRTAB 20 MEQ TABCR PO STA (11:35)
--- NOTE | 2021-04-03 17:10 | Billing Data ---
Date of Service April 03, 2021 Coding Level of Care Code 13043 Subseq Hosp Care Lvl 3
--- NOTE | 2021-04-03 17:10 | Billing Data ---
Date of Service April 03, 2021 Coding Level of Care Code 53325 Subseq Hosp Care Lvl 3
[2021-04-03] MEDS: DOXAZosin MESYLATE TAB 2 MG TAB PO SCH (20:32)
[2021-04-03] MEDS: SIMVASTATIN 20 MG TAB PO SCH (20:32)
[2021-04-04] MEDS: SODIUM CHLORIDE 0.9% 1000ML 1,000 ML IV SCH ×2 (02:06→09:11)
[2021-04-04] MEDS: ACETAMINOPHEN 500 MG TAB PO SCH ×2 (02:07→07:42)
[2021-04-04] MEDS: PANTOprazole 40 MG TAB PO SCH (07:40)
[2021-04-04] MEDS: METOPROLOL SUCC 50MG EXT REL TAB PO SCH (07:40)
[2021-04-04] MEDS: SACUBITRIL-VALSARTAN 49/51 MG TAB PO SCH (07:41)
[2021-04-04] MEDS: ENOXAPARIN INJ 40 MG/0.4 ML SYR SQ SCH (07:42)
[2021-04-04 08:09] LABS: BUN Creatinine Ratio 17.4 (10-20); Calcium 8.6 mg/dl (8.5-10.1); Creatinine Clr Calc Pharmacy 33.6 ml/min; Est GFR (African American) 32.9 ml/min; Est GFR (Non-African American) 28.4 ml/min; Potassium 3.4 mmol/L (3.5-5.1)
--- NOTE | 2021-04-04 08:46 | Hospitalist Progress Note ---
Date of Service April 04, 2021 Assessment & Plan (1) UTI (urinary tract infection): Plan: 81 yo m w/ pMHx. 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 Complicated UTI with hx BPH and urinary incontinence - WBC downtrending, lactate normal. afebrile. - on ceftriaxone, urine and blood cultures growing gram negative bacilli. sensitivities pending. - continue fluids w/ LR @ 125/hr, encourage PO fluid intake - holding Lasix while giving fluid - bladder scan as needed NIGEL on CKD III, improving Cr. down to 2.32, likely related to dehydration in the setting of poor oral intake and Lasix use - IVF as above, holding Lasix - continue to follow bmp HFrEF (30-35% in November) - continue Entresto - continue Metoprolol - holding Lasix as above DM II complicated by neuropathy - SSI order set utilized - continue to follow bsg and adjust as needed Anemia, normocytic appears stable from prior w/ hgb at 11, potentially contributing to weakness and fatigue - continue to follow Hx. duodenal ulcer; no blood in stool hgb stable - continue Pantoprazole Afib - intermittent, rate controlled on telemetry - holding prior eliquis anticoagulation given hx peptic ulcers, - lovenox DVT ppx - may need to revisit issue with spanish interpreter/translator HTN: appears well controlled currently continue Metoprolol Generalized weakness - PT, OT ordered for further evaluation Code: DNR/DNI Diet: HH, carb consistent with DM II DVT: Lovenox 40 Q24H (2) Diabetes mellitus type II, uncontrolled: (3) CHF (congestive heart failure): Admission and Anticipated Discharge Date Admission Date: April 02, 2021 Results & Data Results & Data ([facility]) Vital Signs (Past 12 Hours) Vital Signs Temp Pulse Pulse Resp BP BP Pulse Ox 04/04/21 07:03 36.4 C L 99 H 18 153/75 H 97 04/04/21 03:28 104 H 04/04/21 02:58 36.8 C 101 H 18 146/78 H 94 04/03/21 23:06 36.9 C 97 H 18 157/103 H 93
[2021-04-04] MEDS: INSULIN ASPART 100 UNITS/ML 3 ML PEN SC SCH ×2 (08:53→12:21)
[2021-04-04] MEDS: cefTRIAXone SODIUM 2,000 MG in DEXTROSE 5% 50 ML IV SCH (09:00)
--- NOTE | 2021-04-04 09:53 | Discharge Summary ---
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 He is presenting today with his for weakness and confusion. He has been having decreased strength over the last week along with not feeling well and sleeping more. He did improve mid- week and then worsened over the weekend. 04/01 in the evening he was not able to get into bed and slid to the floor without hitting his head. He has not been eating well over the last week with a decreased appetite. He has not had pain with urination but has noted increased urgency and he has chronic incontinence that has been unchanged over the last week. He does have darker urine. would like to be updated with any changes #[phone] ED course: IVF, Cefepime, Mg., IVF, urine culture, blood cultures Principal Diagnosis Gram negative Bacteremia Discharge Exam Constitutional: obese, in no apparent distress, sitting comfortably in bed. Eyes: EOMI, pupils equal and reactive bilaterally, no scleral icterus Cardiac: RRR, no murmurs, gallops or rubs. Normal S1, S2 Pulm: CTA BL, no wheezes, rhonchi, crackles or rubs, moving air well throughout both lungs Abd: soft, nontender, nondistended, normal bowel sounds, no rebound or guarding Extremities: 2+ peripheral pulses, no edema Neuro: no focal deficits, moving all 4 limbs, A&Ox3 Discharge Data Allergies Allergy/AdvReac Type Severity Reaction Status Date / Time No Known Allergies Allergy Verified 04/01/21 21:36 Consultations 04/01/21 23:41 ED Decision to Admit Stat Hospital Course (1) UTI (urinary tract infection): 81 yo m w/ pMHx. of duodenal ulcer, DMII on oral agents complicated by neuropathy, CKD III, HTN, HLD, and CHF (last ECHO 11/21/20 EF 30-35) admitted for weakness, found to have Gram negative bacteremia. Gram Negative Bacteremia due to UTI with hx BPH and urinary incontinence - pansensitive E Coli treated with 3 days IV ceftriaxone, converted to cefpodoxime 200 mg BID for total of 4 weeks - concern for prostatitis as source given BPH, urinary retention, frequent in continence - unable to perform rectal exam to assess active prostate tenderness, treating empirically NIGEL on CKD III, improving - Cr. down to 2.13 at discharge, baseline 1.4. - Lasix held during hospitalization, advised to continue holding and restart with physician direction OR if DESOUZA/orthopnea - advised to drink ~1.5L water per day to help continue hydration maintenance - follow up BMP in 2-3 days Afib - intermittent, rate controlled on telemetry - holding prior eliquis anticoagulation given hx peptic ulcers, - advised to revisit topic of anticoagulation given frequent but rate controlled Afib and well tolerated lovenox for DVT ppx All other medical conditions managed per home regimen. (2) Diabetes mellitus type II, uncontrolled: (3) CHF (congestive heart failure): Total Time Total Time Spent Total Time Spent (In Minutes): <30 Discharge Plan Discharge Items Patient Disposition: Home - Self-Care Reason For Visit: COMPLICATED UTI Discharge Diagnosis: complicated UTI Condition on Discharge: Fair Activity: Resume your previous activity Non-emergency contact: Primary Care Provider Call non-emergency contact if: you have any medication questions and your symptoms worsen Follow-up/Referrals: Jessica Silverman CRNP [Primary Care Provider] - 04/19/21 11:15 am Diet: Heart Healthy and Low Sodium (2gm) Ambulatory Orders: Basic Metabolic Panel (Routine) Timeframe: 3 Days Location: Determined by Patient Ordered By: Priscilla Moser Attending Provider Instructions: Complicated UTI/Prostatitis and Bacteremia: your symptoms of fatigue and weakness were secondary to a bacterial infection in your bloodstream that came from a urine infection. There was some concern that you had an infection of your prostate, which would require a rectal exam for diagnosis and treatment with 4 weeks of antibiotics. Since you denied the exam and the risk of reoccurrence with improper treatment is high, we will presumptively treat with a total of 4 weeks of antibiotics. Alarm symptoms to look for: Pain with urination, rectal pain, rectal pressure with urination. Congestive Heart Failure: During your stay we did not give you your home dose of Lasix because your kidney function decreased. Because it is not back to normal, we recommend NOT STARTING LASIX until you see your licensed insurance sales agent or primary care provider. You may start taking it if you notice the following symptoms: - trouble breathing while laying down - weight gain of 2-3 pounds in 1 to 2 days - trouble breathing with exertion Acute Kidney Injury: your kidney suffered a mild injury due to your dehydration from your infection. Your numbers improved with IV fluids and we discussed making sure that you drink at least 1.5L of water a day going forward to keep yourself hydrated. We also recommend having repeat blood work (BMP) in about 2-3 days to make sure that your kidney function continues to improve. Urinary retention: The source of your UTI was likely due to your bladder being unable to fully empty when you urinate, and the leftover urine getting infected. We recommend discussing with your primary care physician the addition of a medication to help control the spasm causing your incontinence or seeing a urologist to follow up with this. Atrial Fibrillation: Atrial fibrillation usually requires being on a blood thinner to prevent strokes, however your blood thinner was previously stopped due to the multiple ulcers you had earlier in the year. While you were in the hospital we did give you low doses of blood thinner (lovenox injections) to help prevent blood clots in your legs, which you tolerated well. We recommend you discuss with your licensed insurance sales agent and primary care provider the benefits and risks of going back on the blood thinner or considering a lower dose or alternate medication to reduce your stroke risk. Pending Studies at Discharge: No Stand-Alone Forms: My [facility] [employer], Smoking Cessation Medications and DC Order Prescriptions: New cefpodoxime 200 mg tablet 200 mg PO BID 25 Days Qty: 50 RF: 0 Continued (DME) compress.stocking,knee,reg,lrg Misc See Rx Instructions .ROUTE .MEDSUPPLY Qty: 2 RF: 0 (DME) OneTouch Verio test strips Strip See Rx Instructions .ROUTE .MEDSUPPLY Qty: 2 RF: 3 furosemide 40 mg tablet 40 mg PO BID Qty: 60 RF: 2 glipizide 5 mg tablet 2.5 mg PO BID Qty: 90 RF: 3 metformin 500 mg tablet 1,000 mg PO BID Qty: 360 RF: 3 metoprolol succinate 100 mg tablet extended release 24 hr 100 mg PO QAM Qty: 90 RF: 3 simvastatin 20 mg tablet 20 mg PO QPM Qty: 90 RF: 3 Entresto 49-51 mg tablet 1 tab PO BID Qty: 180 RF: 3 coenzyme Q10 [CoQ-10] 100 mg capsule 100 mg PO QAM RF: 0 (DME) lancets [OneTouch UltraSoft Lancets] Misc See Rx Instructions .ROUTE .MEDSUPPLY Qty: 100 RF: 0 (DME) blood-glucose meter [OneTouch Verio Flex Start] Kit See Rx Instructions .ROUTE .MEDSUPPLY Qty: 1 RF: 0 pantoprazole 40 mg tablet,delayed release (DR/EC) 40 mg PO QAM RF: 0 ferrous sulfate 325 mg (65 mg iron) tablet,delayed release (DR/EC) 325 mg PO BID RF: 0 doxazosin 2 mg tablet 2 mg PO HS RF: 0 psyllium husk [Metamucil] 0.52 gram Capsule 0.52 g PO QAM RF: 0 (DME) Bed Side Commode Misc 1 ea .Route Q24H 360 Days Qty: 1 RF: 0 Discharge Orders: Discharge Order (Routine); Ordered 04/04/21 Ordered By: Priscilla Casillas Admission Data Admit Date/Time: 04/02/21 00:54 Attending Provider: Saravanan Cheung Admit Provider: Rene Vasquez Primary Care Provider: Jessica Silverman Other Providers: Janene Silverman Other Interventions: Discharge Summary Assessment (RN) Last Done: 04/04/21 16:08 Supervising Physician Co-Signing Physician Notes I personally examined the patient and verified all olivo points of history and exam, discussed case, and agree with decision making with Dr Casillas. Feeling okay. Overall up to going home. No new complaints. Vitals noted, sitting up in chair no distress. HEENT normocephalic atraumatic mucous membranes moist. Breathing unlabored no accessory muscle use good effort. Skin shows no rashes no pallor or icterus. Neuro without focal deficits. Does speak in a number of undefined pronouns. Gram-negative bacteremiarelated to complicated UTI. Pansensitive bughas been treated with ceftriaxonetransition to oral cephalosporin. Discussed with patient concern on possible prostatitis as well, he adamantly declined rectal examwe will treat empirically. At the same time if he is looking very good outpatient follow-up, we could consider stopping antibiotics at 14 days for the bacteremia and simply follow closely for any prostate symptoms, versus finishing 4 weeks of therapy. Will defer to outpatient follow-up in this regard. Stable from, otherwise as above. Resident Activity Tracking Resident Involvement: Resident Care Provided Care Provided: Adult [facility]
--- NOTE | 2021-04-04 17:49 | Billing Data ---
Date of Service April 04, 2021 Coding Level of Care Code D/C DAY MANAGEMENT <30 MINS
== END 2021-04-04 16:48 | disposition home or self-care (01) | DRG 690 ==
LOC: ED 21:18 → SUATTDRO 04-02 00:54 → 2N 04-02 00:54

== ENCOUNTER 2021-06-01 23:06 | Inpatient (IN) ==
[2021-06-01 23:36] LABS: Basophils # (auto) 0.04 K/uL (0-0.2); Basophils % (auto) 0.5 %; Eosinophils # (auto) 0.24 K/uL (0-0.5); Eosinophils % (auto) 2.9 %; Hematocrit (blood only) 35.3 % (42-52); Hemoglobin 11.6 g/dL (14.0-18.0); Immature Granulocytes # (auto) 0.01 K/uL (0.00-0.02); Immature Granulocytes % (auto) 0.1 %; Lymphocytes # (auto) 0.89 K/uL (1.2-3.4); Lymphocytes % (auto) 10.7 %; Mean Corpuscular Hemoglobin 29.3 pg (25-34); Mean Corpuscular Hgb Conc 32.9 g/dL (32-36); Mean Corpuscular Volume 89.1 fL (80-100); Mean Platelet Volume 12.2 fL (7.4-10.4); Monocytes # (auto) 0.63 K/uL (0.11-0.59); Monocytes % (auto) 7.6 %; Neutrophils # (auto) 6.53 K/uL (1.4-6.5); Neutrophils % (auto) 78.2 %; Platelet Count 244 K/uL (130-400); RDW Coefficient of Variation 15.6 % (11.5-14.5); RDW Standard Deviation 51.2 fL (36.4-46.3); Red Blood Count 3.96 M/uL (4.7-6.1); White Blood Count 8.34 K/uL (4.8-10.8)
[2021-06-01 23:53] LABS: Alanine Aminotransferase 18 U/L (12-78); Albumin Level 3.6 gm/dl (3.4-5.0); Aspartate Aminotransferase 15 U/L (15-37); Blood Urea Nitrogen 43 mg/dl (7-18); Calcium 9.2 mg/dl (8.5-10.1); Carbon Dioxide 23 mmol/L (21-32); Chloride 102 mmol/L (98-107); Creatinine Clr Calc Pharmacy 31.7 ml/min; Est GFR (African American) 30.9 ml/min; Est GFR (Non-African American) 26.7 ml/min; Glucose 196 mg/dl (70-99); Lipase 305 U/L (73-393); Potassium 4.1 mmol/L (3.5-5.1); Sodium 134 mmol/L (136-145)
--- NOTE | 2021-06-01 23:53 | Emergency Department Note ---
Impression & Plan Abdominal pain ED Provider Note INFORMANT: Patient ED PROVIDER(S): Roc Short MD CHIEF COMPLAINT: Abdominal pain PLAN: Disposition: Admitted Condition: Good Outpatient prescription management: none Referral: None MEDICAL DECISION MAKING: Patient presented with abdominal pain and distention. He had peripheral edema on examination. He did not have any peritoneal findings on physical examination. Blood work was obtained. Patient declined analgesia. He was sent for CT imaging. He was found to have moderate ascites but no evidence of other acute pathology on CT imaging. I did review this with the stat rad radiologist. The patient had an elevated lactate level. His CBC showed a mild anemia but no leukocytosis. Chemistry panel reveals renal insufficiency but this is baseline. ECG did show an atrial fibrillation. Patient does have an elevated BNP concerning for CHF. Right-sided heart issues could explain the peripheral edema as well as the ascites. Other etiologies are possible as well. I discussed further management in the hospital. At that point the patient's family was informed and they did talk with him about analgesia. The patient did agree to pain medication. He was given morphine and Zofran. This helped. Consultation was made with Dr. Ernesto Foster of the [facility] service. Patient was evaluated in the ER for further management. Triage Nursing notes reviewed and agree them. Vital Signs: reviewed and remarkable for hypertension. Differential diagnosis: Appendicitis, testicular torsion, infections, diverticulitis, UTI, obstruction, mesenteric ischemia, aortic pathology, inflammatory bowel disease, renal colic, PUD, pancreatitis, biliary pathology, hernia, volvulus, constipation, as well as other pathologies. Diagnostics interpreted by me: ECG: Twelve-lead ECG reveals atrial fibrillation at 76 bpm. Right bundle branch block present. No ST elevation or depression. No PVCs. Cardiac Monitoring: Cardiac monitoring ordered by me: The patient was placed on continuous cardiac monitoring and observed. Atrial fibrillation at 86 bpm. Imaging studies: CT imaging as above. I refer you to the EMR for further details. HPI: The patient is a 81 year old male who presents to the Emergency Room with complaints of abdominal pain. This started around 8:00 this evening and is lower and middle. The patient also notes the following associated symptoms, some nausea but no vomiting The patient has taken no medication for relieving factors. Current pain is rated as 7/10. Patient declines analgesia. Denies history of the same. Does note history of ulcers. Pt denies LOC, headache, fevers, chills, diaphoresis, visual changes, neck pain, chest pain, breathing difficulties, vomiting, back pain, melena, hematochezia, urinary symptoms, numbness, weakness, lymphadenopathy, rash, or other complaints. ROS: See above HPI for pertinent positives & negatives. A total of 10 systems reviewed and were otherwise negative. PAST MEDICAL HISTORY:See Below , ulcer, diabetes, A. fib PAST SURGICAL HISTORY:See Below, FAMILY HISTORY:See Below SOCIAL HISTORY:See Below, non-smoker HOME MEDICATIONS:See Below ALLERGIES:See Below VITALS:See Below PHYSICAL EXAMINATION: GENERAL: Awake, alert, uncomfortable-appearing, in no distress HENT: Normocephalic, atraumatic. Oropharynx unremarkable. EYES: Normal conjunctiva. Sclera non-icteric. NECK: Inspection normal. Non-tender. Supple. No nuchal rigidity. FROM. No masses. RESPIRATORY: Clear to auscultation. No wheezes. No rales. Normal respiratory effort. CARDIAC: Normal rate. Normal rhythm. No murmurs. No rubs. Extremities warm and well perfused. Pulses equal. No JVD. GI: Soft, mildly-distended. Mid and lower quadrant tenderness to palpation. No rebound or guarding. No masses. RECTAL: Deferred. MUSCULOSKELETAL: Atraumatic. Chest examination reveals no tenderness. The back is symmetrical on inspection without obvious abnormality. There is no CVA tenderness to palpation. No joint edema. LOWER EXTREMITIES: Calves are equal size bilaterally and non-tender. No edema. No discoloration. NEURO: Normal sensorium. No sensory or motor deficits noted. SKIN: No rash or jaundice noted. Roc Short MD Past Med/Surg History Medical History Acute hyponatremia Acute UTI Anemia Anticoagulant long-term use Arteriosclerosis of coronary artery Atrial fibrillation Benign prostatic hyperplasia CHF (congestive heart failure) Duodenal ulcer (11/2020) H pylori ulcer (11/2020) History of bleeding ulcers (~1984) History of squamous cell carcinoma Hypercholesterolemia Hypertension Low back pain Sciatica Stage 3a chronic kidney disease Type 2 diabetes mellitus Weakness Surgical History H/O oral surgery History of ankle surgery History of appendectomy History of colonoscopy History of coronary artery bypass graft (~1999) History of surgical removal of skin lesion History of tonsillectomy S/P right knee arthroscopy Family History Mother Cardiac disorder Hypertension Father Cardiac disorder Stroke Hypertension Grandmother (Maternal) Stroke Denies family history of Ovarian cancer Prostate cancer Myocardial infarction Breast cancer Colorectal cancer Social History Smoking Status: Never smoker Second Hand Exposure: No; Hx Alcohol Use: Yes Alcohol type: wine Hx Substance Use: No Preferred Language: Faroese Communication Ability: Effective Link [employer] Machine Tender Required: No Beliefs That Will Affect Care: None marital status: Current Living Situation: Spouse current occupational status: retired Feels Safe at Home: Yes Assistive Devices: Walker Allergies Allergies Allergy/AdvReac Type Severity Reaction Status Date / Time No Known Allergies Allergy Verified 06/02/21 00:46 Home Meds Home Medications Medication Instructions Recorded Confirmed coenzyme Q10 100 mg capsule 100 mg PO QAM 11/23/20 06/02/21 (CoQ-10) psyllium husk 0.52 gram capsule 0.52 g PO QAM 12/06/20 06/02/21 (Metamucil) doxazosin 2 mg tablet 2 mg PO BID tab 04/06/21 06/02/21 furosemide 40 mg tablet 40 mg PO DAILY tab 05/17/21 06/02/21 glipizide 5 mg tablet 2.5 mg PO DAILY 06/02/21 06/02/21 Previous Rx's Medication Instructions Recorded compress.stocking,knee,reg,lrg #2 ea 11/23/20 lancets (OneTouch UltraSoft #100 ea 12/18/20 Lancets) blood-glucose meter (OneTouch #1 ea 12/25/20 Verio Flex Start) blood sugar diagnostic (OneTouch #2 box 12/27/20 Verio test strips) metformin 500 mg tablet 1,000 mg PO BID #360 tab 02/22/21 metoprolol succinate 100 mg 100 mg PO QAM #90 tab 02/22/21 tablet,extended release 24 hr simvastatin 20 mg tablet 20 mg PO QPM #90 tab 02/26/21 sacubitril 49 mg-valsartan 51 mg 1 tab PO BID #180 tab 03/23/21 tablet (Entresto) ferrous sulfate 325 mg (65 mg 325 mg PO BID #180 tab 04/19/21 iron) tablet,delayed release pantoprazole 40 mg tablet,delayed 40 mg PO QAM #90 tab 05/01/21 release Results & Data (ED) Vital Signs Vital Signs - 24 hr 06/01/21 23:21 06/02/21 01:19 06/02/21 02:56 Temperature 36.7 C Temperature Source Oral Pulse Rate [Right Finger] 83 86 Respiratory Rate 16 18 Blood Pressure [Right Arm] 171/101 H 172/105 H Blood Pressure Mean [Right Arm] 124 127 Blood Pressure Position Sitting Blood Pressure Position [Right Arm] Sitting Pulse Oximetry 95 96 96 Oxygen Delivery Method Room Air Room Air Room Air Sepsis Recent Fever Within 48 Hours No Sepsis New/Unexplained Change in Mental Status No Sepsis Action Taken by Nursing No Action Required Laboratory Data Result diagrams: 06/01/21 23:27 06/01/21 23:27 Lab Results 06/01/21 06/01/21 06/01/21 Range/Units 23:27 23:27 23:27 WBC 8.34 (4.8-10.8) K/uL RBC 3.96 L (4.7-6.1) M/uL Hgb 11.6 L (14.0-18.0) g/dL Hct 35.3 L (42-52) % MCV 89.1 (80-100) fL MCH 29.3 (25-34) pg MCHC 32.9 (32-36) g/dL RDW Std Deviation 51.2 H (36.4-46.3) fL RDW Coeff of Mario 15.6 H (11.5-14.5) % Plt Count 244 (130-400) K/uL MPV 12.2 H (7.4-10.4) fL Immature Gran % (Auto) 0.1 % Neut % (Auto) 78.2 % Lymph % (Auto) 10.7 % Aurora % (Auto) 7.6 % Eos % (Auto) 2.9 % Baso % (Auto) 0.5 % Neut # (Auto) 6.53 H (1.4-6.5) K/uL Lymph # (Auto) 0.89 L (1.2-3.4) K/uL Aurora # (Auto) 0.63 H (0.11-0.59) K/uL Eos # (Auto) 0.24 (0-0.5) K/uL Baso # (Auto) 0.04 (0-0.2) K/uL Immature Gran # (Auto) 0.01 (0.00-0.02) K/uL PT (9.0-12.0) Seconds INR (0.9-1.1) APTT (21.0-31.0) Seconds PTT Ratio Sodium 134 L (136-145) mmol/L Potassium 4.1 (3.5-5.1) mmol/L Chloride 102 (98-107) mmol/L Carbon Dioxide 23 (21-32) mmol/L Anion Gap 9.0 (3-11) BUN 43 H (7-18) mg/dl Creatinine 2.24 H (0.6-1.4) mg/dl Est Cr Clr Drug Dosing 31.7 ml/min Est GFR ( Amer) 30.9 ml/min Est GFR (Non-Af Amer) 26.7 ml/min BUN/Creatinine Ratio 19.0 (10-20) Glucose 196 H (70-99) mg/dl Lactate 2.8 H* (0.4-2.0) mmol/L Calcium 9.2 (8.5-10.1) mg/dl Total Bilirubin 1.6 H (0.2-1) mg/dl AST 15 (15-37) U/L ALT 18 (12-78) U/L Alkaline Phosphatase 116 (45-117) U/L Troponin I < 0.015 (0-0.045) ng/ml NT-Pro-B Natriuret Pep (0-1800) pg/ml Total Protein 8.1 (6.4-8.2) gm/dl Albumin 3.6 (3.4-5.0) gm/dl Globulin 4.5 H (2.5-4.0) gm/dl Albumin/Globulin Ratio 0.8 L (0.9-2) Lipase 305 (73-393) U/L Urine Color Urine Appearance (Clear) Urine pH (4.5-7.5) Ur Specific Elberta (1.000-1.030) Urine Protein (Negative) Urine Glucose (UA) (Negative) Urine Ketones (Negative) Urine Blood (Negative) Urine Nitrite (Negative) Urine Bilirubin (Negative) Urine Urobilinogen (Negative) Ur Leukocyte Esterase (Negative) Urine WBC (Auto) (0-5) /hpf Urine RBC (Auto) (0-4) /hpf U Hyaline Cast (Auto) (0-5) /lpf U Epithel Cells (Auto) (0-5) /lpf Urine Bacteria (Auto) (Negative) COVID-19 Eval Order SARS-CoV-2 (PCR) (Negative) 06/01/21 06/01/21 06/01/21 Range/Units 23:27 23:27 23:55 WBC (4.8-10.8) K/uL RBC (4.7-6.1) M/uL Hgb (14.0-18.0) g/dL Hct (42-52) % MCV (80-100) fL MCH (25-34) pg MCHC (32-36) g/dL RDW Std Deviation (36.4-46.3) fL RDW Coeff of Mario (11.5-14.5) % Plt Count (130-400) K/uL MPV (7.4-10.4) fL Immature Gran % (Auto) % Neut % (Auto) % Lymph % (Auto) % Aurora % (Auto) % Eos % (Auto) % Baso % (Auto) % Neut # (Auto) (1.4-6.5) K/uL Lymph # (Auto) (1.2-3.4) K/uL Aurora # (Auto) (0.11-0.59) K/uL Eos # (Auto) (0-0.5) K/uL Baso # (Auto) (0-0.2) K/uL Immature Gran # (Auto) (0.00-0.02) K/uL PT 12.2 H (9.0-12.0) Seconds INR 1.2 H (0.9-1.1) APTT 27.4 (21.0-31.0) Seconds PTT Ratio 1.0 Sodium (136-145) mmol/L Potassium (3.5-5.1) mmol/L Chloride (98-107) mmol/L Carbon Dioxide (21-32) mmol/L Anion Gap (3-11) BUN (7-18) mg/dl Creatinine (0.6-1.4) mg/dl Est Cr Clr Drug Dosing ml/min Est GFR ( Amer) ml/min Est GFR (Non-Af Amer) ml/min BUN/Creatinine Ratio (10-20) Glucose (70-99) mg/dl Lactate (0.4-2.0) mmol/L Calcium (8.5-10.1) mg/dl Total Bilirubin (0.2-1) mg/dl AST (15-37) U/L ALT (12-78) U/L Alkaline Phosphatase (45-117) U/L Troponin I (0-0.045) ng/ml NT-Pro-B Natriuret Pep 16498 H (0-1800) pg/ml Total Protein (6.4-8.2) gm/dl Albumin (3.4-5.0) gm/dl Globulin (2.5-4.0) gm/dl Albumin/Globulin Ratio (0.9-2) Lipase (73-393) U/L Urine Color Yellow Urine Appearance Clear (Clear) Urine pH 5.0 (4.5-7.5) Ur Specific [place] 1.014 (1.000-1.030) Urine Protein 1+ H (Negative) Urine Glucose (UA) Negative (Negative) Urine Ketones Negative (Negative) Urine Blood Negative (Negative) Urine Nitrite Negative (Negative) Urine Bilirubin Negative (Negative) Urine Urobilinogen Negative (Negative) Ur Leukocyte Esterase Negative (Negative) Urine WBC (Auto) 1-5 (0-5) /hpf Urine RBC (Auto) 0-4 (0-4) /hpf U Hyaline Cast (Auto) 5-10 H (0-5) /lpf U Epithel Cells (Auto) 5-10 H (0-5) /lpf Urine Bacteria (Auto) Negative (Negative) COVID-19 Eval Order SARS-CoV-2 (PCR) (Negative) 06/02/21 06/02/21 Range/Units 01:17 01:17 WBC (4.8-10.8) K/uL RBC (4.7-6.1) M/uL Hgb (14.0-18.0) g/dL Hct (42-52) % MCV (80-100) fL MCH (25-34) pg MCHC (32-36) g/dL RDW Std Deviation (36.4-46.3) fL RDW Coeff of Mario (11.5-14.5) % Plt Count (130-400) K/uL MPV (7.4-10.4) fL Immature Gran % (Auto) % Neut % (Auto) % Lymph % (Auto) % Aurora % (Auto) % Eos % (Auto) % Baso % (Auto) % Neut # (Auto) (1.4-6.5) K/uL Lymph # (Auto) (1.2-3.4) K/uL Aurora # (Auto) (0.11-0.59) K/uL Eos # (Auto) (0-0.5) K/uL Baso # (Auto) (0-0.2) K/uL Immature Gran # (Auto) (0.00-0.02) K/uL PT (9.0-12.0) Seconds INR (0.9-1.1) APTT (21.0-31.0) Seconds PTT Ratio Sodium (136-145) mmol/L Potassium (3.5-5.1) mmol/L Chloride (98-107) mmol/L Carbon Dioxide (21-32) mmol/L Anion Gap (3-11) BUN (7-18) mg/dl Creatinine (0.6-1.4) mg/dl Est Cr Clr Drug Dosing ml/min Est GFR ( Amer) ml/min Est GFR (Non-Af Amer) ml/min BUN/Creatinine Ratio (10-20) Glucose (70-99) mg/dl Lactate (0.4-2.0) mmol/L Calcium (8.5-10.1) mg/dl Total Bilirubin (0.2-1) mg/dl AST (15-37) U/L ALT (12-78) U/L Alkaline Phosphatase (45-117) U/L Troponin I (0-0.045) ng/ml NT-Pro-B Natriuret Pep (0-1800) pg/ml Total Protein (6.4-8.2) gm/dl Albumin (3.4-5.0) gm/dl Globulin (2.5-4.0) gm/dl Albumin/Globulin Ratio (0.9-2) Lipase (73-393) U/L Urine Color Urine Appearance (Clear) Urine pH (4.5-7.5) Ur Specific [place] (1.000-1.030) Urine Protein (Negative) Urine Glucose (UA) (Negative) Urine Ketones (Negative) Urine Blood (Negative) Urine Nitrite (Negative) Urine Bilirubin (Negative) Urine Urobilinogen (Negative) Ur Leukocyte Esterase (Negative) Urine WBC (Auto) (0-5) /hpf Urine RBC (Auto) (0-4) /hpf U Hyaline Cast (Auto) (0-5) /lpf U Epithel Cells (Auto) (0-5) /lpf Urine Bacteria (Auto) (Negative) COVID-19 Eval Order Covid19 at [facility] SARS-CoV-2 (PCR) NEGATIVE (Negative) Administered Medications Discontinued Medications Morphine Sulfate (Morphine Sulfate 2 Mg/Ml Carp) 2 mg IV NOW STA Stop: 06/02/21 01:03 Last Admin: 06/02/21 01:11 Dose: 2 mg Documented by: [id number] Ondansetron HCl (Ondansetron Inj 2 Mg/Ml 2 Ml Vial) 4 mg IV NOW STA Stop: 06/02/21 01:03 Last Admin: 06/02/21 01:11 Dose: 4 mg Documented by: [id number] Discharge Plan Visit Data Chief Complaint: Abdominal Pain Stated Complaint: ABDOMINAL PAIN ED Provider: Roc Short Discharge Problem: Abdominal pain
[2021-06-01 23:58] LABS: Albumin Globulin Ratio 0.8 (0.9-2); Alkaline Phosphatase 116 U/L (45-117); Bilirubin,Total 1.6 mg/dl (0.2-1); Globulin 4.5 gm/dl (2.5-4.0); Total Protein 8.1 gm/dl (6.4-8.2); Troponin I < 0.015 ng/ml (0-0.045)
[2021-06-02 00:11] LABS: Appearance Urine Clear (Clear); Bacteria Urine Automated Negative (Negative); Bilirubin Urine Negative (Negative); Blood Urine Negative (Negative); Color Urine Yellow; Glucose Urine UA Negative (Negative); Ketones Urine Negative (Negative); Leukocyte Esterase Urine Negative (Negative); Nitrite Urine Negative (Negative); Protein Urine 1+ (Negative); RBC Urine Automated 0-4 /hpf (0-4); Specific Gravity Urine 1.014 (1.000-1.030); Urobilinogen Urine Negative (Negative)
[2021-06-02] MEDS ORDERED: MoRPHine SULFATE 2 MG/ML CARP IV STA (01:02)
[2021-06-02] MEDS ORDERED: ONDANSETRON INJ 2 MG/ML 2 ML VIAL IV STA (01:02)
[2021-06-02 01:19] LABS: INR 1.2 (0.9-1.1); Partial Thromboplastin Time 27.4 Seconds (21.0-31.0); Prothrombin Time 12.2 Seconds (9.0-12.0)
--- NOTE | 2021-06-02 03:18 | History & Physical Report ---
Date of Service June 02, 2021 Assessment & Plan (1) Abdominal pain: Plan: Right upper quadrant abdominal pain/cirrhosis/ascites/anasarca- Patient and family unaware of these diagnoses. NPO Trial Lasix 40 mg IV x1 this evening Could be considered for ultrasound-guided diagnostic/therapeutic paracentesis Resume oral furosemide in a.m. Zosyn 3.375 mg IV every 8 hours Consult gastroenterology Case (2) Ascites: Plan: See above (3) Cirrhosis: Plan: See above (4) Anasarca: Plan: See above (5) Duodenal ulcer: Plan: Hold pantoprazole Placed on famotidine 20 mg IV every 12 hours (6) Diabetes mellitus type II, uncontrolled: Plan: Hold Metformin and glipizide Place on Accu-Cheks before meals and at bedtime with NovoLog coverage per scale Check hemoglobin A1c (7) CHF (congestive heart failure): Plan: CHF/hypertension/atrial fibrillation- For now, hold doxazosin, metoprolol succinate, Entresto. Lopressor 5 mg IV every 4 hours with hold parameters in (8) Hypertension: Plan: See above (9) Atrial fibrillation: Plan: See above (10) Stage 3a chronic kidney disease: Plan: Creatinine stable 2.24, follow serially (11) Edema of both lower legs: Plan: Bilateral lower extremity edema and cellulitis- Diuresis with IV Lasix as noted above Zosyn 3.375 g IV every 8 hours See above (12) Cellulitis of both lower extremities: Plan: Antibiotics as noted above History of Present Illness Chief Complaint: The patient presents to the emergency department with complaint of persistent right upper quadrant pain and nausea that began around 7:00 this evening. Primary Care Provider: Valentín Bales MD The patient is an 81-year-old male with a past medical history including duodenal ulcer, anemia, rosacea, polyarthralgias, urinary incontinence, ambulatory dysfunction, idiopathic polyneuropathy, ASCVD, diabetes mellitus type 2, ischemic cardiomyopathy, long-term myocardial use, CHF, stage III CKD, hypercholesterolemia, hypertension, atrial fibrillation and BPH. He presents with symptoms as noted above. Abnormal laboratories: Hemoglobin 11.6, medical 35.3, sodium 134, glucose 196, creatinine 2.24, BUN 43, lactate 2.8, total bilirubin 1.6. COVID-[address] of abdomen pelvis without contrast: Liver cirrhosis. Normal spleen size. Cholelithiasis. Enlarged prostate with bladder wall distention. Moderate amount of peritoneal fluid suggestive of ascites likely secondary to hepatic dysfunction Allergies Allergy/AdvReac Type Severity Reaction Status Date / Time No Known Allergies Allergy Verified 06/02/21 00:46 Home Medications Medication Instructions Recorded Confirmed Type coenzyme Q10 100 mg capsule 100 mg PO QAM 11/23/20 06/02/21 History (CoQ-10) compress.stocking,knee,reg,lrg #2 ea 11/23/20 05/29/21 Rx psyllium husk 0.52 gram capsule 0.52 g PO QAM 12/06/20 06/02/21 History (Metamucil) lancets (OneTouch UltraSoft #100 ea 12/18/20 05/29/21 Rx Lancets) blood-glucose meter (OneTouch #1 ea 12/25/20 05/29/21 Rx Verio Flex Start) blood sugar diagnostic (OneTouch #2 box 12/27/20 05/29/21 Rx Verio test strips) metformin 500 mg tablet 1,000 mg PO BID #360 tab 02/22/21 06/02/21 Rx metoprolol succinate 100 mg 100 mg PO QAM #90 tab 02/22/21 06/02/21 Rx tablet,extended release 24 hr simvastatin 20 mg tablet 20 mg PO QPM #90 tab 02/26/21 06/02/21 Rx sacubitril 49 mg-valsartan 51 mg 1 tab PO BID #180 tab 03/23/21 06/02/21 Rx tablet (Entresto) doxazosin 2 mg tablet 2 mg PO BID tab 04/06/21 06/02/21 History ferrous sulfate 325 mg (65 mg 325 mg PO BID #180 tab 04/19/21 06/02/21 Rx iron) tablet,delayed release pantoprazole 40 mg tablet,delayed 40 mg PO QAM #90 tab 05/01/21 06/02/21 Rx release furosemide 40 mg tablet 40 mg PO DAILY tab 05/17/21 06/02/21 History glipizide 5 mg tablet 2.5 mg PO DAILY 06/02/21 06/02/21 History Past Med/Surg History Medical History Acute hyponatremia Acute UTI Anemia Anticoagulant long-term use Arteriosclerosis of coronary artery Atrial fibrillation Benign prostatic hyperplasia CHF (congestive heart failure) Duodenal ulcer (11/2020) H pylori ulcer (11/2020) History of bleeding ulcers (~1984) History of squamous cell carcinoma Hypercholesterolemia Hypertension Low back pain Sciatica Stage 3a chronic kidney disease Type 2 diabetes mellitus Weakness Surgical History H/O oral surgery History of ankle surgery History of appendectomy History of colonoscopy History of coronary artery bypass graft (~1999) History of surgical removal of skin lesion History of tonsillectomy S/P right knee arthroscopy Family History Mother Cardiac disorder Hypertension Father Cardiac disorder Stroke Hypertension Grandmother (Maternal) Stroke Denies family history of Ovarian cancer Prostate cancer Myocardial infarction Breast cancer Colorectal cancer Social History Smoking Status: Never smoker Second Hand Exposure: No; Hx Alcohol Use: Yes Alcohol type: wine Hx Substance Use: No Preferred Language: Turkmen Communication Ability: Effective Nibbler Operator Required: No Beliefs That Will Affect Care: None marital status: Current Living Situation: Spouse current occupational status: retired Feels Safe at Home: Yes Assistive Devices: Walker Review of Systems Review of Systems: The patient denies chest pain, palpitations, shortness of breath, dyspnea on exertion, cough, sore throat, fevers, chills, sweats, vomiting, diarrhea , constipation, pelvic pain, blood in urine or stool, dysuria, urinary frequency or urgency, lightheadedness, dizziness, headache, loss of consciousness, rash, abnormal bruising or bleeding, focal weakness, numbness or tingling in arms or legs, neck pain, or night sweats. The review of systems is otherwise negative other than for that already noted above, and at least 10 systems have been reviewed. Physical Exam Physical Exam: The patient is awake, appears intermittently confused, well developed and well nourished, normocephalic and atraumatic, lying in bed and in no acute distress. HEENT--PERRL, EOMI, mucous membranes and oropharynx dry. Neck--supple. No JVD. No bruits. Thyroid normal, trachea midline, no adenopathy. Heart--normal S1 and S2. No murmurs, rubs or gallops. Lungs--clear bilaterally, no respiratory distress, no accessory muscle use. Abdomen--normal bowel sounds and soft.. Right upper quadrant tenderness moderately distended Extremities--1-2+ bilateral pretibial pitting edema, right greater than left, with area of leakage anteriorly on the right Dermatologic--mild erythema bilaterally lower extremities Neurologic--cranial nerves II through XII grossly intact. Rheumatologic--limited exam Psychiatric--normal affect. Results & Data Results & Data ([facility]) Vital Signs (Past 12 Hours) Vital Signs Temp Pulse Resp BP Pulse Ox 06/02/21 02:56 86 18 172/105 H 96 06/02/21 01:19 83 16 171/101 H 96 06/01/21 23:21 98.1 F 95 Laboratory Results Laboratory Results WBC 8.34 K/uL (4.8-10.8) 06/01/21 23: RBC 3.96 M/uL (4.7-6.1) L 06/01/21 23: Hgb 11.6 g/dL (14.0-18.0) L 06/01/21 23: Hct 35.3 % (42-52) L 06/01/21 23:27 MCV 89.1 fL (80-100) 06/01/21 23:27 MCH 29.3 pg (25-34) 06/01/21 23:27 MCHC 32.9 g/dL (32-36) 06/01/21 23: RDW Std Deviation 51.2 fL (36.4-46.3) H 06/01/21 23:27 RDW Coeff of Mario 15.6 % (11.5-14.5) H 06/01/21 23:27 Plt Count 244 K/uL (130-400) 06/01/21 23: MPV 12.2 fL (7.4-10.4) H 06/01/21 23:27 Immature Gran % (Auto) 0.1 % 06/01/21 23: Neut % (Auto) 78.2 % 06/01/21 23: Lymph % (Auto) 10.7 % 06/01/21 23: [place] % (Auto) 7.6 % 06/01/21 23: Eos % (Auto) 2.9 % 06/01/21 23: Baso % (Auto) 0.5 % 06/01/21 23: Neut # (Auto) 6.53 K/uL (1.4-6.5) H 06/01/21 23: Lymph # (Auto) 0.89 K/uL (1.2-3.4) L 06/01/21 23: [place] # (Auto) 0.63 K/uL (0.11-0.59) H 06/01/21 23: Eos # (Auto) 0.24 K/uL (0-0.5) 06/01/21: Baso # (Auto) 0.04 K/uL (0-0.2) 06/01/21 23: Immature Gran # (Auto) 0.01 K/uL (0.00-0.02) 06/01/21: PT 12.2 Seconds (9.0-12.0) H 06/01/21 23: INR 1.2 (0.9-1.1) H 06/01/21 23: APTT 27.4 Seconds (21.0-31.0) 06/01/21: PTT Ratio 1.0 06/01/21 23: Sodium 134 mmol/L (136-145) L 06/01/21 23: Potassium 4.1 mmol/L (3.5-5.1) 06/01/21: Chloride 102 mmol/L (98-107) 06/01/21: Carbon Dioxide 23 mmol/L (21-32) 06/01/21 23: Anion Gap 9.0 (3-11) 06/01/21 23: BUN 43 mg/dl (7-18) H 06/01/21: Creatinine 2.24 mg/dl (0.6-1.4) H 06/01/21 23: Est Cr Clr Drug Dosing 31.7 ml/min 06/01/21 23: Est GFR ( Amer) 30.9 ml/min 06/01/21 23: Est GFR (Non-Af Amer) 26.7 ml/min 06/01/21 23: BUN/Creatinine Ratio 19.0 (10-20) 06/01/21 23:27 Glucose 196 mg/dl (70-99) H 06/01/21 23: Lactate 2.8 mmol/L (0.4-2.0) H* 06/01/21 23: Calcium 9.2 mg/dl (8.5-10.1) 06/01/21 23: Total Bilirubin 1.6 mg/dl (0.2-1) H 06/01/21 23:27 AST 15 U/L (15-37) 06/01/21 23: ALT 18 U/L (12-78) 06/01/21 23: Alkaline Phosphatase 116 U/L (45-117) 06/01/21 23: Ammonia 16.0 umol/L (11-32) 06/02/21 03:54 Troponin I < 0.015 ng/ml (0-0.045) 06/01/21 23: NT-Pro-B Natriuret Pep 50478 pg/ml (0-1800) H 06/01/21 23: Total Protein 8.1 gm/dl (6.4-8.2) 06/01/21 23: Albumin 3.6 gm/dl (3.4-5.0) 06/01/21 23: Globulin 4.5 gm/dl (2.5-4.0) H 06/01/21 23:27 Albumin/Globulin Ratio 0.8 (0.9-2) L 06/01/21 23: Lipase 305 U/L (73-393) 06/01/21 23: Urine Color Yellow 06/01/21 23:55 Urine Appearance Clear (Clear) 06/01/21 23:55 Urine pH 5.0 (4.5-7.5) 06/01/21 23:55 Ur Specific [place] 1.014 (1.000-1.030) 06/01/21 23: Urine Protein 1+ (Negative) H 06/01/21 23:55 Urine Glucose (UA) Negative (Negative) 06/01/21 23:55 Urine Ketones Negative (Negative) 06/01/21 23:55 Urine Blood Negative (Negative) 06/01/21 23: Urine Nitrite Negative (Negative) 06/01/21 23:55 Urine Bilirubin Negative (Negative) 06/01/21 23:55 Urine Urobilinogen Negative (Negative) 06/01/21 23:55 Ur Leukocyte Esterase Negative (Negative) 06/01/21 23:55 Urine WBC (Auto) 1-5 /hpf (0-5) 06/01/21 23:55 Urine RBC (Auto) 0-4 /hpf (0-4) 06/01/21 23:55 U Hyaline Cast (Auto) 5-10 /lpf (0-5) H 06/01/21 23:55 U Epithel Cells (Auto) 5-10 /lpf (0-5) H 11 23:55 Urine Bacteria (Auto) Negative (Negative) 06/01/21 23:55 COVID-19 Eval Order Covid19 at [facility] 06/02/21 01:17 SARS-CoV-2 (PCR) NEGATIVE (Negative) 06/02/21 01:17 Diagnostic Findings [facility] Patient: REJI GALLEGO (Male) : 42 Status: ER Date: 06/01/21 23:55 Room #: History: MID ABD PAIN ,DISTENTION, NAUSEA , UNABLE TO VERIFY APPENDIX Slices: [id number] Priors: Tech: Joaquin Taylor @ [phone] Exams: CT ABDOMEN & PELVIS Without Contrast Contrast: Accession Numbers: [id number] Referring Physician: HERNAN ALANIZ Preliminary Findings Only See Final Report For Complete Findings ADDENDUM - Added by Laith Walker MD on 06/02/2021 12:46 AM (-08:00) Peritoneal fluid density level (5-8 HU) is suggested of peritoneal fluid rather than blood. Additional clinical history of cardiac dysfunction and atrial fibrillation. CT ABDOMEN & PELVIS Without Contrast: Direct comparison made to prior study of December 06, 2020 There is enlargement of the left lobe of the liver and the caudate lobe of the liver with some nodularity of the hepatic surface. The appearance is stable from the prior study and suggest cirrhosis. Spleen is not enlarged. Pancreas appears normal. There is a small amount of calcified density in the dependent gallbladder suggesting cholelithiasis. Stomach, small bowel, colon and appendix appear normal. The adrenals, kidneys, and ureters appear normal. There is some bladder wall Prostate is prominent measuring 6.7 x 5.2 cm. There are moderate atherosclerotic changes in the abdominal aorta. There is no free peritoneal air. There is a moderate amount of peritoneal fluid with collections adjacent to the liver spleen and central small bowel as well as pelvis Impression: Ascites is likely related to hepatic dysfunction. Correlation with hepatic function recommended Cirrhotic appearance to the liver. Radiologist: Laith Walker MD Study ready at 00:01 and initial results transmitted at 00:18 Communications: Clear Time Type Notes 06/02/21 00:49 Call From [facility] Dr.Mac ospina on 06/02 00:39 (-05:00) *This report constitutes a preliminary interpretation only. Non-acute findings felt to be unrelated to the clinical presentation may not be discussed in this report. The study will be interpreted and a final report will be generated by the local Radiologist the following shift. To reach the [facility] [address] radiology department call [phone]. If a discrepancy is found between the preliminary and final interpretations of this study, please notify us via our Client Portal at [email or web address] under QA Exams. You can also fax this r eport with a description of the discrepancy, or include the final report, to our daytime fax number [phone]. If faxing, please indicate the severity of discrepancy using one of the following categories: [ ] 1 - Agree/Informational [ ] 2 - Unlikely to Affect Management [ ] 3 - Possible Eventual Change of Management [ ] 4 - Probable Immediate Change of Management For all other patient related information, please fax us at [phone]. Code Status & VTE Plan Code Status Full code VTE Prophylaxis Plan VTE Prophylaxis will be ordered: Yes PG Care Time/CCT Total # of Minutes Spent Total Time Spent with Patient: Total time spent is greater than 50% in coordination of care (as documented) at patient's floor/unit and/or counseling patient: Coding Level of Care Code 83009 Initial Inpt Care Lvl 3 Diagnoses Abdominal pain R10.9 Edema of both lower legs R60.0 Ascites R18.8 Cirrhosis K74.60 Anasarca R60.1 Duodenal ulcer K26.9 Diabetes mellitus type II, uncontrolled E11.65 CHF (congestive heart failure) I50.9 Stage 3a chronic kidney disease N18.31 Hypertension I10 Atrial fibrillation I48.91 Cellulitis of both lower extremities L03.115; L03.116
[2021-06-02] MEDS ORDERED: DEXTROSE 50% 50 ML SYRINGE IV PRN (05:04)
[2021-06-02] MEDS ORDERED: GLUCOSE 40% GEL 15 GM TUBE PO PRN (05:04)
[2021-06-02] MEDS ORDERED: PIPERACILL/TAZOBAC CONSULT ACTIVE PRN (05:04)
[2021-06-02] MEDS ORDERED: ONDANSETRON INJ 2 MG/ML 2 ML VIAL IV PRN (05:04)
[2021-06-02] MEDS ORDERED: FUROSEMIDE 40 MG/4 ML VIAL IV ONE (05:04)
[2021-06-02] MEDS ORDERED: GLUCAGON FOR INJ 1 MG VIAL SQ PRN (05:04)
[2021-06-02] MEDS ORDERED: CARBOHYDRATES FOR HYPOGLYCEMIA PO PRN (05:04)
[2021-06-02] MEDS ORDERED: GLUCOSE 10 TABS/TUBE PO PRN (05:04)
[2021-06-02] MEDS ORDERED: PIPERACILLIN/TAZOBACTAM 4.5 GM in DEXTROSE 5% 100 ML IV ONE (05:30)
[2021-06-02] MEDS: METOPROLOL TARTRATE 1 MG/ML VIAL IV SCH ×5 (06:41→19:59)
[2021-06-02] MEDS: FAMOTIDINE 20 MG in SYRINGE 3 ML IV SCH ×2 (08:24→20:00)
[2021-06-02] MEDS: INSULIN ASPART 100 UNITS/ML 3 ML PEN SC SCH ×4 (08:25→21:44)
--- NOTE | 2021-06-02 09:18 | CT Scan Report ---
CT abd pelvis wo con CLINICAL HISTORY: mid abd pain, distension TECHNIQUE: Helical axial images of the abdomen and pelvis were obtained. Automated dose lowering tech niques and/or adjustment according to patient size were utilized for this exam. This exam was perfor med without intravenous contrast. COMPARISON: Comparison is made to CT abdomen pelvis 12/06/2020 FINDINGS: Lower chest: Cardiomegaly is partially visualized. Liver: Nodular contour of the liver is seen compatible with cirrhosis. A small hypodensity in the rig ht lobe of the liver is too small to characterize. Gallbladder and biliary tree: No calcified gallstones. Normal caliber wall. No intra- or extrahepatic biliary ductal dilation. Pancreas: Unremarkable, no focal lesions. Spleen: Splenule is incidentally noted. Adrenals: Unremarkable. Kidneys and ureters: Nonobstructive nephrolithiasis is seen. Bladder: Limited evaluation due to underdistention. Reproductive organs: Prostatomegaly is seen. Bowel: Unremarkable. Lymph nodes Retroperitoneal: Unremarkable. Mesenteric: Unremarkable. Pelvic: Prominent subcentimeter inguinal nodes are noted. Peritoneum: Moderate ascites is seen. Vessels: Atherosclerotic calcifications are seen. Abdominal wall: Soft tissue edema is seen throughout the abdominal wall. Bones: Degenerative changes in the visualized spine. IMPRESSION: No acute abnormalities. Cirrhosis and ascites. Cardiomegaly is seen. ACT 112: Negative or not required by law. Electronically signed by: Demetrio Chamberlain M.D. 06/02/2021 9:17 AM
[2021-06-02] MEDS ORDERED: PIPERACILLIN/TAZOBACTAM 3.375 GM in DEXTROSE 5% 100 ML IV SCH (10:00)
--- NOTE | 2021-06-02 12:22 | XRay Report ---
SINGLE VIEW CHEST CLINICAL HISTORY: Generalized abdominal pain. FINDINGS: 2 AP, portable, upright chest radiographs are compared to study dated 04/01/2021. The patien t is status post midline sternotomy. The heart is enlarged noting atherosclerotic calcification of th e thoracic aorta. There is pulmonary vascular congestion. Atelectasis is seen at the lung bases. No a irspace consolidation or large pleural effusion is identified. No pneumothorax is seen. The skeletal structures are osteopenic. The bony thorax is grossly intact. IMPRESSION: Cardiomegaly with pulmonary vascular congestion. ACT 112: Negative or not required by law. Electronically signed by: Burt Houser M.D. 06/02/2021 12:21 PM
--- NOTE | 2021-06-02 13:48 | Gastrointestinal Consultation ---
Date of Consultation June 02, 2021 Supervising Physician Co-Signing Physician Notes Therapeutic/diagnostic tap with albumin. Trend MELD labs. Further fup per [facility] History of Present Illness Reason for Consultation: Abdominal distension, history of cirrhosis- followed with Dr. Savage Requesting Physician: Dr. Bowman Attending Physician: Briana Sinclair MD History of Present Illness 81 yo male with known cirrhosis reportedly follows with Dr. Savage. Admitted through the ER with abdominal distension, imaging suggestive of acites. Pt appears oriented to person, place, time, without other complaints of hematemesis, hematochezia, no diarrhea. No acute complaints otherwise. Not clear if any salt indisretion or etoh use per history. Allergies Allergy/AdvReac Type Severity Reaction Status Date / Time No Known Allergies Allergy Verified 06/02/21 00:46 Home Medications Medication Instructions Recorded Confirmed Type coenzyme Q10 100 mg capsule 100 mg PO QAM 11/23/20 06/02/21 History (CoQ-10) compress.stocking,knee,reg,lrg #2 ea 11/23/20 05/29/21 Rx psyllium husk 0.52 gram capsule 0.52 g PO QAM 12/06/20 06/02/21 History (Metamucil) lancets (OneTouch UltraSoft #100 ea 12/18/20 05/29/21 Rx Lancets) blood-glucose meter (OneTouch #1 ea 12/25/20 05/29/21 Rx Verio Flex Start) blood sugar diagnostic (OneTouch #2 box 12/27/20 05/29/21 Rx Verio test strips) metformin 500 mg tablet 1,000 mg PO BID #360 tab 02/22/21 06/02/21 Rx metoprolol succinate 100 mg 100 mg PO QAM #90 tab 02/22/21 06/02/21 Rx tablet,extended release 24 hr simvastatin 20 mg tablet 20 mg PO QPM #90 tab 02/26/21 06/02/21 Rx sacubitril 49 mg-valsartan 51 mg 1 tab PO BID #180 tab 03/23/21 06/02/21 Rx tablet (Entresto) doxazosin 2 mg tablet 2 mg PO BID tab 04/06/21 06/02/21 History ferrous sulfate 325 mg (65 mg 325 mg PO BID #180 tab 04/19/21 06/02/21 Rx iron) tablet,delayed release pantoprazole 40 mg tablet,delayed 40 mg PO QAM #90 tab 05/01/21 06/02/21 Rx release furosemide 40 mg tablet 40 mg PO DAILY tab 05/17/21 06/02/21 History glipizide 5 mg tablet 2.5 mg PO DAILY 06/02/21 06/02/21 History Patient History Medical History Acute hyponatremia Acute UTI Anemia Anticoagulant long-term use Arteriosclerosis of coronary artery Atrial fibrillation Benign prostatic hyperplasia CHF (congestive heart failure) Duodenal ulcer (11/2020) H pylori ulcer (11/2020) History of bleeding ulcers (~1984) History of squamous cell carcinoma Hypercholesterolemia Hypertension Low back pain Sciatica Stage 3a chronic kidney disease Type 2 diabetes mellitus Weakness Surgical History H/O oral surgery History of ankle surgery History of appendectomy History of colonoscopy History of coronary artery bypass graft (~1999) History of surgical removal of skin lesion History of tonsillectomy S/P right knee arthroscopy Family History Mother Cardiac disorder Hypertension Father Cardiac disorder Stroke Hypertension Grandmother (Maternal) Stroke Denies family history of Ovarian cancer Prostate cancer Myocardial infarction Breast cancer Colorectal cancer Social History Smoking Status: Never smoker Second Hand Exposure: No; Hx Alcohol Use: Yes Alcohol type: wine Hx Substance Use: No Preferred Language: Slovak Communication Ability: Effective Kick Press Setter Required: No Beliefs That Will Affect Care: None marital status: Current Living Situation: Spouse current occupational status: retired Other Information That Helps Us Care for You: No Feels Safe at Home: Yes Safety Concerns: Feels Safe At This Time Assistive Devices: Cane Review of Systems Review of Systems: All systems reviewed & are unremarkable except as noted in HPI & below Physical Exam Physical Exam: Tall male in nad Eyes: PERRL, conjunctivae normal, anicteric sclerae Respiratory: Respiration appear normal without work of breathing Gastrointestinal (Abdomen): Distended but soft Neurologic: PERRL, EOMI, accommodation nl, no face palsy, no dysarthria Results & Data ([facility]) Vital Signs (Past 12 Hours) Vital Signs Temp Pulse Pulse Resp BP BP Pulse Ox 06/02/21 12:05 66 158/94 H 06/02/21 11:41 80 17 158/94 H 97 06/02/21 08:24 72 166/96 H 06/02/21 08:18 66 20 166/96 H 96 06/02/21 06:41 88 186/114 H 06/02/21 05:19 36.8 C 76 20 161/105 H 95 06/02/21 02:56 86 18 172/105 H 96 Laboratory Results wbc 8.34, hgb 11.5, hct 35, plt 244 na 134/K 4.1/Cl 102/Bun 43/Cr 2.24 Nomrla ast/alt TB 1.6 Diagnostic Findings Imaging suggestive of moderate ascites and cirrhosis
--- NOTE | 2021-06-02 14:18 | Hospitalist Progress Note ---
Date of Service June 02, 2021 Assessment & Plan (1) Abdominal pain: Plan: Due to moderate sized ascitis as seen on imaging patient has a history of cirrhosis was reluctant to get paracentesis Will order paracentesis with albumin GI on consult, appreciate recs (2) Ascites: Plan: CT guided paracentesis has been ordered with albumin (3) Cirrhosis: Plan: Liver enzymes are stable will monitor (4) Anasarca: Plan: See above (5) Duodenal ulcer: Plan: Hold pantoprazole Placed on famotidine 20 mg IV every 12 hours (6) Diabetes mellitus type II, uncontrolled: Plan: Hold Metformin and glipizide Place on Accu-Cheks before meals and at bedtime with NovoLog coverage per scale Check hemoglobin A1c (7) CHF (congestive heart failure): Plan: CHF/hypertension/atrial fibrillation- For now, hold doxazosin, metoprolol succinate, Entresto. Lopressor 5 mg IV every 4 hours with hold parameters in (8) Hypertension: Plan: See above (9) Atrial fibrillation: Plan: See above (10) Stage 3a chronic kidney disease: Plan: Kidney function at baseline (11) Edema of both lower legs: Plan: Bilateral lower extremity edema and cellulitis- Diuresis with IV Lasix as noted above Zosyn 3.375 g IV every 8 hours See above (12) Cellulitis of both lower extremities: Plan: Antibiotics as noted above Admission and Anticipated Discharge Date Admission Date: June 02, 2021 Subjective patient seen and examined, complains of abdominal distension Review of Systems Review of Systems: All systems reviewed are negative, apart from the ones contained in the history. Physical Exam Physical Exam: The patient is awake, alert and oriented 3, well developed and well nourished, normocephalic and atraumatic, lying in bed and in no acute distress. HEENT--PERRL, EOMI, mucous membranes and oropharynx mildly dry Neck--supple. No JVD. No bruits. Thyroid normal, trachea midline, no adenopathy. Heart--normal S1 and S2. No murmurs, rubs or gallops. Lungs--clear bilaterally, no respiratory distress, no accessory muscle use. Abdomen--distended Extremities--no cyanosis or clubbing. bilateral leg edema. Dermatologic--normal skin turgor, normal color, no abnormal lymph nodes, no rash. Neurologic--cranial nerves II through XII grossly intact. Rheumatologic--normal range of motion. Psychiatric--normal affect. Results & Data Results & Data ([facility]) Vital Signs (Past 12 Hours) Vital Signs Temp Pulse Pulse Resp BP BP Pulse Ox 06/02/21 12:05 66 158/94 H 06/02/21 11:41 80 17 158/94 H 97 06/02/21 08:24 72 166/96 H 06/02/21 08:18 66 20 166/96 H 96 06/02/21 06:41 88 186/114 H 06/02/21 05:19 98.2 F 76 20 161/105 H 95 06/02/21 02:56 86 18 172/105 H 96 Laboratory Results Laboratory Results - last 24 hr 06/01/21 06/01/21 06/01/21 23:27 23:27 23:27 WBC 8.34 RBC 3.96 L Hgb 11.6 L Hct 35.3 L MCV 89.1 MCH 29.3 MCHC 32.9 RDW Std Deviation 51.2 H RDW Coeff of Mario 15.6 H Plt Count 244 MPV 12.2 H Immature Gran % (Auto) 0.1 Neut % (Auto) 78.2 Lymph % (Auto) 10.7 [place] % (Auto) 7.6 Eos % (Auto) 2.9 Baso % (Auto) 0.5 Neut # (Auto) 6.53 H Lymph # (Auto) 0.89 L [place] # (Auto) 0.63 H Eos # (Auto) 0.24 Baso # (Auto) 0.04 Immature Gran # (Auto) 0.01 PT INR APTT PTT Ratio Sodium 134 L Potassium 4.1 Chloride 102 Carbon Dioxide 23 Anion Gap 9.0 BUN 43 H Creatinine 2.24 H Est Cr Clr Drug Dosing 31.7 Est GFR ( Amer) 30.9 Est GFR (Non-Af Amer) 26.7 BUN/Creatinine Ratio 19.0 Glucose 196 H POC Glucose Lactate 2.8 H* Calcium 9.2 Total Bilirubin 1.6 H AST 15 ALT 18 Alkaline Phosphatase 116 Ammonia Troponin I < 0.015 NT-Pro-B Natriuret Pep Total Protein 8.1 Albumin 3.6 Globulin 4.5 H Albumin/Globulin Ratio 0.8 L Lipase 305 Urine Color Urine Appearance Urine pH Ur Specific [place] Urine Protein Urine Glucose (UA) Urine Ketones Urine Blood Urine Nitrite Urine Bilirubin Urine Urobilinogen Ur Leukocyte Esterase Urine WBC (Auto) Urine RBC (Auto) U Hyaline Cast (Auto) U Epithel Cells (Auto) Urine Bacteria (Auto) COVID-19 Eval Order SARS-CoV-2 (PCR) 06/01/21 06/01/21 06/01/21 23:27 23:27 23:55 WBC RBC Hgb Hct MCV MCH MCHC RDW Std Deviation RDW Coeff of Mario Plt Count MPV Immature Gran % (Auto) Neut % (Auto) Lymph % (Auto) [place] % (Auto) Eos % (Auto) Baso % (Auto) Neut # (Auto) Lymph # (Auto) [place] # (Auto) Eos # (Auto) Baso # (Auto) Immature Gran # (Auto) PT 12.2 H INR 1.2 H APTT 27.4 PTT Ratio 1.0 Sodium Potassium Chloride Carbon Dioxide Anion Gap BUN Creatinine Est Cr Clr Drug Dosing Est GFR ( Amer) Est GFR (Non-Af Amer) BUN/Creatinine Ratio Glucose POC Glucose Lactate Calcium Total Bilirubin AST ALT Alkaline Phosphatase Ammonia Troponin I NT-Pro-B Natriuret Pep 36518 H Total Protein Albumin Globulin Albumin/Globulin Ratio Lipase Urine Color Yellow Urine Appearance Clear Urine pH 5.0 Ur Specific [place] 1.014 Urine Protein 1+ H Urine Glucose (UA) Negative Urine Ketones Negative Urine Blood Negative Urine Nitrite Negative Urine Bilirubin Negative Urine Urobilinogen Negative Ur Leukocyte Esterase Negative Urine WBC (Auto) 1-5 Urine RBC (Auto) 0-4 U Hyaline Cast (Auto) 5-10 H U Epithel Cells (Auto) 5-10 H Urine Bacteria (Auto) Negative COVID-19 Eval Order SARS-CoV-2 (PCR) 06/02/21 06/02/21 06/02/21 01:17 01:17 03:54 WBC RBC Hgb Hct MCV MCH MCHC RDW Std Deviation RDW Coeff of Mario Plt Count MPV Immature Gran % (Auto) Neut % (Auto) Lymph % (Auto) [place] % (Auto) Eos % (Auto) Baso % (Auto) Neut # (Auto) Lymph # (Auto) [place] # (Auto) Eos # (Auto) Baso # (Auto) Immature Gran # (Auto) PT INR APTT PTT Ratio Sodium Potassium Chloride Carbon Dioxide Anion Gap BUN Creatinine Est Cr Clr Drug Dosing Est GFR ( Amer) Est GFR (Non-Af Amer) BUN/Creatinine Ratio Glucose POC Glucose Lactate Calcium Total Bilirubin AST ALT Alkaline Phosphatase Ammonia 16.0 Troponin I NT-Pro-B Natriuret Pep Total Protein Albumin Globulin Albumin/Globulin Ratio Lipase Urine Color Urine Appearance Urine pH Ur Specific [place] Urine Protein Urine Glucose (UA) Urine Ketones Urine Blood Urine Nitrite Urine Bilirubin Urine Urobilinogen Ur Leukocyte Esterase Urine WBC (Auto) Urine RBC (Auto) U Hyaline Cast (Auto) U Epithel Cells (Auto) Urine Bacteria (Auto) COVID-19 Eval Order Covid19 at [facility] SARS-CoV-2 (PCR) NEGATIVE 06/02/21 06/02/21 08:16 11:28 WBC RBC Hgb Hct MCV MCH MCHC RDW Std Deviation RDW Coeff of Mario Plt Count MPV Immature Gran % (Auto) Neut % (Auto) Lymph % (Auto) [place] % (Auto) Eos % (Auto) Baso % (Auto) Neut # (Auto) Lymph # (Auto) [place] # (Auto) Eos # (Auto) Baso # (Auto) Immature Gran # (Auto) PT INR APTT PTT Ratio Sodium Potassium Chloride Carbon Dioxide Anion Gap BUN Creatinine Est Cr Clr Drug Dosing Est GFR ( Amer) Est GFR (Non-Af Amer) BUN/Creatinine Ratio Glucose POC Glucose 148 H 140 H Lactate Calcium Total Bilirubin AST ALT Alkaline Phosphatase Ammonia Troponin I NT-Pro-B Natriuret Pep Total Protein Albumin Globulin Albumin/Globulin Ratio Lipase Urine Color Urine Appearance Urine pH Ur Specific [place] Urine Protein Urine Glucose (UA) Urine Ketones Urine Blood Urine Nitrite Urine Bilirubin Urine Urobilinogen Ur Leukocyte Esterase Urine WBC (Auto) Urine RBC (Auto) U Hyaline Cast (Auto) U Epithel Cells (Auto) Urine Bacteria (Auto) COVID-19 Eval Order SARS-CoV-2 (PCR) PG Care Time/CCT Total # of Minutes Spent Total Time Spent with Patient: Total time spent is greater than 50% in coordination of care (as documented) at patient's floor/unit and/or counseling patient: Coding Level of Care Code 71083 Subseq Hosp Care Lvl 2 Diagnoses Abdominal pain R10.9 Ascites R18.8 Cirrhosis K74.60 Anasarca R60.1 Duodenal ulcer K26.9 Diabetes mellitus type II, uncontrolled E11.65 CHF (congestive heart failure) I50.9 Hypertension I10 Atrial fibrillation I48.91 Stage 3a chronic kidney disease N18.31 Edema of both lower legs R60.0 Cellulitis of both lower extremities L03.115; L03.116
[2021-06-02] MEDS: cefTRIAXone SODIUM 2,000 MG in DEXTROSE 5% 50 ML IV SCH (19:59)
[2021-06-03] MEDS: METOPROLOL TARTRATE 1 MG/ML VIAL IV SCH ×7 (00:10→23:41)
[2021-06-03 06:37] LABS: Basophils # (auto) 0.04 K/uL (0-0.2); Basophils % (auto) 0.5 %; Eosinophils # (auto) 0.37 K/uL (0-0.5); Hematocrit (blood only) 35.1 % (42-52); Hemoglobin 11.4 g/dL (14.0-18.0); Immature Granulocytes # (auto) 0.02 K/uL (0.00-0.02); Immature Granulocytes % (auto) 0.3 %; Lymphocytes # (auto) 1.26 K/uL (1.2-3.4); Lymphocytes % (auto) 16.9 %; Mean Corpuscular Hemoglobin 28.8 pg (25-34); Mean Corpuscular Hgb Conc 32.5 g/dL (32-36); Mean Corpuscular Volume 88.6 fL (80-100); Mean Platelet Volume 11.4 fL (7.4-10.4); Monocytes # (auto) 0.88 K/uL (0.11-0.59); Monocytes % (auto) 11.8 %; Neutrophils # (auto) 4.88 K/uL (1.4-6.5); Neutrophils % (auto) 65.5 %; Platelet Count 253 K/uL (130-400); RDW Coefficient of Variation 15.7 % (11.5-14.5); RDW Standard Deviation 51.6 fL (36.4-46.3); Red Blood Count 3.96 M/uL (4.7-6.1); White Blood Count 7.45 K/uL (4.8-10.8)
--- NOTE | 2021-06-03 06:49 | Electrocardiogram Report ---
Test Reason : Blood Pressure : / mmHG Vent. Rate : 076 BPM Atrial Rate : 086 BPM P-R Int : 000 ms QRS Dur : 158 ms QT Int : 458 ms P-R-T Axes : 000 132 005 degrees QTc Int : 515 ms Atrial fibrillation Right bundle branch block Abnormal ECG When compared with ECG of 01-APR-2021 21:26, No significant change was found Confirmed by Lg Reyna ([id number]) on 06/03/2021 6:48:54 AM Referred By: REFERRED SELF Confirmed By:gL Reyna
[2021-06-03 07:14] LABS: Albumin Level 3.4 gm/dl (3.4-5.0); BUN Creatinine Ratio 18.9 (10-20); Calcium 9.3 mg/dl (8.5-10.1); Creatinine Clr Calc Pharmacy 30.1 ml/min; Est GFR (African American) 29.2 ml/min; Est GFR (Non-African American) 25.2 ml/min; Potassium 3.8 mmol/L (3.5-5.1)
[2021-06-03 07:16] LABS: Albumin Globulin Ratio 0.8 (0.9-2); Bilirubin,Total 1.5 mg/dl (0.2-1); Globulin 4.4 gm/dl (2.5-4.0); Total Protein 7.8 gm/dl (6.4-8.2)
[2021-06-03] MEDS: FAMOTIDINE 20 MG in SYRINGE 3 ML IV SCH ×2 (08:30→20:25)
[2021-06-03] MEDS: FUROSEMIDE 40 MG/4 ML VIAL IV SCH (09:38)
[2021-06-03] MEDS: INSULIN ASPART 100 UNITS/ML 3 ML PEN SC SCH ×4 (09:41→20:38)
--- NOTE | 2021-06-03 10:44 | Communication Note ---
Date of Service: June 03, 2021 NO acute events overnite. Pe unchanged. Labs reviewed. Consider diagnostic/therapeutic paracentesis if family is agreeable. Further mgmt as per yesterday.
[2021-06-03] MEDS ORDERED: MoRPHine SULFATE 2 MG/ML CARP ONE (14:48)
[2021-06-03] MEDS ORDERED: MoRPHine SULFATE 2 MG/ML CARP IV STA (16:03)
[2021-06-03] MEDS ORDERED: MoRPHine SULFATE 4 MG/ML 1 ML CARP\\VIAL IV PRN (16:04)
[2021-06-03] MEDS ORDERED: oxyCODONE HCL IR 5 MG TAB (IMMEDIATE RELEASE) PO PRN (16:04)
[2021-06-03] MEDS ORDERED: oxyCODONE HCL IR 5 MG TAB (IMMEDIATE RELEASE) PO STA (16:04)
--- NOTE | 2021-06-03 17:20 | Hospitalist Progress Note ---
Date of Service June 03, 2021 Assessment & Plan (1) Abdominal pain: Plan: Seems that 2 different processes easily could be at playrissa has some epigastric and right upper quadrant pain seems to worsen after eating that would be consistent with his peptic ulcer diseasegiven that he is hemodynamically stable with no signs of active bleedingno need for EGD right nowrather we will bump his Protonix up to 40 mg twice a day, continue the famotidine, and add Carafa teand follow And also appears that the ascites is causing a lot of pain as barbie is on empiric Rocephingiven that is new ascites with abdominal pain, this makes sense to empirically cover for SBP pending paracentesis, although honestly simply the distention might be what is causing the pain. Anticipate paracentesis in this regard (2) Ascites: Plan: After extensive discussionnow amenable to paracentesis. (3) Cirrhosis: Plan: New diagnosisboth to the patient/, and on review of records. Unclear etiologybecause of his anxiety I did not feel I could get an extremely detailed lengthy social history, but he is not currently a heavy drinker, and according to the probably has not had any alcohol in the last 6 months at all. This makes alcoholic cirrhosis less likely unless his back story was that of much heavier drinking in the past. His A1c and lipids are not perfect, but not so elevated as to suggest a Robles cirrhosis. Certainly could be idiopathic. Send a hepatitis panel for completeness. At the same time, given that he has known congestive heart failure including moderate tricuspid regurgitation, I do wonder if his CHF is leading to backwash of fluid into his liver contributing to the cirrhosis. Given the complexity of this, balanced off of his overall severe global hypokinesis/LV failure, balanced off of his CKDI would appreciate cardiology input both in the plausibility of this diagnosis (if unclear we could consider a liver biopsy as well) and in the management. (4) Anasarca: Plan: See abovealmost certainly relates to CHF and liver disease (5) Duodenal ulcer: Plan: See #1 aboveProtonix twice daily, Pepcid, Carafate, follow (6) Diabetes mellitus type II, uncontrolled: Plan: Current A1c pending, but his most recent have ranged from 5.9-7.0, and most are in the mid 7 range with some forays into the mid eights. Sugars under acceptable control at this time. (7) CHF (congestive heart failure): Plan: Resuming home meds, see aboveI wonder if the right-sided portion of his CHF may be contributing to his cirrhosis. (8) Hypertension: Plan: See aboveresuming home meds should be helpful (9) Atrial fibrillation: Plan: Rate is controlled, anticoagulation currently on hold due to recent ulcer with bleedingwhile he appears hemodynamically stable right now, given that worsening ulcer is high on the differential for at least a portion of his abdominal pain, I would hesitate to have him anticoagulated at this time. (10) Stage 3a chronic kidney disease: Plan: Kidney function at baseline, but does complicate management of his CHF (11) Edema of both lower legs: Plan: Almost certainly venous stasis from increased intra-abdominal pressure from the ascites (12) DVT prophylaxis: Plan: Currently ambulation and SCDspharmacologic a little bit risky due to the concern on duodenal ulcer, and also would be on hold pending paracentesis. (13) Discharge planning issues: Plan: From home, lives with his , once his abdominal pain is improving, and his cirrhosis is better delineated, anticipate him being able to go home again. Plan: Probably about 1 hour [id number] over 2 different visits today, the longest of which was about 45 minutes in the room continuously from about 245 to 3:30 PM Admission and Anticipated Discharge Date Admission Date: June 02, 2021 Subjective Complains of abdominal painseems to be 2 different types. He does have epigastric and right upper quadrant pain that he can count in 0.2 was 1 finger, but he also has diffuse abdominal pain to which he circles all around his abdomen making a motion as far as that. Some of it is sharp and stabbing, some is a little bit more ill-defined. Some of it does get worse after eating, some seems to be unaffected. He notes it has been gradually worsening over the last 2 weeks or so. Also notes that he has had gradual increase in his abdominal girth over that time as well. Extremely anxious about the situation, after extensive discussions with patient and , he notes that he is recognizing that a lot of his anxiety with his medical situation hinges largely on the fact that he saw Dr. Vasquez for years as his main physician pretty much all the time, and is struggling with the transition to new physicians, unfamiliar faces, and being able to develop trust in people that he has not had care for him before. present at the bedside whenever I revisit patientextensive discussions, answered all questions the best my ability and to 's satisfaction. Patient himself was overall satisfied with care, but with his anxiety about the situation wanted specific and particular details (such as exactly what time he was having the paracentesis, such as procedural specifics that I would not be able to describe, which radiologist would be doing the procedure, etc.) but we discussed why I would not be able to directly answer those, gave the big picture of his overall diagnoses and plans, and as much specifics as I couldand this seemed to alleviate his fear to good extent. Review of Systems Review of Systems: All systems reviewed & are unremarkable except as noted in HPI & below Physical Exam Physical Exam: In general he is awake and alert very anxious but no physical distress. HEENT normocephalic atraumatic mucous membranes moist. Breathing unlabored no accessory muscle use good effort. Skin shows no rashes no pallor or icterus. Abdomen is soft moderately distended with a fluid wave, diffusely tender although no guarding rebound or rigidity, he also does seem to specifically have a degree of epigastric and right upper quadrant tenderness although it is a little bit tough to distinguish if this is unique or just part of his diffuse abdominal tenderness. Neuro without focal deficits. Anxious mood and affect. Results & Data Results & Data ([facility]) Vital Signs (Past 12 Hours) Vital Signs Temp Pulse Pulse Resp BP BP Pulse Ox 06/03/21 12:02 84 198/97 H 06/03/21 08:29 88 164/86 H 06/03/21 07:28 97.3 F L 88 19 164/86 H 90 06/03/21 06:16 72 PG Care Time/CCT Total # of Minutes Spent Total Time Spent with Patient: Total time spent is greater than 50% in coordination of care (as documented) at patient's floor/unit and/or counseling patient: Coding Level of Care Code 05355 Subseq Hosp Care Lvl 3 Diagnoses Abdominal pain R10.9 Ascites R18.8 Cirrhosis K74.60 Anasarca R60.1 Duodenal ulcer K26.9 Diabetes mellitus type II, uncontrolled E11.65 CHF (congestive heart failure) I50.9 Hypertension I10 Atrial fibrillation I48.91 Stage 3a chronic kidney disease N18.31 Edema of both lower legs R60.0 DVT prophylaxis Z29.9 Discharge planning issues Z02.9
--- NOTE | 2021-06-03 17:21 | Billing Data ---
Date of Service June 03, 2021 Coding Level of Care Code 52069 Prolonged Care (int'l)
[2021-06-03] MEDS: SUCRALFATE 1 GM/10 ML UDC PO SCH ×2 (17:48→20:31)
[2021-06-03] MEDS: cefTRIAXone SODIUM 2,000 MG in DEXTROSE 5% 50 ML IV SCH (17:51)
[2021-06-03] MEDS: VALSARTAN/SACUBITRIL 51/49 MG TAB PO SCH (20:30)
[2021-06-03] MEDS: DOXAZosin MESYLATE TAB 2 MG TAB PO SCH (20:30)
[2021-06-03] MEDS: SIMVASTATIN 20 MG TAB PO SCH (20:30)
[2021-06-03] MEDS: PANTOprazole 40 MG TAB PO SCH (20:46)
[2021-06-04] MEDS: METOPROLOL TARTRATE 1 MG/ML VIAL IV SCH ×5 (03:52→20:49)
[2021-06-04 06:53] LABS: Estimated Average Glucose 143 mg/dl; Hemoglobin A1C 6.6 % (4.5-5.6)
[2021-06-04 07:03] LABS: Basophils # (auto) 0.04 K/uL (0-0.2); Basophils % (auto) 0.5 %; Eosinophils # (auto) 0.05 K/uL (0-0.5); Eosinophils % (auto) 0.6 %; Hematocrit (blood only) 34.7 % (42-52); Hemoglobin 11.4 g/dL (14.0-18.0); Immature Granulocytes # (auto) 0.01 K/uL (0.00-0.02); Immature Granulocytes % (auto) 0.1 %; Lymphocytes # (auto) 0.66 K/uL (1.2-3.4); Lymphocytes % (auto) 7.5 %; Mean Corpuscular Hgb Conc 32.9 g/dL (32-36); Mean Corpuscular Volume 88.3 fL (80-100); Mean Platelet Volume 11.8 fL (7.4-10.4); Monocytes # (auto) 0.98 K/uL (0.11-0.59); Monocytes % (auto) 11.1 %; Neutrophils # (auto) 7.06 K/uL (1.4-6.5); Neutrophils % (auto) 80.2 %; Platelet Count 248 K/uL (130-400); RDW Coefficient of Variation 15.8 % (11.5-14.5); RDW Standard Deviation 51.2 fL (36.4-46.3); Red Blood Count 3.93 M/uL (4.7-6.1)
[2021-06-04 07:29] LABS: Est GFR (African American) 29.3 ml/min
[2021-06-04 07:30] LABS: Albumin Level 3.4 gm/dl (3.4-5.0); BUN Creatinine Ratio 18.4 (10-20); Calcium 9.6 mg/dl (8.5-10.1); Creatinine Clr Calc Pharmacy 30.2 ml/min; Est GFR (Non-African American) 25.3 ml/min
[2021-06-04 07:32] LABS: Albumin Globulin Ratio 0.8 (0.9-2); Bilirubin,Total 1.7 mg/dl (0.2-1); Globulin 4.2 gm/dl (2.5-4.0); Total Protein 7.6 gm/dl (6.4-8.2)
[2021-06-04] MEDS: METOPROLOL SUCC 50MG EXT REL TAB PO SCH (09:03)
[2021-06-04] MEDS: DOXAZosin MESYLATE TAB 2 MG TAB PO SCH ×2 (09:03→20:53)
[2021-06-04] MEDS: SUCRALFATE 1 GM/10 ML UDC PO SCH ×4 (09:03→20:51)
[2021-06-04] MEDS: PANTOprazole 40 MG TAB PO SCH ×2 (09:04→20:52)
[2021-06-04] MEDS: FUROSEMIDE 40 MG/4 ML VIAL IV SCH (09:04)
[2021-06-04] MEDS: VALSARTAN/SACUBITRIL 51/49 MG TAB PO SCH ×2 (09:04→20:52)
[2021-06-04] MEDS: INSULIN ASPART 100 UNITS/ML 3 ML PEN SC SCH ×4 (09:05→21:53)
[2021-06-04] MEDS: FAMOTIDINE 20 MG in SYRINGE 3 ML IV SCH (09:08)
--- NOTE | 2021-06-04 09:20 | Cardiology Consultation ---
Date of Consultation June 04, 2021 Assessment & Plan (1) Cirrhosis: Mr. Brar is an 81 year old male with a history of Hypertension, Hypercholesterolemia, Type 2 Diabetes Mellitus, Peripheral Neuropathy, Permanent Atrial Fibrillation, CAD s/p CABG x 2 Vessel (1999), Ischemic Cardiomyopathy (LVEF 25% to 30% on Echo 05/15/21), Moderately Reduced RV Systolic Function, Stage 3a Chronic Kidney Disease, RBBB, and Peptic Ulcer Disease who was admitted to [facility] with newly diagnosed Cirrhosis with Ascites/Anasarca. Etiology of cirrhosis is unknown. -- Evaluated by GI, planning a paracentesis this afternoon. -- Hepatitis panel was sent off. -- Patient has moderately reduced RV systolic dysfunction and moderate tricuspid regurgitation on Echocardiogram 05/15/21, this may be playing a role in his edema, venous congestion. (2) Anasarca: -- GI is following this case. -- Management as per GI/Hospitalist service -- Paracentesis is planned for this afternoon. (3) Ischemic cardiomyopathy: Ischemic Cardiomyopathy LVEF 25% to 30% with global hypokinesis, and moderately reduced RV systolic function on recent Echocardiogram. -- No evidence/symptoms of overt left sided CHF. -- Continue Toprol XL 100 mg b.i.d.. -- Continue Entresto 49-51 mg b.i.d.. -- Continue usual cardiac regimen. (4) Right-sided congestive heart failure: Moderately reduced RV systolic function on recent Echocardiogram and may be playing a role in edema/ascites. Recommend ongoing diuresis. -- Recommend increasing IV Lasix to 80 mg daily to produce a good diuretic response. -- Monitor daily I&O's, body weights. -- Monitor daily BMP . (5) Atrial fibrillation, permanent: Permanent Atrial Fibrillation, rate is reasonable considering degree of current illness. [id number] is 6. -- Continue Toprol XL 100 mg b.i.d.. -- Anticoagulant has been held because of PUD/ recent GI bleed. -- Resume Eliquis 5 mg b.i.d. when GI feels it can safely be restarted. (6) Hypertension: He has been hypertensive throughout his stay. Recommend titrating Entresto in the future. -- Continue Toprol XL 100 mg b.i.d.. -- Continue Entresto 49-51 mg b.i.d. for the time being. (7) Hypercholesterolemia: His Fasting Lipid Panel 03/22/21 shows a Total Cholesterol of 116 mg/dL, HDL 56 mg/dL, and an LDL of 50 mg/dL. Total Chol:HDL ratio is favorable at 2. -- Continue Simvastatin 20 mg daily. (8) History of coronary artery bypass graft: CABG x 2 Vessels in 1999. -- No angina pectoris or anginal equivalent symptoms. -- Continue Toprol XL 100 mg b.i.d.. -- Continue Entresto 49-51 mg b.i.d.. -- Continue Simvastatin 20 mg daily. Supervising Physician Co-Signing Physician Notes ADDENDUM (Dr. Ovalle): Patient seen and examined. Agree with plan as outlined above by Mr. Racheal WISEMAN. Etiology of his ascites/liver failure is uncertain at this time, likely multifactorial. There may be an element of right heart failure, but his right heart symptoms have not had the severity or duration usually present when right heart failure leads to hepatic failure. Regardless of hepatic dysfunction etiology, volume unloading is appropriate. Would recommend increasing furosemide from 40 mg to 80 mg, since he appears hypervolemic by neck veins currently and does have significant renal insufficiency (suggesting the need for higher diuretic dose to reach threshold). If he does undergo paracentesis, monitor for hypotension due to fluid shifts, and consider temporarily holding diuretic if necessary. Will follow along during his hospitalization. History of Present Illness Reason for Consultation: -- Right Sided CHF. -- Ischemic Cardiomyopathy (LVEF 25% to 30%) -- Anasarca. -- Recently diagnosed Cirrhosis. Attending Physician: [facility] History of Present Illness Mr. Brar is an 81 year old male with a history of Hypertension, Hypercholesterolemia, Type 2 Diabetes Mellitus, Peripheral Neuropathy, Permanent Atrial Fibrillation, CAD s/p CABG x 2 Vessel (1999), Ischemic Cardiomyopathy (LVEF 25% to 30% on Echo 05/15/21), Moderately Reduced RV Systolic Function, Stage 3a Chronic Kidney Disease, RBBB, and Peptic Ulcer Disease who was admitted to [facility] complaining of RUQ pain and distention along with progressive leg edema over the preceding several weeks followed by the development of nausea on the evening of presentation 06/01/21. Patient feels like he has been stable from a cardiac standpoint, but admittedly, he leads a sedentary lifestyle. He denies any exertional chest pain, heaviness, tightness, pressure, or angina pectoris. He has not had any exertional neck, jaw, back, or arm pain leading up to this hospitalization. He denies any shortness of breath, unusual dyspnea on exertion, orthopnea, or PND. He denies any palpitations, syncope, or near syncope. He has had significant lower extremity edema and weight gain over the past couple of months. In February 2021 his "dry weight" was 210 pounds according to his home scales. He currently weighs 233 pounds according to his bed scales. Evaluation thus far shows elevated total bilirubin, elevated globulin level. CT Scan Abd/Pelvis shows cirrhosis with ascites. Evaluated by GI, planning on a paracentesis this afternoon. Cardiac monitoring shows A-Fib with V rates in the 90's to low 100's overnight into today. EKG shows A-Fib with RBBB, no significant change compared to 06/01/21 tracing. His Pro BNP is elevated at > 12,000 pg/mL. CXR on admission shows cardiomegaly and pulmonary vascular congestion. Patient is getting IV Lasix 40 mg daily, but he has a positive fluid balance of 270 mL. Patient is typically maintained on Eliquis 5 mg b.i.d. -- but this is on hold due to recent PUD with GI bleeding. His Hgb has remained stable at > 11.0 gm/dL throughout this hospitalization. Allergies Allergy/AdvReac Type Severity Reaction Status Date / Time No Known Allergies Allergy Verified 06/02/21 00:46 Home Medications Medication Instructions Recorded Confirmed Type coenzyme Q10 100 mg capsule 100 mg PO QAM 11/23/20 06/02/21 History (CoQ-10) compress.stocking,knee,reg,lrg #2 ea 11/23/20 05/29/21 Rx psyllium husk 0.52 gram capsule 0.52 g PO QAM 12/06/20 06/02/21 History (Metamucil) lancets (OneTouch UltraSoft #100 ea 12/18/20 05/29/21 Rx Lancets) blood-glucose meter (OneTouch #1 ea 12/25/20 05/29/21 Rx Verio Flex Start) blood sugar diagnostic (OneTouch #2 box 12/27/20 05/29/21 Rx Verio test strips) metformin 500 mg tablet 1,000 mg PO BID #360 tab 02/22/21 06/02/21 Rx metoprolol succinate 100 mg 100 mg PO QAM #90 tab 02/22/21 06/02/21 Rx tablet,extended release 24 hr simvastatin 20 mg tablet 20 mg PO QPM #90 tab 02/26/21 06/02/21 Rx sacubitril 49 mg-valsartan 51 mg 1 tab PO BID #180 tab 03/23/21 06/02/21 Rx tablet (Entresto) doxazosin 2 mg tablet 2 mg PO BID tab 04/06/21 06/02/21 History ferrous sulfate 325 mg (65 mg 325 mg PO BID #180 tab 04/19/21 06/02/21 Rx iron) tablet,delayed release pantoprazole 40 mg tablet,delayed 40 mg PO QAM #90 tab 05/01/21 06/02/21 Rx release furosemide 40 mg tablet 40 mg PO DAILY tab 05/17/21 06/02/21 History glipizide 5 mg tablet 2.5 mg PO DAILY 06/02/21 06/02/21 History Patient History Medical History Acute hyponatremia Acute UTI Anemia From GI Bleed Anticoagulant long-term use hx -- has been on hold since October 2020 d/t the gastric ulcer Arteriosclerosis of coronary artery Atrial fibrillation Benign prostatic hyperplasia CHF (congestive heart failure) Follows with Dr. Cedeno Duodenal ulcer (11/2020) H pylori ulcer (11/2020) History of bleeding ulcers (~1984) History of squamous cell carcinoma Hypercholesterolemia Hypertension Low back pain Sciatica Stage 3a chronic kidney disease Type 2 diabetes mellitus NIDDM Weakness Surgical History H/O oral surgery dental implants History of ankle surgery ORIF Bilateral ankle History of appendectomy History of colonoscopy 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 History of surgical removal of skin lesion History of tonsillectomy S/P right knee arthroscopy Family History Mother Cardiac disorder Hypertension Father Cardiac disorder Stroke Hypertension Grandmother (Maternal) Stroke Denies family history of Ovarian cancer Prostate cancer Myocardial infarction Breast cancer Colorectal cancer Social History Smoking Status: Never smoker Second Hand Exposure: No; Hx Alcohol Use: Yes Alcohol type: wine Hx Substance Use: No Preferred Language: Croatian Communication Ability: Effective Financial Officer Required: No Beliefs That Will Affect Care: None marital status: Current Living Situation: Spouse current occupational status: retired Feels Safe at Home: Yes Assistive Devices: Cane and Glasses Physical Exam Physical Exam: GENERAL: Patient in no acute distress. HEENT: Head is atraumatic, normocephalic. EOM's intact. Facies symmetric. No perioral cyanosis. NECK: JVD is present. JVP is above the angle of the jaw sitting upright. Carotid upstrokes are + 2 bilaterally without obvious bruits. CHEST/LUNGS: Clear to auscultation throughout all lung baker. No wheezes, rales, or crackles. CVS: S1 and S2 are irregularly irregular at 94 bpm with a grade 1/6 systolic murmur at Erb's point. No gallops or rubs appreciated. PMI is nonpalpable. No lifts, heaves, or thrills. No abdominal aortic or renal bruits. Well healed median sternotomy incision. ABDOMINAL EXAM: Abdomen markedly distended. Bowel sounds are present. Tenderness is present with palpation diffusely. EXTREMITIES: No clubbing or cyanosis. +2 Pitting edema to the midthighs bilaterally, +3 pitting pretibial edema. Intact radial pulses bilaterally. NEUROLOGIC EXAM: Patient is awake, alert, and interactive. Pleasant and cooperative. Answers questions appropriately. Speech is clear. Normal movement in all 4 extremities. Gait pattern was not assessed. PAYROLL OFFICER: -- A-fib with rates in the 90's to low 100's. ECHOCARDIOGRAM 05/15/21: -- LV systolic function is moderately to severely reduced. -- Moderate to severe global hypokinesis of the LV. -- LVEF 25% to 30%. -- Mild to moderate mitral regurgitation. -- Moderate tricuspid regurgitation. -- Normal RV with moderately reduced RV systolic function. -- No significant change compared to 11/21/20 Echo. [facility] Vital Signs (Past 12 Hours) Vital Signs Temp Pulse Pulse Resp BP BP Pulse Ox 06/04/21 07:48 36.4 C L 96 H 16 169/95 H 94 06/04/21 03:52 91 H 178/89 H 06/04/21 03:47 36.4 C L 91 H 20 178/89 H 92 06/04/21 01:05 93 H 06/03/21 23:41 94 H 162/95 H 06/03/21 23:37 36.3 C L 94 H 18 162/95 H 93 Laboratory Results Laboratory Results - last 24 hr 06/03/21 06/03/21 06/03/21 06:21 11:17 11:17 WBC RBC Hgb Hct MCV MCH MCHC RDW Std Deviation RDW Coeff of Mario Plt Count MPV Immature Gran % (Auto) Neut % (Auto) Lymph % (Auto) Montgomery % (Auto) Eos % (Auto) Baso % (Auto) Neut # (Auto) Lymph # (Auto) Montgomery # (Auto) Eos # (Auto) Baso # (Auto) Immature Gran # (Auto) Sodium Potassium Chloride Carbon Dioxide Anion Gap BUN Creatinine Est Cr Clr Drug Dosing Est GFR ( Amer) Est GFR (Non-Af Amer) BUN/Creatinine Ratio Glucose POC Glucose Estimat Average Glucose 143 Hemoglobin A1c 6.6 H Calcium Total Bilirubin AST ALT Alkaline Phosphatase Total Protein Albumin Globulin Albumin/Globulin Ratio Hepatitis A IgM Ab Pending Hep Bs Antigen Neg Hep B Core IgM Ab Pending Hepatitis C Antibody Neg 06/03/21 06/04/21 06/04/21 20:36 06:38 06:38 WBC 8.80 RBC 3.93 L Hgb 11.4 L Hct 34.7 L MCV 88.3 MCH 29.0 MCHC 32.9 RDW Std Deviation 51.2 H RDW Coeff of Mario 15.8 H Plt Count 248 MPV 11.8 H Immature Gran % (Auto) 0.1 Neut % (Auto) 80.2 Lymph % (Auto) 7.5 Montgomery % (Auto) 11.1 Eos % (Auto) 0.6 Baso % (Auto) 0.5 Neut # (Auto) 7.06 H Lymph # (Auto) 0.66 L Montgomery # (Auto) 0.98 H Eos # (Auto) 0.05 Baso # (Auto) 0.04 Immature Gran # (Auto) 0.01 Sodium 137 Potassium 4.0 Chloride 103 Carbon Dioxide 23 Anion Gap 11.0 BUN 43 H Creatinine 2.34 H Est Cr Clr Drug Dosing 30.2 Est GFR ( Amer) 29.3 Est GFR (Non-Af Amer) 25.3 BUN/Creatinine Ratio 18.4 Glucose 178 H POC Glucose 176 H Estimat Average Glucose Hemoglobin A1c Calcium 9.6 Total Bilirubin 1.7 H AST 10 L ALT 15 Alkaline Phosphatase 93 Total Protein 7.6 Albumin 3.4 Globulin 4.2 H Albumin/Globulin Ratio 0.8 L Hepatitis A IgM Ab Hep Bs Antigen Hep B Core IgM Ab Hepatitis C Antibody 06/04/21 07:35 WBC RBC Hgb Hct MCV MCH MCHC RDW Std Deviation RDW Coeff of Mario Plt Count MPV Immature Gran % (Auto) Neut % (Auto) Lymph % (Auto) Montgomery % (Auto) Eos % (Auto) Baso % (Auto) Neut # (Auto) Lymph # (Auto) Montgomery # (Auto) Eos # (Auto) Baso # (Auto) Immature Gran # (Auto) Sodium Potassium Chloride Carbon Dioxide Anion Gap BUN Creatinine Est Cr Clr Drug Dosing Est GFR ( Amer) Est GFR (Non-Af Amer) BUN/Creatinine Ratio Glucose POC Glucose 171 H Estimat Average Glucose Hemoglobin A1c Calcium Total Bilirubin AST ALT Alkaline Phosphatase Total Protein Albumin Globulin Albumin/Globulin Ratio Hepatitis A IgM Ab Hep Bs Antigen Hep B Core IgM Ab Hepatitis C Antibody Diagnostic Findings CXR 06/02/21: 2 AP, portable, upright chest radiographs are compared to study dated 04/01/2021. The patient is status post midline sternotomy. The heart is enlarged noting atherosclerotic calcification of the thoracic aorta. There is pulmonary vascular congestion. Atelectasis is seen at the lung bases. No airspace consolidation or large pleural effusion is identified. No pneumothorax is seen. The skeletal structures are osteopenic. The bony thorax is grossly intact. IMPRESSION: -- Cardiomegaly with pulmonary vascular congestion. CT SCAN ABDOMEN/PELVIS 06/01/21: Lower chest: Cardiomegaly is partially visualized. Liver: Nodular contour of the liver is seen compatible with cirrhosis. A small hypodensity in the right lobe of the liver is too small to characterize. Gallbladder and biliary tree: No calcified gallstones. Normal caliber wall. No intra- or extrahepatic biliary ductal dilation. Pancreas: Unremarkable, no focal lesions. Spleen: Splenule is incidentally noted. Adrenals: Unremarkable. Kidneys and ureters: Nonobstructive nephrolithiasis is seen. Bladder: Limited evaluation due to underdistention. Reproductive organs: Prostatomegaly is seen. Bowel: Unremarkable. Lymph nodes Retroperitoneal: Unremarkable. Mesenteric: Unremarkable. Pelvic: Prominent subcentimeter inguinal nodes are noted. Peritoneum: Moderate ascites is seen. Vessels: Atherosclerotic calcifications are seen. Abdominal wall: Soft tissue edema is seen throughout the abdominal wall. Bones: Degenerative changes in the visualized spine. IMPRESSION: -- No acute abnormalities. -- Cirrhosis and ascites. -- Cardiomegaly is seen. Medications Administered Medications coenzyme Q10 100 mg capsule (CoQ-10) 100 mg PO QAM 11/23/20 [History Confirmed 06/02/21] compress.stocking,knee,reg,lrg #2 ea 11/23/20 [Rx Confirmed 05/29/21] psyllium husk 0.52 gram capsule (Metamucil) 0.52 g PO QAM 12/06/20 [History Confirmed 06/02/21] lancets (VisualaseTouch UltraSoft Lancets) #100 ea 12/18/20 [Rx Confirmed 05/29/21] blood-glucose meter (OneTouch Verio Flex Start) #1 ea 12/25/20 [Rx Confirmed 05/29/21] blood sugar diagnostic (OneTouch Verio test strips) #2 box 12/27/20 [Rx Confirmed 05/29/21] metformin 500 mg tablet 1,000 mg PO BID #360 tab 02/22/21 [Rx Confirmed 06/02/21] metoprolol succinate 100 mg tablet,extended release 24 hr 100 mg PO QAM #90 tab 02/22/21 [Rx Confirmed 06/02/21] simvastatin 20 mg tablet 20 mg PO QPM #90 tab 02/26/21 [Rx Confirmed 06/02/21] sacubitril 49 mg-valsartan 51 mg tablet (Entresto) 1 tab PO BID #180 tab 03/23 [Rx Confirmed 06/02/21] doxazosin 2 mg tablet 2 mg PO BID tab 04/06/21 [History Confirmed 06/02/21] ferrous sulfate 325 mg (65 mg iron) tablet,delayed release 325 mg PO BID #180 tab 04/19/21 [Rx Confirmed 06/02/21] pantoprazole 40 mg tablet,delayed release 40 mg PO QAM #90 tab 05/01/21 [Rx Confirmed 06/02/21] furosemide 40 mg tablet 40 mg PO DAILY tab 05/17/21 [History Confirmed 06/02/21] glipizide 5 mg tablet 2.5 mg PO DAILY 06/02/21 [History Confirmed 06/02/21] Home Medications Dextrose (Dextrose 50% 50 Ml Syringe) 25 - 50 ml IV UD PRN; Protocol PRN Reason: Hypoglycemia Protocol Stop: 07/02/21 05:03 Doxazosin Mesylate (Doxazosin Mesylate Tab 2 Mg Tab) 2 mg PO BID HILDA Stop: 07/03/21 20:59 Last Admin: 06/04/21 09:03 Dose: 2 mg Documented by: Furosemide (Furosemide 40 Mg/4 Ml Vial) 80 mg IV DAILY HILDA Stop: 07/05/21 08:59 Glucagon (Glucagon For Inj 1 Mg Vial) 1 mg SQ UD PRN; Protocol PRN Reason: Hypoglycemia Protocol Stop: 07/02/21 05:03 Glucose (Glucose 10 Tabs/Tube) 4 - 8 tabs PO UD PRN; Protocol PRN Reason: Hypoglycemia Protocol Stop: 07/02/21 05:03 Glucose (Glucose 40% Gel 15 Gm Tube) 15 - 30 gm PO UD PRN; Protocol PRN Reason: Hypoglycemia Protocol Stop: 07/02/21 05:03 Famotidine 20 mg/ Syringe 5 mls @ 2.5 mls/min IV Q12H HILDA Stop: 07/02/21 08:59 Last Admin: 06/04/21 09:08 Dose: 2.5 mls/min Documented by: Ceftriaxone Sodium 2,000 mg/ (Dextrose) 70 mls @ 140 mls/hr IV Q24H HILDA Stop: 06/04/21 17:59 Last Infusion: 06/03/21 18:50 Dose: Infused Documented by: Insulin Aspart (Insulin Aspart 100 Units/Ml 3 Ml Pen) 0 units SC ACHS HILDA Stop: 07/02/21 07:29 Last Admin: 06/04/21 09:05 Dose: 1 units Documented by: Metoprolol Succinate (Metoprolol Succ 50mg Ext Rel Tab) 100 mg PO QAM HILDA Stop: 07/04/21 08:59 Last Admin: 06/04/21 09:03 Dose: 100 mg Documented by: Metoprolol Tartrate (Metoprolol Tartrate 1 Mg/Ml Vial) 5 mg IV Q4 HILDA Stop: 07/02/21 05:03 Last Admin: 06/04/21 09:02 Dose: 5 mg Documented by: Miscellaneous (Carbohydrates For Hypoglycemia ) 15 - 30 gm PO UD PRN PRN Reason: Hypoglycemia Protocol Stop: 07/02/21 05:03 Morphine Sulfate (Morphine Sulfate 4 Mg/Ml 1 Ml Carp\\Vial) 4 mg IV Q4 PRN PRN Reason: Pain Stop: 06/17/21 16:03 Ondansetron HCl (Ondansetron Inj 2 Mg/Ml 2 Ml Vial) 4 mg IV Q6H PRN PRN Reason: Nausea Stop: 07/02/21 05:03 Oxycodone HCl (Oxycodone Hcl Ir 5 Mg Tab (Immediate Release)) 5 mg PO Q4 PRN PRN Reason: Pain Stop: 06/17/21 16:03 Pantoprazole Sodium (Pantoprazole 40 Mg Tab) 40 mg PO BID HILDA Stop: 07/03/21 20:59 Last Admin: 06/04/21 09:04 Dose: 40 mg Documented by: Sacubitril/Valsartan (Sacubitril-Valsartan 49/51 Mg Tab) 1 tab PO BID HILDA Stop: 07/03/21 20:59 Last Admin: 06/04/21 09:04 Dose: 1 tab Documented by: Simvastatin (Simvastatin 20 Mg Tab) 20 mg PO QPM HILDA Stop: 07/03/21 20:59 Last Admin: 06/03/21 20:30 Dose: 20 mg Documented by: Sucralfate (Sucralfate 1 Gm/10 Ml Udc) 1 gm PO QID HILDA Stop: 07/03/21 17:14 Last Admin: 06/04/21 09:03 Dose: 1 gm Documented by: PG Care Time/CCT Total # of Minutes Spent Total Time Spent with Patient: Total time spent is greater than 50% in coordination of care (as documented) at patient's floor/unit and/or counseling patient:35 Coding Level of Care Code 98698 Initial Inpt Care Lvl 3 Diagnoses Cirrhosis K74.60 Anasarca R60.1 Ischemic cardiomyopathy I25.5 Right-sided congestive heart failure I50.810 Atrial fibrillation, permanent I48.21 Hypertension I10 Hypercholesterolemia E78.00 History of coronary artery bypass graft Z95.1 Time Spent (min) 50
[2021-06-04 09:37] LABS: Hepatitis B Surf Ag Rflx Conf Neg (Neg)
[2021-06-04 10:05] LABS: Hepatitis C IgG 13Yrs+Old_Rflx Neg (Neg)
--- NOTE | 2021-06-04 10:16 | Gastroenterology Progress Note ---
Date of Service June 04, 2021 Assessment & Plan (1) Ascites: (2) Cirrhosis: Plan: * Await dx/therapeutic paracentesis today. * Continue IV abx coverage for possible SBP. * Continue diuretics. * 2 g sodium restricted diet. * Supportive care. Admission and Anticipated Discharge Date Admission Date: June 02, 2021 Supervising Physician Co-Signing Physician Notes Agree with DELILAH Flood Abd: Soft, NT, +BS, no fluid wave, no appreciable HSM B/L 2+ pitting edema to knees Agree with Dr. Ovalle to increase Furosemide to 80 mg daily Could consider addition of Aldactone 100 mg by mouth daily, but would like to discuss this with Dr. Ovalle and Dr. Blackman first Paracentesis today only removed around 3 L of fluid, with no definitive evidence of SBP, however, he has been on Rocephin since admission Discussed case with Dr. Blackman and will continue supportive care at this time Subjective Patient reports mild abdominal discomfort. For dx/therapeutic paracentesis today. Continues IV antibiotics. No n/v, pruritus, dark urine, acholic stools, melena, hematochezia. Review of Systems Constitutional: no fever and no chills Gastrointestinal: as per Subjective / HPI Physical Exam Constitutional: WD/WN, vitals as above Respiratory: normal respiratory effort, lungs clear to auscultation Cardiovascular: Rate/Rhythm: + irregularly irregular Gastrointestinal (Abdomen): Inspection/Auscultation: + significant pannus Percussion/Palpation: + abdomen firm; abdomen nontender Psychiatric: A+Ox3, euthymic affect Results & Data Results & Data ([facility]) Vital Signs (Past 12 Hours) Vital Signs Temp Pulse Pulse Resp BP BP Pulse Ox 06/04/21 07:48 36.4 C L 96 H 16 169/95 H 94 06/04/21 03:52 91 H 178/89 H 06/04/21 03:47 36.4 C L 91 H 20 178/89 H 92 06/04/21 01:05 93 H 06/03/21 23:41 94 H 162/95 H 06/03/21 23:37 36.3 C L 94 H 18 162/95 H 93 Laboratory Results Abnormal lab results 06/03/21 06/03/21 06/04/21 Range/Units 06:21 20:36 06:38 RBC 3.93 L (4.7-6.1) M/uL Hgb 11.4 L (14.0-18.0) g/dL Hct 34.7 L (42-52) % RDW Std Deviation 51.2 H (36.4-46.3) fL RDW Coeff of Mario 15.8 H (11.5-14.5) % MPV 11.8 H (7.4-10.4) fL Neut # (Auto) 7.06 H (1.4-6.5) K/uL Lymph # (Auto) 0.66 L (1.2-3.4) K/uL Storey # (Auto) 0.98 H (0.11-0.59) K/uL BUN (7-18) mg/dl Creatinine (0.6-1.4) mg/dl Glucose (70-99) mg/dl POC Glucose 176 H (70-99) mg/dl Hemoglobin A1c 6.6 H (4.5-5.6) % Total Bilirubin (0.2-1) mg/dl AST (15-37) U/L Globulin (2.5-4.0) gm/dl Albumin/Globulin Ratio (0.9-2) 06/04/21 06/04/21 Range/Units 06:38 07:35 RBC (4.7-6.1) M/uL Hgb (14.0-18.0) g/dL Hct (42-52) % RDW Std Deviation (36.4-46.3) fL RDW Coeff of Mario (11.5-14.5) % MPV (7.4-10.4) fL Neut # (Auto) (1.4-6.5) K/uL Lymph # (Auto) (1.2-3.4) K/uL Storey # (Auto) (0.11-0.59) K/uL BUN 43 H (7-18) mg/dl Creatinine 2.34 H (0.6-1.4) mg/dl Glucose 178 H (70-99) mg/dl POC Glucose 171 H (70-99) mg/dl Hemoglobin A1c (4.5-5.6) % Total Bilirubin 1.7 H (0.2-1) mg/dl AST 10 L (15-37) U/L Globulin 4.2 H (2.5-4.0) gm/dl Albumin/Globulin Ratio 0.8 L (0.9-2) PG Care Time/CCT Total # of Minutes Spent Total Time Spent with Patient: Total time spent is greater than 50% in coordination of care (as documented) at patient's floor/unit and/or counseling patient: Coding Level of Care Code 20297 Subseq Hosp Care Lvl 3 Diagnoses Ascites R18.8 Cirrhosis K74.60
--- NOTE | 2021-06-04 12:50 | Ultrasound Report ---
PARACENTESIS UNDER ULTRASOUND GUIDANCE CLINICAL HISTORY: Abdominal ascites. COMPARISON STUDY: Abdominal CT dated 06/01/2021. PROCEDURE: The risks, benefits, and alternatives to the procedure were discussed with the patient who voiced understanding. Written informed consent was obtained. Following real-time ultrasound localiza tion of a suitable pocket of fluid left lower quadrant, the abdomen was prepped and draped in the usu al sterile fashion. The skin and soft tissues were anesthetized with 1% lidocaine. The sheathed parac entesis needle was inserted and approximately 2.7 liters of dark ascitic fluid was removed by vacuum suction. The sample was sent for laboratory analysis. The procedure was well tolerated and without im mediate complication. The patient left the department in satisfactory condition. IMPRESSION: Successful ultrasound-guided paracentesis with removal of approximately 2.7 liters of asc itic fluid. ACT 112: Negative or not required by law. Electronically signed by: Burt Houser M.D. 06/04/2021 12:49 PM
[2021-06-04 13:21] LABS: Albumin Peritoneal Fluid 1.9 g/dl
[2021-06-04 13:41] LABS: Appearance Peritoneal Fluid HAZY; Basophils, Fluid 0 %; Color Peritoneal Fluid YELLOW; Eosinophils, Fluid 0 %; Lymphocytes, Fluid 22 %; Mono,Macrophage,Mesothelial 43 %; Neutrophils, Fluid 35 %; RBC Peritoneal Fluid (A) 4000 /uL; WBC Peritoneal Fluid (A) 444 /ul (0-300)
--- NOTE | 2021-06-04 19:36 | Hospitalist Progress Note ---
Date of Service June 04, 2021 Assessment & Plan (1) Cirrhosis: Plan: radiographically, and clinically. s/p paracentesis today - total WBCs 444; PMN WBC <150. This is not c/w SBP, but he has been on rocephin since admission. ascites extracted was <5 L thus defer on IV albumin. Spoke with Dr Savage -- will Rx for a few more days with antibiotics to be on safe side. cont rocephin for now; then change to PO omnicef in about 48 hours. ascites -- SAAG 1.5 c/w portal HTN. agree with increase in diuretics as advised by cardiology and GI. agree with aldactone IF creatinine can tolerate such. etiology of cirrhosis? "cardiac" cirrhosis? 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 other? 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 no heavy etoh use chronically. doubt autoimmune cirrhosis. discussed this diagnosis in great detail with patient & . moving forward volume management will be greatest challenge. may need weekly visits with cardiology and/or GI to check volume status (CHF, cirrhosis, CKD will make volume management very difficult). recent ammonia wnl; recheck in am due to cognitive impairment. (2) Ascites: Plan: transudative based on fluid studies today SAAG 1.5 c/w portal HTN suspect cirrhosis is either 2nd to "cardiac" (right heart failure) or HOLT either way Rx will be the same (3) Acute on chronic systolic CHF (congestive heart failure): Plan: appreciate cardiology assistance increase in diuretics noted cont BB cont Entresto may need to hold latter if aldactone is needed for cirrhosis (4) Atrial fibrillation, permanent: Plan: rates controlled cont metoprolol succinate not anticoagulated due to prior GI bleed in November 2020 (5) Duodenal ulcer: Plan: h/o cont PPI bid (6) Diabetes mellitus type II, uncontrolled: Plan: a1c 6.6% during this admission novolog SSI (7) Ischemic cardiomyopathy: (8) Diabetic peripheral neuropathy associated with type 2 diabetes mellitus: (9) Stage 3a chronic kidney disease: Plan: baseline CrCl appears to be low 30s with baseline Creatinine of 2 to 2.3 bmp am (10) Hypercholesterolemia: (11) Hypertension: Plan: BPs elevated if we add aldactone this will help (12) History of coronary artery bypass graft: (13) Benign prostatic hyperplasia: Plan: cont alpha je (14) Cognitive impairment: Plan: b12 level last spring was borderline low recheck in am (15) DVT prophylaxis: Plan: currently not on chemical means due to paracentesis should be able to start chemical means tomorrow Plan: extensively updated at bedside as per the HPI daughter extensively updated by phone as per the HPI total care time today about 70 minutes Admission and Anticipated Discharge Date Admission Date: June 02, 2021 Subjective during rounds pt's was at bedside spent close to 45 minutes at bedside discussing the newly discovered cirrhosis, paracentesis fluid studies, potential causes of cirrhosis, treatments, etc questions answered in detail pt tolerated the paracentesis earlier today - about 3.5 L removed by radiology also discussed plan of care with pt's daughter, Dr Monroe, by phone this evening (about 20 min) - questions answered; Dr Monroe asked about prognosis, palliative care, plan moving forward tele overnight wnl during the visit the patient had to use the restroom he was very weak, borderline unsteady trying to get from the bed to standing; declined any assistance; he had a cane near the bed but declined using such also during the visit I noted the patient to repeat questions - ?cognitive impairment? Review of Systems Review of Systems: gen - progressive weakness and decline over last few months per CV - no chest pain pulm - no dyspnea at rest; no dyspnea w/ walking to bathroom GI - distension improved s/p paracentesis today Physical Exam Physical Exam: gen - NAD, lying flat in bed comfortably, ?cognitive impairment? neck - no JVD mouth - MMM heart - irregular, s1 s2, 2/6 systolic murmur LSB lungs - decreased BS bases, no wheeze or rales abd - distended with ascites, minimally tender RUQ and left side of abdomen, BS+ ext - 2-3+ edema b/l, pulses 2+ b/l neuro - scant asterixis psych - alert, oriented to person/place, seems to have some element of cognitive impairment Results & Data Results & Data ([facility]) Vital Signs (Past 12 Hours) Vital Signs Temp Pulse Pulse Resp BP Pulse Ox 06/04/21 16:13 94 H 06/04/21 13:30 59 L 171/80 H 06/04/21 12:30 55 L 185/87 H 06/04/21 07:48 36.4 C L 96 H 16 169/95 H 94 Laboratory Results Laboratory Results - last 24 hr 06/03/21 06/03/21 06/03/21 06:21 11:17 20:36 WBC RBC Hgb Hct MCV MCH MCHC RDW Std Deviation RDW Coeff of Mario Plt Count MPV Immature Gran % (Auto) Neut % (Auto) Lymph % (Auto) Shelby % (Auto) Eos % (Auto) Baso % (Auto) Neut # (Auto) Lymph # (Auto) Shelby # (Auto) Eos # (Auto) Baso # (Auto) Immature Gran # (Auto) Sodium Potassium Chloride Carbon Dioxide Anion Gap BUN Creatinine Est Cr Clr Drug Dosing Est GFR ( Amer) Est GFR (Non-Af Amer) BUN/Creatinine Ratio Glucose POC Glucose 176 H Estimat Average Glucose 143 Hemoglobin A1c 6.6 H Calcium Total Bilirubin AST ALT Alkaline Phosphatase Total Protein Albumin Globulin Albumin/Globulin Ratio Fluid Neutrophils % Fluid Lymphocytes % Fluid Eosinophils % Fluid Basophils % Fluid Meso/Macro/Shelby % Fluid Comment Peritoneal Color Peritoneal Appearance Peritoneal WBC Peritoneal RBC Peritoneal Tot Protein Peritoneal Albumin Peritoneal Glucose Peritoneal Amylase Peritoneal Lipase Peritoneal Triglycerid Hep Bs Antigen Neg Hepatitis C Antibody Neg 06/04/21 06/04/21 06/04/21 06:38 06:38 07:35 WBC 8.80 RBC 3.93 L Hgb 11.4 L Hct 34.7 L MCV 88.3 MCH 29.0 MCHC 32.9 RDW Std Deviation 51.2 H RDW Coeff of Mario 15.8 H Plt Count 248 MPV 11.8 H Immature Gran % (Auto) 0.1 Neut % (Auto) 80.2 Lymph % (Auto) 7.5 Shelby % (Auto) 11.1 Eos % (Auto) 0.6 Baso % (Auto) 0.5 Neut # (Auto) 7.06 H Lymph # (Auto) 0.66 L Shelby # (Auto) 0.98 H Eos # (Auto) 0.05 Baso # (Auto) 0.04 Immature Gran # (Auto) 0.01 Sodium 137 Potassium 4.0 Chloride 103 Carbon Dioxide 23 Anion Gap 11.0 BUN 43 H Creatinine 2.34 H Est Cr Clr Drug Dosing 30.2 Est GFR ( Amer) 29.3 Est GFR (Non-Af Amer) 25.3 BUN/Creatinine Ratio 18.4 Glucose 178 H POC Glucose 171 H Estimat Average Glucose Hemoglobin A1c Calcium 9.6 Total Bilirubin 1.7 H AST 10 L ALT 15 Alkaline Phosphatase 93 Total Protein 7.6 Albumin 3.4 Globulin 4.2 H Albumin/Globulin Ratio 0.8 L Fluid Neutrophils % Fluid Lymphocytes % Fluid Eosinophils % Fluid Basophils % Fluid Meso/Macro/Shelby % Fluid Comment Peritoneal Color Peritoneal Appearance Peritoneal WBC Peritoneal RBC Peritoneal Tot Protein Peritoneal Albumin Peritoneal Glucose Peritoneal Amylase Peritoneal Lipase Peritoneal Triglycerid Hep Bs Antigen Hepatitis C Antibody 06/04/21 06/04/21 06/04/21 12:20 12:20 12:42 WBC RBC Hgb Hct MCV MCH MCHC RDW Std Deviation RDW Coeff of Mario Plt Count MPV Immature Gran % (Auto) Neut % (Auto) Lymph % (Auto) Shelby % (Auto) Eos % (Auto) Baso % (Auto) Neut # (Auto) Lymph # (Auto) Shelby # (Auto) Eos # (Auto) Baso # (Auto) Immature Gran # (Auto) Sodium Potassium Chloride Carbon Dioxide Anion Gap BUN Creatinine Est Cr Clr Drug Dosing Est GFR ( Amer) Est GFR (Non-Af Amer) BUN/Creatinine Ratio Glucose POC Glucose 178 H Estimat Average Glucose Hemoglobin A1c Calcium Total Bilirubin AST ALT Alkaline Phosphatase Total Protein Albumin Globulin Albumin/Globulin Ratio Fluid Neutrophils % 35 Fluid Lymphocytes % 22 Fluid Eosinophils % 0 Fluid Basophils % 0 Fluid Meso/Macro/Shelby % 43 Fluid Comment Peritoneal Color YELLOW Peritoneal Appearance HAZY Peritoneal WBC 444 H Peritoneal RBC 4000 Peritoneal Tot Protein 4.0 Peritoneal Albumin 1.9 Peritoneal Glucose 184 Peritoneal Amylase 18 Peritoneal Lipase 61 Peritoneal Triglycerid 36 Hep Bs Antigen Hepatitis C Antibody 06/04/21 16:56 WBC RBC Hgb Hct MCV MCH MCHC RDW Std Deviation RDW Coeff of Mario Plt Count MPV Immature Gran % (Auto) Neut % (Auto) Lymph % (Auto) Shelby % (Auto) Eos % (Auto) Baso % (Auto) Neut # (Auto) Lymph # (Auto) Shelby # (Auto) Eos # (Auto) Baso # (Auto) Immature Gran # (Auto) Sodium Potassium Chloride Carbon Dioxide Anion Gap BUN Creatinine Est Cr Clr Drug Dosing Est GFR ( Amer) Est GFR (Non-Af Amer) BUN/Creatinine Ratio Glucose POC Glucose 169 H Estimat Average Glucose Hemoglobin A1c Calcium Total Bilirubin AST ALT Alkaline Phosphatase Total Protein Albumin Globulin Albumin/Globulin Ratio Fluid Neutrophils % Fluid Lymphocytes % Fluid Eosinophils % Fluid Basophils % Fluid Meso/Macro/Shelby % Fluid Comment Peritoneal Color Peritoneal Appearance Peritoneal WBC Peritoneal RBC Peritoneal Tot Protein Peritoneal Albumin Peritoneal Glucose Peritoneal Amylase Peritoneal Lipase Peritoneal Triglycerid Hep Bs Antigen Hepatitis C Antibody PG Care Time/CCT Total # of Minutes Spent Total Time Spent with Patient: Total time spent is greater than 50% in coordination of care (as documented) at patient's floor/unit and/or counseling patient: Prolonged Care Time Prolonged Care Time: Yes 70 Coding Level of Care Code 06545 Subseq Hosp Care Lvl 3 (25 - SIGNIFICANT, SEPARATELY IDENTIFIABLE ) Diagnoses Cirrhosis K74.60 Ascites R18.8 Acute on chronic systolic CHF (congestive heart failure) I50.23 Atrial fibrillation, permanent I48.21 Duodenal ulcer K26.9 Diabetes mellitus type II, uncontrolled E11.65 Ischemic cardiomyopathy I25.5 Diabetic peripheral neuropathy associated with type 2 diabetes mellitus E11.42 Stage 3a chronic kidney disease N18.31 Hypercholesterolemia E78.00 Hypertension I10 History of coronary artery bypass graft Z95.1 Benign prostatic hyperplasia N40.0 Cognitive impairment R41.89 DVT prophylaxis Z29.9 Additional Codes Prolonged Care Time - Prolonged Care Time: Yes ([id number]) Time Spent (min) 70
[2021-06-04] MEDS: cefTRIAXone SODIUM 2,000 MG in DEXTROSE 5% 50 ML IV SCH (20:50)
[2021-06-04] MEDS: SIMVASTATIN 20 MG TAB PO SCH (20:51)
[2021-06-04] MEDS: FAMOTIDINE 20 MG TAB PO SCH (20:52)
[2021-06-05] MEDS: METOPROLOL TARTRATE 1 MG/ML VIAL IV SCH ×6 (00:47→20:21)
[2021-06-05 07:21] LABS: Calcium 9.5 mg/dl (8.5-10.1); Creatinine Clr Calc Pharmacy 28.8 ml/min; Est GFR (African American) 28.6 ml/min; Est GFR (Non-African American) 24.7 ml/min
[2021-06-05] MEDS: FAMOTIDINE 20 MG TAB PO SCH ×2 (08:08→20:24)
[2021-06-05] MEDS: VALSARTAN/SACUBITRIL 51/49 MG TAB PO SCH ×2 (08:08→20:25)
[2021-06-05] MEDS: PANTOprazole 40 MG TAB PO SCH ×2 (08:08→20:24)
[2021-06-05] MEDS: DOXAZosin MESYLATE TAB 2 MG TAB PO SCH ×2 (08:09→20:24)
[2021-06-05] MEDS: SUCRALFATE 1 GM/10 ML UDC PO SCH ×4 (08:09→20:25)
[2021-06-05] MEDS: METOPROLOL SUCC 50MG EXT REL TAB PO SCH (08:09)
[2021-06-05] MEDS: INSULIN ASPART 100 UNITS/ML 3 ML PEN SC SCH ×4 (08:19→20:51)
[2021-06-05] MEDS ORDERED: FUROSEMIDE 40 MG/4 ML VIAL IV SCH (09:00)
--- NOTE | 2021-06-05 09:40 | Gastroenterology Progress Note ---
Date of Service June 05, 2021 Assessment & Plan (1) Cirrhosis: Plan: -Continue 2 gm sodium restricted diet -Monitor weight & BP on increased dosage of Lasix. If no improvement, consider addition of Aldactone -Paracentesis did not demonstrate any evidence of SBP, but patient was already on Ceftriaxone prior to fluid being obtained -Case was discussed at bedside with cardiology as well Admission and Anticipated Discharge Date Admission Date: June 02, 2021 Supervising Physician Co-Signing Physician Notes Agree with CARLITOS Aragon as above Abd: Soft, NT, Distended, +BS Continue current therapy and supportive care Lasix increased to 80 mg today, will evaluate response to therapy with daily weights and lab studies Cirrhosis most likely multifactorial Subjective Patient is an 81 yo male with cirrhosis. Patient is resting in bed at the time of our visit today. Patient is currently on an increased dosage of Lasix 80 mg IV daily. He denies new complaints. Review of Systems Constitutional: no problem reported Physical Exam Constitutional: no acute distress Respiratory: normal respiratory effort Musculoskeletal: Head/Neck/Chest: normocephalic Psychiatric: Orientation: alert and oriented x 3 Results & Data Results & Data ([facility]) Vital Signs (Past 12 Hours) Vital Signs Temp Pulse Pulse Resp BP BP Pulse Ox 06/05/21 08:07 91 H 157/90 H 06/05/21 07:16 36.3 C L 91 H 16 157/90 H 96 06/05/21 03:51 86 168/74 H 06/05/21 03:50 36.8 C 86 18 168/74 H 96 06/05/21 02:40 81 06/05/21 00:47 85 152/87 H 06/04/21 23:53 36.3 C L 85 18 152/87 H 95 PG Care Time/CCT Total # of Minutes Spent Total Time Spent with Patient: Total time spent is greater than 50% in coordination of care (as documented) at patient's floor/unit and/or counseling patient: Coding Level of Care Code 64516 Subseq Hosp Care Lvl 2 Diagnoses Cirrhosis K74.60
--- NOTE | 2021-06-05 09:42 | Cardiology Progress Note ---
Date of Service June 05, 2021 Assessment & Plan (1) Cirrhosis: Plan: Mr. Brar is an 81 year old male with a history of Hypertension, Hypercholesterolemia, Type 2 Diabetes Mellitus, Peripheral Neuropathy, Permanent Atrial Fibrillation, CAD s/p CABG x 2 Vessel (1999), Ischemic Cardiomyopathy (LVEF 25% to 30% on Echo 05/15/21), Moderately Reduced RV Systolic Function, Stage 3a Chronic Kidney Disease, RBBB, and Peptic Ulcer Disease who was admitted to [facility] with newly diagnosed Cirrhosis with Ascites/Anasarca. Etiology of cirrhosis is most likely multifactorial including possibly HOLT, ? alcohol, and CHF. -- Following with Dr. Savage from GI. -- Paracentesis yesterday afternoon removed approximately 3 L of ascitic fluid. -- SAAG is consistent with portal hypertension. -- Continue IV Ceftriaxone as per Hospitalist and GI services -- Negative tests for Hepatitis B and Hepatitis C. -- Patient has moderately reduced RV systolic dysfunction and moderate tricuspid regurgitation on Echocardiogram 05/15/21 which may be playing a role in his edema, venous congestion. (2) Anasarca: Plan: -- GI is following this case. -- Management as per GI/Hospitalist service -- Paracentesis yesterday removed approximately 3 L of ascitic fluid. (3) Ischemic cardiomyopathy: Plan: Ischemic Cardiomyopathy LVEF 25% to 30% with global hypokinesis, and moderately reduced RV systolic function on recent Echocardiogram. -- No evidence/symptoms of overt left sided CHF. -- Continue Toprol XL 100 mg b.i.d.. -- Continue Entresto 49-51 mg b.i.d.. -- IV Lasix increased to 80 mg daily, received his first 80 mg dose this morning. -- Consider starting Aldactone in the future, but will need to closely monitor renal function and electrolytes. -- Continue usual cardiac regimen. (4) Right-sided congestive heart failure: Plan: Moderately reduced RV systolic function on recent Echocardiogram and may be playing a role in edema/ascites. Recommend ongoing diuresis. -- IV Lasix increased to 80 mg daily as of yesterday, received his first 80 mg dose this morning. -- Continue Toprol XL 100 mg b.i.d.. -- Continue Entresto 49-51 mg b.i.d.. -- Consider starting Aldactone in the future, but will need to closely monitor renal function and electrolytes. -- Monitor daily I&O's, body weights. -- Monitor daily BMP. (5) Atrial fibrillation, permanent: Plan: Permanent Atrial Fibrillation, his V-rate has improved following his paracentesis. Telemetry shows A-Fib with rates in the 70's and 80's. [id number] is 6. -- Continue Toprol XL 100 mg b.i.d.. -- Resume Eliquis 5 mg b.i.d. when GI/Hospitalist feel it can safely be restarted. (6) Hypertension: Plan: He has been hypertensive throughout his stay -- although his BP's have improved following paracentesis. Recommend titrating Entresto in the future. -- Continue Toprol XL 100 mg b.i.d.. -- Continue Entresto 49-51 mg b.i.d. for the time being. -- Consider starting Aldactone in the future. (7) Hypercholesterolemia: Plan: His Fasting Lipid Panel 03/22/21 shows a Total Cholesterol of 116 mg/dL, HDL 56 mg/dL, and an LDL of 50 mg/dL. Total Chol:HDL ratio is favorable at 2. -- Continue Simvastatin 20 mg daily. (8) History of coronary artery bypass graft: Plan: CABG x 2 Vessels in 1999. -- No angina pectoris or anginal equivalent symptoms. -- Continue Toprol XL 100 mg b.i.d.. -- Continue Entresto 49-51 mg b.i.d.. -- Continue Simvastatin 20 mg daily. Admission and Anticipated Discharge Date Admission Date: June 02, 2021 Supervising Physician Co-Signing Physician Notes ADDENDUM (Dr. Ovalle): Patient seen and examined. Agree with plan as outlined above by Mr. Racheal WISEMAN. As noted, etiology of ascites/liver failure is uncertain, likely multifactorial. Regardless of hepatic dysfunction etiology, volume unloading is appropriate. Substantial unloading with paracentesis, as of today he will begin diuresis with IV furosemide 80 mg (which could be switched to oral upon discharge). Despite dramatic weight loss post paracentesis, he still appears mildly hypervolemic by neck veins. Continue diuresis, if he remains hemodynamically stable and continues to diurese on furosemide, potential discharge tomorrow with follow-up by heart failure clinic. Subjective Mr. Brar is an 81 year old male with a history of Hypertension, Hypercholesterolemia, Type 2 Diabetes Mellitus, Peripheral Neuropathy, Permanent Atrial Fibrillation, CAD s/p CABG x 2 Vessel (1999), Ischemic Cardiomyopathy (LVEF 25% to 30% on Echo 05/15/21), Moderately Reduced RV Systolic Function, Stage 3a Chronic Kidney Disease, RBBB, and Peptic Ulcer Disease who was admitted to [facility] with newly diagnosed Cirrhosis with Ascites. Etiology of cirrhosis is most likely multifactorial including possible HOLT, ? alcohol, and heart failure. Patient is feeling better since his paracentesis yesterday with the removal of approximately 3 L of ascitic fluid. His abdomen is less distended and less uncomfortable. His peripheral edema has improved as well. He has a positive fluid balance according to his I&O's, but today he received his first dose of IV Lasix at 80 mg. Nonetheless, his body weight is down 5.5 kg since yesterday. Patient remains asymptomatic from a cardiac standpoint. He denies any exertional chest pain, heaviness, tightness, pressure, or angina pectoris. He has not had any exertional neck, jaw, back, or arm pain. He denies any shortness of breath, unusual dyspnea on exertion, orthopnea, or PND. He denies any palpitations, syncope, or near syncope. He has not had any symptoms suggestive of stroke or mini-stroke. Physical Exam Physical Exam: GENERAL: Patient in no acute distress. HEENT: Head is atraumatic, normocephalic. EOM's intact. Facies symmetric. No perioral cyanosis. NECK: JVD is present. JVP is elevated. Carotid upstrokes are + 2 bilaterally without obvious bruits. CHEST/LUNGS: Clear to auscultation throughout all lung baker. No wheezes, rales, or crackles. CVS: S1 and S2 are irregularly irregular at 82 bpm with a grade 1/6 systolic murmur at Erb's point. No gallops or rubs appreciated. PMI is nonpalpable. No lifts, heaves, or thrills. No abdominal aortic or renal bruits. Well healed median sternotomy incision. ABDOMINAL EXAM: Abdomen is less distended. Bowel sounds are present. EXTREMITIES: No clubbing or cyanosis. +1Pitting edema to the midthighs bilaterally, +2 pitting pretibial edema. Intact radial pulses bilaterally. NEUROLOGIC EXAM: Patient is awake, alert, and interactive. Pleasant and cooperative. Answers questions appropriately. Speech is clear. Normal movement in all 4 extremities. Gait pattern was not assessed. COMMUNICATIONS PLANNER: -- A-fib with rates in the 70's and 80's. ECHOCARDIOGRAM 05/15/21: -- LV systolic function is moderately to severely reduced. -- Moderate to severe global hypokinesis of the LV. -- LVEF 25% to 30%. -- Mild to moderate mitral regurgitation. -- Moderate tricuspid regurgitation. -- Normal RV with moderately reduced RV systolic function. -- No significant change compared to 11/21/20 Echo. Results & Data ([facility]) Vital Signs (Past 12 Hours) Vital Signs Temp Pulse Pulse Resp BP BP Pulse Ox 06/05/21 08:07 91 H 157/90 H 06/05/21 07:16 36.3 C L 91 H 16 157/90 H 96 06/05/21 03:51 86 168/74 H 06/05/21 03:50 36.8 C 86 18 168/74 H 96 06/05/21 02:40 81 06/05/21 00:47 85 152/87 H 06/04/21 23:53 36.3 C L 85 18 152/87 H 95 Laboratory Results Laboratory Results - last 24 hr 06/03/21 06/04/21 06/04/21 11:17 12:20 12:20 Sodium Potassium Chloride Carbon Dioxide Anion Gap BUN Creatinine Est Cr Clr Drug Dosing Est GFR ( Amer) Est GFR (Non-Af Amer) BUN/Creatinine Ratio Glucose POC Glucose Calcium Ammonia Vitamin B12 Fluid Neutrophils % 35 Fluid Lymphocytes % 22 Fluid Eosinophils % 0 Fluid Basophils % 0 Fluid Meso/Macro/[place] % 43 Fluid Comment Peritoneal Color YELLOW Peritoneal Appearance HAZY Peritoneal WBC 444 H Peritoneal RBC 4000 Peritoneal Tot Protein 4.0 Peritoneal Albumin 1.9 Peritoneal Glucose 184 Peritoneal Amylase 18 Peritoneal Lipase 61 Peritoneal Triglycerid 36 Hep Bs Antigen Neg Hepatitis C Antibody Neg 06/04/21 06/04/21 06/04/21 12:42 16:56 20:28 Sodium Potassium Chloride Carbon Dioxide Anion Gap BUN Creatinine Est Cr Clr Drug Dosing Est GFR ( Amer) Est GFR (Non-Af Amer) BUN/Creatinine Ratio Glucose POC Glucose 178 H 169 H 194 H Calcium Ammonia Vitamin B12 Fluid Neutrophils % Fluid Lymphocytes % Fluid Eosinophils % Fluid Basophils % Fluid Meso/Macro/[place] % Fluid Comment Peritoneal Color Peritoneal Appearance Peritoneal WBC Peritoneal RBC Peritoneal Tot Protein Peritoneal Albumin Peritoneal Glucose Peritoneal Amylase Peritoneal Lipase Peritoneal Triglycerid Hep Bs Antigen Hepatitis C Antibody 06/05/21 06/05/21 06/05/21 06:44 06:44 06:44 Sodium 135 L Potassium 4.0 Chloride 101 Carbon Dioxide 26 Anion Gap 8.0 BUN 41 H Creatinine 2.39 H Est Cr Clr Drug Dosing 28.8 Est GFR ( Amer) 28.6 Est GFR (Non-Af Amer) 24.7 BUN/Creatinine Ratio 17.0 Glucose 178 H POC Glucose Calcium 9.5 Ammonia 14.0 Vitamin B12 Pending Fluid Neutrophils % Fluid Lymphocytes % Fluid Eosinophils % Fluid Basophils % Fluid Meso/Macro/[place] % Fluid Comment Peritoneal Color Peritoneal Appearance Peritoneal WBC Peritoneal RBC Peritoneal Tot Protein Peritoneal Albumin Peritoneal Glucose Peritoneal Amylase Peritoneal Lipase Peritoneal Triglycerid Hep Bs Antigen Hepatitis C Antibody 06/05/21 07:41 Sodium Potassium Chloride Carbon Dioxide Anion Gap BUN Creatinine Est Cr Clr Drug Dosing Est GFR ( Amer) Est GFR (Non-Af Amer) BUN/Creatinine Ratio Glucose POC Glucose 176 H Calcium Ammonia Vitamin B12 Fluid Neutrophils % Fluid Lymphocytes % Fluid Eosinophils % Fluid Basophils % Fluid Meso/Macro/[place] % Fluid Comment Peritoneal Color Peritoneal Appearance Peritoneal WBC Peritoneal RBC Peritoneal Tot Protein Peritoneal Albumin Peritoneal Glucose Peritoneal Amylase Peritoneal Lipase Peritoneal Triglycerid Hep Bs Antigen Hepatitis C Antibody Medications Administered Medications coenzyme Q10 100 mg capsule (CoQ-10) 100 mg PO QAM 11/23/20 [History Confirmed 06/02/21] compress.stocking,knee,reg,lrg #2 ea 11/23/20 [Rx Confirmed 05/29/21] psyllium husk 0.52 gram capsule (Metamucil) 0.52 g PO QAM 12/06/20 [History Confirmed 06/02/21] lancets ([employer]Touch UltraSoft Lancets) #100 ea 12/18/20 [Rx Confirmed 05/29/21] blood-glucose meter (OneTouch Verio Flex Start) #1 ea 12/25/20 [Rx Confirmed 05/29/21] blood sugar diagnostic (OneTouch Verio test strips) #2 box 12/27/20 [Rx Confirmed 05/29/21] metformin 500 mg tablet 1,000 mg PO BID #360 tab 02/22/21 [Rx Confirmed 06/02/21] metoprolol succinate 100 mg tablet,extended release 24 hr 100 mg PO QAM #90 tab 02/22/21 [Rx Confirmed 06/02/21] simvastatin 20 mg tablet 20 mg PO QPM #90 tab 02/26/21 [Rx Confirmed 06/02/21] sacubitril 49 mg-valsartan 51 mg tablet (Entresto) 1 tab PO BID #180 tab 03/23/21 [Rx Confirmed 06/02/21] doxazosin 2 mg tablet 2 mg PO BID tab 04/06/21 [History Confirmed 06/02/21] ferrous sulfate 325 mg (65 mg iron) tablet,delayed release 325 mg PO BID #180 tab 04/19/21 [Rx Confirmed 06/02/21] pantoprazole 40 mg tablet,delayed release 40 mg PO QAM #90 tab 05/01/21 [Rx Confirmed 06/02/21] furosemide 40 mg tablet 40 mg PO DAILY tab 05/17/21 [History Confirmed 06/02/21] glipizide 5 mg tablet 2.5 mg PO DAILY 06/02/21 [History Confirmed 06/02/21] Home Medications Dextrose (Dextrose 50% 50 Ml Syringe) 25 - 50 ml IV UD PRN; Protocol PRN Reason: Hypoglycemia Protocol Stop: 07/02/21 05:03 Doxazosin Mesylate (Doxazosin Mesylate Tab 2 Mg Tab) 2 mg PO BID HILDA Stop: 07/03/21 20:59 Last Admin: 06/05/21 08:09 Dose: 2 mg Documented by: Famotidine (Famotidine 20 Mg Tab) 20 mg PO Q12H HILDA Stop: 07/04/21 20:59 Last Admin: 06/05/21 08:08 Dose: 20 mg Documented by: Furosemide (Furosemide 40 Mg/4 Ml Vial) 80 mg IV DAILY HILDA Stop: 07/05/21 08:59 Last Admin: 06/05/21 08:20 Dose: 80 mg Documented by: Glucagon (Glucagon For Inj 1 Mg Vial) 1 mg SQ UD PRN; Protocol PRN Reason: Hypoglycemia Protocol Stop: 07/02/21 05:03 Glucose (Glucose 10 Tabs/Tube) 4 - 8 tabs PO UD PRN; Protocol PRN Reason: Hypoglycemia Protocol Stop: 07/02/21 05:03 Glucose (Glucose 40% Gel 15 Gm Tube) 15 - 30 gm PO UD PRN; Protocol PRN Reason: Hypoglycemia Protocol Stop: 07/02/21 05:03 Ceftriaxone Sodium 2,000 mg/ (Dextrose) 70 mls @ 100 mls/hr IV DAILY@1999 [facility]; Protocol Stop: 06/14/21 19:59 Last Infusion: 06/04/21 22:00 Dose: Infused Documented by: Insulin Aspart (Insulin Aspart 100 Units/Ml 3 Ml Pen) 0 units SC ACHS [facility] Stop: 07/02/21 07:29 Last Admin: 06/05/21 08:19 Dose: 1 units Documented by: Metoprolol Succinate (Metoprolol Succ 50mg Ext Rel Tab) 100 mg PO QAM [facility] Stop: 07/04/21 08:59 Last Admin: 06/05/21 08:09 Dose: 100 mg Documented by: Metoprolol Tartrate (Metoprolol Tartrate 1 Mg/Ml Vial) 5 mg IV Q4 [facility] Stop: 07/02/21 05:03 Last Admin: 06/05/21 08:07 Dose: 5 mg Documented by: Miscellaneous (Carbohydrates For Hypoglycemia ) 15 - 30 gm PO UD PRN PRN Reason: Hypoglycemia Protocol Stop: 07/02/21 05:03 Morphine Sulfate (Morphine Sulfate 4 Mg/Ml 1 Ml Carp\Vial) 4 mg IV Q4 PRN PRN Reason: Pain Stop: 06/17/21 16:03 Ondansetron HCl (Ondansetron Inj 2 Mg/Ml 2 Ml Vial) 4 mg IV Q6H PRN PRN Reason: Nausea Stop: 07/02/21 05:03 Oxycodone HCl (Oxycodone Hcl Ir 5 Mg Tab (Immediate Release)) 5 mg PO Q4 PRN PRN Reason: Pain Stop: 06/17/21 16:03 Pantoprazole Sodium (Pantoprazole 40 Mg Tab) 40 mg PO BID [facility] Stop: 07/03/21 20:59 Last Admin: 06/05/21 08:08 Dose: 40 mg Documented by: Sacubitril/Valsartan (Sacubitril-Valsartan 49/51 Mg Tab) 1 tab PO BID [facility] Stop: 07/03/21 20:59 Last Admin: 06/05/21 08:08 Dose: 1 tab Documented by: Simvastatin (Simvastatin 20 Mg Tab) 20 mg PO QPM [facility] Stop: 07/03/21 20:59 Last Admin: 06/04/21 20:51 Dose: 20 mg Documented by: Sucralfate (Sucralfate 1 Gm/10 Ml Udc) 1 gm PO QID HILDA Stop: 07/03/21 17:14 Last Admin: 06/05/21 08:09 Dose: 1 gm Documented by: PG Care Time/CCT Total # of Minutes Spent Total Time Spent with Patient: Total time spent is greater than 50% in coordination of care (as documented) at patient's floor/unit and/or counseling patient:30 Coding Level of Care Code 42149 Subseq Hosp Care Lvl 3 Diagnoses Cirrhosis K74.60 Anasarca R60.1 Ischemic cardiomyopathy I25.5 Right-sided congestive heart failure I50.810 Atrial fibrillation, permanent I48.21 Hypertension I10 Hypercholesterolemia E78.00 History of coronary artery bypass graft Z95.1 Time Spent (min) 52
[2021-06-05 16:32] LABS: Hepatitis A Antibody IgM NON-REACTIVE (NON-REACTIVE); Hepatitis B Core Antibody IgM NON-REACTIVE (NON-REACTIVE)
[2021-06-05] MEDS ORDERED: hydrALAZINE HCL 20 MG/ML VIAL IV PRN (17:57)
[2021-06-05] MEDS: SIMVASTATIN 20 MG TAB PO SCH (20:24)
[2021-06-05] MEDS: cefTRIAXone SODIUM 2,000 MG in DEXTROSE 5% 50 ML IV SCH (21:23)
[2021-06-05] MEDS ORDERED: METOPROLOL SUCC 50MG EXT REL TAB PO STA (21:52)
--- NOTE | 2021-06-05 21:53 | Hospitalist Progress Note ---
Date of Service June 05, 2021 Assessment & Plan (1) Cirrhosis: Plan: radiographically, and clinically. s/p paracentesis yesterday (2.7 L removed). Total WBCs 444; PMN WBC <150. This is not c/w SBP, but he has been on rocephin since admission. Spoke with Dr Savage -- will Rx for a few more days with antibiotics to be on safe side. cont rocephin for now; then change to PO omnicef in about 48 hours. Rx for about 7 days in total. pathology neg for malignant cells. culture from ascites neg, but was on antibiotics prior to tap. SAAG 1.5 c/w portal HTN. agree with increase in diuretics as advised by cardiology and GI. agree with aldactone IF creatinine can tolerate such. etiology of cirrhosis? "cardiac" cirrhosis? 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 other? 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 no heavy etoh use chronically. doubt autoimmune cirrhosis. ammonia levels remain wnl. fluid status will be difficult chronically in light of severe systolic CHF, CKD, and his cirrhosis. discussed this dx in great detail with pt and yesterday and today. (2) Ascites: Plan: transudative based on fluid studies SAAG 1.5 c/w portal HTN suspect cirrhosis is either 2nd to "cardiac" (right heart failure) or HOLT either way Rx will be the same diuretics per GI and cardiology weight overall improving (3) Acute on chronic systolic CHF (congestive heart failure): Plan: appreciate cardiology assistance cont lasix 80 IV daily for now cont BB cont Entresto may need to hold latter if aldactone is needed for cirrhosis (4) Atrial fibrillation, permanent: Plan: rates controlled cont metoprolol succinate not anticoagulated due to prior GI bleed in November 2020 (5) Duodenal ulcer: Plan: h/o cont PPI bid (6) Diabetes mellitus type II, uncontrolled: Plan: a1c 6.6% during this admission novolog SSI control adequate (7) Ischemic cardiomyopathy: (8) Diabetic peripheral neuropathy associated with type 2 diabetes mellitus: (9) Stage 3a chronic kidney disease: Plan: baseline CrCl appears to be low 30s with baseline Creatinine of 2 to 2.3 bmp am no obstruction based on recent CT abd/pelvis (10) Hypercholesterolemia: Plan: remains on statin therapy (simvastatin 20mg daily) (11) Hypertension: Plan: BPs still uncontrolled will add bedtime dose of metoprolol succinate 50mg in addition to am dose of 100mg stop the IV lopressor since we are increasing PO metoprolol as above (12) History of coronary artery bypass graft: (13) Benign prostatic hyperplasia: Plan: cont alpha je (14) Cognitive impairment: Plan: b12 level last spring was borderline low recheck today wnl (15) DVT prophylaxis: Plan: start chemical means tomorrow (heparin 5000 BID) Plan: extensively updated at bedside yesterday and today daughter updated by phone yesterday left message for daughter on her [employer] today consult [facility] CHF clinic tomorrow Admission and Anticipated Discharge Date Admission Date: June 02, 2021 Subjective patient lying flat in bed comfortably during the visit much like yesterday he had numerous questions about his status and his care plan we discussed his ascites fluid results (pathology, culture, etc) we discussed the outcome of his PT/OT evals today (both report he can return home, but both advise home PT/OT) at bedside during the visit a.fib on tele - rates controlled Review of Systems Review of Systems: gen - fatigue, poor appetite persist; latter has been present just since admission (per ) - not chronic - normally eats better cv - no cp, no orthopnea pulm - no cough, no dyspnea GI - no N/V Physical Exam Physical Exam: gen - NAD, lying flat in bed comfortably neck - no JVD mouth - MMM heart - irregular, s1 s2, 2/6 systolic murmur LSB lungs - CTA b/l abd - distended with ascites, no tenderness any location; BS+ ext - 1-2+ edema b/l, pulses 2+ b/l psych - alert, oriented to person/place, seems to have some element of cognitive impairment - no change Results & Data Results & Data ([facility]) Vital Signs (Past 12 Hours) Vital Signs Temp Pulse Pulse Resp BP BP BP 06/05/21 20:21 83 160/95 H 06/05/21 18:37 134/74 06/05/21 18:36 36.7 C 87 20 129/81 06/05/21 17:19 77 06/05/21 16:53 90 158/108 H 06/05/21 15:33 36.3 C L 82 20 155/108 H 06/05/21 12:28 36.6 C 80 18 162/116 H 172/115 H 06/05/21 11:58 94 H 175/115 H Pulse Ox 06/05/21 20:21 06/05/21 18:37 06/05/21 18:36 94 06/05/21 17:19 06/05/21 16:53 06/05/21 15:33 95 06/05/21 12:28 93 06/05/21 11:58 Laboratory Results Laboratory Results - last 24 hr 06/03/21 06/05/21 06/05/21 11:17 06:44 06:44 Sodium 135 L Potassium 4.0 Chloride 101 Carbon Dioxide 26 Anion Gap 8.0 BUN 41 H Creatinine 2.39 H Est Cr Clr Drug Dosing 28.8 Est GFR ( Amer) 28.6 Est GFR (Non-Af Amer) 24.7 BUN/Creatinine Ratio 17.0 Glucose 178 H POC Glucose Calcium 9.5 Ammonia 14.0 Vitamin B12 Hepatitis A IgM Ab NON-REACTIVE Hep B Core IgM Ab NON-REACTIVE 06/05/21 06/05/21 06/05/21 06:44 07:41 11:31 Sodium Potassium Chloride Carbon Dioxide Anion Gap BUN Creatinine Est Cr Clr Drug Dosing Est GFR ( Amer) Est GFR (Non-Af Amer) BUN/Creatinine Ratio Glucose POC Glucose 176 H 215 H Calcium Ammonia Vitamin B12 446 Hepatitis A IgM Ab Hep B Core IgM Ab 06/05/21 06/05/21 16:28 20:16 Sodium Potassium Chloride Carbon Dioxide Anion Gap BUN Creatinine Est Cr Clr Drug Dosing Est GFR ( Amer) Est GFR (Non-Af Amer) BUN/Creatinine Ratio Glucose POC Glucose 190 H 154 H Calcium Ammonia Vitamin B12 Hepatitis A IgM Ab Hep B Core IgM Ab Diagnostic Findings pathology from ascites - neg for malignant cells ascites fluid culture - negative to date PG Care Time/CCT Total # of Minutes Spent Total Time Spent with Patient: Total time spent is greater than 50% in coordination of care (as documented) at patient's floor/unit and/or counseling patient: Coding Level of Care Code 71872 Subseq Hosp Care Lvl 3 Diagnoses Cirrhosis K74.60 Ascites R18.8 Acute on chronic systolic CHF (congestive heart failure) I50.23 Atrial fibrillation, permanent I48.21 Duodenal ulcer K26.9 Diabetes mellitus type II, uncontrolled E11.65 Ischemic cardiomyopathy I25.5 Diabetic peripheral neuropathy associated with type 2 diabetes mellitus E11.42 Stage 3a chronic kidney disease N18.31 Hypercholesterolemia E78.00 Hypertension I10 History of coronary artery bypass graft Z95.1 Benign prostatic hyperplasia N40.0 Cognitive impairment R41.89 DVT prophylaxis Z29.9
[2021-06-06 06:58] LABS: BUN Creatinine Ratio 16.6 (10-20); Calcium 8.9 mg/dl (8.5-10.1); Creatinine Clr Calc Pharmacy 31.2 ml/min; Est GFR (African American) 31.4 ml/min; Est GFR (Non-African American) 27.1 ml/min; Potassium 3.4 mmol/L (3.5-5.1)
[2021-06-06] MEDS ORDERED: POTASSIUM CHLORIDE CRTAB 20 MEQ TABCR PO SCH (09:00)
--- NOTE | 2021-06-06 09:28 | Cardiology Progress Note ---
Date of Service June 06, 2021 Assessment & Plan (1) Cirrhosis: Plan: Mr. Brar is an 81 year old male with a history of Hypertension, Hypercholesterolemia, Type 2 Diabetes Mellitus, Peripheral Neuropathy, Permanent Atrial Fibrillation, CAD s/p CABG x 2 Vessel (1999), Ischemic Cardiomyopathy (LVEF 25% to 30% on Echo 05/15/21), Moderately Reduced RV Systolic Function, Stage 3a Chronic Kidney Disease, RBBB, and Peptic Ulcer Disease who was admitted to [facility] with newly diagnosed Cirrhosis with Ascites/Anasarca. Etiology of cirrhosis is most likely multifactorial including possibly HOLT, ? alcohol, and CHF. -- Following with Dr. Savage from GI. -- Paracentesis 2 days afternoon removed approximately 3 L of ascitic fluid. -- SAAG is consistent with portal hypertension. -- Continue IV Ceftriaxone as per Hospitalist and GI services, then will be converted to oral Omnicef. -- Negative tests for Hepatitis B and Hepatitis C. -- Patient has moderately reduced RV systolic dysfunction and moderate tricuspid regurgitation on Echocardiogram 05/15/21 which may be playing a role in his edema, venous congestion. (2) Anasarca: Plan: -- GI is following this case. -- Management as per GI/Hospitalist service -- Paracentesis 2 days removed approximately 3 L of ascitic fluid. (3) Ischemic cardiomyopathy: Plan: Ischemic Cardiomyopathy LVEF 25% to 30% with global hypokinesis, and moderately reduced RV systolic function on recent Echocardiogram. -- No evidence/symptoms of overt left sided CHF. -- Continue Toprol XL 100 mg b.i.d.. -- Continue Entresto 49-51 mg b.i.d.. -- IV Lasix increased to 120 mg daily. -- Consider starting Aldactone in the future, but will need to closely monitor renal function and electrolytes. -- Continue usual cardiac regimen. (4) Right-sided congestive heart failure: Plan: Moderately reduced RV systolic function on recent Echocardiogram and may be playing a role in edema/ascites. Recommend ongoing diuresis. He has a positive fluid balance and is mildly hypokalemic today. Body weight is 1.8 kg since yesterday. -- Increase IV Lasix to 120 mg daily beginning today. -- Continue Toprol XL 100 mg b.i.d.. -- Continue Entresto 49-51 mg b.i.d.. -- Consider starting Aldactone in the future, but will need to closely monitor renal function and electrolytes. -- Monitor daily I&O's, body weights. -- Monitor daily BMP. (5) Atrial fibrillation, permanent: Plan: Permanent Atrial Fibrillation, his V-rate has improved following his paracentesis. Telemetry shows A-Fib with rates in the 80's and 90's [id number] is 6. -- Continue Toprol XL 100 mg b.i.d.. -- Resume Eliquis 5 mg b.i.d. when GI/Hospitalist feel it can safely be restarted. (6) Hypertension: Plan: He has been hypertensive throughout his stay -- although his BP's have improved following paracentesis and with the addition of "as needed" IV Hydralazine. Recommend titrating Entresto in the future. -- Continue Toprol XL 100 mg b.i.d.. -- Continue Entresto 49-51 mg b.i.d. for the time being. -- Consider starting Aldactone in the future. -- IV Hydralazine 10 mg q4h as needed for SBP = or > 160 mmHg. (7) Hypercholesterolemia: Plan: His Fasting Lipid Panel 03/22/21 shows a Total Cholesterol of 116 mg/dL, HDL 56 mg/dL, and an LDL of 50 mg/dL. Total Chol:HDL ratio is favorable at 2. -- Continue Simvastatin 20 mg daily. (8) History of coronary artery bypass graft: Plan: CABG x 2 Vessels in 1999. -- No angina pectoris or anginal equivalent symptoms. -- Continue Toprol XL 100 mg b.i.d.. -- Continue Entresto 49-51 mg b.i.d.. -- Continue Simvastatin 20 mg daily. Admission and Anticipated Discharge Date Admission Date: June 02, 2021 Supervising Physician Co-Signing Physician Notes ADDENDUM (Dr. Ovalle): Patient seen and examined. Agree with plan as outlined above by Mr. Racheal WISEMAN. Patient had some backsliding in regards to weight and he does still appear hypervolemic on exam, therefore furosemide dose increased. Had a 45-minute discussion with the patient and his regarding the potential pathophysiology for his volume retention and, more importantly, mechanisms to manage this, including strict salt/sodium restriction (which they are already observing to a large degree), obtaining daily weights while utilizing a sliding scale diuretic routine, and close follow-up with Nivia Starkey PA-C in heart failure clinic. Subjective Mr. Brar is sitting in a bedside chair and he just finished breakfast. He tolerated eating and has not had any nausea, vomiting, or abdominal pain. He has a positive fluid balance and is mildly hypokalemic today. Body weight is 1.8 kg since yesterday. Last evening I was paged regarding patient's elevated blood pressure. I ordered IV Hydralazine 10 mg q4h as needed for SBP = or > 160 mmHg. Blood pressures have improved. He denies any SOB, DESOUZA, orthopnea, or PND. His leg edema has improved. He denies any chest pain, heaviness, tightness, pressure, or discomfort. He denies any palpitations or symptoms related to his A-Fib. No symptoms suggestive of stroke or mini-stroke. ECHOCARDIOGRAM 05/15/21: -- LV systolic function is moderately to severely reduced. -- Moderate to severe global hypokinesis of the LV. -- LVEF 25% to 30%. -- Mild to moderate mitral regurgitation. -- Moderate tricuspid regurgitation. -- Normal RV with moderately reduced RV systolic function. -- No significant change compared to 11/21/20 Echo. Physical Exam Physical Exam: GENERAL: Patient in no acute distress. HEENT: Head is atraumatic, normocephalic. EOM's intact. Facies symmetric. No perioral cyanosis. NECK: JVD is present. JVP is elevated approximately 1/[address] way to the angle of the jaw. Carotid upstrokes are + 2 bilaterally without obvious bruits. CHEST/LUNGS: Clear to auscultation throughout all lung baker. No wheezes, rales, or crackles. CVS: S1 and S2 are irregularly irregular at 88 bpm with a grade 1/6 systolic murmur at Erb's point. No gallops or rubs appreciated. PMI is nonpalpable. No lifts, heaves, or thrills. No abdominal aortic or renal bruits. Well healed median sternotomy incision. ABDOMINAL EXAM: Abdomen is less distended. Bowel sounds are present. EXTREMITIES: No clubbing or cyanosis. +1Pitting to proximal tibia, +2 pitting ankle and bipedal edema. Intact radial pulses bilaterally. NEUROLOGIC EXAM: Patient is awake, alert, and interactive. Pleasant and cooperative. Answers questions appropriately. Speech is clear. Normal movement in all 4 extremities. Gait pattern was not assessed. STRAIGHTEDGE MAN: -- A-fib with rates in the 80's - 90's. Results & Data ([facility]) Vital Signs (Past 12 Hours) Vital Signs Temp Pulse Resp BP BP Pulse Ox 06/06/21 07:41 36.8 C 95 H 20 133/80 97 06/06/21 04:00 37.2 C 90 18 151/79 H 92 06/05/21 23:37 36.5 C 94 H 18 153/79 H 94 Laboratory Results Laboratory Results - last 24 hr 06/03/21 06/05/21 06/05/21 11: 06:44 11:31 Sodium Potassium Chloride Carbon Dioxide Anion Gap BUN Creatinine Est Cr Clr Drug Dosing Est GFR ( Amer) Est GFR (Non-Af Amer) BUN/Creatinine Ratio Glucose POC Glucose 215 H Calcium Vitamin B12 446 Hepatitis A IgM Ab NON-REACTIVE Hep B Core IgM Ab NON-REACTIVE 06/05/21 06/05/21 06/06/21 16:28 20:16 06:00 Sodium 134 L Potassium 3.4 L Chloride 99 Carbon Dioxide 27 Anion Gap 8.0 BUN 37 H Creatinine 2.21 H Est Cr Clr Drug Dosing 31.2 Est GFR ( Amer) 31.4 Est GFR (Non-Af Amer) 27.1 BUN/Creatinine Ratio 16.6 Glucose 177 H POC Glucose 190 H 154 H Calcium 8.9 Vitamin B12 Hepatitis A IgM Ab Hep B Core IgM Ab 06/06/21 08:15 Sodium Potassium Chloride Carbon Dioxide Anion Gap BUN Creatinine Est Cr Clr Drug Dosing Est GFR ( Amer) Est GFR (Non-Af Amer) BUN/Creatinine Ratio Glucose POC Glucose 169 H Calcium Vitamin B12 Hepatitis A IgM Ab Hep B Core IgM Ab Medications Administered Medications coenzyme Q10 100 mg capsule (CoQ-10) 100 mg PO QAM 11/23/20 [History Confirmed 06/02/21] compress.stocking,knee,reg,lrg #2 ea 11/23/20 [Rx Confirmed 05/29/21] psyllium husk 0.52 gram capsule (Metamucil) 0.52 g PO QAM 12/06/20 [History Confirmed 06/02/21] lancets ([employer] TechnologyTouch UltraSoft Lancets) #100 ea 12/18/20 [Rx Confirmed 05/29/21] blood-glucose meter (OneTouch Verio Flex Start) #1 ea 12/25/20 [Rx Confirmed 05/29/21] blood sugar diagnostic (OneTouch Verio test strips) #2 box 12/27/20 [Rx Confirmed 05/29/21] metformin 500 mg tablet 1,000 mg PO BID #360 tab 02/22/21 [Rx Confirmed 06/02/21] metoprolol succinate 100 mg tablet,extended release 24 hr 100 mg PO QAM #90 tab 02/22/21 [Rx Confirmed 06/02/21] simvastatin 20 mg tablet 20 mg PO QPM #90 tab 02/26/21 [Rx Confirmed 06/02/21] sacubitril 49 mg-valsartan 51 mg tablet (Entresto) 1 tab PO BID #180 tab 03/23/21 [Rx Confirmed 06/02/21] doxazosin 2 mg tablet 2 mg PO BID tab 04/06/21 [History Confirmed 06/02/21] ferrous sulfate 325 mg (65 mg iron) tablet,delayed release 325 mg PO BID #180 tab 04/19/21 [Rx Confirmed 06/02/21] pantoprazole 40 mg tablet,delayed release 40 mg PO QAM #90 tab 05/01/21 [Rx Confirmed 06/02/21] furosemide 40 mg tablet 40 mg PO DAILY tab 05/17/21 [History Confirmed 06/02/21] glipizide 5 mg tablet 2.5 mg PO DAILY 06/02/21 [History Confirmed 06/02/21] Home Medications Dextrose (Dextrose 50% 50 Ml Syringe) 25 - 50 ml IV UD PRN; Protocol PRN Reason: Hypoglycemia Protocol Stop: 07/02/21 05:03 Doxazosin Mesylate (Doxazosin Mesylate Tab 2 Mg Tab) 2 mg PO BID HILDA Stop: 07/03/21 20:59 Last Admin: 06/05/21 20:24 Dose: 2 mg Documented by: Famotidine (Famotidine 20 Mg Tab) 20 mg PO Q12H HILDA Stop: 07/04/21 20:59 Last Admin: 06/05/21 20:24 Dose: 20 mg Documented by: Furosemide (Furosemide 40 Mg/4 Ml Vial) 120 mg IV DAILY HILDA Stop: 07/06/21 08:59 Glucagon (Glucagon For Inj 1 Mg Vial) 1 mg SQ UD PRN; Protocol PRN Reason: Hypoglycemia Protocol Stop: 07/02/21 05:03 Glucose (Glucose 10 Tabs/Tube) 4 - 8 tabs PO UD PRN; Protocol PRN Reason: Hypoglycemia Protocol Stop: 07/02/21 05:03 Glucose (Glucose 40% Gel 15 Gm Tube) 15 - 30 gm PO UD PRN; Protocol PRN Reason: Hypoglycemia Protocol Stop: 07/02/21 05:03 Hydralazine HCl (Hydralazine Hcl 20 Mg/Ml Vial) 10 mg IV Q4 PRN PRN Reason: SBP >160 Stop: 07/05/21 17:56 Ceftriaxone Sodium 2,000 mg/ (Dextrose) 70 mls @ 100 mls/hr IV DAILY@1999 [facility]; Protocol Stop: 06/14/21 19:59 Last Infusion: 06/05/21 22:13 Dose: Infused Documented by: Insulin Aspart (Insulin Aspart 100 Units/Ml 3 Ml Pen) 0 units SC ACHS [facility] Stop: 07/02/21 07:29 Last Admin: 06/05/21 20:51 Dose: Not Given Documented by: Metoprolol Succinate (Metoprolol Succ 50mg Ext Rel Tab) 100 mg PO QAM [facility] Stop: 07/04/21 08:59 Last Admin: 06/05/21 08:09 Dose: 100 mg Documented by: Miscellaneous (Carbohydrates For Hypoglycemia ) 15 - 30 gm PO UD PRN PRN Reason: Hypoglycemia Protocol Stop: 07/02/21 05:03 Morphine Sulfate (Morphine Sulfate 4 Mg/Ml 1 Ml Carp\\Vial) 4 mg IV Q4 PRN PRN Reason: Pain Stop: 06/17/21 16:03 Ondansetron HCl (Ondansetron Inj 2 Mg/Ml 2 Ml Vial) 4 mg IV Q6H PRN PRN Reason: Nausea Stop: 07/02/21 05:03 Oxycodone HCl (Oxycodone Hcl Ir 5 Mg Tab (Immediate Release)) 5 mg PO Q4 PRN PRN Reason: Pain Stop: 06/17/21 16:03 Pantoprazole Sodium (Pantoprazole 40 Mg Tab) 40 mg PO BID [facility] Stop: 07/03/21 20:59 Last Admin: 06/05/21 20:24 Dose: 40 mg Documented by: Potassium Chloride (Potassium Chloride Crtab 20 Meq Tabcr) 20 meq PO BID [facility] Stop: 07/06/21 08:59 Sacubitril/Valsartan (Sacubitril-Valsartan 49/51 Mg Tab) 1 tab PO BID HILDA Stop: 07/03/21 20:59 Last Admin: 06/05/21 20:25 Dose: 1 tab Documented by: Simvastatin (Simvastatin 20 Mg Tab) 20 mg PO QPM HILDA Stop: 07/03/21 20:59 Last Admin: 06/05/21 20:24 Dose: 20 mg Documented by: Sucralfate (Sucralfate 1 Gm/10 Ml Udc) 1 gm PO QID HILDA Stop: 07/03/21 17:14 Last Admin: 06/05/21 20:25 Dose: 1 gm Documented by: PG Care Time/CCT Total # of Minutes Spent Total Time Spent with Patient: Total time spent is greater than 50% in coordination of care (as documented) at patient's floor/unit and/or counseling patient:40 Coding Level of Care Code 67256 Subseq Hosp Care Lvl 3 Diagnoses Cirrhosis K74.60 Anasarca R60.1 Ischemic cardiomyopathy I25.5 Right-sided congestive heart failure I50.810 Atrial fibrillation, permanent I48.21 Hypertension I10 Hypercholesterolemia E78.00 History of coronary artery bypass graft Z95.1 Time Spent (min) 55
[2021-06-06] MEDS: INSULIN ASPART 100 UNITS/ML 3 ML PEN SC SCH ×4 (09:30→20:42)
[2021-06-06] MEDS: FAMOTIDINE 20 MG TAB PO SCH ×2 (09:39→20:40)
[2021-06-06] MEDS: METOPROLOL SUCC 50MG EXT REL TAB PO SCH (09:39)
[2021-06-06] MEDS: SUCRALFATE 1 GM/10 ML UDC PO SCH ×4 (09:39→20:41)
[2021-06-06] MEDS: PANTOprazole 40 MG TAB PO SCH ×2 (09:39→20:40)
[2021-06-06] MEDS: VALSARTAN/SACUBITRIL 51/49 MG TAB PO SCH ×2 (09:39→20:58)
[2021-06-06] MEDS: DOXAZosin MESYLATE TAB 2 MG TAB PO SCH ×2 (09:39→20:39)
[2021-06-06] MEDS: POTASSIUM CHLORIDE CRTAB 20 MEQ TABCR PO SCH ×2 (09:43→20:40)
[2021-06-06] MEDS: FUROSEMIDE 40 MG/4 ML VIAL IV SCH (11:39)
[2021-06-06] MEDS: cefTRIAXone SODIUM 2,000 MG in DEXTROSE 5% 50 ML IV SCH (20:34)
[2021-06-06] MEDS: SIMVASTATIN 20 MG TAB PO SCH (20:41)
--- NOTE | 2021-06-06 20:42 | Hospitalist Progress Note ---
Date of Service June 06, 2021 Assessment & Plan (1) Cirrhosis: Plan: radiographically, and clinically. s/p paracentesis on Friday of this week (2.7 L removed). Total WBCs 444; PMN WBC <150. This is not c/w SBP, but he has been on rocephin since admission. Spoke with Dr Savage -- will Rx for a few more days with antibiotics to be on safe side. cont rocephin for now; then change to PO omnicef tomorrow; plan ~7 days of Rx in total. pathology neg for malignant cells. culture from ascites neg, but was on antibiotics prior to tap. SAAG 1.5 c/w portal HTN. agree with increase in diuretics as advised by cardiology and GI. Now on 120mg of IV lasix. agree with aldactone IF creatinine can tolerate such. etiology of cirrhosis? "cardiac" cirrhosis? 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 other? 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 no heavy etoh use chronically. doubt autoimmune cirrhosis. ammonia levels remain wnl. fluid status will be difficult chronically in light of severe systolic CHF, CKD, and his cirrhosis. (2) Ascites: Plan: transudative based on fluid studies SAAG 1.5 c/w portal HTN suspect cirrhosis is either 2nd to "cardiac" (right heart failure) or HOLT either way Rx will be the same diuretics per GI and cardiology weight overall improving albeit slowly (3) Acute on chronic systolic CHF (congestive heart failure): Plan: appreciate cardiology assistance cont lasix -- increased to 120mg IV daily for now cont BB cont Entresto may need to hold latter if aldactone is needed for cirrhosis (4) Atrial fibrillation, permanent: Plan: rates controlled cont metoprolol succinate not anticoagulated due to prior GI bleed in November 2020 (5) Duodenal ulcer: Plan: h/o cont PPI bid (6) Diabetes mellitus type II, uncontrolled: Plan: a1c 6.6% during this admission novolog SSI control adequate (7) Ischemic cardiomyopathy: (8) Diabetic peripheral neuropathy associated with type 2 diabetes mellitus: (9) Stage 3a chronic kidney disease: Plan: baseline CrCl appears to be low 30s with baseline Creatinine of 2 to 2.3 bmp am no obstruction based on recent CT abd/pelvis Cr today stable (10) Hypercholesterolemia: Plan: remains on statin therapy (simvastatin 20mg daily) (11) Hypertension: Plan: BPs labile gave a one-time dose of metoprolol succinate 50mg at bedtime last night with improved BPs consider adding this moving forward in addition to his AM dose (12) History of coronary artery bypass graft: (13) Benign prostatic hyperplasia: Plan: cont alpha je (14) Cognitive impairment: Plan: b12 level last spring was borderline low recheck this admission wnl (15) DVT prophylaxis: Plan: heparin 5000 BID Plan: extensively updated at bedside this week daughter updated by phone this week and sent her an update message today Nivia Starkey from CHF clinic to follow patient post-discharge Admission and Anticipated Discharge Date Admission Date: June 02, 2021 Subjective pt w/o any new complaints today denies dyspnea or cough denies any worsening of abd ascites tele with a.ghislaine eating better today is weak and when he walks he is fatigued Review of Systems Review of Systems: gen - no fevers CV - no cp, no orthopnea pulm - no cough/wheeze/dyspnea at rest GI - no pain or N/V Physical Exam Physical Exam: gen - NAD, lying flat in bed comfortably neck - no JVD mouth - MMM heart - irregular, s1 s2, 2/6 systolic murmur LSB lungs - CTA b/l, mildly decreased BS bases abd - distended with ascites - no change, no tenderness any location; BS+ ext - 1-2+ edema b/l, pulses 2+ b/l psych - alert, orientation unchanged Results & Data Results & Data ([facility]) Vital Signs (Past 12 Hours) Vital Signs Temp Pulse Pulse Resp BP BP Pulse Ox 06/06/21 19:23 36.3 C L 85 18 135/83 96 06/06/21 15:04 80 06/06/21 14:53 36.6 C 91 H 20 137/74 95 06/06/21 11:38 37 C 87 18 149/83 H 95 Laboratory Results Laboratory Results - last 24 hr 06/06/21 06/06/21 06/06/21 06:00 08:15 11:26 Sodium 134 L Potassium 3.4 L Chloride 99 Carbon Dioxide 27 Anion Gap 8.0 BUN 37 H Creatinine 2.21 H Est Cr Clr Drug Dosing 31.2 Est GFR ( Amer) 31.4 Est GFR (Non-Af Amer) 27.1 BUN/Creatinine Ratio 16.6 Glucose 177 H POC Glucose 169 H 148 H Calcium 8.9 06/06/21 06/06/21 16:34 20:19 Sodium Potassium Chloride Carbon Dioxide Anion Gap BUN Creatinine Est Cr Clr Drug Dosing Est GFR ( Amer) Est GFR (Non-Af Amer) BUN/Creatinine Ratio Glucose POC Glucose 162 H 147 H Calcium PG Care Time/CCT Total # of Minutes Spent Total Time Spent with Patient: Total time spent is greater than 50% in coordination of care (as documented) at patient's floor/unit and/or counseling patient: Coding Level of Care Code 52107 Subseq Hosp Care Lvl 2 Diagnoses Cirrhosis K74.60 Ascites R18.8 Acute on chronic systolic CHF (congestive heart failure) I50.23 Atrial fibrillation, permanent I48.21 Duodenal ulcer K26.9 Diabetes mellitus type II, uncontrolled E11.65 Ischemic cardiomyopathy I25.5 Diabetic peripheral neuropathy associated with type 2 diabetes mellitus E11.42 Stage 3a chronic kidney disease N18.31 Hypercholesterolemia E78.00 Hypertension I10 History of coronary artery bypass graft Z95.1 Benign prostatic hyperplasia N40.0 Cognitive impairment R41.89 DVT prophylaxis Z29.9
[2021-06-07 07:43] LABS: BUN Creatinine Ratio 15.8 (10-20); Calcium 8.5 mg/dl (8.5-10.1); Creatinine Clr Calc Pharmacy 34.3 ml/min; Est GFR (African American) 35.1 ml/min; Est GFR (Non-African American) 30.2 ml/min; Magnesium 2.2 mg/dl (1.8-2.4); Potassium 3.2 mmol/L (3.5-5.1)
[2021-06-07] MEDS ORDERED: POTASSIUM CHLORIDE CRTAB 20 MEQ TABCR PO STA (09:05)
[2021-06-07] MEDS: DOXAZosin MESYLATE TAB 2 MG TAB PO SCH ×2 (09:06→20:57)
[2021-06-07] MEDS: FAMOTIDINE 20 MG TAB PO SCH ×2 (09:07→20:57)
[2021-06-07] MEDS: FUROSEMIDE 40 MG/4 ML VIAL IV SCH (09:07)
[2021-06-07] MEDS: PANTOprazole 40 MG TAB PO SCH ×2 (09:08→21:02)
[2021-06-07] MEDS: POTASSIUM CHLORIDE CRTAB 20 MEQ TABCR PO SCH ×2 (09:08→21:02)
[2021-06-07] MEDS: METOPROLOL SUCC 50MG EXT REL TAB PO SCH (09:08)
[2021-06-07] MEDS: SUCRALFATE 1 GM/10 ML UDC PO SCH ×4 (09:09→21:04)
[2021-06-07] MEDS: VALSARTAN/SACUBITRIL 51/49 MG TAB PO SCH ×2 (09:09→21:03)
[2021-06-07] MEDS: INSULIN ASPART 100 UNITS/ML 3 ML PEN SC SCH ×4 (09:19→21:12)
[2021-06-07] MEDS: HEPARIN SOD 5,000 UNIT/0.5 ML VIAL SQ SCH ×2 (10:39→21:00)
--- NOTE | 2021-06-07 12:25 | Cardiology Progress Note ---
Date of Service June 07, 2021 Assessment & Plan (1) Right-sided congestive heart failure: (2) Atrial fibrillation, permanent: (3) Cirrhosis: (4) Ascites: (5) Stage 3a chronic kidney disease: (6) Ischemic cardiomyopathy: (7) History of coronary artery bypass graft: Plan: Patient with modest response to more aggressive diuresis (furosemide 120 mg daily). Should be okay for discharge with close follow-up in heart failure clinic (within the next week). Cardiac medication recommendations as follows: Furosemide 120 mg daily. Potassium chloride 20 mEq once daily (could be titrated as needed, some caution on dosing given renal insufficiency) Entresto 49 to 51 mg twice daily (this should be titrated up as outpatient, since he has been mildly hypertensive). Toprol-XL 100 mg twice daily Doxazosin 2 mg twice daily Simvastatin 20 mg daily (consider change to atorvastatin as outpatient, fewer drug interactions in a patient on complex regimen). Would recommend addition of spironolactone, but only after he is achieved volume and electrolyte equilibrium. Given his renal insufficiency, potassium and creatinine will need to be followed closely after this is added. He should also follow-up with his primary surgical elastic knitter, Dr. Cedeno. Admission and Anticipated Discharge Date Admission Date: June 02, 2021 Subjective No significant complaints. Patient still feels a sense of "fullness" but denies any dyspnea, chest discomfort, or other immediate complaints. His weight is down 1 pound overnight. Input/output appears not to have been recorded. BUN/creatinine improved further. Telemetry shows atrial fibrillation with controlled ventricular response in the 80 bpm range. Physical Exam Physical Exam: No distress. Skin: no ecchymoses or generalized lesions. HEENT: unremarkable. Neck: Jugular venous pulse just above the clavicle (improving), no carotid bruits. Lungs: clear. Cardiac: Irregular rhythm without obvious murmur. Abdomen: benign. Extremities: 1-2+ pretibial edema, pulses intact. Neurologic: normal affect and conversation nonfocal. Results & Data ([facility]) Vital Signs (Past 12 Hours) Vital Signs Temp Pulse Resp BP Pulse Ox 06/07/21 11:08 98.1 F 70 20 121/74 98 06/07/21 07:45 97.2 F L 88 20 146/76 H 97 06/07/21 03:56 97.7 F 86 20 146/88 H 93 Laboratory Results Potassium 3.2. BUN 32/creatinine 2.02 (down from 37/2.21). PG Care Time/CCT Total # of Minutes Spent Total Time Spent with Patient: Total time spent is greater than 50% in coordination of care (as documented) at patient's floor/unit and/or counseling patient: Coding Level of Care Code 27817 Subseq Hosp Care Lvl 3 Diagnoses Atrial fibrillation, permanent I48.21 Right-sided congestive heart failure I50.810 Cirrhosis K74.60 Ascites R18.8 Stage 3a chronic kidney disease N18.31 Ischemic cardiomyopathy I25.5 History of coronary artery bypass graft Z95.1
[2021-06-07] MEDS ORDERED: SPIRONOLACTONE 25 MG TAB PO ONE (13:00)
--- NOTE | 2021-06-07 15:05 | Heart Failure Progress Note ---
Date of Service June 07, 2021 Assessment & Plan (1) Acute on chronic systolic CHF (congestive heart failure): (2) Right-sided congestive heart failure: (3) Atrial fibrillation, permanent: (4) Anasarca: (5) Cirrhosis: (6) Ascites: (7) Ischemic cardiomyopathy: Plan: Heart failure program was discussed with the patient. He is agreeable to enrollment and outpatient follow up. He is feeling improved symptomatically but remains hypervolemic on exam. Symptoms consistent with right sided failure. Lasix increased to 120 mg IV this am with a goal of negative 1-2 L fluid balance. May consider transitioning to Bumex if not achieving negative balance. Spironolactone 25 mg added which will help with diuresis and further optimize his HF regimen. Continue Metoprolol and Entresto. Continue to titrate as outpatient as BP and HR allow. Continue to closely monitor renal function and electrolytes. Patient requesting additional educational materials so these will be provided. Daily standing weights. Low sodium diet. Strict I&Os. Anticipate follow up with the heart failure program within 7 days of discharge. 06/13/21 at 2:00pm See full cardiology note for further details. Admission and Anticipated Discharge Date Admission Date: June 02, 2021 Subjective Mr. Brar is an 81 year old male with a history of Hypertension, Hyperc holesterolemia, Type 2 Diabetes Mellitus, Peripheral Neuropathy, Permanent Atrial Fibrillation, CAD s/p CABG x 2 Vessel (1999), Ischemic Cardiomyopathy (LVEF 25% to 30% on Echo 05/15/21), Moderately Reduced RV Systolic Function, Stage 3a Chronic Kidney Disease, RBBB, and Peptic Ulcer Disease who was admitted to [facility] complaining of RUQ pain and distention along with progressive leg edema over the preceding several weeks followed by the development of nausea on the evening of presentation 06/01/21. Evaluation thus far shows elevated total bilirubin, elevated globulin level. CT Scan Abd/Pelvis shows cirrhosis with ascites. Evaluated by GI, planning on a paracentesis for almost 3L. Cardiac monitoring shows A-Fib with V rates in the 90's to low 100's overnight into today. EKG shows A-Fib with RBBB, no significant change compared to 06/01/21 tracing. His Pro BNP is elevated at > 12,000 pg/mL. CXR on admission shows cardiomegaly and pulmonary vascular congestion. He has been referred to the heart failure program for more intensive outpatient follow up by Dr. Rockwell. Formal cardiology consult has been complete and they are actively following. Dr. Cedeno is his primary superintendent meter tests. Results & Data ([facility]) Vital Signs (Past 12 Hours) Vital Signs Temp Pulse Resp BP Pulse Ox 06/07/21 11:08 98.1 F 70 20 121/74 98 06/07/21 07:45 97.2 F L 88 20 146/76 H 97 06/07/21 03:56 97.7 F 86 20 146/88 H 93 PG Care Time/CCT Total # of Minutes Spent Total Time Spent with Patient: Total time spent is greater than 50% in coordination of care (as documented) at patient's floor/unit and/or counseling patient: Coding Level of Care Code None Diagnoses Acute on chronic systolic CHF (congestive heart failure) I50.23 Right-sided congestive heart failure I50.810 Atrial fibrillation, permanent I48.21 Anasarca R60.1 Cirrhosis K74.60 Ascites R18.8 Ischemic cardiomyopathy I25.5
--- NOTE | 2021-06-07 19:51 | Hospitalist Progress Note ---
Date of Service June 07, 2021 Assessment & Plan (1) Cirrhosis: Plan: radiographically, and clinically. s/p paracentesis on Friday of this week (2.7 L removed). Total WBCs 444; PMN WBC <150. This is not c/w SBP, but he has been on rocephin since admission. Spoke with Dr Savage -- will Rx for a few more days with antibiotics to be on safe side. has received rocephin to date - stop rocephin today, change to PO omnicef BID pathology neg for malignant cells. culture from ascites neg, but was on antibiotics prior to tap. SAAG 1.5 c/w portal HTN. agree with increase in diuretics as advised by cardiology and GI. Now on 120mg of IV lasix. agree with aldactone - start 25mg today and titrate as tolerated. daily BMP while escalating his diuretics. etiology of cirrhosis? "cardiac" cirrhosis? 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 other? 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 no heavy etoh use chronically. doubt autoimmune cirrhosis. ammonia levels remain wnl. fluid status will be difficult chronically in light of severe systolic CHF, CKD, and his cirrhosis. (2) Ascites: Plan: transudative based on fluid studies SAAG 1.5 c/w portal HTN suspect cirrhosis is either 2nd to "cardiac" (right heart failure) or HOLT either way Rx will be the same diuretics per GI and cardiology - adding aldactone to the lasix ascites does seem to be reaccumulating already (3) Acute on chronic systolic CHF (congestive heart failure): Plan: appreciate cardiology assistance cont lasix -- increased to 120mg IV daily for now cont BB cont Entresto add aldactone 25mg daily bmp am (4) Atrial fibrillation, permanent: Plan: rates controlled cont metoprolol succinate not anticoagulated due to prior GI bleed in November 2020 (5) Duodenal ulcer: Plan: h/o cont PPI bid (6) Diabetes mellitus type II, uncontrolled: Plan: a1c 6.6% during this admission novolog SSI control adequate (7) Ischemic cardiomyopathy: (8) Diabetic peripheral neuropathy associated with type 2 diabetes mellitus: (9) Stage 3a chronic kidney disease: Plan: baseline CrCl appears to be low 30s with baseline Creatinine of 2 to 2.3 bmp am no obstruction based on recent CT abd/pelvis Cr today stable in the face of diuresis (10) Hypercholesterolemia: Plan: remains on statin therapy (simvastatin 20mg daily) (11) Hypertension: Plan: BPs labile but improved the last 24 hours follow (12) History of coronary artery bypass graft: (13) Benign prostatic hyperplasia: Plan: cont alpha je (14) Cognitive impairment: Plan: b12 level last spring was borderline low rechecked this admission - wnl (15) DVT prophylaxis: Plan: heparin 5000 BID Plan: extensively updated at bedside this week daughter updated by phone this evening Nivia Lalito from CHF clinic to follow patient post-discharge Admission and Anticipated Discharge Date Admission Date: June 02, 2021 Subjective no events overnight endorses no new symptoms however, he does feel that his abdomen is larger today vs right after his recent paracentesis weights unchanged he is eating more robustly over the last 24 hours tele - a.fib, rates controlled Review of Systems Review of Systems: gen - fatigue, mild weakness cv - denies orthopnea or cp pulm - denies dyspnea at rest, denies DESOUZA GI - abd bloating but no N/V Physical Exam Physical Exam: gen - NAD, no change neck - no JVD mouth - MMM heart - irregular, s1 s2, 2/6 systolic murmur LSB lungs - CTA b/l, mildly decreased BS bases abd - distended with ascites - seems worse than 2 days ago ext - 2+ edema b/l, pulses 2+ b/l - edema slightly worse today psych - alert, orientation unchanged Results & Data Results & Data ([facility]) Vital Signs (Past 12 Hours) Vital Signs Temp Pulse Pulse Resp BP Pulse Ox 06/07/21 19:06 36.6 C 78 18 127/68 95 06/07/21 15:15 36.6 C 88 20 122/72 97 06/07/21 15:00 84 06/07/21 11:08 36.7 C 70 20 121/74 98 Laboratory Results Laboratory Results - last 24 hr 06/06/21 06/07/21 06/07/21 20:19 06:40 07:37 Sodium 137 Potassium 3.2 L Chloride 100 Carbon Dioxide 28 Anion Gap 9.0 BUN 32 H Creatinine 2.02 H Est Cr Clr Drug Dosing 34.3 Est GFR ( Amer) 35.1 Est GFR (Non-Af Amer) 30.2 BUN/Creatinine Ratio 15.8 Glucose 134 H POC Glucose 147 H 136 H Calcium 8.5 Magnesium 2.2 06/07/21 06/07/21 11:25 16:30 Sodium Potassium Chloride Carbon Dioxide Anion Gap BUN Creatinine Est Cr Clr Drug Dosing Est GFR ( Amer) Est GFR (Non-Af Amer) BUN/Creatinine Ratio Glucose POC Glucose 185 H 178 H Calcium Magnesium PG Care Time/CCT Total # of Minutes Spent Total Time Spent with Patient: Total time spent is greater than 50% in coordination of care (as documented) at patient's floor/unit and/or counseling patient: Coding Level of Care Code 48703 Subseq Hosp Care Lvl 2 Diagnoses Cirrhosis K74.60 Ascites R18.8 Acute on chronic systolic CHF (congestive heart failure) I50.23 Atrial fibrillation, permanent I48.21 Duodenal ulcer K26.9 Diabetes mellitus type II, uncontrolled E11.65 Ischemic cardiomyopathy I25.5 Diabetic peripheral neuropathy associated with type 2 diabetes mellitus E11.42 Stage 3a chronic kidney disease N18.31 Hypercholesterolemia E78.00 Hypertension I10 History of coronary artery bypass graft Z95.1 Benign prostatic hyperplasia N40.0 Cognitive impairment R41.89 DVT prophylaxis Z29.9
[2021-06-07] MEDS: SIMVASTATIN 20 MG TAB PO SCH (21:04)
[2021-06-07] MEDS: cefTRIAXone SODIUM 2,000 MG in DEXTROSE 5% 50 ML IV SCH (22:16)
[2021-06-07] MEDS: CEFDINIR 300 MG CAP PO SCH (22:37)
[2021-06-08 07:51] LABS: BUN Creatinine Ratio 16.5 (10-20); Calcium 8.6 mg/dl (8.5-10.1); Creatinine Clr Calc Pharmacy 32.8 ml/min; Est GFR (African American) 33.1 ml/min; Est GFR (Non-African American) 28.5 ml/min; Potassium 3.5 mmol/L (3.5-5.1)
[2021-06-08] MEDS: VALSARTAN/SACUBITRIL 51/49 MG TAB PO SCH ×2 (08:17→20:03)
[2021-06-08] MEDS: DOXAZosin MESYLATE TAB 2 MG TAB PO SCH ×2 (08:17→20:04)
[2021-06-08] MEDS: POTASSIUM CHLORIDE CRTAB 20 MEQ TABCR PO SCH ×2 (08:17→20:04)
[2021-06-08] MEDS: PANTOprazole 40 MG TAB PO SCH ×2 (08:17→20:04)
[2021-06-08] MEDS: METOPROLOL SUCC 50MG EXT REL TAB PO SCH (08:17)
[2021-06-08] MEDS: SPIRONOLACTONE 25 MG TAB PO SCH (08:17)
[2021-06-08] MEDS: CEFDINIR 300 MG CAP PO SCH ×2 (08:17→20:03)
[2021-06-08] MEDS: SUCRALFATE 1 GM/10 ML UDC PO SCH ×4 (08:18→20:04)
[2021-06-08] MEDS: FAMOTIDINE 20 MG TAB PO SCH ×2 (08:18→20:04)
[2021-06-08] MEDS: FUROSEMIDE 40 MG/4 ML VIAL IV SCH (08:18)
[2021-06-08] MEDS: HEPARIN SOD 5,000 UNIT/0.5 ML VIAL SQ SCH ×2 (08:54→20:04)
[2021-06-08] MEDS: INSULIN ASPART 100 UNITS/ML 3 ML PEN SC SCH ×4 (08:54→20:34)
--- NOTE | 2021-06-08 14:37 | Heart Failure Progress Note ---
Date of Service June 08, 2021 Assessment & Plan (1) Acute on chronic systolic CHF (congestive heart failure): (2) Right-sided congestive heart failure: (3) Atrial fibrillation, permanent: (4) Anasarca: (5) Cirrhosis: (6) Ascites: (7) Ischemic cardiomyopathy: Plan: Right sided CHF: He is feeling improved symptomatically but remains hypervolemic on exam. Symptoms consistent with right sided failure. Lasix 120 mg IV this am with a goal of negative 1-2 L fluid balance. I&Os inaccurate. Educated patient on importance of documenting urine output. Kidney function and electrolytes stable. He's anxious to be discharged. He's feeling well and will likely continue to diurese as outpatient with an aggressive regimen. Outpatient dry weight 210 lb in February. Would consider transitioning to PO diuretic soon to see if he can maintain. May Bumex 2 mg BID on discharge for better bioavailability. Spironolactone 25 mg added which will help with diuresis and further optimize his HF regimen. We can continue to titrate this as an outpatient as well. Continue Metoprolol and Entresto. Continue to titrate as outpatient as BP and HR allow. Continue to closely monitor renal function and electrolytes. Patient requesting additional educational materials so these will be provided. Daily standing weights. Low sodium diet. Strict I&Os. Cirrhosis: Secondary to HOLT vs passive congestion from CHF. Following with GI. Paracentesis for 3L on admission. Optimize diuretics as above. Ischemic cardiomyopathy: EF 25-30%. No significant left sided symptoms at this time. Continue GDMT including Metoprolol, Entresto, and Spironolactone. BP adequate and kidney function is stable. Can likely continue to titrate his meds as outpatient with the heart failure program. Consider ICD if EF not improving after optimal therapy. Atrial fibrillation: Asymptomatic. Rate well controlled when telemetry reviewed. Continue beta miller for rate control and Eliquis for stroke risk reduction. CAD: No angina. s/p CABG 1999. Continue medical management. Disposition: Likely stable from a cardiac standpoint for discharge with close outpatient follow up. Anticipate follow up with the heart failure program within 7 days of discharge. 06/13/21 at 2:00pm. Would also recommend close follow up with GI in case recurrent paracentesis required. Admission and Anticipated Discharge Date Admission Date: June 02, 2021 Supervising Physician Co-Signing Physician Notes ADDENDUM (Dr. Ovalle): Agree with plan as outlined above by Nivia Starkey PA-C. Subjective Patient reports he's feeling well today. He denies shortness of breath and has been ambulating in the room without difficulty. His lower extremity edema is improving and likely somewhat chronic. He denies orthopnea or PND. He did sleep with his head slightly elevated. I&Os likely inaccurate. He's documented to be net positive but admits he hasn't been catching most of his urine. He does feel that he's having significant urine output on his current regimen. His weight is down 10 lb from admission but has been stable the past few days. He denies chest pain, palpitations, or cough. Physical Exam Physical Exam: No distress. Skin: no ecchymoses or generalized lesions. HEENT: unremarkable. Neck: Jugular venous pulse just above the clavicle, no carotid bruits. Lungs: Normal respiratory effort. clear to auscultation. Cardiac: Irregular rhythm without obvious murmur. Abdomen: Mildly distended. Extremities: 2+ pretibial edema, pulses intact. Neurologic: normal affect and conversation nonfocal. Results & Data ([facility]) Vital Signs (Past 12 Hours) Vital Signs Temp Pulse Pulse Resp BP Pulse Ox 06/08/21 11:35 98.1 F 81 18 134/74 97 06/08/21 07:44 99.1 F 89 18 153/82 H 97 06/08/21 07:00 79 06/08/21 03:44 97.3 F L 107 H 18 118/66 96 PG Care Time/CCT Total # of Minutes Spent Total Time Spent with Patient: Total time spent is greater than 50% in coordination of care (as documented) at patient's floor/unit and/or counseling patient: Heart Failure Data/Metrics Heart Failure Type: Systolic Ejection Fraction: 20-25% Evidenced Based Beta Miller Therapy Beta Miller Therapy: Yes Beta Miller Name: Metoprolol Succinate Beta Miller Target Therapy: Not at Target Therapy JEAN/ARB/ARNI Therapy JEAN/ARB/ARNI Therapy: Yes JEAN/ARB/ARNI Name: Entresto JEAN/ARB/ARNI Target Therapy: Not at Target Therapy Coding Level of Care Code 38573 Subseq Hosp Care Lvl 3 Diagnoses Acute on chronic systolic CHF (congestive heart failure) I50.23 Right-sided congestive heart failure I50.810 Atrial fibrillation, permanent I48.21 Anasarca R60.1 Cirrhosis K74.60 Ascites R18.8 Ischemic cardiomyopathy I25.5
[2021-06-08] MEDS: SIMVASTATIN 20 MG TAB PO SCH (20:04)
--- NOTE | 2021-06-08 22:11 | Hospitalist Progress Note ---
Date of Service June 08, 2021 Assessment & Plan (1) Cirrhosis: Plan: radiographically, and clinically. s/p paracentesis this week - 2.7 L removed. Cell cts not c/w SBP, but he had been on rocephin since admission - perhaps could have skewed results. Spoke with Dr Savage -- will Rx for a few more days with antibiotics to be on safe side. Today is day #7 of IV/PO antibiotics. pathology neg for malignant cells. culture from ascites neg. SAAG 1.5 c/w portal HTN. cont 120mg of IV lasix daily. cont aldactone 25mg daily. daily BMP while escalating his diuretics. if no significant diuresis overnight with lasix IV will change to bumex tomorrow am. etiology of cirrhosis? "cardiac" cirrhosis? 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 other? 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 no heavy etoh use chronically. doubt autoimmune cirrhosis. ammonia levels remain wnl. (2) Ascites: Plan: transudative based on fluid studies SAAG 1.5 c/w portal HTN suspect cirrhosis is either 2nd to "cardiac" (right heart failure) or HOLT either way Rx will be the same diuretics per GI and cardiology - cont lasix w/ aldactone ascites does seem to be reaccumulating already and weights have not been trending down (3) Acute on chronic systolic CHF (congestive heart failure): Plan: appreciate cardiology assistance cont lasix cont BB cont Entresto cont aldactone bmp am (4) Atrial fibrillation, permanent: Plan: rates controlled cont metoprolol succinate not anticoagulated due to prior GI bleed in November 2020 (5) Duodenal ulcer: Plan: h/o cont PPI bid (6) Diabetes mellitus type II, uncontrolled: Plan: a1c 6.6% during this admission novolog SSI control adequate (7) Ischemic cardiomyopathy: (8) Diabetic peripheral neuropathy associated with type 2 diabetes mellitus: (9) Stage 3a chronic kidney disease: Plan: baseline CrCl appears to be low 30s with baseline Creatinine of 2 to 2.3 bmp am no obstruction based on recent CT abd/pelvis Cr again today stable in the face of diuresis (10) Hypercholesterolemia: Plan: remains on statin therapy (simvastatin 20mg daily) (11) Hypertension: Plan: BPs labile if this persists then add a dose of BB at bedtime (12) History of coronary artery bypass graft: (13) Benign prostatic hyperplasia: Plan: cont alpha je (14) Cognitive impairment: Plan: b12 level last spring was borderline low rechecked this admission - wnl (15) DVT prophylaxis: Plan: heparin 5000 BID Plan: extensively updated at bedside this week daughter updated by phone several times this week Nivia Romeohallie from CHF clinic to follow patient post-discharge will reconsult PT/OT due to progressive weakness Admission and Anticipated Discharge Date Admission Date: June 02, 2021 Subjective tele overnight - bel pt resting comfortably (nearly flat in the bed) during the visit he expressed multiple times that he is ready to go home he doesn't feel that there is any significant change in his LE edema nor his abdominal girth/ascites he is weak, but states he is getting up to go to the bathroom on his own. however, when visiting with him, he asked to travel to the bathroom and I assisted him; this took a considerable amount of assistance to stand denies orthopnea, dyspnea, or DESOUZA eating better than earlier this week Review of Systems Review of Systems: gen - weakness, fatigue - but no fever CV - no chest pain pulm - no cough GI - no abd pain, nausea or emesis Physical Exam Physical Exam: gen - NAD, no change, very weak getting up from sitting to standing neck - no JVD mouth - MMM heart - irregular, s1 s2, 2/6 systolic murmur LSB lungs - CTA b/l, mildly decreased BS bases abd - distended with ascites - unchanged from yesterday ext - 2-3+ edema b/l extending to distal thighs, pulses 2+ b/l Results & Data Results & Data ([facility]) Vital Signs (Past 12 Hours) Vital Signs Temp Pulse Pulse Resp BP Pulse Ox 06/08/21 19:12 36.5 C 77 20 173/105 H 96 06/08/21 15:38 36.7 C 95 H 18 156/89 H 98 06/08/21 15:00 82 06/08/21 11:35 36.7 C 81 18 134/74 97 Laboratory Results Laboratory Results - last 24 hr 06/08/21 06/08/21 06/08/21 06:27 08:04 12:07 Sodium 136 Potassium 3.5 Chloride 101 Carbon Dioxide 24 Anion Gap 10.0 BUN 35 H Creatinine 2.12 H Est Cr Clr Drug Dosing 32.8 Est GFR ( Amer) 33.1 Est GFR (Non-Af Amer) 28.5 BUN/Creatinine Ratio 16.5 Glucose 168 H POC Glucose 181 H 179 H Calcium 8.6 06/08/21 06/08/21 17:08 20:12 Sodium Potassium Chloride Carbon Dioxide Anion Gap BUN Creatinine Est Cr Clr Drug Dosing Est GFR ( Amer) Est GFR (Non-Af Amer) BUN/Creatinine Ratio Glucose POC Glucose 131 H 175 H Calcium PG Care Time/CCT Total # of Minutes Spent Total Time Spent with Patient: Total time spent is greater than 50% in coordination of care (as documented) at patient's floor/unit and/or counseling patient: Coding Level of Care Code 43550 Subseq Hosp Care Lvl 2 Diagnoses Cirrhosis K74.60 Ascites R18.8 Acute on chronic systolic CHF (congestive heart failure) I50.23 Atrial fibrillation, permanent I48.21 Duodenal ulcer K26.9 Diabetes mellitus type II, uncontrolled E11.65 Ischemic cardiomyopathy I25.5 Diabetic peripheral neuropathy associated with type 2 diabetes mellitus E11.42 Stage 3a chronic kidney disease N18.31 Hypercholesterolemia E78.00 Hypertension I10 History of coronary artery bypass graft Z95.1 Benign prostatic hyperplasia N40.0 Cognitive impairment R41.89 DVT prophylaxis Z29.9
[2021-06-09 06:50] LABS: BUN Creatinine Ratio 16.5 (10-20); Calcium 8.8 mg/dl (8.5-10.1); Creatinine Clr Calc Pharmacy 33.5 ml/min; Est GFR (African American) 33.6 ml/min; Potassium 3.6 mmol/L (3.5-5.1)
[2021-06-09] MEDS: INSULIN ASPART 100 UNITS/ML 3 ML PEN SC SCH ×4 (09:13→20:33)
[2021-06-09] MEDS: CEFDINIR 300 MG CAP PO SCH ×2 (09:15→20:32)
[2021-06-09] MEDS: SUCRALFATE 1 GM/10 ML UDC PO SCH ×4 (09:15→20:30)
[2021-06-09] MEDS: VALSARTAN/SACUBITRIL 51/49 MG TAB PO SCH ×2 (09:15→20:31)
[2021-06-09] MEDS: FAMOTIDINE 20 MG TAB PO SCH ×2 (09:15→20:32)
[2021-06-09] MEDS: DOXAZosin MESYLATE TAB 2 MG TAB PO SCH ×2 (09:19→20:31)
[2021-06-09] MEDS: POTASSIUM CHLORIDE CRTAB 20 MEQ TABCR PO SCH ×2 (09:19→20:32)
[2021-06-09] MEDS: SPIRONOLACTONE 25 MG TAB PO SCH (09:20)
[2021-06-09] MEDS: PANTOprazole 40 MG TAB PO SCH ×2 (09:20→20:31)
[2021-06-09] MEDS: HEPARIN SOD 5,000 UNIT/0.5 ML VIAL SQ SCH ×2 (09:20→20:29)
[2021-06-09] MEDS: METOPROLOL SUCC 50MG EXT REL TAB PO SCH (09:20)
[2021-06-09] MEDS ORDERED: BUMETANIDE 2 MG in SYRINGE 0 ML IV ONE ×2 (10:00→17:15)
[2021-06-09] MEDS: SIMVASTATIN 20 MG TAB PO SCH (20:32)
--- NOTE | 2021-06-10 05:55 | Hospitalist Progress Note ---
Date of Service June 09, 2021 Assessment & Plan (1) Cirrhosis: Plan: decompensated with ongoing volume overload and unsuccessful attempts - despite escalating diuretics - to diurese him. s/p paracentesis this week - 2.7 L removed. Cell cts not c/w SBP, but he had been on rocephin since admission - perhaps could have skewed results. Spoke with Dr Savage -- will Rx for a few more days with antibiotics to be on safe side. Today is day #8 of IV/PO antibiotics. Plan 10 days of abx then d/c. pathology neg for malignant cells. culture from ascites neg. SAAG 1.5 c/w portal HTN. Had been on 40mg of IV lasix daily, subsequently increased to 80mg then 120mg -- no effective diuresis with such. lasix d/c today -- tried bumex 2mg IV x 1 this am and DID have documented weight loss (about ~1/2 kg). will cont bumex - give additional 2mg IV dose this evening. cont aldactone 25mg daily. daily BMP while escalating his diuretics. etiology of cirrhosis? "cardiac" cirrhosis? 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 other? 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 no heavy etoh use chronically. doubt autoimmune cirrhosis. ammonia levels remain wnl. (2) Ascites: Plan: transudative based on fluid studies SAAG 1.5 c/w portal HTN suspect cirrhosis is either 2nd to "cardiac" (right heart failure) or HOLT either way Rx will be the same diuretics per GI and cardiology - cont lasix w/ aldactone ascites has reaccumulated already and weights have not been trending down -- see #1 above (3) Acute on chronic systolic CHF (congestive heart failure): Plan: appreciate cardiology assistance change lasix to bumex as above cont BB cont Entresto cont aldactone bmp am (4) Atrial fibrillation, permanent: Plan: rates controlled cont metoprolol succinate not anticoagulated due to prior GI bleed in November 2020 (5) Duodenal ulcer: Plan: h/o cont PPI bid no GI issues (6) Diabetes mellitus type II, uncontrolled: Plan: a1c 6.6% during this admission novolog SSI control adequate (7) Ischemic cardiomyopathy: (8) Diabetic peripheral neuropathy associated with type 2 diabetes mellitus: Plan: likely contributes to gait disturbance (9) Stage 3a chronic kidney disease: Plan: baseline CrCl appears to be low 30s with baseline Creatinine of 2 to 2.3 bmp am no obstruction based on recent CT abd/pelvis Cr again today stable in the face of diuresis (10) Hypercholesterolemia: Plan: remains on statin therapy (simvastatin 20mg daily) (11) Hypertension: Plan: BPs labile but actually improved with escalating doses of diuretic and addition of aldactone (12) History of coronary artery bypass graft: (13) Benign prostatic hyperplasia: Plan: cont alpha je voiding adequately albeit w/ incontinence (14) Cognitive impairment: Plan: b12 level last spring was borderline low rechecked this admission - wnl (15) DVT prophylaxis: Plan: heparin 5000 BID Plan: extensively updated at bedside today daughter updated by phone several times this week Nivia Starkey from CHF clinic to follow patient post-discharge reconsulted PT/OT due to progressive weakness no discharge until we see results with diuretics and a trend of decreasing weights Admission and Anticipated Discharge Date Admission Date: June 02, 2021 Subjective pt w/o any new complaints at bedside during the visit afternoon weight WAS LOWER THAN THIS AM'S WEIGHT S/P IV BUMEX he asks questions similar to past visits - seems to have confusion/cognitive impairment about his care (asks why we are trying to have him lose weight, asks how we are going to have him lose fluid, etc) all questions were answered multiple times this week tele - rate-controlled a.fib Review of Systems Review of Systems: gen - very weak; appetite has improved nicely during the week CV - no orthopnea, no chest pain pulm - denies dyspnea GI - abd girth unchanged from earlier this week; moving his bowels - urinary incontinence Physical Exam Physical Exam: gen - NAD, no change, very weak, confused, asks the same questions over and over but in different terminology neck - no JVD mouth - MMM heart - irregular, s1 s2, 2/6 systolic murmur LSB lungs - CTA b/l, decreased BS bases abd - distended with ascites - unchanged from yesterday's exam; BS+; NT ext - 2-3+ edema b/l extending to distal thighs - unchanged from prior exams; pulses 2+ b/l psych - oriented to person/place; cognitive impairment, poor insight Results & Data Results & Data ([facility]) Vital Signs (Past 12 Hours) Vital Signs Temp Pulse Pulse Resp BP Pulse Ox 06/10/21 03:43 36.3 C L 85 18 144/87 H 95 06/09/21 23:07 36.8 C 86 18 154/85 H 94 06/09/21 22:19 79 06/09/21 19:35 88 18 151/76 H 98 06/09/21 18:03 36.8 C 76 18 142/70 H 95 Laboratory Results Laboratory Results - last 24 hr 06/09/21 06/09/21 06/09/21 05:45 08:37 12:21 Sodium 136 Potassium 3.6 Chloride 103 Carbon Dioxide 27 Anion Gap 6.0 BUN 34 H Creatinine 2.09 H Est Cr Clr Drug Dosing 33.5 Est GFR ( Amer) 33.6 Est GFR (Non-Af Amer) 29.0 BUN/Creatinine Ratio 16.5 Glucose 143 H POC Glucose 155 H 201 H Calcium 8.8 06/09/21 06/09/21 17:06 20:06 Sodium Potassium Chloride Carbon Dioxide Anion Gap BUN Creatinine Est Cr Clr Drug Dosing Est GFR ( Amer) Est GFR (Non-Af Amer) BUN/Creatinine Ratio Glucose POC Glucose 200 H 171 H Calcium PG Care Time/CCT Total # of Minutes Spent Total Time Spent with Patient: Total time spent is greater than 50% in coordination of care (as documented) at patient's floor/unit and/or counseling patient: Coding Level of Care Code 20564 Subseq Hosp Care Lvl 2 Diagnoses Cirrhosis K74.60 Ascites R18.8 Acute on chronic systolic CHF (congestive heart failure) I50.23 Atrial fibrillation, permanent I48.21 Duodenal ulcer K26.9 Diabetes mellitus type II, uncontrolled E11.65 Ischemic cardiomyopathy I25.5 Diabetic peripheral neuropathy associated with type 2 diabetes mellitus E11.42 Stage 3a chronic kidney disease N18.31 Hypercholesterolemia E78.00 Hypertension I10 History of coronary artery bypass graft Z95.1 Benign prostatic hyperplasia N40.0 Cognitive impairment R41.89 DVT prophylaxis Z29.9
[2021-06-10 08:09] LABS: Hematocrit (blood only) 32.7 % (42-52); Hemoglobin 10.6 g/dL (14.0-18.0); Mean Corpuscular Hemoglobin 28.5 pg (25-34); Mean Corpuscular Hgb Conc 32.4 g/dL (32-36); Mean Corpuscular Volume 87.9 fL (80-100); Platelet Count 277 K/uL (130-400); RDW Coefficient of Variation 15.6 % (11.5-14.5); RDW Standard Deviation 50.2 fL (36.4-46.3); Red Blood Count 3.72 M/uL (4.7-6.1); White Blood Count 7.61 K/uL (4.8-10.8)
[2021-06-10 08:40] LABS: BUN Creatinine Ratio 16.6 (10-20); Calcium 9.1 mg/dl (8.5-10.1); Creatinine Clr Calc Pharmacy 35.4 ml/min; Est GFR (African American) 36.8 ml/min; Est GFR (Non-African American) 31.8 ml/min; Potassium 3.8 mmol/L (3.5-5.1)
[2021-06-10] MEDS: METOPROLOL SUCC 50MG EXT REL TAB PO SCH (09:02)
[2021-06-10] MEDS: PANTOprazole 40 MG TAB PO SCH ×2 (09:02→20:44)
[2021-06-10] MEDS: CEFDINIR 300 MG CAP PO SCH ×2 (09:02→20:44)
[2021-06-10] MEDS: SUCRALFATE 1 GM/10 ML UDC PO SCH ×4 (09:03→20:44)
[2021-06-10] MEDS: INSULIN ASPART 100 UNITS/ML 3 ML PEN SC SCH ×4 (09:03→20:57)
[2021-06-10] MEDS: FAMOTIDINE 20 MG TAB PO SCH ×2 (09:03→20:44)
[2021-06-10] MEDS: HEPARIN SOD 5,000 UNIT/0.5 ML VIAL SQ SCH ×2 (09:03→20:44)
[2021-06-10] MEDS: DOXAZosin MESYLATE TAB 2 MG TAB PO SCH ×2 (09:03→20:44)
[2021-06-10] MEDS: VALSARTAN/SACUBITRIL 51/49 MG TAB PO SCH ×2 (09:03→20:44)
[2021-06-10] MEDS: POTASSIUM CHLORIDE CRTAB 20 MEQ TABCR PO SCH ×2 (09:03→20:44)
[2021-06-10] MEDS: SPIRONOLACTONE 25 MG TAB PO SCH (09:03)
[2021-06-10] MEDS: BUMETANIDE 2 MG in SYRINGE 0 ML IV SCH ×2 (10:42→17:37)
[2021-06-10] MEDS: SIMVASTATIN 20 MG TAB PO SCH (20:44)
--- NOTE | 2021-06-11 00:21 | Hospitalist Progress Note ---
Date of Service June 10, 2021 Assessment & Plan (1) Cirrhosis: Plan: decompensated. despite escalating doses of lasix IV this week (40mg, to 80mg, to 120mg IV) he did not have any diuresis. aldactone added this week as well. lasix stopped -- changed to bumex 2mg IV BID. finally diuresing with decreasing weight and stable creatinine. cont bumex 2mg IV BID along with aldactone 25mg daily. daily BMP s/p paracentesis this week - 2.7 L removed. Cell cts not c/w SBP, but he had been on rocephin since admission - perhaps could have skewed results. Spoke with Dr Savage -- will Rx for a few more days with antibiotics to be on safe side. Today is day #9 of IV/PO antibiotics. Plan 10 days of abx then d/c. pathology neg for malignant cells. culture from ascites neg. SAAG 1.5 c/w portal HTN. etiology of cirrhosis? "cardiac" cirrhosis? 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 other? 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 regardless of etiology Rx will be the same. 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 no heavy etoh use chronically. doubt autoimmune cirrhosis. ammonia levels remain wnl. (2) Ascites: Plan: transudative based on fluid studies SAAG 1.5 c/w portal HTN suspect cirrhosis is either 2nd to "cardiac" (right heart failure) or HOLT either way Rx will be the same cont bumex w/ aldactone as above (3) Acute on chronic systolic CHF (congestive heart failure): Plan: appreciate cardiology assistance to follow with Nivia ENGEL in CHF clinic post-d/c to coordinate care between cards/GI/nephrology given his complex medical issues cont BB cont Entresto cont aldactone cont bumex bmp am mag in am (4) Atrial fibrillation, permanent: Plan: rates controlled cont metoprolol succinate not anticoagulated due to prior GI bleed in November 2020 (5) Duodenal ulcer: Plan: h/o cont PPI bid no GI issues (6) Diabetes mellitus type II, uncontrolled: Plan: a1c 6.6% during this admission novolog SSI control adequate (7) Ischemic cardiomyopathy: (8) Diabetic peripheral neuropathy associated with type 2 diabetes mellitus: Plan: likely contributes to gait disturbance (9) Stage 3a chronic kidney disease: Plan: baseline CrCl appears to be low 30s with baseline Creatinine of 2 to 2.3 bmp am no obstruction based on recent CT abd/pelvis Cr again today stable in the face of diuresis (10) Hypercholesterolemia: Plan: remains on statin therapy (simvastatin 20mg daily) (11) Hypertension: Plan: BPs labile but actually improved with escalating doses of diuretic and addition of aldactone (12) History of coronary artery bypass graft: (13) Benign prostatic hyperplasia: Plan: cont alpha je voiding adequately albeit w/ incontinence (14) Cognitive impairment: Plan: b12 level last spring was borderline low rechecked this admission - wnl (15) DVT prophylaxis: Plan: heparin 5000 BID Plan: extensively updated at bedside today daughter updated by phone several times this week Nivia Starkey from CHF clinic to follow patient post-discharge reconsulted PT/OT due to progressive weakness was cleared for home with home PT/OT if we see ongoing improvement with current diuretic regimen of bumex + aldactone over the next 1-2 days hopefully then home soon with same regimen Admission and Anticipated Discharge Date Admission Date: June 02, 2021 Subjective pt states he "notices a difference" in how he feels - he, too, notices the weight loss and feeling better because of such eating robustly feels that his energy is better and he is walking a little better sitting in chair at bedside during the visit at bedside during the visit offers no new complaints tele - rate controlled a.fib Review of Systems Review of Systems: gen - no fevers, eating better CV - no cp, no orthopnea pulm - no cough GI - distension seems a little better; no N/V/D Physical Exam Physical Exam: gen - NAD, seems a little more sprightly today neck - no JVD mouth - MMM heart - irregular, s1 s2, 2/6 systolic murmur LSB lungs - mild bibasilar rales, decreased BS bases b/l, no increased work of breathing abd - distended with ascites - unchanged vs slightly better today; BS+; NT ext - 2-3+ edema b/l extending to distal thighs - slightly better from prior exams; pulses 2+ b/l psych - oriented to person/place; cognitive impairment, poor insight Results & Data Results & Data ([facility]) Vital Signs (Past 12 Hours) Vital Signs Temp Pulse Pulse Resp BP Pulse Ox 06/11/21 00:09 37.5 C 88 16 149/84 H 97 06/10/21 19:36 36.8 C 89 18 151/85 H 96 06/10/21 15:58 36.9 C 90 18 157/96 H 97 06/10/21 15:00 88 Laboratory Results Laboratory Results - last 24 hr 06/10/21 06/10/21 06/10/21 07:38 07:38 08:08 WBC 7.61 RBC 3.72 L Hgb 10.6 L Hct 32.7 L MCV 87.9 MCH 28.5 MCHC 32.4 RDW Std Deviation 50.2 H RDW Coeff of Mario 15.6 H Plt Count 277 MPV 11.0 H Sodium 136 Potassium 3.8 Chloride 102 Carbon Dioxide 26 Anion Gap 8.0 BUN 32 H Creatinine 1.94 H Est Cr Clr Drug Dosing 35.4 Est GFR ( Amer) 36.8 Est GFR (Non-Af Amer) 31.8 BUN/Creatinine Ratio 16.6 Glucose 151 H POC Glucose 160 H Calcium 9.1 06/10/21 06/10/21 06/10/21 11:56 17:10 20:31 WBC RBC Hgb Hct MCV MCH MCHC RDW Std Deviation RDW Coeff of Mario Plt Count MPV Sodium Potassium Chloride Carbon Dioxide Anion Gap BUN Creatinine Est Cr Clr Drug Dosing Est GFR ( Amer) Est GFR (Non-Af Amer) BUN/Creatinine Ratio Glucose POC Glucose 184 H 166 H 140 H Calcium PG Care Time/CCT Total # of Minutes Spent Total Time Spent with Patient: Total time spent is greater than 50% in coordination of care (as documented) at patient's floor/unit and/or counseling patient: Coding Level of Care Code 45665 Subseq Hosp Care Lvl 2 Diagnoses Cirrhosis K74.60 Ascites R18.8 Acute on chronic systolic CHF (congestive heart failure) I50.23 Atrial fibrillation, permanent I48.21 Duodenal ulcer K26.9 Diabetes mellitus type II, uncontrolled E11.65 Ischemic cardiomyopathy I25.5 Diabetic peripheral neuropathy associated with type 2 diabetes mellitus E11.42 Stage 3a chronic kidney disease N18.31 Hypercholesterolemia E78.00 Hypertension I10 History of coronary artery bypass graft Z95.1 Benign prostatic hyperplasia N40.0 Cognitive impairment R41.89 DVT prophylaxis Z29.9
[2021-06-11 07:33] LABS: BUN Creatinine Ratio 15.4 (10-20); Calcium 9.1 mg/dl (8.5-10.1); Creatinine Clr Calc Pharmacy 32.1 ml/min; Est GFR (African American) 32.9 ml/min; Est GFR (Non-African American) 28.4 ml/min; Magnesium 2.3 mg/dl (1.8-2.4); Potassium 3.8 mmol/L (3.5-5.1)
[2021-06-11] MEDS: SUCRALFATE 1 GM/10 ML UDC PO SCH (09:57)
[2021-06-11] MEDS: SPIRONOLACTONE 25 MG TAB PO SCH (10:07)
[2021-06-11] MEDS: DOXAZosin MESYLATE TAB 2 MG TAB PO SCH (10:08)
[2021-06-11] MEDS: FAMOTIDINE 20 MG TAB PO SCH (10:09)
[2021-06-11] MEDS: CEFDINIR 300 MG CAP PO SCH (10:09)
[2021-06-11] MEDS: METOPROLOL SUCC 50MG EXT REL TAB PO SCH (10:09)
[2021-06-11] MEDS: VALSARTAN/SACUBITRIL 51/49 MG TAB PO SCH (10:09)
[2021-06-11] MEDS: HEPARIN SOD 5,000 UNIT/0.5 ML VIAL SQ SCH (10:14)
[2021-06-11] MEDS: INSULIN ASPART 100 UNITS/ML 3 ML PEN SC SCH (10:15)
[2021-06-11] MEDS: PANTOprazole 40 MG TAB PO SCH (10:16)
[2021-06-11] MEDS: POTASSIUM CHLORIDE CRTAB 20 MEQ TABCR PO SCH (10:17)
--- NOTE | 2021-06-11 12:31 | Cardiology Progress Note ---
Date of Service June 11, 2021 Assessment & Plan (1) Acute on chronic systolic CHF (congestive heart failure): (2) Right-sided congestive heart failure: (3) Atrial fibrillation, permanent: (4) Anasarca: (5) Cirrhosis: (6) Ascites: (7) Ischemic cardiomyopathy: Plan: Right sided CHF: He is feeling improved symptomatically but remains hypervolemic on exam. Symptoms consistent with right sided failure. Bumex 2 mg IV BID with a goal of negative 1-2 L fluid balance. I&Os inaccurate. Educated patient on importance of documenting urine output. Kidney function and electrolytes stable. He's anxious to be discharged. He's feeling well and will likely continue to diurese as outpatient with an aggressive regimen. Outpatient dry weight 210 lb in February. May Bumex 2 mg BID on discharge for better bioavailability. Spironolactone 25 mg added which will help with diuresis and further optimize his HF regimen. We can continue to titrate this as an outpatient as well. Continue Metoprolol and Entresto. Continue to titrate as outpatient as BP and HR allow. Continue to closely monitor renal function and electrolytes. Patient requesting additional educational materials so these will be provided. Daily standing weights. Low sodium diet. Strict I&Os. Cirrhosis: Secondary to HOLT vs passive congestion from CHF. Following with GI. Paracentesis for 3L on admission. Optimize diuretics as above. Ischemic cardiomyopathy: EF 25-30%. No significant left sided symptoms at this time. Continue GDMT including Metoprolol, Entresto, and Spironolactone. BP adequate and kidney function is stable. Can likely continue to titrate his meds as outpatient with the heart failure program. Consider ICD if EF not improving after optimal therapy. Atrial fibrillation: Asymptomatic. Rate well controlled when telemetry reviewed. Continue beta je for rate control and Eliquis for stroke risk reduction. CAD: No angina. s/p CABG 1999. Continue medical management. Disposition: Likely stable from a cardiac standpoint for discharge with close outpatient follow up. Anticipate follow up with the heart failure program within 7 days of discharge. 06/13/21 at 2:00pm. Would also recommend close follow up with GI in case recurrent paracentesis required. Admission and Anticipated Discharge Date Admission Date: June 02, 2021 Subjective Patient reports he's feeling well today. He was transitioned from Lasix to IV Bumex over the weekend. He denies shortness of breath and has been ambulating in the room without difficulty. His lower extremity edema is improving and likely somewhat chronic. He denies orthopnea or PND. He did sleep with his head slightly elevated. I&Os likely inaccurate. He's documented to be net positive but admits he hasn't been catching most of his urine. He has been negative the past few days- unclear if this is from better response to Bumex or better measurement of urine. His weight is down since last week. He denies chest pain, palpitations, or cough. Physical Exam Physical Exam: No distress. Skin: no ecchymoses or generalized lesions. HEENT: unremarkable. Neck: Jugular venous pulse just above the clavicle, no carotid bruits. Lungs: Normal respiratory effort. clear to auscultation. Cardiac: Irregular rhythm without obvious murmur. Abdomen: Mildly distended. Extremities: 2+ pretibial edema into the thighs, pulses intact. Neurologic: normal affect and conversation nonfocal. Results & Data ([facility]) Vital Signs (Past 12 Hours) Vital Signs Temp Pulse Pulse Resp BP BP Pulse Ox 06/11/21 11:58 98.4 F 81 19 128/66 96 06/11/21 10:48 98.1 F 78 18 161/73 H 149/84 H 95 06/11/21 08:28 98.1 F 78 18 161/73 H 95 06/11/21 07:37 73 06/11/21 05:57 97.7 F 79 18 148/89 H 93 PG Care Time/CCT Total # of Minutes Spent Total Time Spent with Patient: Total time spent is greater than 50% in coordination of care (as documented) at patient's floor/unit and/or counseling patient: Coding Level of Care Code 45262 Subseq Hosp Care Lvl 3 Diagnoses Acute on chronic systolic CHF (congestive heart failure) I50.23 Right-sided congestive heart failure I50.810 Atrial fibrillation, permanent I48.21 Anasarca R60.1 Cirrhosis K74.60 Ascites R18.8 Ischemic cardiomyopathy I25.5
--- NOTE | 2021-06-11 17:19 | Discharge Summary ---
Date of Service June 11, 2021 Admission HPI Per Admitting Provider The patient is an 81-year-old male with a past medical history including duodenal ulcer, anemia, rosacea, polyarthralgias, urinary incontinence, ambulatory dysfunction, idiopathic polyneuropathy, ASCVD, diabetes mellitus type 2, ischemic cardiomyopathy, long-term myocardial use, CHF, stage III CKD, hypercholesterolemia, hypertension, atrial fibrillation and BPH. He presents with symptoms as noted above. Abnormal laboratories: Hemoglobin 11.6, medical 35.3, sodium 134, glucose 196, creatinine 2.24, BUN 43, lactate 2.8, total bilirubin 1.6. COVID-[address] of abdomen pelvis without contrast: Liver cirrhosis. Normal spleen size. Cholelithiasis. Enlarged prostate with bladder wall distention. Moderate amount of peritoneal fluid suggestive of ascites likely secondary to hepatic dysfunction Principal Diagnosis new cirrhosis w ascites Discharge Exam nad, somewhat argumentative about medications when i first walk in the room, but no distress. heent nc at mmm breathing unlabored no accessory muscles good effort skin no rashes no pallor or icterus neuro no focal deficits Discharge Data Allergies Allergy/AdvReac Type Severity Reaction Status Date / Time No Known Allergies Allergy Verified 06/02/21 00:46 Consultations 06/02/21 00:45 ED Decision to Admit Stat 06/02/21 05:04 Consult Gastroenterology Routine 06/03/21 17:06 Consult Cardiology Routine Ordered Studies 06/01/21 23:15 CT abd pelvis wo con Urgent 06/04/21 US paracentesis abd w/image Routine Hospital Course (1) Cirrhosis: s/p paracentesis this week - 2.7 L removed. Cell cts not c/w SBP, but he had been on rocephin since admission - perhaps could have skewed results. prior hospitalist d/w Dr Savage -- was treated out of precaution regardless -given not clearly SBP though, will hold on lifelong proph at this time pathology neg for malignant cells. culture from ascites neg. SAAG 1.5 c/w portal HTN. etiology of cirrhosis? "cardiac" cirrhosis? 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 other? 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 regardless of etiology Rx will be the same. 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 no heavy etoh use chronically. doubt autoimmune cirrhosis. ammonia levels remain wnl. cautious use of bumex and aldactone w close f/u of fluid balance - set up w CHF clinic - to see 06/13 as next visit (2) Ascites: transudative based on fluid studies SAAG 1.5 c/w portal HTN suspect cirrhosis is either 2nd to "cardiac" (right heart failure) or HOLT either way Rx will be the same cont bumex w/ aldactone as above (3) Acute on chronic systolic CHF (congestive heart failure): appreciate cardiology assistance to follow with Nivia ENGEL in CHF clinic post-d/c to coordinate care between cards/GI/nephrology given his complex medical issues cont BB cont Entresto cont aldactone cont bumex outpt CHF clinic f/u (4) Atrial fibrillation, permanent: rates controlled cont metoprolol succinate not anticoagulated due to prior GI bleed in November 2020 (5) Duodenal ulcer: h/o cont PPI bid no GI issues (6) Diabetes mellitus type II, uncontrolled: a1c 6.6% - above incorrect, actually well controlled and sulfonylurea held for now (7) Ischemic cardiomyopathy: asymptomatic with this during his stay (8) Diabetic peripheral neuropathy associated with type 2 diabetes mellitus: likely contributes to gait disturbance (9) Stage 3a chronic kidney disease: close f/u of this as outpt (10) Hypercholesterolemia: remains on statin therapy (simvastatin 20mg daily) - can consider change to moderate or high intensity statin as outpt if appropriate (11) Hypertension: BP reasonable given circumstances (12) History of coronary artery bypass graft: asymptomatic during his stay (13) Benign prostatic hyperplasia: cont alpha je voiding adequately albeit w/ incontinence (14) Cognitive impairment: b12 level last spring was borderline low rechecked this admission - wnl unfortunately will often lead with confrontational questions and demeanor making interactions somewhat difficult (as was unfortunately the case today where he mostly wanted to talk about medications that he did not recognize by name, despite meds not having been changed for days) (15) DVT prophylaxis: heparin 5000 BID utilized during his stay home, home PT/OT close outpt f/u Total Time Total Time Spent Total Time Spent (In Minutes): <30 Discharge Plan Discharge Items Patient Disposition: Home - Home Health Services Reason For Visit: ABDOMINAL PAIN, CIRRHOSIS, ASCITES, ANASARCA Discharge Diagnosis: cirrhosis Activity: Resume your previous activity Non-emergency contact: Primary Care Provider and Service Member Call non-emergency contact if: you have any medication questions and your s ymptoms worsen Follow-up/Referrals: Valentín Bales MD [Primary Care Provider] - 06/22/21 9:00 am (APPT WITH MEL [facility] PA-C) Leila Starkey PA-C [Physician Dolphin Trainer] - 06/13/21 2:00 pm (Congestive Heart Failure Program Appointment Information Early follow up is essential to managing your heart failure. An appointment has been scheduled for you with the [facility] Program within 7 days of discharge. Anticipate this visit to be 30-60 minutes long. Please expect a appeals nurse phone call from one of our nurses approximately 48 hours from discharge. They will also be placing an order for lab work to be completed 1-2 days prior to your heart failure follow up appointment. Please be sure to have this done so we can go over the results when you come in. Office Location The cardiology office building is located in front of the hospital at [address]. Bring the following with you to your follow-up doctor appointments: Please bring your daily weight log any discharge paperwork all of your medication bottles with you to this visit. ) Diet: Low Sodium (2gm) Addtl Attending Provider Instructions: New diagnosis of cirrhosis -Your cirrhosis is likely from chronic congestion of your liver as it relates to your heart -We will have you continue to follow closely with cardiology/the CHF clinic to try to best maintain fluid balance -The most important things you can do to try to help the situation are to take your medicines regularly, stay very strict and sodium restriction (try to stay at less than 1500 mg in a day if at all possible), and have close follow-up with your labs -While diuretics can sometimes help with fluid balance as it relates to the swelling in your belly (ascites) this is unfortunately a problem that medicines cannot always remedy. To that end, staying tight with a sodium restriction helps prevent fluid accumulation, but it also is a problem that likely will recur from time to time. When it gets uncomfortable, radiology can repeat the procedure to pull the fluid off to alleviate the discomfort. -Because the diuretics can help with the fluid some, but usually not enough, it is a delicate balance making sure that we have you "dry enough but not too dry"with respect to that, Nivia Starkey from the CHF clinic will closely follow your weight, your medication dosing, and your lab workher main goal with you will be trying to keep you at that delicate balance of "dry enough but not too dry" -By the end of last week, they were having some success with bumetanide as a diuretic, working in conjunction with spironolactonewe will send you home on those, as well as your regular doxazosin, metoprolol, and Entresto. Follow-up is scheduled with the CHF clinic for 06/13please keep this appointment We have stopped your glipizide for nowwith your most recent A1c being 6.6, medications such as glipizide can sometimes cause surprise low blood sugars that are often more problematic as we age. You may continue the Metformin for now, although Dr. Bales will also be following whether or not that could be stopped as well. Pending Studies at Discharge: No Stand-Alone Forms: My [facility] Idea Shower, Smoking Cessation Medications and DC Order Prescriptions: New spironolactone 25 mg Tablet 25 mg PO QAM Qty: 30 RF: 0 bumetanide 2 mg tablet 2 mg PO DAILY Qty: 30 RF: 0 potassium chloride 20 mEq Tablet,Er Particles/Crystals 20 meq PO DAILY Qty: 30 RF: 0 Continued (DME) compress.stocking,knee,reg,lrg Misc See Rx Instructions .ROUTE .MEDSUPPLY Qty: 2 RF: 0 (DME) OneTouch Verio test strips Strip See Rx Instructions .ROUTE .MEDSUPPLY Qty: 2 RF: 3 metformin 500 mg tablet 1,000 mg PO BID Qty: 360 RF: 3 metoprolol succinate 100 mg tablet extended release 24 hr 100 mg PO QAM Qty: 90 RF: 3 simvastatin 20 mg tablet 20 mg PO QPM Qty: 90 RF: 3 Entresto 49-51 mg tablet 1 tab PO BID Qty: 180 RF: 3 ferrous sulfate 325 mg (65 mg iron) tablet,delayed release (DR/EC) 325 mg PO BID Qty: 180 RF: 0 coenzyme Q10 [CoQ-10] 100 mg capsule 100 mg PO QAM RF: 0 doxazosin 2 mg tablet 2 mg PO BID RF: 0 pantoprazole 40 mg tablet,delayed release (DR/EC) 40 mg PO QAM Qty: 90 RF: 3 (DME) lancets [OneTouch UltraSoft Lancets] Misc See Rx Instructions .ROUTE .MEDSUPPLY Qty: 100 RF: 0 (DME) blood-glucose meter [OneTouch Verio Flex Start] Kit See Rx Instructions .ROUTE .MEDSUPPLY Qty: 1 RF: 0 psyllium husk [Metamucil] 0.52 gram Capsule 0.52 g PO QAM RF: 0 Discontinued furosemide 40 mg tablet 40 mg PO DAILY RF: 0 Hold Instructions: per hospital glipizide 5 mg tablet 2.5 mg PO DAILY RF: 0 Discharge Orders: Discharge Order (Routine); Ordered 06/11/21 Ordered By: Saravanan Mcfarlane/Other Patient Handouts: A1C, Managing Type 2 Diabetes Admission Data Admit Date/Time: 06/02/21 03:15 Attending Provider: Saravanan Cheung Admit Provider: Ernesto Foster Primary Care Provider: Valentín Bales Other Providers: Ernesto Foster ; Rasheed Savaeg ; Briana Sinclair ; Valentín Cedeno ; [place] ; [place] Other Interventions: Discharge Summary Assessment (RN) Last Done: 06/11/21 10:48 Coding Level of Care Code D/C DAY MANAGEMENT <30 MINS Diagnoses Cirrhosis K74.60 Ascites R18.8 Acute on chronic systolic CHF (congestive heart failure) I50.23 Atrial fibrillation, permanent I48.21 Duodenal ulcer K26.9 Diabetes mellitus type II, uncontrolled E11.65 Ischemic cardiomyopathy I25.5 Diabetic peripheral neuropathy associated with type 2 diabetes mellitus E11.42 Stage 3a chronic kidney disease N18.31 Hypercholesterolemia E78.00 Hypertension I10 History of coronary artery bypass graft Z95.1 Benign prostatic hyperplasia N40.0 Cognitive impairment R41.89 DVT prophylaxis Z29.9
== END 2021-06-11 12:07 | disposition home health service (06) | DRG 432 ==
LOC: ED 23:06 → SUATTDRO 06-02 03:15 → EDINP 06-02 03:15 → 2N 06-02 17:04

== ENCOUNTER 2022-11-15 14:41 | Inpatient (IN) ==
--- NOTE | 2022-11-15 15:17 | Emergency Department Note ---
Impression & Plan Ischemic cerebrovascular accident (CVA), Occlusion of right posterior cerebral artery ED Provider Note NAME: REJI GALLEGO AGE: 82 SEX: M : 1940 ARRIVES VIA: Walk-In INFORMANT: Patient, the patient's significant other ED PROVIDER(S): Valentín Mac DO CHIEF COMPLAINT: Strokelike symptoms HPI: The patient is an 82-year-old male who presented to the emergency department for an evaluation of dizziness and strokelike symptoms. The patient presented with his significant other who does provide some of the history as well. The patient is an 82-year-old male who does have a history of lower extremity paresthesias and peripheral neuropathy. He has been seen by his primary care physician as well as other specialist. The patient was sent to see neurology to determine if they could offer any other help for him. The patient had an MRI of the brain today. He was called by the neurologist office and told to go to the emergency department because of a stroke. The patient had an MRI that showed areas of acute to subacute ischemic stroke. He does have a history of atrial fibrillation. He states has been compliant with all of his outpatient medication including his Eliquis. He does not take aspirin. He has no history of stroke in the past. He states that he has had some problems especially over the last few weeks with dizziness. He states he has been having trouble ambulating as well. He feels off balance at times. ROS: See above HPI for pertinent positives & negatives. A total of 10 systems reviewed and were otherwise negative. PAST MEDICAL HISTORY: See Below PAST SURGICAL HISTORY: See Below FAMILY HISTORY: See Below SOCIAL HISTORY: See Below HOME MEDICATIONS: See Below ALLERGIES: See Below VITALS: See Below PHYSICAL EXAMINATION: GENERAL: The patient is awake and alert. The patient is nonanxious appearing. EYES: The conjunctivae are clear. The pupils are round and reactive. EARS, NOSE, MOUTH AND THROAT: The nose is without any evidence of any deformity. NECK: The neck is nontender and supple. RESPIRATORY: Normal respiratory effort is noted there is no evidence of wheezing rhonchi or rales CARDIOVASCULAR: Irregular heart sounds were noted to auscultation. There is no definite murmur. GASTROINTESTINAL: The abdomen is soft. Abdomen is nontender. MUSCULOSKELETAL/EXTREMITIES: There is no evidence of gross deformity full range of motion is noted in the hips and shoulders. SKIN: Skin was warm and dry. Pedal edema was noted bilaterally. NEUROLOGIC: Patient is awake alert and oriented x3. Speech is clear. There is no facial droop. The patient is able to ambulate with a very wide-based gait. MEDICAL DECISION MAKING: The patient is an 82-year-old male who does have a history of atrial fibrillation who presented to the emergency department at the request of his neurologist. The patient was undergoing a work-up for lower extremity paresthesias. Part of his work-up included an MRI of the brain. He had the MRI today. It appeared to be consistent with multiple subacute to acute ischemic strokes in the posterior circulation. The patient does admit that has been having some problems with gait disturbance as well as dizziness recently. On my exam he appears to be awake and alert. He does have some repetitive question asking. He does have some underlying chronic renal insufficiency. He was sent to the emergency department by his neurologist for further evaluation as well as possible angiography of his head and neck to determine the cause of the patient's presentation and the acute ischemic stroke. I discussed the patient's laboratory and radiographic studies with him. The patient had MRA in the emergency department. Given his past medical history as well as his findings on MRI today I will discuss his condition with the on-call [facility] group. Triage Nursing notes reviewed. Prior medical records reviewed Vital Signs: reviewed and remarkable for elevated blood pressure. Differential diagnosis: Infection, dehydration, metabolic abnormality, hypo/hyperglycemia, electrolyte disturbance, anemia, hypoxia, cardiac sources, intracerebral event, toxicologic, neurologic, as well as other pathologies. ER treatment provided: See below Diagnostics interpreted by me: ECG: No PVCs were noted. Right bundle branch block pattern was noted. This was compared to a tracing from June 01, 2021. No changes were noted. EKG was obtained in the emergency department. My interpretation is atrial fibrillation at 65 bpm. Cardiac Monitoring: An order was placed for continuous cardiac monitoring. The monitor shows a rate of 56 bpm with atrial fibrillation. Laboratory studies: As stated above and show below. Imaging studies: See below. Radiographic imaging was reviewed by myself Consultation(s): I did discuss the patient's case with Dr. Armendariz who is the patient's primary neurologist. [facility]. They will evaluate the patient in the emergency department. I discussed this case with Dr. Magdaleno who is on-call for telemetry neurology at [facility]. At this time he does not recommend transfer for posterior cerebral artery occlusion but does recommend 2 g of magnesium and further work-up as an inpatient. Past Med/Surg History Medical History Abdominal pain Acute hyponatremia Acute on chronic systolic CHF (congestive heart failure) Acute UTI NIGEL (acute kidney injury) Anemia From GI Bleed Anticoagulant long-term use hx -- has been on hold since October 2020 d/t the gastric ulcer Arteriosclerosis of coronary artery Ascites Benign prostatic hyperplasia Cirrhosis Discharge planning issues Duodenal ulcer (11/2020) DVT prophylaxis H pylori ulcer (11/2020) History of bleeding ulcers (~1984) History of squamous cell carcinoma Hypercholesterolemia Hypertension Low back pain Right-sided congestive heart failure Sciatica Type 2 diabetes mellitus NIDDM UTI (urinary tract infection) Weakness Surgical History H/O oral surgery dental implants History of ankle surgery ORIF Bilateral ankle History of appendectomy History of colonoscopy 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 History of surgical removal of skin lesion History of tonsillectomy S/P right knee arthroscopy Family History Mother Cardiac disorder Hypertension Father Cardiac disorder Stroke Hypertension Grandmother (Maternal) Stroke Denies family history of Ovarian cancer Prostate cancer Myocardial infarction Breast cancer Colorectal cancer Social History Smoking Status: Never smoker Second Hand Exposure: No; Do You Dip or Chew Tobacco: No; Hx Alcohol Use: Yes Alcohol type: wine Hx Substance Use: No Preferred Language: Citizen Of [place] Communication Ability: Effective Stem Crusher Required: No Beliefs That Will Affect Care: None marital status: Current Living Situation: Spouse current occupational status: retired Feels Safe at Home: Yes Diet: low carbohydrate and low salt Seatbelt Use: always Assistive Devices: None and Cane Allergies Allergies Allergy/AdvReac Type Severity Reaction Status Date / Time No Known Allergies Allergy Verified 11/15/22 16:56 Home Meds Home Medications Medication Instructions Recorded Confirmed coenzyme Q10 100 mg capsule 100 mg PO QAM 11/23/20 11/15/22 (CoQ-10) psyllium husk 0.52 gram capsule 0.52 g PO QAM 12/06/20 11/15/22 (Metamucil) Previous Rx's Medication Instructions Recorded ferrous sulfate 325 mg (65 mg 325 mg PO BID #180 tabs 04/19/21 iron) tablet,delayed release bumetanide 0.5 mg tablet 0.5 mg PO DAILY #90 tabs 11/21/21 simvastatin 20 mg tablet 20 mg PO QPM #90 tabs 02/04/22 glipizide 5 mg tablet 2.5 mg PO DAILY #45 tabs 05/03/22 apixaban 2.5 mg tablet (Eliquis) 2.5 mg PO BID #180 tabs 05/10/22 doxazosin 2 mg tablet 2 mg PO BID #180 tabs 05/10/22 pantoprazole 40 mg tablet,delayed 40 mg PO QAM #90 tabs 05/10/22 release flash glucose scanning reader #1 ea 05/21/22 (FreeStyle Juni 2 [place]) flash glucose sensor (FreeStyle #1 kit 05/21/22 Juni 2 Sensor kit) spironolactone 25 mg tablet 25 mg PO QAM #90 tabs 09/30/22 metoprolol succinate 50 mg 50 mg PO DAILY #30 tabs 11/04/22 tablet,extended release 24 hr hydrocortisone 2.5 % topical cream 1 applic topical BID #30 grams 11/07/22 ketoconazole 2 % topical cream 1 applic topical BID #30 grams 11/07/22 Results & Data (ED) Vital Signs Vital Signs - 24 hr 11/15/22 14:43 11/15/22 15:40 Temperature 36.9 C Temperature Source Temporal Artery Scan Pulse Rate 67 Pulse Rate [Apical] 56 L Pulse Rhythm [Apical] Irregular Respiratory Rate 20 22 Blood Pressure 135/91 Blood Pressure [Left Arm] 146/72 H Blood Pressure Mean 105 Blood Pressure Mean [Left Arm] 96 Pulse Oximetry 100 97 Oxygen Delivery Method Room Air Room Air Sepsis Recent Fever Within 48 Hours No Sepsis New/Unexplained Change in Mental Status N/A Sepsis Action Taken by Nursing No Action Required Home Medications Current Medication List: was personally reviewed by me Laboratory Data Attestation: I reviewed the patient's lab results. 11/15/22 15:34 11/15/22 15:34 Lab Results 11/15/22 11/15/22 11/15/22 Range/Units 15:34 15:34 15:34 WBC 6.60 (4.8-10.8) K/ul RBC 3.22 L (4.70-6.10) M/uL Hgb 10.2 L (14.0-18.0) g/dl POC Hgb (14.0-18.0) g/dl Hct 30.5 L (42.0-52.0) % POC Hct (42-52) % MCV 94.7 (80.0-100.0) fL MCH 31.7 (25.0-34.0) pg MCHC 33.4 (32.0-36.0) g/dL RDW Std Deviation 43.9 (36.4-46.3) fL RDW Coeff of Mario 12.8 (11.5-14.5) % Plt Count 196 (130-400) K/uL MPV 11.2 (9.4-12.4) fL Immature Gran % (Auto) 0.3 % Neut % (Auto) 70.8 % Lymph % (Auto) 16.2 % [place] % (Auto) 10.6 % Eos % (Auto) 1.5 % Baso % (Auto) 0.6 % Neut # (Auto) 4.67 (1.40-6.50) K/uL Lymph # (Auto) 1.07 L (1.2-3.4) K/uL [place] # (Auto) 0.70 H (0.11-0.59) K/uL Eos # (Auto) 0.10 (0-0.50) K/uL Baso # (Auto) 0.04 (0-0.2) K/uL Immature Gran # (Auto) 0.02 (0.01-0.20) K/uL PT 12.5 H (9.0-12.0) Seconds INR 1.2 H (0.9-1.1) APTT 27.2 (21.0-31.0) Seconds PTT Ratio 1.0 POC Sodium (135-144) mmol/L Sodium 134 L (136-145) mmol/L POC Potassium (3.3-5.0) mmol/L Potassium 4.3 (3.5-5.1) mmol/L POC Chloride (101-112) mmol/L Chloride 105 (98-107) mmol/L Carbon Dioxide 23 (21-32) mmol/L POC Total CO2 (24-31) mmol/L Anion Gap 6 (3-11) POC Anion Gap (16-25) mmol/L POC BUN (7-18) mg/dl BUN 49 H (6-23) mg/dl Creatinine 2.37 H (0.6-1.4) mg/dl POC Creatinine (0.6-1.3) mg/dl Est Cr Clr Drug Dosing 28.8 ml/min Est GFR ( Amer) 28.7 ml/min Est GFR (Non-Af Amer) 24.8 ml/min BUN/Creatinine Ratio 20.7 H (10-20) Glucose 168 H (70-99(Fasting)) mg/dl POC Glucose (70-99) mg/dl POC Glucose (other) (70-99) mg/dl Calcium 9.1 (8.6-10.3) mg/dl POC Ioniz Calcium Rudolph (1.12-1.32) mmol/l Magnesium 1.8 (1.7-2.4) mg/dl Total Bilirubin 0.9 (0.2-1.0) mg/dl AST 15 (13-39) U/L ALT 18 (7-52) U/L Alkaline Phosphatase 78 (34-104) U/L Troponin I High Sens 12.2 (0-20) pg/ml Total Protein 7.1 (6.0-8.3) gm/dl Albumin 4.1 (3.4-5.0) gm/dl Globulin 3.0 (2.5-4.0) gm/dl Albumin/Globulin Ratio 1.4 (0.9-2) SARS-CoV-2, RNA, NAAT (NEGATIVE) 11/15/22 11/15/22 11/15/22 Range/Units 15:36 15:37 15:42 WBC (4.8-10.8) K/ul RBC (4.70-6.10) M/uL Hgb (14.0-18.0) g/dl POC Hgb 10.5 L (14.0-18.0) g/dl Hct (42.0-52.0) % POC Hct 31 L (42-52) % MCV (80.0-100.0) fL MCH (25.0-34.0) pg MCHC (32.0-36.0) g/dL RDW Std Deviation (36.4-46.3) fL RDW Coeff of Mario (11.5-14.5) % Plt Count (130-400) K/uL MPV (9.4-12.4) fL Immature Gran % (Auto) % Neut % (Auto) % Lymph % (Auto) % [place] % (Auto) % Eos % (Auto) % Baso % (Auto) % Neut # (Auto) (1.40-6.50) K/uL Lymph # (Auto) (1.2-3.4) K/uL [place] # (Auto) (0.11-0.59) K/uL Eos # (Auto) (0-0.50) K/uL Baso # (Auto) (0-0.2) K/uL Immature Gran # (Auto) (0.01-0.20) K/uL PT (9.0-12.0) Seconds INR (0.9-1.1) APTT (21.0-31.0) Seconds PTT Ratio POC Sodium 136 (135-144) mmol/L Sodium (136-145) mmol/L POC Potassium 4.3 (3.3-5.0) mmol/L Potassium (3.5-5.1) mmol/L POC Chloride 103 (101-112) mmol/L Chloride (98-107) mmol/L Carbon Dioxide (21-32) mmol/L POC Total CO2 22 L (24-31) mmol/L Anion Gap (3-11) POC Anion Gap 17.0 (16-25) mmol/L POC BUN 42 H (7-18) mg/dl BUN (6-23) mg/dl Creatinine (0.6-1.4) mg/dl POC Creatinine 2.7 H (0.6-1.3) mg/dl Est Cr Clr Drug Dosing ml/min Est GFR ( Amer) ml/min Est GFR (Non-Af Amer) ml/min BUN/Creatinine Ratio (10-20) Glucose (70-99(Fasting)) mg/dl POC Glucose 181 H (70-99) mg/dl POC Glucose (other) 164 H (70-99) mg/dl Calcium (8.6-10.3) mg/dl POC Ioniz Calcium Rudolph 1.12 (1.12-1.32) mmol/l Magnesium (1.7-2.4) mg/dl Total Bilirubin (0.2-1.0) mg/dl AST (13-39) U/L ALT (7-52) U/L Alkaline Phosphatase (34-104) U/L Troponin I High Sens (0-20) pg/ml Total Protein (6.0-8.3) gm/dl Albumin (3.4-5.0) gm/dl Globulin (2.5-4.0) gm/dl Albumin/Globulin Ratio (0.9-2) SARS-CoV-2, RNA, NAAT NEGATIVE (NEGATIVE) Imaging Data Attestation: I personally reviewed and interpreted this imaging study as follows: My Impression: 1 view chest x-ray was obtained in the emergency department. My interpretation is no free air, no definite trait, final report below. Radiologist's Impression: Chest X-Ray 11/15/22 14:51 XR chest 1V portable CLINICAL HISTORY: neuro deficit, acute stroke suspected COMPARISON STUDY: Chest radiograph June 02, 2021. FINDINGS: No pneumothorax or pleural effusion is present. Cardiomegaly is unchanged. There are median sternotomy wires. There is no evidence for pulmonary edema. No consolidation is identified to suggest pneumonia. IMPRESSION: No acute cardiopulmonary findings. Cardiomegaly. ACT 112: Negative or not required by law. Electronically signed by: Jaswant Castanon M.D. 11/15/2022 3:43 PM Head MRA 11/15/22 15:10 MR ANGIOGRAM OF THE BRAIN CLINICAL HISTORY: Stroke. COMPARISON STUDY: MRI of the brain dated 11/15/2022. TECHNIQUE: 3-D [id number] MR angiography of the intracranial circulation is performed. 3-D tumble views are created and assessed. IV contrast was not administered for this examination. The examination is compromised by motion artifact. FINDINGS: The internal carotid arteries are widely patent bilaterally, as are the anterior and middle cerebral arteries. The vertebral arteries and basilar artery are patent. There is occlusion of the right posterior cerebral artery. This is seen on axial image #102. The left posterior cerebral artery is patent. The vertebral arteries are codominant. There is no aneurysm, high-grade stenosis, or focal vessel cutoff seen throughout the intracranial circulation. IMPRESSION: 1. Motion compromised examination. 2. Occlusion of the right posterior cerebral artery. 3. The remaining intracranial vessels are patent. ACT 112: Negative or not required by law. Electronically signed by: Burt Houser M.D. 11/15/2022 5:08 PM Neck MRA 11/15/22 15:10 MR ANGIOGRAM OF THE NECK WITHOUT IV CONTRAST CLINICAL HISTORY: Stroke. COMPARISON STUDY: No priors. TECHNIQUE: Axial 3-D [id number] MR angiography of the neck is performed. IV contrast was not administered for this examination. 3-D reformats are created and assessed. All measurements were calculated based on NASCET criteria. The examination is compromised by motion artifact. FINDINGS: Visualized portions of the thoracic aorta are normal in caliber. The aortic arch demonstrates standard 3-vessel anatomy. The right common carotid artery is patent, as are the right internal and external carotid arteries. The left common carotid artery is patent, as are the left internal and external carotid arteries. The vertebral arteries are patent bilaterally and appear codominant. There is occlusion of the right posterior shoulder. The remaining visualized intracranial vessels at the skull base appear patent. IMPRESSION: 1. Unremarkable MR angiogram of the neck noting a motion compromised examin ation. 2. There is occlusion of the right posterior cerebellar artery seen at the skull base. ACT 112: Negative or not required by law. Electronically signed by: Burt Houser M.D. 11/15/2022 5:11 PM Discharge Plan Visit Data Chief Complaint: Stroke/CVA Symptoms Stated Complaint: MRI SHOWN MULTIPLE STROKES ON RIGHT SIDE - DR ARMENDARIZ ED Provider: Valentín Mac Discharge Problem: Ischemic cerebrovascular accident (CVA), Occlusion of right posterior cerebral artery Patient Disposition: Being Evaluated by Hospitalist Forms Stand Alone Forms: My [facility] [place] [employer] Prescriptions Prescriptions: No Action ferrous sulfate 325 mg (65 mg iron) tablet,delayed release (DR/EC) 325 mg PO BID Qty: 180 0RF Rx Instructions: TAKE 1 TABLET BY MOUTH TWICE PER DAY WITH FOOD, NO DAIRY simvastatin 20 mg tablet 20 mg PO QPM Qty: 90 3RF glipizide 5 mg tablet 2.5 mg PO DAILY Qty: 45 3RF Eliquis 2.5 mg tablet 2.5 mg PO BID Qty: 180 3RF doxazosin 2 mg tablet 2 mg PO BID Qty: 180 3RF Hold Instructions: low BP pantoprazole 40 mg tablet,delayed release (DR/EC) 40 mg PO QAM Qty: 90 3RF (DME) FreeStyle Juni 2 Sensor Kit See Rx Instructions .Route Qty: 1 6RF Rx Instructions: Replace every 14 days (DME) FreeStyle Juni 2 [place] Misc See Rx Instructions .Route Qty: 1 0RF Rx Instructions: Check glucose at least 4 times a day spironolactone 25 mg tablet 25 mg PO QAM Qty: 90 3RF Hold Instructions: low BP Rx Instructions: ON HOLD bumetanide 0.5 mg tablet 0.5 mg PO DAILY Qty: 90 3RF Hold Instructions: low BP coenzyme Q10 [CoQ-10] 100 mg capsule 100 mg PO QAM ketoconazole 2 % cream 1 applic topical BID Qty: 30 1RF Rx Instructions: Apply to areas of the skin folds twice daily x 10 days as needed for flaring. hydrocortisone 2.5 % cream 1 applic topical BID Qty: 30 1RF Rx Instructions: Apply to areas of the skin folds twice daily x 10 days as needed for flaring. metoprolol succinate 50 mg tablet extended release 24 hr 50 mg PO DAILY Qty: 30 0RF psyllium husk [Metamucil] 0.52 gram Capsule 0.52 g PO QAM Referrals Referrals: Valentín Bales MD [Primary Care Provider] -
--- NOTE | 2022-11-15 15:45 | XRay Report ---
XR chest 1V portable CLINICAL HISTORY: neuro deficit, acute stroke suspected COMPARISON STUDY: Chest radiograph June 02, 2021. FINDINGS: No pneumothorax or pleural effusion is present. Cardiomegaly is unchanged. There are median sternotomy wires. There is no evidence for pulmonary edema. No consolidation is identified to sugges t pneumonia. IMPRESSION: No acute cardiopulmonary findings. Cardiomegaly. ACT 112: Negative or not required by law. Electronically signed by: Jaswant Castanon M.D. 11/15/2022 3:43 PM
[2022-11-15 15:54] LABS: iSTAT Creatinine 2.7 mg/dl (0.6-1.3); iSTAT Hemoglobin 10.5 g/dl (14.0-18.0); iSTAT Ionized Calcium 1.12 mmol/l (1.12-1.32); iSTAT Potassium 4.3 mmol/L (3.3-5.0)
[2022-11-15 16:03] LABS: Basophils # (auto) 0.04 K/uL (0-0.2); Basophils % (auto) 0.6 %; Eosinophils % (auto) 1.5 %; Hematocrit (blood only) 30.5 % (42.0-52.0); Hemoglobin 10.2 g/dl (14.0-18.0); Immature Granulocytes # (auto) 0.02 K/uL (0.01-0.20); Immature Granulocytes % (auto) 0.3 %; Lymphocytes # (auto) 1.07 K/uL (1.2-3.4); Lymphocytes % (auto) 16.2 %; Mean Corpuscular Hemoglobin 31.7 pg (25.0-34.0); Mean Corpuscular Hgb Conc 33.4 g/dL (32.0-36.0); Mean Corpuscular Volume 94.7 fL (80.0-100.0); Mean Platelet Volume 11.2 fL (9.4-12.4); Monocytes % (auto) 10.6 %; Neutrophils # (auto) 4.67 K/uL (1.40-6.50); Neutrophils % (auto) 70.8 %; Platelet Count 196 K/uL (130-400); RDW Coefficient of Variation 12.8 % (11.5-14.5); RDW Standard Deviation 43.9 fL (36.4-46.3); Red Blood Count 3.22 M/uL (4.70-6.10)
[2022-11-15 16:10] LABS: Albumin Globulin Ratio 1.4 (0.9-2); Albumin Level 4.1 gm/dl (3.4-5.0); BUN Creatinine Ratio 20.7 (10-20); Bilirubin,Total 0.9 mg/dl (0.2-1.0); Calcium 9.1 mg/dl (8.6-10.3); Creatinine Clr Calc Pharmacy 28.8 ml/min; Est GFR (African American) 28.7 ml/min; Est GFR (Non-African American) 24.8 ml/min; Magnesium 1.8 mg/dl (1.7-2.4); Potassium 4.3 mmol/L (3.5-5.1); Total Protein 7.1 gm/dl (6.0-8.3)
[2022-11-15 16:16] LABS: Troponin I High Sensitivity 12.2 pg/ml (0-20)
[2022-11-15 16:27] LABS: INR 1.2 (0.9-1.1); Partial Thromboplastin Time 27.2 Seconds (21.0-31.0); Prothrombin Time 12.5 Seconds (9.0-12.0)
--- NOTE | 2022-11-15 17:09 | Magnetic Resonance Report ---
MR ANGIOGRAM OF THE BRAIN CLINICAL HISTORY: Stroke. COMPARISON STUDY: MRI of the brain dated 11/15/2022. TECHNIQUE: 3-D [id number] MR angiography of the intracranial circulation is performed. 3-D tumble views are created and assessed. IV contrast was not administered for this examination. The examinati on is compromised by motion artifact. FINDINGS: The internal carotid arteries are widely patent bilaterally, as are the anterior and middle cerebral arteries. The vertebral arteries and basilar artery are patent. There is occlusion of the r ight posterior cerebral artery. This is seen on axial image #102. The left posterior cerebral artery is patent. The vertebral arteries are codominant. There is no aneurysm, high-grade stenosis, or focal vessel cutoff seen throughout the intracranial circulation. IMPRESSION: 1. Motion compromised examination. 2. Occlusion of the right posterior cerebral artery. 3. The remaining intracranial vessels are patent. ACT 112: Negative or not required by law. Electronically signed by: Burt Houser M.D. 11/15/2022 5:08 PM
--- NOTE | 2022-11-15 17:13 | Magnetic Resonance Report ---
MR ANGIOGRAM OF THE NECK WITHOUT IV CONTRAST CLINICAL HISTORY: Stroke. COMPARISON STUDY: No priors. TECHNIQUE: Axial 3-D [id number] MR angiography of the neck is performed. IV contrast was not admi nistered for this examination. 3-D reformats are created and assessed. All measurements were calculat ed based on NASCET criteria. The examination is compromised by motion artifact. FINDINGS: Visualized portions of the thoracic aorta are normal in caliber. The aortic arch demonstrat es standard 3-vessel anatomy. The right common carotid artery is patent, as are the right internal an d external carotid arteries. The left common carotid artery is patent, as are the left internal and e xternal carotid arteries. The vertebral arteries are patent bilaterally and appear codominant. There is occlusion of the right posterior shoulder. The remaining visualized intracranial vessels at the sk ull base appear patent. IMPRESSION: 1. Unremarkable MR angiogram of the neck noting a motion compromised examination. 2. There is occlusion of the right posterior cerebellar artery seen at the skull base. ACT 112: Negative or not required by law. Electronically signed by: Burt Houser M.D. 11/15/2022 5:11 PM
[2022-11-15] MEDS: MAGNESIUM SULFATE / D5W 1 GM/100 ML BAG IV SCH ×2 (17:59→21:18)
--- NOTE | 2022-11-15 18:18 | History & Physical Report ---
Date of Service November 15, 2022 Assessment & Plan (1) Ischemic cerebrovascular accident (CVA): Plan: Acute/stable/mod to high risk - Admit to pcu - Perform bedside dysphagia screening, if passes advance to diabetic diet - NIH/stroke scale and neuro checks q shift - Discussed case with Dr. Araiza, consult placed, appreciate assistance - Add ASA 81mg daily and continue Eliquis 2.5mg BID - Allow for permissive HTN - Obtain TTE - Increase Simvastatin to 40mg q HS - PT/OT eval (2) Occlusion of right posterior cerebral artery: Plan: Acute/stable/mod to high risk - This was d/w C, no indication for endovascular intervention - [facility] [place] 2g IV Mag for neuro protection, this was ordered/given in ED - Add ASA and increase Simvastatin as above (3) Atrial fibrillation, permanent: Plan: Chronic/stable - Currently rate controlled on Toprol XL 50mg daily, continue - Continue Eliquis 2.5mg BID (4) Diabetes mellitus type II, uncontrolled: Plan: Chronic/stable - Reviewed labs, last ha1c was 7.7% 11/07/22 - Continue Glipizide 2.5mg daily - Accuchecks AC and HS, add meal coverage if BSG >180 - Diabetic diet has been ordered (5) Chronic kidney disease, stage IV (severe): Plan: Chronic/stable - Reviewed chemistry panel, creatinine at baseline at 2.37 - Continue to monitor renal function and adjust meds for creatinine clearance when needed (6) Ischemic cardiomyopathy: Plan: Chronic/stable - Follows with CHF clinic - Last echo reviewed from January 2022, LVEF 45-50%, mild to moderate , repeat TTE ordered - Previously on Entresto, Spironolactone, and Bumex but stopped as BP couldn't tolerate - Currently euvolemic (7) Hypertension: Plan: Chronic/stable - Will allow for permissive HTN in setting of acute/subacute CVA - Continue Metoprolol, all other BP meds on hold by PCP d/t symptomatic hypotension Plan DVT ppx is covered with resumption of Eliquis. Repeat labs have been ordered for tomorrow AM. Above plan of care has been d/w Dr. Melton who will also see and evaluate this patient. Further orders will be implemented as warranted. History of Present Illness Chief Complaint: cva symptoms Primary Care Provider: Valentín Bales MD Tono Brar is an 82 yo M with a pmhx of atrial fibrillation on Eliquis, CKD, NIDDM, and ischemic cardiomyopathy who presented to the ER today due to MRI that revealed findings of an acute versus subacute CVA. Patient notes that other than experiencing some mild dizziness, feeling more off balance/altered gait that he has not been experiencing any significant neurologic symptoms. He denies vision changes, numbness/tingling in his arms or face, does endorse sensation loss in his both lower extremities for which he has known neuropathy, and denies focal weakness. He denies slurred speech or facial droop. states that she has noticed some mild confusion that has been going on for "awhile" but patient lacks insight to this. She does not feel that it has gotten worse in the last few weeks. Patient was seen by Dr. Araiza earlier in October and due to his symptoms, an MRI of the brain was ordered. The patient underwent MRI today which revealed multiple clustered small foci of acute to subacute infarction within the right temporal and occipital lobes. Due to these findings, the patient was referred to the ER for further evaluation. In the ED, he had an MRA of the head and neck which revealed an occlusion of the right posterior cerebral artery. Case was discussed with [facility] neurointerventionalist for the occluded vessel for which they did not feel warranted transfer as there was no indication for endovascular intervention. Subsequently, the patient has been referred to [facility] hospitalist service for admission for further evaluation. Allergies Allergy/AdvReac Type Severity Reaction Status Date / Time No Known Allergies Allergy Verified 11/15/22 16:56 Home Medications Medication Instructions Recorded Confirmed Type coenzyme Q10 100 mg capsule 100 mg PO QAM 11/23/20 11/15/22 History (CoQ-10) psyllium husk 0.52 gram capsule 0.52 g PO QAM 12/06/20 11/15/22 History (Metamucil) ferrous sulfate 325 mg (65 mg 325 mg PO BID #180 tabs 04/19/21 11/15/22 Rx iron) tablet,delayed release bumetanide 0.5 mg tablet 0.5 mg PO DAILY #90 tabs 11/21/21 11/15/22 Rx simvastatin 20 mg tablet 20 mg PO QPM #90 tabs 02/04/22 11/15/22 Rx glipizide 5 mg tablet 2.5 mg PO DAILY #45 tabs 05/03/22 11/15/22 Rx apixaban 2.5 mg tablet (Eliquis) 2.5 mg PO BID #180 tabs 05/10/22 11/15/22 Rx doxazosin 2 mg tablet 2 mg PO BID #180 tabs 05/10/22 11/15/22 Rx pantoprazole 40 mg tablet,delayed 40 mg PO QAM #90 tabs 05/10/22 11/15/22 Rx release flash glucose scanning reader #1 ea 05/21/22 11/07/22 Rx (FreeStyle Juni 2 Hooper) flash glucose sensor (FreeStyle #1 kit 05/21/22 11/07/22 Rx Juni 2 Sensor kit) spironolactone 25 mg tablet 25 mg PO QAM #90 tabs 09/30/22 11/15/22 Rx metoprolol succinate 50 mg 50 mg PO DAILY #30 tabs 11/04/22 11/15/22 Rx tablet,extended release 24 hr hydrocortisone 2.5 % topical cream 1 applic topical BID #30 grams 11/07/22 11/15/22 Rx ketoconazole 2 % topical cream 1 applic topical BID #30 grams 11/07/22 11/15/22 Rx aspirin 81 mg tablet,delayed 81 mg PO QAM 30 days #30 tabs 11/16/22 Rx release Past Med/Surg History Medical History Abdominal pain Acute hyponatremia Acute on chronic systolic CHF (congestive heart failure) Acute UTI NIGEL (acute kidney injury) Anemia From GI Bleed Anticoagulant long-term use hx -- has been on hold since October 2020 d/t the gastric ulcer Arteriosclerosis of coronary artery Ascites Benign prostatic hyperplasia Cirrhosis Discharge planning issues Duodenal ulcer (11/2020) DVT prophylaxis H pylori ulcer (11/2020) History of bleeding ulcers (~1984) History of squamous cell carcinoma Hypercholesterolemia Hypertension Low back pain Right-sided congestive heart failure Sciatica Type 2 diabetes mellitus NIDDM UTI (urinary tract infection) Weakness Surgical History H/O oral surgery dental implants History of ankle surgery ORIF Bilateral ankle History of appendectomy History of colonoscopy 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 History of surgical removal of skin lesion History of tonsillectomy S/P right knee arthroscopy Family History Mother Cardiac disorder Hypertension Father Cardiac disorder Stroke Hypertension Grandmother (Maternal) Stroke Denies family history of Ovarian cancer Prostate cancer Myocardial infarction Breast cancer Colorectal cancer Social History Smoking Status: Never smoker Second Hand Exposure: No; Do You Dip or Chew Tobacco: No; Hx Alcohol Use: Yes Alcohol type: other Hx Substance Use: No Preferred Language: Irish Communication Ability: Effective Learning Design Specialist Required: No Beliefs That Will Affect Care: None marital status: Current Living Situation: Spouse current occupational status: retired Feels Safe at Home: Yes Diet: low carbohydrate and low salt Seatbelt Use: always Assistive Devices: Cane Physical Exam Physical Exam: GENERAL: 82 yo well-developed, well-nourished WM. NAD. LUNGS: Clear to auscultation bilaterally. No W/R/R. CARDIOVASCULAR: S1 S2 irregular rhythm with controlled rate, systolic murmur noted. No g/r ABDOMEN: Soft, non-tender and non-distended. BS normoactive x 4 quad. EXTREMITIES: No edema. Non-tender. Peripheral pulses +2/4. NEUROLOGIC: A&O x3. No focal neurological deficits. CN II-XII grossly intact. PSYCHIATRIC: Cooperative. Appropriate mood and affect. SKIN: Warm, dry, intact. No rashes or lesions. Results & Data Results & Data Vital Signs (Past 12 Hours) Vital Signs Temp Pulse Pulse Resp BP BP Pulse Ox 11/15/22 17:44 69 14 180/97 H 97 11/15/22 15:40 56 L 22 146/72 H 97 11/15/22 14:43 36.9 C 67 20 135/91 100 O2 Del Method 11/15/22 17:44 Room Air 11/15/22 15:40 Room Air 11/15/22 14:43 Room Air Laboratory Results 11/15/22 15:34 11/15/22 15:34 Diagnostic Findings Chest X-Ray 11/15/22 14:51 XR chest 1V portable CLINICAL HISTORY: neuro deficit, acute stroke suspected COMPARISON STUDY: Chest radiograph June 02, 2021. FINDINGS: No pneumothorax or pleural effusion is present. Cardiomegaly is unchanged. There are median sternotomy wires. There is no evidence for pulmonary edema. No consolidation is identified to suggest pneumonia. IMPRESSION: No acute cardiopulmonary findings. Cardiomegaly. ACT 112: Negative or not required by law. Electronically signed by: Jaswant Castanon M.D. 11/15/2022 3:43 PM Head MRA 11/15/22 15:10 MR ANGIOGRAM OF THE BRAIN CLINICAL HISTORY: Stroke. COMPARISON STUDY: MRI of the brain dated 11/15/2022. TECHNIQUE: 3-D [id number] MR angiography of the intracranial circulation is performed. 3-D tumble views are created and assessed. IV contrast was not administered for this examination. The examination is compromised by motion artifact. FINDINGS: The internal carotid arteries are widely patent bilaterally, as are the anterior and middle cerebral arteries. The vertebral arteries and basilar artery are patent. There is occlusion of the right posterior cerebral artery. This is seen on axial image #102. The left posterior cerebral artery is patent. The vertebral arteries are codominant. There is no aneurysm, high-grade stenosis, or focal vessel cutoff seen throughout the intracranial circulation. IMPRESSION: 1. Motion compromised examination. 2. Occlusion of the right posterior cerebral artery. 3. The remaining intracranial vessels are patent. ACT 112: Negative or not required by law. Electronically signed by: Burt Houser M.D. 11/15/2022 5:08 PM Neck MRA 11/15/22 15:10 MR ANGIOGRAM OF THE NECK WITHOUT IV CONTRAST CLINICAL HISTORY: Stroke. COMPARISON STUDY: No priors. TECHNIQUE: Axial 3-D [id number] MR angiography of the neck is performed. IV contrast was not administered for this examination. 3-D reformats are created and assessed. All measurements were calculated based on NASCET criteria. The examination is compromised by motion artifact. FINDINGS: Visualized portions of the thoracic aorta are normal in caliber. The aortic arch demonstrates standard 3-vessel anatomy. The right common carotid artery is patent, as are the right internal and external carotid arteries. The left common carotid artery is patent, as are the left internal and external carotid arteries. The vertebral arteries are patent bilaterally and appear c odominant. There is occlusion of the right posterior shoulder. The remaining visualized intracranial vessels at the skull base appear patent. IMPRESSION: 1. Unremarkable MR angiogram of the neck noting a motion compromised examination. 2. There is occlusion of the right posterior cerebellar artery seen at the skull base. ACT 112: Negative or not required by law. Electronically signed by: Burt Houser M.D. 11/15/2022 5:11 PM Code Status & VTE Plan Code Status DNR/DNI after discussion with patient and spouse Supervising Physician Co-Signing Physician Notes Patient seen and examined, chart reviewed, case discussed with Luisa De Los Santos PA-C and I agree with the assessment and plan as above except as otherwise noted Labs and images reviewed Tono is seen at the bedside with his present. MRI findings and pathophysiology of acute/subacute CVA discussed in detail at the bedside. Patient expresses multiple concerns on how his MRI findings will translate into clinical function, discussed that while various stroke syndromes can be predicted based on the vessel occluded ultimately the degree of deficit that the patient experiences variable and based on clinical impression. Patient endorses a has had past neuropathy, but denies any weakness or change in sensation acutely and does not currently notice any numbness or tingling in his face, does not have difficulty speaking, and does not have any receptive or expressive aphasia. Reviewed right SALES ASSISTANT DISPLAYS occlusion which corresponds with MRI findings, but which are not recommended for endovascular intervention or thrombolytic treatment. Agree with overnight monitoring for stroke, continuing aspirin and Eliquis, permissive hypertension given acute/subacute time. And continued lipid, diabetes, and hypertension management as noted. No additional questions or concerns at bedside, agree with plan of care as noted above. PG Care Time/CCT Total # of Minutes Spent Total Time Spent with Patient: Total time spent is greater than 50% in coordination of care (as documented) at patient's floor/unit and/or counseling patient: Coding Level of Care Code 15937 INT INP/OBS CARE 3/75MIN Diagnoses Ischemic cerebrovascular accident (CVA) I63.9 Occlusion of right posterior cerebral artery I66.21 Atrial fibrillation, permanent I48.21 Diabetes mellitus type II, uncontrolled E11.65 Chronic kidney disease, stage IV (severe) N18.4 Ischemic cardiomyopathy I25.5 Hypertension I10
[2022-11-15] MEDS ORDERED: DEXTROSE 50% 50 ML SYRINGE IV PRN ×2 (19:32→20:57)
[2022-11-15] MEDS ORDERED: GLUCOSE 10 TAB/TUBE PO PRN ×2 (19:32→20:57)
[2022-11-15] MEDS ORDERED: ONDANSETRON INJ 2 MG/ML 2 ML VIAL IV PRN (19:32)
[2022-11-15] MEDS ORDERED: MAGNESIUM HYDROXIDE SUSP 30 ML UDC PO PRN (19:32)
[2022-11-15] MEDS ORDERED: CARBOHYDRATES FOR HYPOGLYCEMIA PO PRN ×2 (19:32→20:57)
[2022-11-15] MEDS ORDERED: GLUCAGON FOR INJ 1 MG VIAL SQ PRN ×2 (19:32→20:57)
[2022-11-15] MEDS ORDERED: ACETAMINOPHEN 325 MG TAB PO PRN (19:32)
[2022-11-15] MEDS ORDERED: POLYETHYLENE (MIRALAX) 17 GM PACK PO PRN (19:32)
[2022-11-15] MEDS ORDERED: GLUCOSE 40% GEL 15 GM TUBE PO PRN ×2 (19:32→20:57)
[2022-11-15] MEDS ORDERED: ALUMINUM/MAGNESIUM SUSP 30 ML UDC PO PRN (19:32)
[2022-11-15] MEDS ORDERED: SIMVASTATIN 40 MG TAB PO SCH (21:00)
[2022-11-15] MEDS: INSULIN ASPART PER UNIT CHARGE SC SCH (21:09)
[2022-11-15] MEDS: LANTUS PER UNIT CHARGE SQ SCH (21:18)
[2022-11-15] MEDS: FERROUS SULFATE 325 MG TAB PO SCH (21:20)
[2022-11-15] MEDS: APIXABAN 2.5 MG TAB PO SCH (21:20)
--- NOTE | 2022-11-16 07:18 | Hospitalist Progress Note ---
Date of Service November 16, 2022 Assessment & Plan Admission and Anticipated Discharge Date Admission Date: November 15, 2022 Results & Data Results & Data Vital Signs (Past 12 Hours) Vital Signs Temp Pulse Pulse Resp BP Pulse Ox Pulse Ox 11/15/22 22:00 53 L 11/15/22 19:26 60 11/16/22 03:34 36.6 C 53 L 18 172/86 H 96 11/15/22 23:01 36.7 C 82 18 160/75 H 95 11/15/22 20:02 36.8 C 67 18 167/82 H 96 11/15/22 19:32 36.8 C 67 18 167/82 H 96 11/15/22 19:32 96 O2 Del Method O2 Del Method 11/15/22 22:00 11/15/22 19:26 11/16/22 03:34 Room Air 11/15/22 23:01 Room Air 11/15/22 20:02 Room Air 11/15/22 19:32 Room Air 11/15/22 19:32 Room Air
[2022-11-16 07:39] LABS: Basophils # (auto) 0.03 K/uL (0-0.2); Basophils % (auto) 0.4 %; Eosinophils % (auto) 1.4 %; Hematocrit (blood only) 29.2 % (42.0-52.0); Hemoglobin 9.7 g/dl (14.0-18.0); Immature Granulocytes # (auto) 0.03 K/uL (0.01-0.20); Immature Granulocytes % (auto) 0.4 %; Lymphocytes # (auto) 1.09 K/uL (1.2-3.4); Lymphocytes % (auto) 15.3 %; Mean Corpuscular Hemoglobin 31.2 pg (25.0-34.0); Mean Corpuscular Hgb Conc 33.2 g/dL (32.0-36.0); Mean Corpuscular Volume 93.9 fL (80.0-100.0); Mean Platelet Volume 11.7 fL (9.4-12.4); Monocytes # (auto) 0.76 K/uL (0.11-0.59); Monocytes % (auto) 10.7 %; Neutrophils # (auto) 5.11 K/uL (1.40-6.50); Neutrophils % (auto) 71.8 %; Platelet Count 183 K/uL (130-400); RDW Coefficient of Variation 12.8 % (11.5-14.5); RDW Standard Deviation 43.3 fL (36.4-46.3); Red Blood Count 3.11 M/uL (4.70-6.10); White Blood Count 7.12 K/ul (4.8-10.8)
[2022-11-16 07:55] LABS: Calcium 9.2 mg/dl (8.6-10.3); Creatinine Clr Calc Pharmacy 32.6 ml/min; Est GFR (African American) 33.2 ml/min; Est GFR (Non-African American) 28.7 ml/min; Magnesium 2.4 mg/dl (1.7-2.4); Potassium 4.3 mmol/L (3.5-5.1)
[2022-11-16] MEDS: INSULIN ASPART PER UNIT CHARGE SC SCH ×2 (07:59→12:05)
[2022-11-16] MEDS ORDERED: BUMETANIDE 1 MG TAB PO SCH (09:00)
[2022-11-16] MEDS ORDERED: METOPROLOL SUCC 50MG EXT REL TAB PO SCH (09:00)
[2022-11-16] MEDS ORDERED: ASPIRIN 81 MG ECTAB PO SCH (09:00)
[2022-11-16] MEDS ORDERED: PANTOprazole 40 MG TAB PO SCH (09:00)
[2022-11-16] MEDS ORDERED: NON-FORMULARY MEDICATION (Coenzyme Q10 [Coq-10] 100 mg capsule) PO SCH (09:00)
[2022-11-16] MEDS ORDERED: glipiZIDE 5 MG TAB PO SCH (09:00)
[2022-11-16] MEDS: APIXABAN 2.5 MG TAB PO SCH (09:02)
[2022-11-16] MEDS: FERROUS SULFATE 325 MG TAB PO SCH (09:03)
--- NOTE | 2022-11-16 09:17 | Neurology Consultation ---
Date of Consultation November 16, 2022 Assessment & Plan (1) Ischemic cerebrovascular accident (CVA): (2) Occlusion of right posterior cerebral artery: (3) Memory deficits: (4) Idiopathic polyneuropathy: Plan Patient has had a subacute stroke ( probably sometime in the last 2-3 weeks ) secondary to a right posterior cerebral artery occlusion resulting in some mild spotty areas of acute ischemia in the right temporal and right occipital lobes. Clinically he has no new symptoms or correlates to this stroke. MRI of the brain shows generalized atrophy of a moderate nature and moderate old small vessel ischemic changes. His risk factors for stroke include diabetes (not adequately controlled) and aging. He has a history of atrial fibrillation, which is permanent, and he has been on anticoagulation chronically. Unfortunately this does not stop small vessel ischemic disease. Memory deficits are likely secondary to a mixture of aging and vascular dementia mild nature ( cognitive impairment ). He has polyneuropathy secondary to diabetes involving predominantly sensory fibers. This gives him numbness and a gait disturbance Recommendations: 1. awaiting echocardiogram results. 2. Continue 81 mg aspirin tablet daily. 3. Continue Eliquis daily 4. Consider physical therapy as an outpatient for a home exercise program 5. control glucose as you are doing, aiming for a hemoglobin A1c of less than 7. 6. although a fasting lipid profile has not been done this hospitalization, he has been well controlled on low-dose simvastatin. I would keep this dose the same. He would not be a high dose statin candidate my opinion. 7. Otherwise I have no further neurologic recommendations and I would follow him as an outpatient in 2-3 weeks. Overall, I spent a total of 90 minutes with this case including review of records, review of MRI films, reports generation, direct evaluation the patient at bedside, and discussion of the case with the patient and RN at bedside and Dr. Zamudio, including differential diagnosis and treatment options. History of Present Illness Reason for Consultation: Patient is an 82-year-old, who I was asked to see at the request of Luisa De Los Santos PA-C, for neurologic consultation regarding stroke. Requesting Physician: Luisa De Los Santos PA-C Attending Physician: Saravanan Cheung, DO History of Present Illness I 1st saw this patient on October 28 for several problems including progressive numbness in the lower extremities, likely secondary to his diabetic polyneuropathy ( proven by EMG in May of 2020). In addition he was having memory issues over the last 2 years and was having progressive fatigue. At that time he had no focal abnormalities, speech or vision issues, or encephalopathy. His exam was remarkable for decreased sensation in his lower extremities and absent distal reflexes, all consistent with polyneuropathy. Laboratory studies revealed aufs-ql-kfoiczwx anemia, a sed rate of 28, CK of 62, and hemoglobin A1c of 7.7. He had elevated BUN and creatinine and a mildly low sodium of 128. Vitamin-D was 47, B12 was greater than 1500, but parathyroid hormone was elevated 148. Lyme antibody titers had a positive IgG and negative IgM. He has been treated for Lyme disease twice in the past. An MRI of the brain was obtained on November 15 ( ordered for the memory dysfunction) and showed subacute stroke in the right posterior cerebral artery distribution ( right temporal and occipital lobes) of a small scattered nature. There was moderate generalized atrophy and moderate old small vessel ischemic disease noted. I reviewed these films with the patient in the room. Patient was admitted on November 15 and came to the ER at 2:43 p.m. with a temperature 36.9, pulse 67 regular, respiratory rate 20, blood pressure 135/91, and O2 saturation 100%. His neurologic examination was nonfocal and had no deficits, meningeal signs, or encephalopathy. Chest x-ray showed cardiomegaly. MR angiography of the head revealed occlusion of the right posterior cerebral artery. MR angiography of the neck without contrast was unremarkable. CBC showed mild to moderate anemia and Chem profile revealed elevated BUN and creatinine as before and a glucose of 168. Today the patient is without pain or headache. He does not have any new symptoms that were not present October 28. Allergies Allergy/AdvReac Type Severity Reaction Status Date / Time No Known Allergies Allergy Verified 11/15/22 16:56 Home Medications Medication Instructions Recorded Confirmed Type coenzyme Q10 100 mg capsule 100 mg PO QAM 11/23/20 11/15/22 History (CoQ-10) psyllium husk 0.52 gram capsule 0.52 g PO QAM 12/06/20 11/15/22 History (Metamucil) ferrous sulfate 325 mg (65 mg 325 mg PO BID #180 tabs 04/19/21 11/15/22 Rx iron) tablet,delayed release bumetanide 0.5 mg tablet 0.5 mg PO DAILY #90 tabs 11/21/21 11/15/22 Rx simvastatin 20 mg tablet 20 mg PO QPM #90 tabs 02/04/22 11/15/22 Rx glipizide 5 mg tablet 2.5 mg PO DAILY #45 tabs 05/03/22 11/15/22 Rx apixaban 2.5 mg tablet (Eliquis) 2.5 mg PO BID #180 tabs 05/10/22 11/15/22 Rx doxazosin 2 mg tablet 2 mg PO BID #180 tabs 05/10/22 11/15/22 Rx pantoprazole 40 mg tablet,delayed 40 mg PO QAM #90 tabs 05/10/22 11/15/22 Rx release flash glucose scanning reader #1 ea 05/21/22 11/07/22 Rx (FreeStyle Juni 2 Adel) flash glucose sensor (FreeStyle #1 kit 05/21/22 11/07/22 Rx Juni 2 Sensor kit) spironolactone 25 mg tablet 25 mg PO QAM #90 tabs 09/30/22 11/15/22 Rx metoprolol succinate 50 mg 50 mg PO DAILY #30 tabs 11/04/22 11/15/22 Rx tablet,extended release 24 hr hydrocortisone 2.5 % topical cream 1 applic topical BID #30 grams 11/07/22 11/15/22 Rx ketoconazole 2 % topical cream 1 applic topical BID #30 grams 11/07/22 11/15/22 Rx Patient History Medical History Abdominal pain Acute hyponatremia Acute on chronic systolic CHF (congestive heart failure) Acute UTI NIGEL (acute kidney injury) Anemia From GI Bleed Anticoagulant long-term use hx -- has been on hold since October 2020 d/t the gastric ulcer Arteriosclerosis of coronary artery Ascites Benign prostatic hyperplasia Cirrhosis Discharge planning issues Duodenal ulcer (11/2020) DVT prophylaxis H pylori ulcer (11/2020) History of bleeding ulcers (~1984) History of squamous cell carcinoma Hypercholesterolemia Hypertension Low back pain Right-sided congestive heart failure Sciatica Type 2 diabetes mellitus NIDDM UTI (urinary tract infection) Weakness Surgical History H/O oral surgery dental implants History of ankle surgery ORIF Bilateral ankle History of appendectomy History of colonoscopy History of coronary artery bypass graft (~2000) x2 vessels. History of surgical removal of skin lesion History of tonsillectomy S/P right knee arthroscopy Family History Mother Cardiac disorder Hypertension Father Cardiac disorder Stroke Hypertension Grandmother (Maternal) Stroke Denies family history of Ovarian cancer Prostate cancer Myocardial infarction Breast cancer Colorectal cancer Social History Smoking Status: Never smoker Second Hand Exposure: No; Do You Dip or Chew Tobacco: No; Tobacco Cessation Education Requested by Patient: No Hx Alcohol Use: Yes Alcohol type: other Hx Substance Use: No Preferred Language: Malay Communication Ability: Effective Inspector Circuitry Negative Required: No Beliefs That Will Affect Care: None marital status: Current Living Situation: Spouse current occupational status: retired Other Information That Helps Us Care for You: No Feels Safe at Home: Yes Safety Concerns: Feels Safe At This Time Diet: low carbohydrate and low salt Seatbelt Use: always Assistive Devices: Cane Review of Systems Constitutional: + fatigue and + weakness; no fever Eyes: + worsening vision ( Occasional blurry vision); no diplopia and no eye pain Ear, Nose, Mouth, Throat: + dizziness ( patient has occasional episodes of vertiginous / lightheadedness feelings when he gets up in the morning lasting 1- 2 minutes. Rarely he will get this in the afternoon it is not every morning.); no ear pain, no tinnitus, no hearing loss, no snoring, no hoarseness and no dysphagia Respiratory: no cough and no dyspnea Cardiovascular: no chest pain, no palpitations and no lightheadedness Gastrointestinal: no abdominal pain, no nausea and no vomiting Musculoskeletal: no back pain, no neck pain, no radicular pain, no joint pain and no myalgia Integumentary: no rash and no lesions Neurologic: + tingling, + numbness and + memory loss; no gait abnormality, no localized weakness, no generalized weakness, no tremor(s), no abnormal movements, no headache(s), no abnormal speech and no confusion Psychiatric: no depression, no irritability, no anxiety, no difficulty concentrating, no confusion and no hallucinations Endocrine: no fatigue and no flushing Hematologic / Lymphatic: no easy bleeding and no easy bruising Allergy / Immunological: no urticaria and no problem reported Exam (Neuro) Physical Exam: The patient is left-handed. The patient is awake, alert, and attentive. Speech is normal without any aphasia or dysarthria. The patient can name objects, repeat phrases, and has normal spontaneous speech. Mentation and thought processes are intact, with orientation to person, place and time, and normal fund of knowledge. Attention and concentration are normal. Mood and affect are normal and appropriate. General appearance and grooming are normal. Short and long-term memory are intact. Pupils are 4 mm bilaterally and reactive to light. Extraocular eye muscles are intact without nystagmus. Visual acuity and visual baker seem normal grossly to confrontation. There are no deficits to sensation in the face in all 3 distributions of the fifth cranial nerve bilaterally. Corneal reflexes are positive bilaterally. Facial strength and symmetry was normal bilaterally. Hearing seems normal bilaterally. Palate moves well without asymmetry. There is normal sternocleidomastoid and trapezius (shoulder shrug) strength bilaterally. Tongue is midline with good strength bilaterally. Neck has a full range of motion without discomfort. There are no cervical bruits bilaterally. There are no cranial or ocular bruits. Heart is without murmur. There is a regular rhythm and rate. Cervical, thoracic, and lumbar spine are nontender to palpation. Gait was not tested, but stance sitting up in bed with feet dangling is quite normal. With outstretched arms there is no drift. There are no resting, postural, or action tremors. There is no ataxia with finger to nose testing. There is good facility in the hands. No other abnormal involuntary movements are noted. 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 Motor strength is 5/5 diffusely in the legs bilaterally including hip flexors, quadriceps, hamstrings, gastrocnemius, tibialis anterior, tibialis posterior, and Peroneii muscles. Toe extensors are normal and there is good bulk in the extensor digitorum brevis muscles bilaterally. The limbs have good tone without rigidity or spasticity. There is no atrophy noted in the muscles. Muscle bulk is normal, there is no tenderness to palpation, no myotonia to percussion, and no fasciculations seen. Sensory examination Reveals decreased sensation in a stocking distribution in the legs bilaterally. Reflexes are 1/4 in the biceps, triceps,and quadriceps tendons bilaterally. Brachioradialis and Achilles tendon reflexes are absent bilaterally. There is no clonus bilaterally. Toes are downgoing with plantar stimulation bilaterally. Peripheral pulses are present and of normal quality distally in all 4 limbs. There is no peripheral edema noted in the limbs. Results & Data Vital Signs (Past 12 Hours) Vital Signs Temp Pulse Pulse Resp BP Pulse Ox O2 Del Method 11/16/22 07:31 36.8 C 66 15 158/77 H 96 Room Air 11/15/22 22:00 53 L 11/16/22 03:34 36.6 C 53 L 18 172/86 H 96 Room Air 11/15/22 23:01 36.7 C 82 18 160/75 H 95 Room Air PG Care Time/CCT Total # of Minutes Spent Total Time Spent with Patient: Total time spent is greater than 50% in coordination of care (as documented) at patient's floor/unit and/or counseling patient: Coding Level of Care Code 79197 INT INP/OBS CARE 3/75MIN Diagnoses Ischemic cerebrovascular accident (CVA) I63.9 Occlusion of right posterior cerebral artery I66.21 Memory deficits R41.3 Idiopathic polyneuropathy G60.9 Time Spent (min) 90
[2022-11-16] MEDS: LANTUS PER UNIT CHARGE SQ SCH (09:18)
--- NOTE | 2022-11-16 09:50 | XCELERA ---
[id number] \\[id number]
--- NOTE | 2022-11-16 11:27 | Discharge Summary ---
Date of Service November 16, 2022 Admission HPI Per Admitting Provider Tono Brar is an 82 yo M with a pmhx of atrial fibrillation on Eliquis, CKD, NIDDM, and ischemic cardiomyopathy who presented to the ER today due to MRI that revealed findings of an acute versus subacute CVA. Patient notes that other than experiencing some mild dizziness, feeling more off balance/altered gait that he has not been experiencing any significant neurologic symptoms. He denies vision changes, numbness/tingling in his arms or face, does endorse sensation loss in his both lower extremities for which he has known neuropathy, and denies focal weakness. He denies slurred speech or facial droop. states that she has noticed some mild confusion that has been going on for "awhile" but patient lacks insight to this. She does not feel that it has gotten worse in the last few weeks. Patient was seen by Dr. Araiza earlier in October and due to his symptoms, an MRI of the brain was ordered. The patient underwent MRI today which revealed multiple clustered small foci of acute to subacute infarction within the right temporal and occipital lobes. Due to these findings, the patient was referred to the ER for further evaluation. In the ED, he had an MRA of the head and neck which revealed an occlusion of the right posterior cerebral artery. Case was discussed with [facility] neurointerventionalist for the occluded vessel for which they did not feel warranted transfer as there was no indication for endovascular intervention. Subsequently, the patient has been referred to the hospitalist service for admission for further evaluation. Admission Exam Per Admitting Provider GENERAL: 82 yo well-developed, well-nourished WM. NAD. LUNGS: Clear to auscultation bilaterally. No W/R/R. CARDIOVASCULAR: S1 S2 irregular rhythm with controlled rate, systolic murmur noted. No g/r ABDOMEN: Soft, non-tender and non-distended. BS normoactive x 4 quad. EXTREMITIES: No edema. Non-tender. Peripheral pulses +2/4. NEUROLOGIC: A&O x3. No focal neurological deficits. CN II-XII grossly intact. PSYCHIATRIC: Cooperative. Appropriate mood and affect. SKIN: Warm, dry, intact. No rashes or lesions. Principal Diagnosis Subacute CVA Discharge Exam Constitutional: well-appearing, no acute distress CV: regular rhythm, no murmur appreciated, extremities well-perfused Resp: CTABL, no wheezes/rales/rhonchi appreciated, no increased work of breathing Neuro: alert, oriented, no focal neurologic deficit appreciated Discharge Data Allergies Allergy/AdvReac Type Severity Reaction Status Date / Time No Known Allergies Allergy Verified 11/15/22 16:56 Consultations 11/15/22 16:59 ED Decision to Admit Stat 11/15/22 19:32 Consult Neurology Routine Ordered Studies 11/15/22 15:10 MR angio head wo con Stat MR angio neck wo con Stat Hospital Course (1) Ischemic cerebrovascular accident (CVA): CVA Patient was placed on telemetry monitoring upon admission. Imaging showed a subacute stroke secondary to a right posterior cerebral artery occlusion with some areas of ischemia in the right temporal and occipital lobes. Patient's symptoms resolved shortly after admission. MR brain showed generalized atrophy of a moderate nature and moderate old small vessel ischemic changes. Of note, patient takes eliquis for permanent atrial fibrillation. Echocardiogram showed grade III diastolic dysfunction with other mild findings - see report for full details. Neurology was consulted and felt that patient's symptoms and imaging were consistent with a CVA occurring about 2-3 weeks prior. Patient was already on a statin prior to admission, and neurology feels his simvastatin dose is appropriate. Aspirin was added to patient's regimen. Patient will follow up with neurology in the next few weeks. (2) ASCVD (arteriosclerotic cardiovascular disease): (3) Atrial fibrillation, permanent: (4) Cardiac cirrhosis: (5) Chronic kidney disease, stage IV (severe): (6) Diabetes mellitus type II, uncontrolled: (7) Diabetic peripheral neuropathy associated with type 2 diabetes mellitus: (8) Duodenal ulcer: (9) History of coronary artery bypass graft: Total Time Total Time Spent Total Time Spent (In Minutes): <30 Discharge Plan Discharge Items Patient Disposition: Home - Self-Care Reason For Visit: ISCHEMIC CVA Discharge Diagnosis: Stroke Activity: Resume your previous activity Non-emergency contact: Primary Care Provider and Neurologist Call non-emergency contact if: you have any medication questions and your symptoms worsen Follow-up/Referrals: Valentín Bales MD [Primary Care Provider] - (Patient will call to schedule follow up appointment) Diet: Carb Consistent or DM2 and Heart Healthy Addtl Attending Provider Instructions: You were admitted to the hospital for stroke-like symptoms. We performed imaging tests which showed evidence of a stroke occurring a few weeks ago. Your symptoms have improved and we feel it is safe for you to return home. A discharge summary will be sent to your primary care physician to ensure continuity of care. Please bring this discharge summary with you to your next office appointment so that your provider can review it at that time. Follow-up appointments: Make a follow-up appointment with your PCP within the next week. It is very important that you follow up with them shortly after discharge from the hospital. Keep all your follow-up appointments as already scheduled. If you cannot make an appointment, notify your provider. Medications: Your medication list has been reviewed and reconciled upon discharge to ensure accuracy and continuity of care. An updated list of all your medications is included with your hospital discharge paperwork. Please review this list closely, and make note of any changes. * We sent a new medication called aspirin to your pharmacy. Take aspirin (81mg) once daily. If you have any issues filling these prescriptions, please call [phone] and ask to leave a message for Dr. Salazar Zamudio. Take your medications as instructed; do not skip a dose of your medicines. Make sure all of your doctors know every medicine you are taking (including odnm-psb-tgrzjkw medicines, vitamins, and supplements). Call your primary care provider before taking any new medicines (including zfom-rvl-mvzkrqf medicines, vitamins, and supplements), because some of these may interact with your current medications, or may make your symptoms worse. Tell your primary care provider if you cannot afford your medications. CONTACT YOUR PRIMARY CARE PROVIDER if you experience any of the following: Weakness, slurred speech, confusion, facial droop Difficulty following your treatment plan, or difficulty taking medications CALL 911 OR GO TO THE EMERGENCY DEPARTMENT if you experience any of the following: Sudden, severe abdominal pain or nausea/vomiting Severe chest pain, or chest pain that radiates (moves) to your jaw or arm Sudden, severe shortness of breath or difficulty breathing Thank you for allowing us to participate in your care. Pending Studies at Discharge: No Stand-Alone Forms: [facility] Medications and DC Order Prescriptions: New aspirin 81 mg Tablet,Delayed Release (Dr/Ec) 81 mg PO QAM 30 Days Qty: 30 2RF Continued ferrous sulfate 325 mg (65 mg iron) tablet,delayed release (DR/EC) 325 mg PO BID Qty: 180 0RF Rx Instructions: TAKE 1 TABLET BY MOUTH TWICE PER DAY WITH FOOD, NO DAIRY simvastatin 20 mg tablet 20 mg PO QPM Qty: 90 3RF glipizide 5 mg tablet 2.5 mg PO DAILY Qty: 45 3RF Eliquis 2.5 mg tablet 2.5 mg PO BID Qty: 180 3RF doxazosin 2 mg tablet 2 mg PO BID Qty: 180 3RF Hold Instructions: low BP pantoprazole 40 mg tablet,delayed release (DR/EC) 40 mg PO QAM Qty: 90 3RF (DME) FreeStyle Juni 2 Sensor Kit See Rx Instructions .Route Qty: 1 6RF Rx Instructions: Replace every 14 days (DME) FreeStyle Juni 2 Cameron Misc See Rx Instructions .Route Qty: 1 0RF Rx Instructions: Check glucose at least 4 times a day spironolactone 25 mg tablet 25 mg PO QAM Qty: 90 3RF Hold Instructions: low BP Rx Instructions: ON HOLD bumetanide 0.5 mg tablet 0.5 mg PO DAILY Qty: 90 3RF Hold Instructions: low BP coenzyme Q10 [CoQ-10] 100 mg capsule 100 mg PO QAM ketoconazole 2 % cream 1 applic topical BID Qty: 30 1RF Rx Instructions: Apply to areas of the skin folds twice daily x 10 days as needed for flaring. hydrocortisone 2.5 % cream 1 applic topical BID Qty: 30 1RF Rx Instructions: Apply to areas of the skin folds twice daily x 10 days as needed for flaring. metoprolol succinate 50 mg tablet extended release 24 hr 50 mg PO DAILY Qty: 30 0RF psyllium husk [Metamucil] 0.52 gram Capsule 0.52 g PO QAM Discharge Orders: Discharge Order (Routine); Ordered 11/16/22 Ordered By: Salazar Zamudio Admission Data Admit Date/Time: 11/15/22 17:57 Attending Provider: Saravanan Cheung Admit Provider: Reed Melton Primary Care Provider: Valentín Bales Other Providers: Reed Melton ; Corey Araiza Other Interventions: Discharge Summary Assessment (RN) Last Done: 11/16/22 12:37 Supervising Physician Co-Signing Physician Notes I personally examined the patient and verified all olivo points of history and exam, discussed case, and agree with decision making with Dr Zamudio Still feels somewhat dizzy. Feels okay to go home. Extensive discussion with patient and , answered all questions the best my ability and to their satisfaction. Vitals noted, in general he is awake and alert pleasant no distress. HEENT normocephalic atraumatic mucous membranes moist. Breathing unlabored no accessory muscle use good effort. Skin shows no rashes no pallor or icterus. Labs and imaging reviewed, neuro input appreciated. Posterior circulation CVAadd aspirin, discussed with patient/ given his prior history of peptic ulcer disease may be reasonable to consider Plavix insteadshe noted she would prefer to discuss this with his outpatient team he knows the situation betterwe discussed this is absolutely reasonable. Aspirin for now, consider switch to Plavix as an outpatient. Safe/stable for home. Gave prescription for PT eval and treat for balance issues related to posterior stroke. Already has cardiology follow-up for this coming week and neurology follow-up in 2 weeks. Otherwise as above. Resident Activity Tracking Resident Involvement: Resident Care Provided Care Provided: Adult Hospital Medicine
--- NOTE | 2022-11-16 18:08 | Billing Data ---
Date of Service November 16, 2022 Coding Level of Care Code 97440 IN/OBS DISCH 30 MIN/LESS
--- NOTE | 2022-11-18 08:25 | Electrocardiogram Report ---
Test Reason : Blood Pressure : / mmHG Vent. Rate : 065 BPM Atrial Rate : 234 BPM P-R Int : 000 ms QRS Dur : 152 ms QT Int : 482 ms P-R-T Axes : 000 235 028 degrees QTc Int : 501 ms Atrial fibrillation Right bundle branch block Inferior infarct , age undetermined Abnormal ECG When compared with ECG of 01-JUN-2021 23:25, Questionable change in QRS axis Inferior infarct is now Present Confirmed by Paulo De La Vega ([id number]) on 11/18/2022 8:25:31 AM Referred By: Confirmed By:Paulo De La Vega
== END 2022-11-16 13:05 | disposition home or self-care (01) | DRG 65 ==
LOC: ED 14:41 → SUATTDRO 17:57 → 2E 17:57

== ENCOUNTER 2023-12-29 15:05 | Inpatient (IN) ==
[2023-12-29 16:38] LABS: Hematocrit (blood only) 35.6 % (42.0-52.0); Mean Corpuscular Hemoglobin 30.4 pg (25.0-34.0); Mean Corpuscular Hgb Conc 33.7 g/dL (32.0-36.0); Mean Corpuscular Volume 90.1 fL (80.0-100.0); Mean Platelet Volume 12.4 fL (9.4-12.4); Platelet Count 175 K/uL (130-400); RDW Coefficient of Variation 12.4 % (11.5-14.5); Red Blood Count 3.95 M/uL (4.70-6.10)
--- NOTE | 2023-12-29 16:41 | CT Scan Report ---
CT abd pelvis wo con CLINICAL HISTORY: back pain abd pain fever TECHNIQUE: Helical axial images of the abdomen and pelvis were obtained. Automated dose lowering tech niques and/or adjustment according to patient size were utilized for this exam. This exam was perfor med without intravenous contrast. CT DOSE: 1623.09 mGy.cm COMPARISON: Comparison is made to CT abdomen pelvis 06/01/2021 FINDINGS: Lower chest: Bibasilar atelectasis versus scarring is seen. Liver: Again noted is mildly nodular contour of the liver. Gallbladder and biliary tree: Cholelithiasis is seen without evidence of cholecystitis. No intra- or extrahepatic biliary ductal dilation. Pancreas: Unremarkable, no focal lesions. Spleen: Splenule is incidentally noted. Adrenals: Unremarkable. Kidneys and ureters: Perinephric stranding is noted bilaterally. Bladder: Diffuse homogeneous wall thickening is seen. Reproductive organs: Prostatomegaly is seen. Bowel: The appendix is normal. Lymph nodes Retroperitoneal: Unremarkable. Pelvic: Unremarkable. Mesenteric: Unremarkable. Peritoneum: Normal. Vessels: Atherosclerotic calcifications are seen. Abdominal wall: Unremarkable. Bones: Degenerative changes in the visualized spine. IMPRESSION: No acute abnormality to explain back pain. Additional findings as above. No ascites is seen. ACT 112: Negative or not required by law. Electronically signed by: Demetrio Chamberlain M.D. 12/29/2023 4:40 PM
[2023-12-29 16:59] LABS: Albumin Level 4.1 gm/dl (3.4-5.0); BUN Creatinine Ratio 18.4 (10-20); Bilirubin Direct 0.3 mg/dl (0-0.2); Bilirubin,Total 1.7 mg/dl (0.2-1.0); Calcium 9.4 mg/dl (8.6-10.3); Creatinine Clr Calc Pharmacy 28.3 ml/min; Est GFR (Non-African American) 22.4 ml/min; Magnesium 1.9 mg/dl (1.7-2.4); Potassium 3.9 mmol/L (3.5-5.1); Total Protein 7.3 gm/dl (6.0-8.3)
--- NOTE | 2023-12-29 16:59 | XRay Report ---
XR chest 1V portable CLINICAL HISTORY: Sepsis TECHNIQUE: Single frontal radiograph of the chest was obtained. Comparison: Comparison is made to chest radiograph 11/15/2022 FINDINGS: Median sternotomy wires are unchanged. Cardiomegaly is noted. The lungs are clear. No evidence of ple ural effusion or pneumothorax. IMPRESSION: No acute abnormalities and in particular no radiographic evidence of pneumonia. Stable cardiomegaly. ACT 112: Negative or not required by law. Electronically signed by: Demetrio Chamberlain M.D. 12/29/2023 4:58 PM
[2023-12-29 17:01] LABS: Basophils # (auto) 0.04 K/uL (0.00-0.20); Basophils % (auto) 0.2 %; Immature Granulocytes # (auto) 0.13 K/uL (0.01-0.20); Immature Granulocytes % (auto) 0.7 %; Lymphocytes # (auto) 0.32 K/uL (1.20-3.40); Lymphocytes % (auto) 1.8 %; Monocytes # (auto) 0.74 K/uL (0.11-0.59); Monocytes % (auto) 4.2 %; Neutrophils # (auto) 16.37 K/uL (1.40-6.50); Neutrophils % (auto) 93.1 %; RBC Morphology Unremarkable
[2023-12-29 17:04] LABS: Troponin I High Sensitivity 18.5 pg/ml (0-20)
[2023-12-29 17:05] LABS: INR 1.2 (0.9-1.1); Partial Thromboplastin Time 26 Seconds (21-31); Prothrombin Time 12.7 Seconds (9.0-12.0)
[2023-12-29 17:16] LABS: Base Excess VBG 4.7 mEq/L; HCO3 VBG 29 mmol/L; Oxygen Saturation VBG 82.1 %; PCO2 VBG 42 mmHg (38-50); PO2 VBG 47 mmHg; pH VBG 7.45 (7.36-7.41)
--- NOTE | 2023-12-29 17:38 | Electrocardiogram Report ---
Test Reason : Blood Pressure : / mmHG Vent. Rate : 076 BPM Atrial Rate : 000 BPM P-R Int : 000 ms QRS Dur : 172 ms QT Int : 446 ms P-R-T Axes : 000 246 014 degrees QTc Int : 501 ms Atrial fibrillation Right bundle branch block Inferior infarct (cited on or before 15-NOV-2022) Abnormal ECG When compared with ECG of 15-NOV-2022 15:31, No significant change was found Confirmed by Quan Bruce ([id number]) on 12/29/2023 5:38:06 PM Referred By: Confirmed By:Rick Bruce
[2023-12-29] MEDS: CEFEPIME 2,000 MG/20 ML VIAL IV STA (17:47)
--- NOTE | 2023-12-29 18:04 | History & Physical Report ---
Date of Service December 29, 2023 Assessment & Plan (1) Sepsis: Plan: Sepsis ?UTI Afebrile, leukocytosis of 17, hypoxic on 4 L Chest x-ray without evidence of pneumonia or edema. CTA/P is with perinephric stranding? Pyelonephritis. UA pending BioFire pending Patient received cefepime in the ER Patient ordered 1 L of NSS. Will rebolus as clinically indicated.IBW 2427 deferred due to clinical improvement, normal lactate, no tachycardia and history of CHF on Bumex at time of admission Empiric Rocephin/doxycycline ordered Subsequently with uninfected appearing UA. Unclear differential, including viral and tickborne given diffuse aches. Bio fire remains pending, Lyme/Anaplasma/Babesia testing at Patient has been compliant with his Eliquis and has not missed any doses except morning of admission. 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 Metoprolol continued. 1 dose of Entresto held, resume 12/29 (5) Diabetic peripheral neuropathy associated with type 2 diabetes mellitus: Plan: Type II DM Last A1c 7.4%, on glipizide. Metformin deferred due to renal function Patient had been attempting to taper off insulin, previously on basal only 8 to 10 units daily Weight-based basal bolus ordered, home antiglycemic's health Goal BSG 381001 (6) Benign prostatic hyperplasia: Plan: Bladder scan as needed, continue doxazosin (7) Atrial fibrillation, permanent: Plan: A-fib, rate controlled on admission Continue anticoagulation, continue home meds Patient has been compliant with his Eliquis and has not missed any doses except morning of admission. Low suspicion for PE Plan Chronic stable issues: 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 Follows with neurology Has deferred memantine and other similar medications No acute change in management Hyperlipidemia: Continue statin DVT prophylaxis: Anticoagulated Diet: Heart healthy, DM 2 Disposition: PCU CODE STATUS: DNR/DNI History of Present Illness Primary Care Provider: Valentín Bales MD Tono is an 83-year-old male with a past medical history of NYHA class II heart failure with preserved ejection fraction, CKD 4, A-fib on Eliquis, ischemic cardiomyopathy, cardiac cirrhosis, hypertension, hyperlipidemia who presented to the ER with fever and fatigue. Woke up around noon. Has had back pain across the lower back. +Nausea and vomiting. Poor appetite since this morning. no blood or bile. 4-6 episodes of vomiting. Flushed, sweaty earlier in the day. Did feel short of breath earlier today. Was hypoxic and somnolent this morning. SpO2 85% at home. Called Dr. bales/ Recommended ER evaluation, pt transported by EMS. BSG elevated, temp elevated. No falls No chest pain. No shortness of breath at tiem of visit, improved with oxygen from this morning. Deep breathing causes some discomfort in his low back. Has been peeing less than normal. No dysuria. No difficulty peeing. has been eating and drinking less. +nausea at exam. Endorses mild abdominal. Did not take any medicines this Am except glipizide has been taking eliquis, did not take this morning due to feeling poorly slight headache. Feels generally achy all over most prominently in his back bilaterally Medical History: Reviewed Medications: Reviewed Surgical History: Reviewed Family history: Reviewed Allergies: Reviewed Social History: Deneis tobacco use, rare social etoh use Code Status: DNR/DNi Allergies Allergy/AdvReac Type Severity Reaction Status Date / Time No Known Allergies Allergy Verified 12/18/23 13:04 Home Medications Medication Instructions Recorded Confirmed Type coenzyme Q10 100 mg capsule 100 mg PO QAM 11/23/20 12/29/23 History (CoQ-10) ferrous sulfate 325 mg (65 mg 325 mg PO BID #180 tabs 04/19/21 12/29/23 Rx iron) tablet,delayed release aspirin 81 mg tablet,delayed 81 mg PO QAM 30 days #30 tabs 11/16/22 12/29/23 Rx release hydrocortisone 2.5 % topical cream 1 applic topical BID PRN flaring 12/23/22 12/29/23 History ketoconazole 2 % topical cream 1 applic topical BID PRN flaring 12/23/22 12/29/23 History simvastatin 20 mg tablet 20 mg PO QPM #90 tabs 02/03/23 12/29/23 Rx apixaban 2.5 mg tablet (Eliquis) 2.5 mg PO BID #180 tabs 03/17/23 12/29/23 Rx doxazosin 2 mg tablet 2 mg PO BID #180 tabs 03/17/23 12/29/23 Rx sacubitril 49 mg-valsartan 51 mg 0.5 tab PO BID #180 tabs 03/17/23 12/29/23 Rx tablet (Entresto) pantoprazole 40 mg tablet,delayed 40 mg PO QAM #90 tabs 04/22/23 12/29/23 Rx release pen needle, diabetic 32 gauge x #100 ea 09/26/23 12/29/23 Rx 5/32" (BD Nalini 2nd Gen Pen Needle) bumetanide 2 mg tablet 2 mg PO QAM 10/31/23 12/29/23 History cholecalciferol (vitamin D3) 25 25 mcg PO QAM 11/28/23 12/29/23 History mcg (1,000 unit) capsule blood-glucose sensor (FreeStyle 12/18/23 12/29/23 History Juni 3 Sensor device) calcitriol 0.25 mcg capsule 0.25 mcg PO QAM 12/29/23 12/29/23 History glipizide 5 mg tablet 5 mg PO UD 12/29/23 12/29/23 History metoprolol succinate 50 mg 50 mg PO QAM 12/29/23 12/29/23 History tablet,extended release 24 hr psyllium husk 0.52 gram capsule 0.52 g PO QAM 12/29/23 12/29/23 History vit C 250 mg-vit E 90 mg-zinc 40 1 tab PO QAM 12/29/23 12/29/23 History mg-copper 1 [id number] capsule (PreserVision AREDS-2) Past Med/Surg History Problem List (Updated 12/29/23 @ 18:49 by Reed Melton MD) CKD (chronic kidney disease) Sepsis Aortic stenosis 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) Duodenal ulcer (Acute 11/2020) Diabetes mellitus type II, uncontrolled (Chronic) Ischemic cardiomyopathy (Chronic) Diabetic peripheral neuropathy associated with type 2 diabetes mellitus (Chronic) Anemia (Chronic) Atrial fibrillation, permanent (Chronic) Cardiac cirrhosis (Chronic) Chronic kidney disease, stage IV (severe) (Chronic) Memory deficits Vitamin D deficiency Vitamin B12 deficiency (non anemic) Gait disturbance Hyponatremia Hyperkalemia Medical History Occlusion of right posterior cerebral artery Ischemic cerebrovascular accident (CVA) Pain, foot, left, chronic Rosacea Need for pneumococcal vaccine Medicare annual wellness visit, subsequent Medication care plan discussed with patient Acute on chronic systolic CHF (congestive heart failure) Right-sided congestive heart failure Discharge planning issues DVT prophylaxis Cirrhosis Ascites Abdominal pain Acute UTI Acute hyponatremia NIGEL (acute kidney injury) Weakness UTI (urinary tract infection) History of bleeding ulcers (~1984) Anemia History of squamous cell carcinoma Arteriosclerosis of coronary artery Arthralgia of multiple sites Type 2 diabetes mellitus Surgical History S/P right knee arthroscopy History of appendectomy History of colonoscopy History of surgical removal of skin lesion History of tonsillectomy H/O oral surgery History of ankle surgery Family History Mother Cardiac disorder Hypertension Father Cardiac disorder Stroke Hypertension Grandmother (Maternal) Stroke Denies family history of Ovarian cancer Prostate cancer Myocardial infarction Breast cancer Colorectal cancer Social History Smoking Status: Former smoker Second Hand Exposure: No; Do You Dip or Chew Tobacco: No; Hx Alcohol Use: Yes Alcohol type: other Alcohol Intake Frequency: Monthly or Less Alcohol Intake Frequency Comment: "once a year" Hx Substance Use: No Preferred Language: [place] Communication Ability: Effective Teletray Operator Required: No Beliefs That Will Affect Care: None marital status: Current Living Situation: Spouse current occupational status: retired Feels Safe at Home: Yes Diet: low carbohydrate and low salt Seatbelt Use: always Assistive Devices: Cane Physical Exam Physical Exam: General: A&Ox3. NAD. Cooperative. HEENT: Atraumatic, normocephalic. Vision/hearing intact bilaterally. No facial asymmetry. Pulm: CTAB A&P. -wheezes, -rales, -rhonchi. Symmetrical chest rise. No increased work of breathing. No respiratory distress. Cardiac: RRR, -mrg. Radial pulses intact and symmetrical. Abdominal: Soft, mild R/L sided TTP without guarding/rigidity. BS present. Back: No midline or paraspinal tenderness. 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 Sensation to soft touch intact in hands and feet bilat. Results & Data Results & Data Vital Signs (Past 12 Hours) Vital Signs Temp Pulse Resp BP Pulse Ox O2 Del Method O2 Flow Rate 12/29/23 17:30 68 20 126/60 97 Nasal Cannula 4 12/29/23 17:12 72 24 129/70 97 Nasal Cannula 4 12/29/23 17:06 73 20 129/70 98 Nasal Cannula 4 12/29/23 16:00 79 20 127/68 94 Nasal Cannula 4 12/29/23 15:35 75 12/29/23 15:30 81 20 132/72 97 Nasal Cannula 4 12/29/23 15:30 87 L Nasal Cannula 0 12/29/23 15:14 37.9 C H 77 18 140/73 93 Nasal Cannula 4 PG Care Time/CCT Total # of Minutes Spent Total Time Spent with Patient: Total time spent is greater than 50% in coordination of care (as documented) at patient's floor/unit and/or counseling patient: Coding Level of Care Code 43717 INT INP/OBS CARE MIN Diagnoses Sepsis A41.9 CKD (chronic kidney disease) N18.9 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
[2023-12-29 18:14] LABS: Appearance Urine Clear (Clear); Bacteria Urine Automated None Seen (None Seen); Bilirubin Urine Negative (Negative); Blood Urine Negative (Negative); Color Urine Yellow; Epithelial Cell Urine Auto 0-2 /hpf (0-2); Glucose Urine UA Negative (Negative); Ketones Urine Negative (Negative); Leukocyte Esterase Urine Negative (Negative); Nitrite Urine Negative (Negative); Protein Urine 2+ (Negative); RBC Urine Automated 0-2 /hpf (0-2); Specific Gravity Urine 1.017 (1.000-1.030); Urobilinogen Urine Negative (Negative); WBC Urine Automated 0-5 /hpf (0-5); pH Urine 5.5 (4.5-7.5)
[2023-12-29] MEDS ORDERED: GLUCOSE 10 TAB/TUBE PO PRN (18:44)
[2023-12-29] MEDS ORDERED: GLUCAGON FOR INJ 1 MG VIAL SQ PRN (18:44)
[2023-12-29] MEDS ORDERED: CARBOHYDRATES FOR HYPOGLYCEMIA PO PRN (18:44)
[2023-12-29] MEDS ORDERED: GLUCOSE 40% GEL 15 GM TUBE PO PRN (18:44)
[2023-12-29] MEDS ORDERED: DEXTROSE 50% 50 ML SYRINGE IV PRN (18:44)
[2023-12-29 18:50] LABS: Adenovirus PCR Not Detected (NotDetected); Bordetella parapertussis PCR Not Detected (NotDetected); Bordetella pertussis PCR Not Detected (NotDetected); Chlamydia pneumoniae PCR Not Detected (NotDetected); Coronavirus 229E PCR Not Detected (NotDetected); Coronavirus CoV-2 (COVID19)PCR Not Detected (NotDetected); Coronavirus HKU1 PCR Not Detected (NotDetected); Coronavirus NL63 PCR Not Detected (NotDetected); Coronavirus OC43PCR Not Detected (NotDetected); Human Metapneumovirus PCR Not Detected (NotDetected); Influenza A PCR Not Detected (NotDetected); Influenza B PCR Not Detected (NotDetected); Mycoplasma pneumoniae PCR Not Detected (NotDetected); Parainfluenza Virus 1 PCR Not Detected (NotDetected); Parainfluenza Virus 2 PCR Not Detected (NotDetected); Parainfluenza Virus 3 PCR Not Detected (NotDetected); Parainfluenza Virus 4 PCR Not Detected (NotDetected); Respiratory Syncytial VirusPCR Not Detected (NotDetected); Rhinovirus/Enterovirus PCR Not Detected (NotDetected)
[2023-12-29] MEDS: PLASMA-LYTE A 1,000 ML IV ONE (19:18)
[2023-12-29] MEDS: ACETAMINOPHEN 325 MG TAB PO PRN (19:24)
[2023-12-29 19:39] LABS: Lyme Screen Rflx Confirmation Positive (Negative)
[2023-12-29 20:12] LABS: Lyme Ab IgG 2nd Tier Confirm Positive (Negative)
[2023-12-29 20:13] LABS: Lyme Ab IgM 2nd Tier Confirm Negative (Negative)
[2023-12-29] MEDS: DOXYCYCLINE HYCLATE 100 MG in DEXTROSE 5% MINI-B 100 ML IV SCH (20:40)
--- NOTE | 2023-12-29 22:50 | Emergency Department Note ---
History of Present Illness General Chief complaint: Illness Time Seen by Provider: 12/29/23 16:01 History of Present Illness Provider complaint: Back pain nausea fever Maximum Pain Intensity: 6 83-year-old male presents emergency department for back pain nausea and fever. Patient reports his symptoms began today. No fevers. No hematemesis coffee- ground emesis or bilious vomiting. No recent falls or traumas. No chest pain or shortness of breath. Home Medications Medication Instructions Recorded Confirmed Type coenzyme Q10 100 mg capsule 100 mg PO QAM 11/23/20 12/29/23 History (CoQ-10) ferrous sulfate 325 mg (65 mg 325 mg PO BID #180 tabs 04/19/21 12/29/23 Rx iron) tablet,delayed release aspirin 81 mg tablet,delayed 81 mg PO QAM 30 days #30 tabs 11/16/22 12/29/23 Rx release hydrocortisone 2.5 % topical cream 1 applic topical BID PRN flaring 12/23/22 12/29/23 History ketoconazole 2 % topical cream 1 applic topical BID PRN flaring 12/23/22 12/29/23 History simvastatin 20 mg tablet 20 mg PO QPM #90 tabs 02/03/23 12/29/23 Rx apixaban 2.5 mg tablet (Eliquis) 2.5 mg PO BID #180 tabs 03/17/23 12/29/23 Rx doxazosin 2 mg tablet 2 mg PO BID #180 tabs 03/17/23 12/29/23 Rx sacubitril 49 mg-valsartan 51 mg 0.5 tab PO BID #180 tabs 03/17/23 12/29/23 Rx tablet (Entresto) pantoprazole 40 mg tablet,delayed 40 mg PO QAM #90 tabs 04/22/23 12/29/23 Rx release pen needle, diabetic 32 gauge x #100 ea 09/26/23 12/29/23 Rx 5/32" (BD Nalini 2nd Gen Pen Needle) bumetanide 2 mg tablet 2 mg PO QAM 10/31/23 12/29/23 History cholecalciferol (vitamin D3) 25 25 mcg PO QAM 11/28/23 12/29/23 History mcg (1,000 unit) capsule blood-glucose sensor (FreeStyle 12/18/23 12/29/23 History Juni 3 Sensor device) calcitriol 0.25 mcg capsule 0.25 mcg PO QAM 12/29/23 12/29/23 History glipizide 5 mg tablet 5 mg PO UD 12/29/23 12/29/23 History metoprolol succinate 50 mg 50 mg PO QAM 12/29/23 12/29/23 History tablet,extended release 24 hr psyllium husk 0.52 gram capsule 0.52 g PO QAM 12/29/23 12/29/23 History vit C 250 mg-vit E 90 mg-zinc 40 1 tab PO QAM 12/29/23 12/29/23 History mg-copper 1 [id number] capsule (PreserVision AREDS-2) Allergies Allergy/AdvReac Type Severity Reaction Status Date / Time No Known Allergies Allergy Verified 12/18/23 13:04 Past Med/Surg History Problem List (Updated 12/29/23 @ 22:50 by Cj Lamb MD) Pyelonephritis (Acute) CKD (chronic kidney disease) Sepsis Aortic stenosis 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) Duodenal ulcer (Acute 11/2020) Diabetes mellitus type II, uncontrolled (Chronic) Ischemic cardiomyopathy (Chronic) Diabetic peripheral neuropathy associated with type 2 diabetes mellitus (Chronic) Anemia (Chronic) Atrial fibrillation, permanent (Chronic) Cardiac cirrhosis (Chronic) Chronic kidney disease, stage IV (severe) (Chronic) Memory deficits Vitamin D deficiency Vitamin B12 deficiency (non anemic) Gait disturbance Hyponatremia Hyperkalemia Medical History Occlusion of right posterior cerebral artery Ischemic cerebrovascular accident (CVA) Pain, foot, left, chronic Rosacea Need for pneumococcal vaccine Medicare annual wellness visit, subsequent Medication care plan discussed with patient Acute on chronic systolic CHF (congestive heart failure) Right-sided congestive heart failure Discharge planning issues DVT prophylaxis Cirrhosis Ascites Abdominal pain Acute UTI Acute hyponatremia NIGEL (acute kidney injury) Weakness UTI (urinary tract infection) History of bleeding ulcers (~1984) Anemia From GI Bleed History of squamous cell carcinoma Arteriosclerosis of coronary artery Arthralgia of multiple sites Type 2 diabetes mellitus NIDDM Surgical History S/P right knee arthroscopy History of appendectomy History of colonoscopy History of surgical removal of skin lesion History of tonsillectomy H/O oral surgery dental implants History of ankle surgery ORIF Bilateral ankle Family History Mother Cardiac disorder Hypertension Father Cardiac disorder Stroke Hypertension Grandmother (Maternal) Stroke Denies family history of Ovarian cancer Prostate cancer Myocardial infarction Breast cancer Colorectal cancer Social History Smoking Status: Never smoker Second Hand Exposure: No; Do You Dip or Chew Tobacco: No; Tobacco Cessation Education Requested by Patient: No Hx Alcohol Use: No Hx Substance Use: No Preferred Language: Icelandic Communication Ability: 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 Beliefs That Will Affect Care: None marital status: Current Living Situation: Spouse Current Living Situation Comment: With spouse current occupational status: retired Other Information That Helps Us Care for You: No Feels Safe at Home: Yes Safety Concerns: Feels Safe At This Time Diet: low carbohydrate and low salt Seatbelt Use: always Assistive Devices: Cane Physical Exam Vital Signs Vital Signs - 24 hr 12/29/23 15:14 12/29/23 15:30 12/29/23 15:30 Temperature 37.9 C H Temperature Source Oral Pulse Rate 77 81 Respiratory Rate 18 20 Respiratory Effort / Characteristics Non-Labored Spontaneous Respiratory Depth Normal Blood Pressure 140/73 132/72 Blood Pressure Mean 95 104 Blood Pressure Position Sitting Pulse Oximetry 93 87 L 97 Oxygen Delivery Method Nasal Cannula Nasal Cannula Nasal Cannula Oxygen Flow Rate 4 0 4 Sepsis Recent Fever Within 48 Hours Yes Sepsis New/Unexplained Change in Mental Status N/A Sepsis Action Taken by Nursing No Action Required Oxygen Flow Rate - Titration 4 Pulse Oximetry Post Tiitration 92 12/29/23 15:35 12/29/23 16:00 12/29/23 17:06 Temperature Temperature Source Pulse Rate 75 79 73 Respiratory Rate 20 20 Respiratory Effort / Characteristics Respiratory Depth Blood Pressure 127/68 129/70 Blood Pressure Mean 87 89 Blood Pressure Position Pulse Oximetry 94 98 Oxygen Delivery Method Nasal Cannula Nasal Cannula Oxygen Flow Rate 4 4 Sepsis Recent Fever Within 48 Hours Sepsis New/Unexplained Change in Mental Status Sepsis Action Taken by Nursing Oxygen Flow Rate - Titration Pulse Oximetry Post Tiitration 12/29/23 17:12 12/29/23 17:30 12/29/23 18:03 Temperature Temperature Source Pulse Rate 72 68 76 Respiratory Rate 24 20 20 Respiratory Effort / Characteristics Respiratory Depth Blood Pressure 129/70 126/60 126/58 L Blood Pressure Mean 89 82 80 Blood Pressure Position Pulse Oximetry 97 97 96 Oxygen Delivery Method Nasal Cannula Nasal Cannula Nasal Cannula Oxygen Flow Rate 4 4 4 Sepsis Recent Fever Within 48 Hours Sepsis New/Unexplained Change in Mental Status Sepsis Action Taken by Nursing Oxygen Flow Rate - Titration Pulse Oximetry Post Tiitration Physical Exam HENT: Exam performed. - Head: Normocephalic and atraumatic. - Right Ear: External ear normal. No mastoid erythema - Left Ear: External ear normal. No mastoid erythema - Mouth/Throat: The oropharynx is clear and moist. No trismus in the jaw. No dental abscesses or uvula swelling. No oropharyngeal exudate or tonsillar abscesses. EYES: Conjunctivae and EOM are normal. Pupils are equal, round, and reactive to light. Right eye exhibits no discharge. Left eye exhibits no discharge. No scleral icterus. NECK: Normal range of motion. Neck supple. No JVD present. CV: Normal rate, regular rhythm, normal heart sounds and intact distal pulses. There is no peripheral edema. Palpable radial pulses bue. PULM/CHEST: Effort normal and breath sounds normal. No respiratory distress. No stridor. He has no wheezes. He has no rales. ABD: The abdomen is soft. There is no tenderness. There is no rebound, no guarding. No fluid wave. MUSC/SKEL: Normal range of motion. There is no tenderness or deformity. NEURO: Motor and sensation grossly intact. Course Course 1601: The patient was evaluated in room B7. A complete history and physical exam was performed Cardiac monitoring: An order was placed for continuous cardiac monitoring. The monitor shows a rate of 80 with sinus rhythm interpreted by me Patient found to be hypoxic on room air. Supplemental oxygen was applied via nasal cannula. 1743: Vital signs stable on supplemental oxygen via nasal cannula. Labs show leukocytosis 17.6. Hemoglobin of 12. Coagulation studies are within normal limits. VBG is unremarkable. Labs show a creatinine of 2.56 which appears to be at the patient's baseline. Lactic acid is within normal limits. Total bilirubin 1.7 which is at the patient's baseline. Direct bilirubin 0.3 also at the patient's baseline. Procalcitonin 0.22. Chest x-ray negative. CT of the abdomen pelvis shows bilateral perinephric stranding. No ascites. Discussed the results with the patient, patient's , and patient's daughter who is a physician at bedside. Urinalysis and [employer] respiratory still pending. Will treat the patient for pyelonephritis with empiric cefepime. [facility]. Administered Medications Acetaminophen (Acetaminophen 325 Mg Tab) 650 mg PO Q6H PRN PRN Reason: pain/fever Stop: 01/28/24 18:59 Last Admin: 12/29/23 19:24 Dose: 650 mg Documented By: Luli Doxycycline Hyclate 100 mg/ (Dextrose) 100 mls @ 50 mls/hr IV Q12H HILDA Stop: 12/31/23 19:14 Last Admin: 12/29/23 20:40 Dose: 50 mls/hr Documented By: [facility] Discontinued Medications Cefepime HCl (Maxipime) 2,000 mg in 20 mls @ 5 mls/min IV NOW STA; Protocol Stop: 12/29/23 17:43 Last Admin: 12/29/23 17:47 Dose: 5 mls/min Documented By: LIGIA Parenteral Electrolytes (Plasma-Lyte A Ph 7.4) 1,000 mls @ 999 mls/hr IV .Q1H1M ONE Stop: 12/29/23 19:47 Last Infusion: 12/29/23 20:24 Dose: Infused Documented By: [facility] Admin: 12/29/23 19:18 Dose: 999 mls/hr Documented By: [facility] Medical Decision Making Laboratory Data Attestation: I reviewed the patient's lab results. 12/29/23 15:20 12/29/23 15:20 Lab Results 12/29/23 12/29/23 12/29/23 Range/Units 15:20 17:04 17:17 WBC 17.60 H (4.8-10.8) K/ul RBC 3.95 L (4.70-6.10) M/uL Hgb 12.0 L (14.0-18.0) g/dl Hct 35.6 L (42.0-52.0) % MCV 90.1 (80.0-100.0) fL MCH 30.4 (25.0-34.0) pg MCHC 33.7 (32.0-36.0) g/dL RDW Std Deviation 41.0 (36.4-46.3) fL RDW Coeff of Mario 12.4 (11.5-14.5) % Plt Count 175 (130-400) K/uL MPV 12.4 (9.4-12.4) fL Immature Gran % (Auto) 0.7 % Neut % (Auto) 93.1 % Lymph % (Auto) 1.8 % [place] % (Auto) 4.2 % Eos % (Auto) 0.0 % Baso % (Auto) 0.2 % Neut # (Auto) 16.37 H (1.40-6.50) K/uL Lymph # (Auto) 0.32 L (1.20-3.40) K/uL [place] # (Auto) 0.74 H (0.11-0.59) K/uL Eos # (Auto) 0.00 (0.00-0.50) K/uL Baso # (Auto) 0.04 (0.00-0.20) K/uL Immature Gran # (Auto) 0.13 (0.01-0.20) K/uL RBC Morphology Unremarkable PT 12.7 H (9.0-12.0) Seconds INR 1.2 H (0.9-1.1) APTT 26 (21-31) Seconds PTT Ratio 1.0 VBG pH 7.45 H (7.36-7.41) VBG pCO2 42 (38-50) mmHg VBG pO2 47 mmHg VBG HCO3 29 mmol/L VBG O2 Saturation 82.1 % VBG Base Excess 4.7 mEq/L Sodium 136 (136-145) mmol/L Potassium 3.9 (3.5-5.1) mmol/L Chloride 100 (98-107) mmol/L Carbon Dioxide 27 (21-32) mmol/L Anion Gap 9 (3-11) BUN 47 H (6-23) mg/dl Creatinine 2.56 H (0.6-1.4) mg/dl Est Cr Clr Drug Dosing 28.3 ml/min Est GFR ( Amer) 26.0 ml/min Est GFR (Non-Af Amer) 22.4 ml/min BUN/Creatinine Ratio 18.4 (10-20) Glucose 223 H (70-99(Fasting)) mg/dl Lactate 1.1 (0.4-2.0) mmol/L Calcium 9.4 (8.6-10.3) mg/dl Magnesium 1.9 (1.7-2.4) mg/dl Total Bilirubin 1.7 H (0.2-1.0) mg/dl Direct Bilirubin 0.3 H (0-0.2) mg/dl AST 14 (13-39) U/L ALT 13 (7-52) U/L Alkaline Phosphatase 56 (34-104) U/L Ammonia 25.0 (18-72) umol/L Troponin I High Sens 18.5 (0-20) pg/ml Total Protein 7.3 (6.0-8.3) gm/dl Albumin 4.1 (3.4-5.0) gm/dl Lipase 39 (11-82) U/L Procalcitonin 0.22 (0-0.5) ng/ml Urine Color Yellow Urine Appearance Clear (Clear) Urine pH 5.5 (4.5-7.5) Ur Specific [place] 1.017 (1.000-1.030) Urine Protein 2+ H (Negative) Urine Glucose (UA) Negative (Negative) Urine Ketones Negative (Negative) Urine Blood Negative (Negative) Urine Nitrite Negative (Negative) Urine Bilirubin Negative (Negative) Urine Urobilinogen Negative (Negative) Ur Leukocyte Esterase Negative (Negative) Urine WBC (Auto) 0-5 (0-5) /hpf Urine RBC (Auto) 0-2 (0-2) /hpf U Hyaline Cast (Auto) 3-5 H (0-2) /lpf U Epithel Cells (Auto) 0-2 (0-2) /hpf Urine Bacteria (Auto) None Seen (None Seen) Adenovirus (PCR) (NotDetected) Anaplasma Smear See Comment Babesia Smear See Comment B. pertussis DNA (PCR) (NotDetected) B.parapertussis DNA PCR (NotDetected) Lyme Disease Screen Positive H (Negative) Lyme Disease IgG Ab Positive H (Negative) Lyme Disease IgM Ab Negative (Negative) C. pneumoniae DNA (PCR) (NotDetected) Coronavirus OC43 (PCR) (NotDetected) Coronavirus HKU1 (PCR) (NotDetected) Coronavirus 229E (PCR) (NotDetected) SARS-CoV-2 (PCR) (NotDetected) Coronavirus NL63 (PCR) (NotDetected) Human Metapneumovir PCR (NotDetected) Influenza Type A (PCR) (NotDetected) Influenza Type B (PCR) (NotDetected) M. pneumoniae (PCR) (NotDetected) Parainfluenza 1 (PCR) (NotDetected) Parainfluenza 2 (PCR) (NotDetected) Parainfluenza 3 (PCR) (NotDetected) Parainfluenza 4 (PCR) (NotDetected) RSV (PCR) (NotDetected) Entero/Rhino (PCR) (NotDetected) 12/29/23 Range/Units 17:50 WBC (4.8-10.8) K/ul RBC (4.70-6.10) M/uL Hgb (14.0-18.0) g/dl Hct (42.0-52.0) % MCV (80.0-100.0) fL MCH (25.0-34.0) pg MCHC (32.0-36.0) g/dL RDW Std Deviation (36.4-46.3) fL RDW Coeff of Mario (11.5-14.5) % Plt Count (130-400) K/uL MPV (9.4-12.4) fL Immature Gran % (Auto) % Neut % (Auto) % Lymph % (Auto) % [place] % (Auto) % Eos % (Auto) % Baso % (Auto) % Neut # (Auto) (1.40-6.50) K/uL Lymph # (Auto) (1.20-3.40) K/uL [place] # (Auto) (0.11-0.59) K/uL Eos # (Auto) (0.00-0.50) K/uL Baso # (Auto) (0.00-0.20) K/uL Immature Gran # (Auto) (0.01-0.20) K/uL RBC Morphology PT (9.0-12.0) Seconds INR (0.9-1.1) APTT (21-31) Seconds PTT Ratio VBG pH (7.36-7.41) VBG pCO2 (38-50) mmHg VBG pO2 mmHg VBG HCO3 mmol/L VBG O2 Saturation % VBG Base Excess mEq/L Sodium (136-145) mmol/L Potassium (3.5-5.1) mmol/L Chloride (98-107) mmol/L Carbon Dioxide (21-32) mmol/L Anion Gap (3-11) BUN (6-23) mg/dl Creatinine (0.6-1.4) mg/dl Est Cr Clr Drug Dosing ml/min Est GFR ( Amer) ml/min Est GFR (Non-Af Amer) ml/min BUN/Creatinine Ratio (10-20) Glucose (70-99(Fasting)) mg/dl Lactate (0.4-2.0) mmol/L Calcium (8.6-10.3) mg/dl Magnesium (1.7-2.4) mg/dl Total Bilirubin (0.2-1.0) mg/dl Direct Bilirubin (0-0.2) mg/dl AST (13-39) U/L ALT (7-52) U/L Alkaline Phosphatase (34-104) U/L Ammonia (18-72) umol/L Troponin I High Sens (0-20) pg/ml Total Protein (6.0-8.3) gm/dl Albumin (3.4-5.0) gm/dl Lipase (11-82) U/L Procalcitonin (0-0.5) ng/ml Urine Color Urine Appearance (Clear) Urine pH (4.5-7.5) Ur Specific [place] (1.000-1.030) Urine Protein (Negative) Urine Glucose (UA) (Negative) Urine Ketones (Negative) Urine Blood (Negative) Urine Nitrite (Negative) Urine Bilirubin (Negative) Urine Urobilinogen (Negative) Ur Leukocyte Esterase (Negative) Urine WBC (Auto) (0-5) /hpf Urine RBC (Auto) (0-2) /hpf U Hyaline Cast (Auto) (0-2) /lpf U Epithel Cells (Auto) (0-2) /hpf Urine Bacteria (Auto) (None Seen) Adenovirus (PCR) Not Detected (NotDetected) Anaplasma Smear Babesia Smear B. pertussis DNA (PCR) Not Detected (NotDetected) B.parapertussis DNA PCR Not Detected (NotDetected) Lyme Disease Screen (Negative) Lyme Disease IgG Ab (Negative) Lyme Disease IgM Ab (Negative) C. pneumoniae DNA (PCR) Not Detected (NotDetected) Coronavirus OC43 (PCR) Not Detected (NotDetected) Coronavirus HKU1 (PCR) Not Detected (NotDetected) Coronavirus 229E (PCR) Not Detected (NotDetected) SARS-CoV-2 (PCR) Not Detected (NotDetected) Coronavirus NL63 (PCR) Not Detected (NotDetected) Human Metapneumovir PCR Not Detected (NotDetected) Influenza Type A (PCR) Not Detected (NotDetected) Influenza Type B (PCR) Not Detected (NotDetected) M. pneumoniae (PCR) Not Detected (NotDetected) Parainfluenza 1 (PCR) Not Detected (NotDetected) Parainfluenza 2 (PCR) Not Detected (NotDetected) Parainfluenza 3 (PCR) Not Detected (NotDetected) Parainfluenza 4 (PCR) Not Detected (NotDetected) RSV (PCR) Not Detected (NotDetected) Entero/Rhino (PCR) Not Detected (NotDetected) Imaging Data Radiologist's Impression: Chest X-Ray 12/29/23 16:09 XR chest 1V portable CLINICAL HISTORY: Sepsis TECHNIQUE: Single frontal radiograph of the chest was obtained. Comparison: Comparison is made to chest radiograph 11/15/2022 FINDINGS: Median sternotomy wires are unchanged. Cardiomegaly is noted. The lungs are clear. No evidence of pleural effusion or pneumothorax. IMPRESSION: No acute abnormalities and in particular no radiographic evidence of pneumonia. Stable cardiomegaly. ACT 112: Negative or not required by law. Electronically signed by: Demetrio Chamberlain M.D. 12/29/2023 4:58 PM Abdomen/Pelvis CT 12/29/23 16:10 CT abd pelvis wo con CLINICAL HISTORY: back pain abd pain fever TECHNIQUE: Helical axial images of the abdomen and pelvis were obtained. Automated dose lowering techniques and/or adjustment according to patient size were utilized for this exam. This exam was performed without intravenous contrast. CT DOSE: 1623.09 mGy.cm COMPARISON: Comparison is made to CT abdomen pelvis 06/01/2021 FINDINGS: Lower chest: Bibasilar atelectasis versus scarring is seen. Liver: Again noted is mildly nodular contour of the liver. Gallbladder and biliary tree: Cholelithiasis is seen without evidence of cholecystitis. No intra- or extrahepatic biliary ductal dilation. Pancreas: Unremarkable, no focal lesions. Spleen: Splenule is incidentally noted. Adrenals: Unremarkable. Kidneys and ureters: Perinephric stranding is noted bilaterally. Bladder: Diffuse homogeneous wall thickening is seen. Reproductive organs: Prostatomegaly is seen. Bowel: The appendix is normal. Lymph nodes Retroperitoneal: Unremarkable. Pelvic: Unremarkable. Mesenteric: Unremarkable. Peritoneum: Normal. Vessels: Atherosclerotic calcifications are seen. Abdominal wall: Unremarkable. Bones: Degenerative changes in the visualized spine. IMPRESSION: No acute abnormality to explain back pain. Additional findings as above. No ascites is seen. ACT 112: Negative or not required by law. Electronically signed by: Demetrio Chamberlain M.D. 12/29/2023 4:40 PM ECG Data Attestation: I personally reviewed and interpreted this ECG as follows: Additional Comments: Atrial fibrillation with rate of 76. QRS [address] elevation or ST depression. Right bundle branch block present. [facility] Narrative 1601: The patient was evaluated in room B7. A complete history and physical exam was performed Cardiac monitoring: An order was placed for continuous cardiac monitoring. The monitor shows a rate of 80 with sinus rhythm interpreted by me Patient found to be hypoxic on room air. Supplemental oxygen was applied via nasal cannula. 1743: Vital signs stable on supplemental oxygen via nasal cannula. Labs show leukocytosis 17.6. Hemoglobin of 12. Coagulation studies are within normal limits. VBG is unremarkable. Labs show a creatinine of 2.56 which appears to be at the patient's baseline. Lactic acid is within normal limits. Total bilirubin 1.7 which is at the patient's baseline. Direct bilirubin 0.3 also at the patient's baseline. Procalcitonin 0.22. Chest x-ray negative. CT of the abdomen pelvis shows bilateral perinephric stranding. No ascites. Discussed the results with the patient, patient's , and patient's daughter who is a physician at bedside. Urinalysis and [employer] respiratory still pending. Will treat the patient for pyelonephritis with empiric cefepime. [facility]. Impression & Plan Pyelonephritis Discharge Plan Visit Data Chief Complaint: Illness ED Provider: Cj Lamb Discharge Problem: Pyelonephritis Patient Disposition: Admitted As Inpatient Discharge Instructions Interventions: ED Discharge Assessment Last Done: 12/29/23 21:00
[2023-12-29] MEDS: INSULIN ASPART PER UNIT CHARGE SC SCH (22:58)
[2023-12-29] MEDS: LANTUS PER UNIT CHARGE SQ SCH (22:59)
[2023-12-29] MEDS: cefTRIAXone SODIUM 2,000 MG/50 ML BAG IV SCH (23:10)
[2023-12-29] MEDS: SIMVASTATIN 20 MG TAB PO SCH (23:19)
[2023-12-29] MEDS: DOXAZosin MESYLATE TAB 2 MG TAB PO SCH (23:20)
[2023-12-29] MEDS: FERROUS SULFATE 325 MG TAB PO SCH (23:20)
[2023-12-29] MEDS: APIXABAN 2.5 MG TAB PO SCH (23:20)
[2023-12-30 05:01] LABS: A calco-baum cmplx NotReported Not Detected (NotDetected); Bact fragilis Not Reported Not Detected (NotDetected); Blood Culture Id Panel See PCR Comment (NotDetected); C auris Not Reported Not Detected (NotDetected); Calbicans Not Reported Not Detected (NotDetected); Candida glabrata Not Reported Not Detected (NotDetected); Candida krusei Not Reported Not Detected (NotDetected); Cneoformans/gatti Not Reported Not Detected (NotDetected); Cparapsilosis Not Reported Not Detected (NotDetected); E cloacae compx Not Reported Not Detected (NotDetected); Efaecalis Not Reported Not Detected (NotDetected); Efaecium Not Reported Not Detected (NotDetected); Enterobacterales Not Reported Not Detected (NotDetected); Escherichia coli Not Reported Not Detected (NotDetected); H influenzae Not Reported Not Detected (NotDetected); K aerogenes Not Reported Not Detected (NotDetected); Koxytoca Not Reported Not Detected (NotDetected); Kpneumoniae grp Not Reported Not Detected (NotDetected); Lmonocyt Not Reported Not Detected (NotDetected); N meningitidis Not Reported Not Detected (NotDetected); P aeruginosa Not Reported Not Detected (NotDetected); Proteus spp Not Reported Not Detected (NotDetected); Salmonella spp Not Reported Not Detected (NotDetected); Smarcescens Not Reported Not Detected (NotDetected); Staph lugdunensis Not Reported Not Detected (NotDetected); Staph spp. Not Reported Not Detected (NotDetected); Staphaureus Not Reported Not Detected (NotDetected); Staphepi Not Reported Not Detected (NotDetected); Stenmaltophilia Not Reported Not Detected (NotDetected); Strep agal(GrpB) Not Reported Not Detected (NotDetected); Strep pneum Not Reported Not Detected (NotDetected); Strep pyog (GrpA) Not Reported Not Detected (NotDetected); Strep spp Not Reported DETECTED (NotDetected)
[2023-12-30 05:33] LABS: Streptococcus spp DETECTED (NotDetected)
[2023-12-30] MEDS: ASPIRIN 81 MG ECTAB PO SCH (08:01)
[2023-12-30] MEDS: METOPROLOL SUCC 50MG EXT REL TAB PO SCH (08:01)
[2023-12-30] MEDS: CALCITRIOL 0.25 MCG CAPSULE PO SCH (08:01)
[2023-12-30] MEDS: CHOLECALCIFEROL 25 MCG (1000 UNITS) TAB PO SCH (08:01)
[2023-12-30] MEDS: PANTOprazole 40 MG TAB PO SCH (08:02)
[2023-12-30] MEDS: VALSARTAN/SACUBITRIL 51/49 MG TAB PO SCH (08:02)
[2023-12-30] MEDS ORDERED: NON-FORMULARY MEDICATION (Coenzyme Q10 [Coq-10] 100 mg capsule) PO SCH (09:00)
[2023-12-30 09:59] LABS: Hematocrit (blood only) 33.2 % (42.0-52.0); Mean Corpuscular Hemoglobin 30.1 pg (25.0-34.0); Mean Corpuscular Hgb Conc 33.1 g/dL (32.0-36.0); Mean Platelet Volume 11.4 fL (9.4-12.4); Platelet Count 130 K/uL (130-400); RDW Coefficient of Variation 12.7 % (11.5-14.5); RDW Standard Deviation 42.5 fL (36.4-46.3); Red Blood Count 3.65 M/uL (4.70-6.10); White Blood Count 15.53 K/ul (4.8-10.8)
[2023-12-30 10:13] LABS: Albumin Globulin Ratio 1.2 (0.9-2); Albumin Level 3.7 gm/dl (3.4-5.0); BUN Creatinine Ratio 17.5 (10-20); Bilirubin,Total 2.3 mg/dl (0.2-1.0); Calcium 8.7 mg/dl (8.6-10.3); Creatinine Clr Calc Pharmacy 26.5 ml/min; Est GFR (African American) 24.4 ml/min; Est GFR (Non-African American) 21.1 ml/min; Globulin 3.1 gm/dl (2.5-4.0); Potassium 4.2 mmol/L (3.5-5.1); Total Protein 6.8 gm/dl (6.0-8.3)
[2023-12-30] MEDS ORDERED: HYDROmorphone INJ 0.5 MG/0.5 ML SYR IV PRN (10:25)
--- NOTE | 2023-12-30 10:43 | Hospitalist Progress Note ---
Date of Service December 30, 2023 Assessment & Plan (1) Sepsis: Plan: 83-year-old man admitted with sepsis due to Streptococcus bacteremia noncontrast abdominal CT notable for bilateral perinephric stranding and bladder wall thickening however UA was completely normal, so no strong evidence of UTI he has had bilateral ORIF of his ankles in the past, no joint replacements, no pacemaker, no central venous access source unknown at this time, however acute low back pain is extremely concerning for infectious process for example spinal epidural abscess/discitis/osteomyelitis. 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 meds as above (5) Diabetic peripheral neuropathy associated with type 2 diabetes mellitus: Plan: Type II DM Last A1c 7.4%, on glipizide. Metformin deferred due to renal function Patient had been attempting to taper off insulin, previously on basal only 8 to 10 units daily Weight-based basal bolus ordered Goal BSG [id number] (6) Benign prostatic hyperplasia: Plan: Bladder scan as needed, continue doxazosin - currently has Sandra catheter (7) Atrial fibrillation, permanent: Plan: A-fib, rate controlled on admission anticoagulation held, continue home meds Patient has been compliant with his Eliquis and has not missed any doses except morning of admission. 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 Follows with neurology Has deferred memantine and other similar medications No acute change in management Hyperlipidemia: Continue statin DVT prophylaxis: Anticoagulated Admission and Anticipated Discharge Date Admission Date: December 29, 2023 Subjective He has severe low back pain radiating to both buttocks He said this started when he came into the hospital Endorses some numbness of both legs below the knee, which is circumferential. Denies urinary or bowel incontinence, has sandra catheter presently, unclear whether he had urinary retention LE strength is normal Denies abdominal pain, cough, dyspnea Physical Exam 2 Physical Exam: PHYSICAL EXAMINATION Last 24h vital signs reviewed, see documentation in flowsheet General: uncomfortable appearing, hard to get him to roll on his side because of back pain HEENT: Normocephalic, atraumatic, pupils round and equal, sclerae anicteric, no conjunctival injection, moist mucus membranes Lungs: Normal respiratory effort. Clear to auscultation bilaterally. No RRW Heart: Regular rate and rhythm, no murmurs. No JVD Abdomen: Soft, nontender, nondistended. Bowel sounds present. Extremities: Warm, dry, well-perfused. No extremity edema. T and L-spine nontender to palpation, difficult exam Neuro: Alert and oriented x hospital and situation, face symmetric, speech intact, upper extremity strength 5 out of 5, lower extremity exam is challenging however he has 5 out of 5 strength distally with dorsi and plantarflexion bilaterally, sensation is intact to light touch both lower extremities Psych: Normal affect and behavior Results & Data Results & Data Vital Signs (Past 12 Hours) Vital Signs Temp Pulse Resp BP Pulse Ox O2 Del Method O2 Flow Rate 12/30/23 08:25 Nasal Cannula 3 12/30/23 08:05 37.0 C 72 18 143/68 H 97 Nasal Cannula 3 12/30/23 01:52 36.9 C 76 16 150/74 H 98 Nasal Cannula 2 Laboratory Results 12/30/23 09:35 12/30/23 09:35 PG Care Time/CCT Total # of Minutes Spent Total Time Spent with Patient: Total time spent is greater than 50% in coordination of care (as documented) at patient's floor/unit and/or counseling patient: Coding Level of Care Code 57179 SUB INP/OBS CARE 350MIN Diagnoses Sepsis A41.9 CKD (chronic kidney disease) N18.9 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
[2023-12-30 11:20] LABS: C Reactive Protein 14.62 mg/dl (0-0.5)
--- NOTE | 2023-12-30 13:08 | Magnetic Resonance Report ---
MRI OF THE THORACIC SPINE WITHOUT CONTRAST CLINICAL HISTORY: Back pain, strep bacteremia. COMPARISON: None. TECHNIQUE: Utilizing a 1.5 Mary magnet and dedicated coil, multiplanar, multiecho imaging of the th oracic spine was performed without IV contrast. FINDINGS: This exam is mildly compromised by motion artifact. Several Schmorl's nodes are present. Th ere are no thoracic spine fractures. Thoracic cord signal and caliber are normal. No intracanalicular mass or fluid collection is present. There is no MR evidence for discitis. There is mild multilevel disc space narrowing. Paravertebral soft tissues are unremarkable. No suspicious marrow replacement w ithin the thoracic spine is present. IMPRESSION: 1. Exam mildly compromised by motion artifact. No evidence for discitis/osteomyelitis within the thor acic spine. No epidural fluid collection. 2. Mild multilevel degenerative disc disease. Several Schmorl's nodes within the thoracic spine. 3. No thoracic spine fractures. ACT 112: Negative or not required by law. Electronically signed by: Jaswant Castanon M.D. 12/30/2023 1:07 PM
--- NOTE | 2023-12-30 13:47 | Ultrasound Report ---
US abdomen limited CLINICAL HISTORY: sepsis, strep bacteremia, increasing bilirubin TECHNIQUE: Multiple real-time sonographic images of the right upper quadrant were obtained. Comparison: Comparison is made to CT abdomen pelvis 12/29/2023 FINDINGS: Questionable minimally nodular contour of the liver. No focal mass lesions are seen. No intrahepat ic ductal dilatation is seen. Linear hyperechoic foci with posterior shadowing are identified layeri ng dependently within the gallbladder, which are consistent with gallstones. The gallbladder wall is not thickened. There is no pericholecystic fluid present. A sonographic Mccormick's sign was not elicit ed by the sternman. The common duct measures 0.3 cm in diameter at the level of the hepatic nataliya ry. The visualized portions of the pancreas appear normal. The right kidney shows normal echogenicity, cortical thickness and renal contour. The right kidney sh ows no evidence of hydronephrosis or mass. No ascites or free fluid is seen in Hobbs's pouch. IMPRESSION: Questionable nodular contour of the liver, clinical correlation for early cirrhosis is recommended. N o acute abnormalities. ACT 112: Negative or not required by law. Electronically signed by: Demetrio Chamberlain M.D. 12/30/2023 1:46 PM
--- NOTE | 2023-12-30 14:05 | Magnetic Resonance Report ---
MRI OF THE LUMBAR SPINE WITHOUT CONTRAST CLINICAL HISTORY: severe low back pain, strep bacteremia COMPARISON STUDY: Lumbar spine radiographs October 28, 2017. CT of the abdomen and pelvis December 28. TECHNIQUE: Utilizing a 1.5 Mary magnet and dedicated coil, multiplanar, multiecho imaging of the [facility] spine was performed without IV contrast. FINDINGS: This exam is mildly compromised by motion artifact. For purposes of numbering on this exam, the L5-S1 disc space is assigned to axial image 27 of 30. There is mild rightward curvature of the lumbar spin e. Several Schmorl's nodes are noted. No lumbar spine fractures are present. No intracanalicular mass or fluid collection is identified. Mild increased T2 signal within the L3-L4 disc is likely degenera tive. There is gas within this disc space on CT of December 29, 2023. Paravertebral soft tissues are unre markable. Moderate to severe multilevel degenerative disc disease and facet arthrosis within the lumb ar spine is present. L1-2: There is facet arthrosis with ligamentous hypertrophy and disc bulge. There is mild narrowing o f the central canal and the neural foramen. L2-3: Moderate disc space narrowing is noted. There is disc bulge. Facet arthrosis with ligamentous h ypertrophy. The findings result in moderate to severe central canal stenosis. There is also moderate bilateral neural foraminal stenosis, greater on the left. L3-4: Disc space narrowing is noted with disc bulge. There is facet arthrosis with ligamentous hypert rophy. Findings result in moderate to severe central canal stenosis as well as moderate to severe francisca ateral neural foraminal narrowing. L4-5: Facet arthrosis with ligamentous hypertrophy is noted. There is disc bulge. There is moderate n arrowing of the central canal. Moderate right and mild left neural foraminal stenosis is present. L5-S1: There is facet arthrosis and ligamentous hypertrophy and disc bulge. There is mild narrowing o f the central canal. Severe right and moderate left neural foraminal stenosis is present. IMPRESSION: 1. No MRI evidence for an acute infectious process within the lumbar spine. 2. Mild increased T2 signal within the L3-L4 disc which is likely degenerative. Discitis is considere d less likely. 3. Moderate to severe multilevel degenerative disc disease and facet arthrosis within the lumbar spin e. Multilevel central canal and neural foraminal stenosis, as above. 4. No lumbar spine fractures. ACT 112: Negative or not required by law. Electronically signed by: Jaswant Castanon M.D. 12/30/2023 2:03 PM
--- NOTE | 2023-12-30 17:27 | XCELERA ---
[id number] \\[id number]
[2023-12-30] MEDS: CYCLOBENZAPRINE HCL 5 MG TAB PO PRN (20:55)
[2023-12-31] MEDS: traMADol HCL 50 MG TABLET PO PRN (03:03)
[2023-12-31] MEDS: HYDROmorphone INJ 0.5 MG/0.5 ML SYR IV STA (06:25)
[2023-12-31 06:43] LABS: Hematocrit (blood only) 34.7 % (42.0-52.0); Hemoglobin 11.5 g/dl (14.0-18.0); Mean Corpuscular Hgb Conc 33.1 g/dL (32.0-36.0); Mean Corpuscular Volume 90.6 fL (80.0-100.0); Mean Platelet Volume 11.9 fL (9.4-12.4); Platelet Count 120 K/uL (130-400); RDW Coefficient of Variation 12.7 % (11.5-14.5); RDW Standard Deviation 41.8 fL (36.4-46.3); Red Blood Count 3.83 M/uL (4.70-6.10); White Blood Count 12.12 K/ul (4.8-10.8)
[2023-12-31 06:53] LABS: Creatinine Clr Calc Pharmacy 28.9 ml/min; Est GFR (African American) 26.7 ml/min; Potassium 3.9 mmol/L (3.5-5.1)
--- NOTE | 2023-12-31 12:34 | Hospitalist Progress Note ---
Date of Service December 31, 2023 Assessment & Plan (1) Sepsis: Plan: 83-year-old man admitted with sepsis due to Group G Streptococcus bacteremia source remains unclear but possibly facial/nose SSTI - these however may be chronic changes. Assess response of facial erythema to antibiotics noncontrast abdominal CT notable for bilateral perinephric stranding and bladder wall thickening and back pain could be pyelonephritis, however UA was completely normal, so no strong evidence of UTI. he has had bilateral ORIF of his ankles in the past, no joint replacements, no pacemaker, no central venous access. RUQ ultrasound unrevealing. MRI of T and L spine (noncontrast due to CKD 4) - did not look suspicious for SEA or discitis/OM. There is mild T2 signal at L3-4 disc that appears degenerative but consider repeat imaging at interval to make sure not progressing to look more like a discitis he has mild aortic stenosis, no vegetations seen on TTE - ESR is low at 30 arguing against osteomyelitis/discitis, CRP elevated at 14.6 which is expected - repeat blood cultures 12/30 for clearance. 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 meds as above (5) Diabetic peripheral neuropathy associated with type 2 diabetes mellitus: Plan: Type II DM Last A1c 7.4%, on glipizide. Metformin deferred due to renal function Patient had been attempting to taper off insulin, previously on basal only 8 to 10 units daily Weight-based basal bolus ordered BG at goal (6) Benign prostatic hyperplasia: Plan: Bladder scan as needed, continue doxazosin - DC sandra (7) Atrial fibrillation, permanent: Plan: A-fib, rate controlled on admission cont apixaban metoprolol Plan hyponatremia, mild - sodium 131-->133, monitor resume apixaban and ASA since no surgical procedures anticipated elevated bilirubin - possibly related to sepsis or HF, RUQ US and CT without evidence of biliary obstruction or GB pathology, AM LFT Chronic stable issues: 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 Follows with neurology Has deferred memantine and other similar medications No acute change in management Hyperlipidemia: Continue statin DVT prophylaxis: Anticoagulated Admission and Anticipated Discharge Date Admission Date: December 29, 2023 Subjective more alert and very talkative this am low back pain continues to be very prominent. his reports longstanding back pain but he indicates previous back pain was relatively mild he doesn't have any pain on his nose or right forehead no abdominal pain nausea or vomiting Physical Exam 2 Physical Exam: PHYSICAL EXAMINATION Last 24h vital signs reviewed, see documentation in flowsheet General: sitting up, finished bfast, appears comfortable except for occasional jolts from back pain HEENT: erythema of right upper face mainly forehead extends to just over midline. tip of nose with pustules, is enlarged, somewhat boggy but nontender. acne rosacea of nose and both cheeks - these areas especially the nose are purplish red but not warm Lungs: Normal respiratory effort. Clear to auscultation bilaterally. No RRW Heart: Regular rate and rhythm, systolic murmur. No JVD Abdomen: Soft, nontender, nondistended. Bowel sounds present. Extremities: Warm, dry, well-perfused. No extremity edema. Neuro: Alert and oriented x hospital and situation, face symmetric, speech intact, upper extremity strength 5 out of 5, lower extremity strength 5/5 distally Psych: Normal affect and behavior Results & Data Results & Data Vital Signs (Past 12 Hours) Vital Signs Temp Pulse Pulse Resp BP Pulse Ox O2 Del Method 12/31/23 08:26 91 H 12/31/23 07:48 37.1 C 94 H 14 109/71 97 Nasal Cannula 12/31/23 07:25 Nasal Cannula 12/31/23 02:52 37.1 C 73 18 132/79 96 Room Air O2 Flow Rate 12/31/23 08:26 12/31/23 07:48 3 12/31/23 07:25 3 12/31/23 02:52 Laboratory Results 12/31/23 06:04 12/31/23 06:04 PG Care Time/CCT Total # of Minutes Spent Total Time Spent with Patient: Total time spent is greater than 50% in coordination of care (as documented) at patient's floor/unit and/or counseling patient: Coding Level of Care Code 04283 SUB INP/OBS CARE 3/50MIN Diagnoses Sepsis A41.9 CKD (chronic kidney disease) N18.9 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
[2023-12-31] MEDS: DEXTROSE IV SCH (19:54)
[2023-12-31] MEDS: [UNRECOGNIZED DRUG - OTHER] IV SCH (19:54)
[2024-01-01 07:30] LABS: Hematocrit (blood only) 33.4 % (42.0-52.0); Hemoglobin 11.1 g/dl (14.0-18.0); Mean Corpuscular Hemoglobin 29.7 pg (25.0-34.0); Mean Corpuscular Hgb Conc 33.2 g/dL (32.0-36.0); Mean Corpuscular Volume 89.3 fL (80.0-100.0); Platelet Count 131 K/uL (130-400); RDW Coefficient of Variation 12.6 % (11.5-14.5); RDW Standard Deviation 41.7 fL (36.4-46.3); Red Blood Count 3.74 M/uL (4.70-6.10); White Blood Count 9.49 K/ul (4.8-10.8)
[2024-01-01 07:48] LABS: Albumin Level 3.5 gm/dl (3.4-5.0); BUN Creatinine Ratio 21.5 (10-20); Bilirubin Direct 0.4 mg/dl (0-0.2); Bilirubin,Total 1.5 mg/dl (0.2-1.0); Creatinine Clr Calc Pharmacy 28.2 ml/min; Est GFR (Non-African American) 22.4 ml/min; Potassium 3.5 mmol/L (3.5-5.1); Total Protein 6.8 gm/dl (6.0-8.3)
--- NOTE | 2024-01-01 08:15 | Hospitalist Progress Note ---
Date of Service January 01, 2024 Assessment & Plan (1) Sepsis: Plan: 83-year-old man admitted with sepsis due to Group G Streptococcus bacteremia related to facial/nasal SSTI noncontrast abdominal CT notable for bilateral perinephric stranding and bladder wall thickening and back pain could be pyelonephritis, however UA was completely normal, so no strong evidence of UTI. he has had bilateral ORIF of his ankles in the past, no joint replacements, no pacemaker, no central venous access. RUQ ultrasound unrevealing. MRI of T and L spine (noncontrast due to CKD 4) - did not look suspicious for SEA or discitis/OM. There is mild T2 signal at L3-4 disc that appears degenerative but consider repeat imaging at interval to make sure not progressing to look more like a discitis. ESR is low at 30 arguing against osteomyelitis/discitis, CRP elevated at 14.6 which is expected. Leukocytosis resolved W 12-->8 he has mild aortic stenosis, no vegetations seen on TTE - facial / nasal erythema and induration significantly improved last 24h - seems highly likely at this point that facial cellulitis/SSTI was the source of the strep bacteremia - repeat blood cultures 12/30 for clearance pending ngtd at 24h. 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 meds as above (5) Diabetic peripheral neuropathy associated with type 2 diabetes mellitus: Plan: Type II DM Last A1c 7.4%, on glipizide. Metformin deferred due to renal function Patient had been attempting to taper off insulin, previously on basal only 8 to 10 units daily Weight-based basal bolus ordered - tightened insulin ratios 12/31 (6) Benign prostatic hyperplasia: Plan: Bladder scan as needed, continue doxazosin (7) Atrial fibrillation, permanent: Plan: A-fib, rate controlled on admission cont apixaban metoprolol Plan acute on chronic low back pain - see above, seems likely musculoskeletal pain. has some lumbar spinal and neuroforaminal stenoses. - stop cyclobenzaprine, schedule APAP, cont PRN tramadol hyponatremia, mild - sodium 131-->133-->130, monitor with resumption of bumex today elevated bilirubin - possibly related to sepsis or HF, RUQ US and CT without evidence of biliary obstruction or GB pathology, improved 2.3-->1.5. 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 Follows with neurology Has deferred memantine and other similar medications No acute change in management abdominal distention - likely constipated. no nausea/vomiting. check KUB and increase bowel regimen. dulcolax supp and simethicone today Anemia - at his chronic baseline. check iron stores Hyperlipidemia: Continue statin DVT prophylaxis: Anticoagulated Dispo - anticipate rehab stay I updated his daughter by phone last evening and his Yudi by phone this afternoon Admission and Anticipated Discharge Date Admission Date: December 29, 2023 Subjective confused and talkative, awake and alert sitting in chair low appetite and feels like he needs to have a BM still has significant nonradiating low back pain but appears improved Physical Exam 2 Physical Exam: PHYSICAL EXAMINATION Last 24h vital signs reviewed, see documentation in flowsheet General: sitting up in chair, back pain seems improved HEENT: erythema of right upper face mainly forehead extends to just over midline - clearly improved. tip of nose with pustules, is enlarged, much less erythematous and boggy, nontender. acne rosacea of nose and both cheeks Lungs: Normal respiratory effort. Clear to auscultation bilaterally. No RRW Heart: Regular rate and rhythm, systolic murmur. No JVD Abdomen: Soft, nontender, moderately distended. Bowel sounds present - frequent, increased pitch. Extremities: Warm, dry, well-perfused. No extremity edema. Neuro: Alert and oriented x hospital and basic situation but makes frequent confused statements, face symmetric, speech intact, moves 4 ext equally Psych: Normal affect and behavior Results & Data Results & Data Vital Signs (Past 12 Hours) Vital Signs Temp Pulse Pulse Resp BP Pulse Ox O2 Del Method 01/01/24 07:40 36.5 C 95 H 18 113/74 92 Nasal Cannula 01/01/24 04:07 37.3 C 98 H 18 129/80 92 Room Air 01/01/24 01:19 Nasal Cannula 12/31/23 22:00 89 O2 Flow Rate 01/01/24 07:40 2 01/01/24 04:07 01/01/24 01:19 3 12/31/23 22:00 Laboratory Results 01/01/24 06:46 01/01/24 06:46 PG Care Time/CCT Total # of Minutes Spent Total Time Spent with Patient: I personally spent: 50 minutes today on clinical care activities including: reviewing chart notes and vital signs reviewing labs discussion with emergency care attendant examining and counseling the patient counseling the patient's family writing orders documentation Coding Level of Care Code 33525 SUB INP/OBS CARE 3/50MIN Diagnoses Sepsis A41.9 CKD (chronic kidney disease) N18.9 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
[2024-01-01] MEDS: BUMETANIDE 1 MG TAB PO SCH (08:51)
[2024-01-01] MEDS: POLYETHYLENE (MIRALAX) 17 GM PACK PO PRN (15:26)
[2024-01-01] MEDS: SIMETHICONE 80 MG CHEW PO SCH (15:27)
[2024-01-01] MEDS: ACETAMINOPHEN 325 MG TAB PO SCH (16:12)
[2024-01-01] MEDS: bisacodyL 10 MG SUPP PR STA (16:13)
[2024-01-01] MEDS: SENNA 8.6 MG TAB PO SCH (16:13)
--- NOTE | 2024-01-01 17:02 | XRay Report ---
KUB HISTORY: Acute generalized abdominal pain with distention distention COMPARISON: CT 12/29/2023 FINDINGS: Cardiomegaly. Median sternotomy. Gaseous distended loops of large and small bowel have prog ressed from prior. Vascular calcifications. No renal calculi. No ureteral calculi. No pneumoperitone um or pneumatosis. No fracture. IMPRESSION: Air-filled loops of large and small bowel suggestive of ileus, progressed from the 12/29/2023 CT. ACT 112: Negative or not required by law. The above report was generated using voice recognition software. It may contain grammatical, syntax o r spelling errors. Electronically signed by: Leo Gupta M.D. 01/01/2024 5:01 PM
[2024-01-01 22:57] LABS: Babesia microti DNA Not Detected (Not Detected)
[2024-01-02 07:25] LABS: BUN Creatinine Ratio 23.4 (10-20); Calcium 8.8 mg/dl (8.6-10.3); Creatinine Clr Calc Pharmacy 28.7 ml/min; Est GFR (African American) 26.5 ml/min; Est GFR (Non-African American) 22.8 ml/min; Potassium 3.4 mmol/L (3.5-5.1)
[2024-01-02] MEDS: LACTATED RINGER'S 1,000 ML IV SCH (09:55)
[2024-01-02] MEDS: POTASSIUM CHLORIDE / WTR 10 MEQ/100 ML PLCT IV SCH (09:55)
[2024-01-02] MEDS: bisacodyL 10 MG SUPP PR STA (10:51)
--- NOTE | 2024-01-02 14:35 | Hospitalist Progress Note ---
Date of Service January 02, 2024 Assessment & Plan (1) Sepsis: Plan: 83-year-old man admitted with sepsis due to Group G Streptococcus bacteremia probably related to facial/nasal SSTI noncontrast abdominal CT notable for bilateral perinephric stranding and bladder wall thickening and back pain could be pyelonephritis, however UA was completely normal, so no strong evidence of UTI. he has had bilateral ORIF of his ankles in the past, no joint replacements, no pacemaker, no central venous access. RUQ ultrasound unrevealing. MRI of T and L spine (noncontrast due to CKD 4) - did not look suspicious for SEA or discitis/OM. There is mild T2 signal at L3-4 disc that appears degenerative but consider repeat imaging at interval to make sure not progressing to look more like a discitis. ESR is low at 30 arguing against osteomyelitis/discitis, CRP elevated at 14.6 which is expected. Leukocytosis resolved W 12-->8 he has mild aortic stenosis, no vegetations seen on TTE - facial / nasal erythema and induration significantly improved since admission, likely at this point that facial cellulitis/SSTI was the source of the strep bacteremia - repeat blood cultures 12/30 for clearance pending ngtd at 48h. Needs further investigation (JACKY, reimaging of spine for example, if not clearing quickly) - continue PCN G - should be 14d treatment from clearance of blood cultures (2) Ileus: Plan: started 12/31, KUB yesterday afternoon with dilated bowel c/w ileus. no nausea/vomiting or abdominal pain and passing gas so less likely to be bowel obstruction -clear liquid diet -gentle IV NS -replace hypokalemia IV, check mag -AM BMP and mag -reviewed medlist (3) CKD (chronic kidney disease): Plan: CKD stage IV Baseline creatinine 2.452.6, admitting creatinine 2.56 remains stable at 2.52 - AM BMP (4) NYHA class 2 heart failure with preserved ejection fraction, with improvement of ejection fraction from prior measurement: Plan: CAD, ischemic cardiomyopathy, history of A-fib EKG on admission: Right bundle branch block redemonstrated, A-fib, no acute ischemic changes 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 meds as above (6) Diabetic peripheral neuropathy associated with type 2 diabetes mellitus: Plan: Type II DM Last A1c 7.4%, on glipizide. Metformin deferred due to renal function Patient had been attempting to taper off insulin, previously on basal only 8 to 10 units daily Weight-based basal bolus ordered - tightened insulin ratios 12/31. BG high last 24h but not eating will not adjust insulin today (7) Benign prostatic hyperplasia: Plan: Bladder scan as needed, continue doxazosin (8) Atrial fibrillation, permanent: Plan: A-fib, rate controlled on admission cont apixaban metoprolol Plan acute on chronic low back pain - see above, seems likely musculoskeletal pain. has some lumbar spinal and neuroforaminal stenoses. - stop cyclobenzaprine, schedule APAP, cont PRN tramadol hyponatremia, mild - sodium 131-->133-->130, monitor with resumption of bumex today elevated bilirubin - possibly related to sepsis or HF, RUQ US and CT without evidence of biliary obstruction or GB pathology, improved 2.3-->1.5. 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 Follows with neurology Has deferred memantine and other similar medications No acute change in management abdominal distention - likely constipated. no nausea/vomiting. check KUB and increase bowel regimen. dulcolax supp and simethicone today Anemia - at his chronic baseline. ferritin recently normal Hyperlipidemia: Continue statin DVT prophylaxis: Anticoagulated Dispo - anticipate rehab stay I updated his daughter 12/30, 12/31 and his Yudi by phone 12/31 Admission and Anticipated Discharge Date Admission Date: December 29, 2023 Subjective continues with pain across entire low back, abdominal distention, no stools +flatus, no nausea/vomiting, urinating without difficulty Physical Exam 2 Physical Exam: PHYSICAL EXAMINATION Last 24h vital signs reviewed, see documentation in flowsheet General: lying reclined back in bed HEENT: erythema of right upper face mainly forehead extends to just over midline - unchanged since 01/01. tip of nose with pustules, is enlarged, much less erythematous and boggy than on admission, nontender. acne rosacea of nose and both cheeks Lungs: Normal respiratory effort. Clear to auscultation bilaterally. No RRW Heart: Regular rate and rhythm, systolic murmur. No JVD Abdomen: Soft, nontender, distended. Bowel sounds present but quieter Extremities: Warm, dry, well-perfused. No extremity edema. Neuro: Alert and oriented x hospital and basic situation but makes frequent confused statements, face symmetric, speech intact, moves 4 ext equally Psych: Normal affect and behavior Results & Data Results & Data Vital Signs (Past 12 Hours) Vital Signs Temp Pulse Pulse Resp BP BP Pulse Ox 01/02/24 12:25 37.1 C 75 18 137/85 90 01/02/24 11:28 01/02/24 08:51 36.9 C 79 18 152/88 H 93 01/02/24 07:30 89 01/02/24 02:46 36.4 C L 84 18 137/82 92 O2 Del Method 01/02/24 12:25 Room Air 01/02/24 11:28 Room Air 01/02/24 08:51 Room Air 01/02/24 07:30 01/02/24 02:46 Room Air Laboratory Results 01/01/24 06:46 01/02/24 06:41 PG Care Time/CCT Total # of Minutes Spent Total Time Spent with Patient: Total time spent is greater than 50% in coordination of care (as documented) at patient's floor/unit and/or counseling patient: Coding Level of Care Code 45300 SUB INP/OBS CARE 3/50MIN Diagnoses Sepsis A41.9 Ileus K56.7 CKD (chronic kidney disease) N18.9 NYHA class 2 heart failure with preserved ejection fraction, with improvement of ejection fraction from prior measurement I50.30 Primary hypertension I10 Hypertension type: primary hypertension Diabetic peripheral neuropathy associated with type 2 diabetes mellitus E11.42 Benign prostatic hyperplasia N40.0 Atrial fibrillation, permanent I48.21 (5) Hypertension Hypertension type: primary hypertension Qualified Code(s): I10 - Essential (primary) hypertension
[2024-01-02 14:56] LABS: Magnesium 2.1 mg/dl (1.7-2.4)
--- NOTE | 2024-01-02 16:30 | XRay Report ---
KUB HISTORY: Acute generalized abdominal pain with reported ileus ileus COMPARISON: KUB 01/01/2024 FINDINGS: There is persistent gaseous distention of the large and small bowel, not significantly marks ged. Vascular calcifications. No renal calculi. No ureteral calculi. No pneumoperitoneum or pneumato sis. No fracture. IMPRESSION: No significant change of the gaseous large and small bowel distention suggestive of ileus. ACT 112: Negative or not required by law. The above report was generated using voice recognition software. It may contain grammatical, syntax o r spelling errors. Electronically signed by: Leo Gupta M.D. 01/02/2024 4:28 PM
[2024-01-02] MEDS: SODIUM CHLORIDE 0.9% 500 ML IV SCH (16:32)
[2024-01-02 18:50] LABS: Hematocrit (blood only) 33.6 % (42.0-52.0); Hemoglobin 11.3 g/dl (14.0-18.0); Mean Corpuscular Hemoglobin 29.8 pg (25.0-34.0); Mean Corpuscular Hgb Conc 33.6 g/dL (32.0-36.0); Mean Corpuscular Volume 88.7 fL (80.0-100.0); Mean Platelet Volume 11.4 fL (9.4-12.4); Platelet Count 166 K/uL (130-400); RDW Coefficient of Variation 12.6 % (11.5-14.5); RDW Standard Deviation 40.9 fL (36.4-46.3); Red Blood Count 3.79 M/uL (4.70-6.10); White Blood Count 8.69 K/ul (4.8-10.8)
[2024-01-02 19:09] LABS: Albumin Globulin Ratio 1.1 (0.9-2); Albumin Level 3.6 gm/dl (3.4-5.0); BUN Creatinine Ratio 21.5 (10-20); Bilirubin,Total 1.1 mg/dl (0.2-1.0); Calcium 8.8 mg/dl (8.6-10.3); Creatinine Clr Calc Pharmacy 27.7 ml/min; Est GFR (African American) 25.4 ml/min; Est GFR (Non-African American) 21.9 ml/min; Globulin 3.3 gm/dl (2.5-4.0); Potassium 3.6 mmol/L (3.5-5.1); Total Protein 6.9 gm/dl (6.0-8.3)
[2024-01-03] MEDS ORDERED: ONDANSETRON INJ 2 MG/ML 2 ML VIAL IV PRN (03:18)
[2024-01-03 07:08] LABS: Hematocrit (blood only) 32.3 % (42.0-52.0); Hemoglobin 11.1 g/dl (14.0-18.0); Mean Corpuscular Hemoglobin 30.1 pg (25.0-34.0); Mean Corpuscular Hgb Conc 34.4 g/dL (32.0-36.0); Mean Corpuscular Volume 87.5 fL (80.0-100.0); Mean Platelet Volume 11.5 fL (9.4-12.4); Platelet Count 170 K/uL (130-400); RDW Coefficient of Variation 12.4 % (11.5-14.5); Red Blood Count 3.69 M/uL (4.70-6.10)
[2024-01-03 07:41] LABS: BUN Creatinine Ratio 21.7 (10-20); Calcium 8.7 mg/dl (8.6-10.3); Creatinine Clr Calc Pharmacy 32.9 ml/min; Est GFR (Non-African American) 26.8 ml/min; Magnesium 1.9 mg/dl (1.7-2.4); Potassium 3.5 mmol/L (3.5-5.1)
[2024-01-03] MEDS: traMADol HCL 50 MG TABLET PO PRN (11:55)
--- NOTE | 2024-01-03 14:37 | CT Scan Report ---
ABDOMEN AND PELVIS CT WITH ORAL CONTRAST CT DOSE: 1459.06 mGy.cm HISTORY: Acute onset abdominal pain with ileus. distention, not improving, ileus vs bowel obstruct TECHNIQUE: Multiaxial CT images of the abdomen and pelvis were performed following the use of oral co ntrast. A dose lowering technique was utilized adhering to the principles of ALARA. COMPARISON STUDY: KUB 01/02/2024, CT abdomen and pelvis 12/29/2023. FINDINGS: Cardiomegaly. Median sternotomy with extensive coronary artery calcifications. Trace pleura l effusions with linear areas of bibasilar subsegmental atelectasis versus scarring. No free air. Unr emarkable spleen, pancreas and adrenal glands. The gallbladder is within normal limits. The unenhance d liver appears unchanged. Cortical thinning of the kidneys with bilateral perinephric stranding. Bilateral vascular calcificati ons. No hydronephrosis. Subcentimeter hypodensity of the superior pole left kidney is too small to ch aracterize, likely a cyst. Urinary bladder wall thickening with partial distention. Prostatomegaly. E xtensive atherosclerosis of the abdominal aorta and branch vessels. Retroaortic left renal vein. 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 Lymphadenopathy. Mild nonspecific distal esophageal and proximal gastric wall thickening. There is no bowel obstructio n or bowel wall thickening. Mild colonic diverticulosis. The sigmoid is decompressed. There is persis tent ileus pattern with mild gaseous distention of the large bowel. Small bowel loops measuring the u pper limits of normal at 2.6 cm. Normal appendix. No acute fracture. IMPRESSION: 1. No bowel obstruction or bowel wall thickening. 2. Mild persistent gaseous distention of the large bowel. 3. Trace pleural effusions with bibasilar atelectasis versus scarring. 4. Prostatomegaly. 5. Additional findings as above. ACT 112: Negative or not required by law. The above report was generated using voice recognition software. It may contain grammatical, syntax o r spelling errors. Dictated: 01/03/2024 1:20 PM Transcribed: 01/03/2024 2:27 PM Lyubov [id number] Gloria [id number] Electronically signed by: Leo Gupta M.D. 01/03/2024 2:36 PM
--- NOTE | 2024-01-03 15:29 | Hospitalist Progress Note ---
Date of Service January 03, 2024 Assessment & Plan (1) Sepsis: Plan: 83-year-old man admitted with sepsis due to Group G Streptococcus bacteremia probably related to facial/nasal SSTI noncontrast abdominal CT notable for bilateral perinephric stranding and bladder wall thickening and back pain could be pyelonephritis, however UA was completely normal, so no strong evidence of UTI. he has had bilateral ORIF of his ankles in the past, no joint replacements, no pacemaker, no central venous access. RUQ ultrasound unrevealing. MRI of T and L spine (noncontrast due to CKD 4) - did not look suspicious for SEA or discitis/OM. There is mild T2 signal at L3-4 disc that appears degenerative but consider repeat imaging at interval to make sure not progressing to look more like a discitis. ESR is low at 30 arguing against osteomyelitis/discitis, CRP elevated at 14.6 which is expected. Leukocytosis resolved W 12-->8 he has mild aortic stenosis, no vegetations seen on TTE - facial / nasal erythema and induration significantly improved since admission, likely at this point that facial cellulitis/SSTI was the source of the strep bacteremia - repeat blood cultures 12/30 for clearance pending ngtd at 72h. Needs further investigation (JACKY, reimaging of spine for example, if not clearing quickly) - continue PCN G - should be 14d treatment from clearance of blood cultures (2) Ileus: Plan: started 12/31, KUB 12/31, 01/01 with dilated bowel c/w ileus. no nausea/vomiting or abdominal pain and passing gas so less likely to be bowel obstruction not improving and unclear trigger for ileus (could be sepsis, had few doses tramadol), CT not done last night. Obtained CT abdomen/pelvis with oral contrast 01/[address] films and agree with report by Dr. Gupta - significant distention of bowel c/w ileus but no obstruction -clear liquid diet -gentle IV NS -K, Mag normal today -AM BMP and mag -reviewed medlist -had dulcolax supp last two days without result. 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 meds as above (6) Diabetic peripheral neuropathy associated with type 2 diabetes mellitus: Plan: Type II DM Last A1c 7.4%, on glipizide. Metformin deferred due to renal function Patient had been attempting to taper off insulin, previously on basal only 8 to 10 units daily Weight-based basal bolus ordered - tighten insulin ratios slightly (7) Benign prostatic hyperplasia: Plan: Bladder scan as needed, continue doxazosin (8) Atrial fibrillation, permanent: Plan: A-fib, rate controlled on admission cont apixaban metoprolol Plan acute on chronic low back pain - see above, seems likely musculoskeletal pain. has some lumbar spinal and neuroforaminal stenoses. - stop cyclobenzaprine, schedule APAP, cont PRN tramadol hyponatremia, mild - sodium has been in low 130s. 134 today elevated bilirubin - possibly related to sepsis or HF, RUQ US and CT without evidence of biliary obstruction or GB pathology, improved 2.3-->1.5. Frequent mild elevations in past, possibly could be Gilbert's - down to 1.1 Chronic stable issues: 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 Follows with neurology. Reviewed cognitive testing fall 2022 - short term memory extremely poor, reasoning and judgment more intact compared to that Has deferred memantine and other similar medications No acute change in management Anemia - at his chronic baseline. ferritin recently normal Hyperlipidemia: Continue statin DVT prophylaxis: Anticoagulated Dispo - anticipate rehab stay I updated his daughter 12/30, 12/31, 01/01 and his Yudi by phone 12/31, in person 01/02 Admission and Anticipated Discharge Date Admission Date: December 29, 2023 Subjective remains very distended, no gas this am, no stools, abdomen mildly uncomfortable, no nausea/emesis continues with nonradiating low back pain was confused and agitated last night so CT did not get done Physical Exam 2 Physical Exam: PHYSICAL EXAMINATION Last 24h vital signs reviewed, see documentation in flowsheet General: sitting up in chair HEENT: some dermatitis on forehead R>L but cellulitis resolved, nasal erythema and induration much improved. acne rosacea of nose and both cheeks Lungs: Normal respiratory effort. Clear to auscultation bilaterally. No RRW Heart: Regular rate and rhythm, systolic murmur. No JVD Abdomen: Soft, nontender, distended and tympanic. no rrg. bowel tones present Extremities: Warm, dry, well-perfused. No extremity edema. Neuro: Alert and oriented x hospital and basic situation but very forgetful, face symmetric, speech intact, moves 4 ext equally Psych: Normal affect and behavior Results & Data Results & Data Vital Signs (Past 12 Hours) Vital Signs Temp Pulse Pulse Resp BP BP Pulse Ox 01/03/24 12:19 36.7 C 81 18 150/90 H 94 01/03/24 10:06 01/03/24 07:46 36.7 C 88 18 141/84 H 93 01/03/24 07:30 75 01/03/24 03:33 36.6 C 87 18 161/82 H 93 O2 Del Method 01/03/24 12:19 Room Air 01/03/24 10:06 Room Air 01/03/24 07:46 Room Air 01/03/24 07:30 01/03/24 03:33 Room Air Laboratory Results 01/03/24 06:43 01/03/24 06:43 PG Care Time/CCT Total # of Minutes Spent Total Time Spent with Patient: Total time spent is greater than 50% in coordination of care (as documented) at patient's floor/unit and/or counseling patient: Coding Level of Care Code 95714 SUB INP/OBS CARE 3/50MIN Diagnoses Sepsis A41.9 Ileus K56.7 CKD (chronic kidney disease) N18.9 NYHA class 2 heart failure with preserved ejection fraction, with improvement of ejection fraction from prior measurement I50.30 Primary hypertension I10 Hypertension type: primary hypertension Diabetic peripheral neuropathy associated with type 2 diabetes mellitus E11.42 Benign prostatic hyperplasia N40.0 Atrial fibrillation, permanent I48.21 (5) Hypertension Hypertension type: primary hypertension Qualified Code(s): I10 - Essential (primary) hypertension
[2024-01-03] MEDS: MINERAL OIL ENEMA 133 ML BTL PR ONE (15:34)
[2024-01-03] MEDS: SIMETHICONE 80 MG CHEW PO SCH (17:16)
[2024-01-04] MEDS: NYSTATIN POWDER 15GM BTL EXT PRN (08:04)
[2024-01-04 12:46] LABS: Hematocrit (blood only) 33.3 % (42.0-52.0); Hemoglobin 11.4 g/dl (14.0-18.0); Mean Corpuscular Hemoglobin 30.3 pg (25.0-34.0); Mean Corpuscular Hgb Conc 34.2 g/dL (32.0-36.0); Mean Corpuscular Volume 88.6 fL (80.0-100.0); Mean Platelet Volume 11.1 fL (9.4-12.4); Platelet Count 200 K/uL (130-400); RDW Coefficient of Variation 12.6 % (11.5-14.5); RDW Standard Deviation 40.9 fL (36.4-46.3); Red Blood Count 3.76 M/uL (4.70-6.10); White Blood Count 9.44 K/ul (4.8-10.8)
[2024-01-04 13:01] LABS: Albumin Level 3.7 gm/dl (3.4-5.0); BUN Creatinine Ratio 16.9 (10-20); Calcium 9.3 mg/dl (8.6-10.3); Creatinine Clr Calc Pharmacy 33.9 ml/min; Est GFR (African American) 32.4 ml/min; Globulin 3.6 gm/dl (2.5-4.0); Potassium 3.6 mmol/L (3.5-5.1); Total Protein 7.3 gm/dl (6.0-8.3)
--- NOTE | 2024-01-04 15:37 | Hospitalist Progress Note ---
Date of Service January 04, 2024 Assessment & Plan (1) Sepsis: Plan: 83-year-old man admitted with sepsis due to Group G Streptococcus bacteremia probably related to facial/nasal SSTI noncontrast abdominal CT notable for bilateral perinephric stranding and bladder wall thickening and back pain could be pyelonephritis, however UA was completely normal, so no strong evidence of UTI. he has had bilateral ORIF of his ankles in the past, no joint replacements, no pacemaker, no central venous access. RUQ ultrasound unrevealing. MRI of T and L spine (noncontrast due to CKD 4) - did not look suspicious for SEA or discitis/OM. There is mild T2 signal at L3-4 disc that appears degenerative but consider repeat imaging at interval to make sure not progressing to look more like a discitis. ESR is low at 30 arguing against osteomyelitis/discitis, CRP elevated at 14.6 which is expected. Leukocytosis resolved W 12-->8 he has mild aortic stenosis, no vegetations seen on TTE - facial / nasal erythema and induration significantly improved since admission, likely at this point that facial cellulitis/SSTI was the source of the strep bacteremia - repeat blood cultures 12/30 for clearance ngtd. - continue PCN G - should be 14d treatment from clearance of blood cultures (2) Ileus: Plan: started 12/31, KUB 12/31, 01/01 with dilated bowel c/w ileus. no nausea/vomiting or abdominal pain and passing gas so less likely to be bowel obstruction not improving and unclear trigger for ileus (could be sepsis, had few doses tramadol), CT abdomen/pelvis with oral contrast 01/02 significant distention of bowel c/w ileus but no obstruction, no fecal impaction noted -clear liquid diet -gentle IV NS -K normal today, mag - P -AM BMP and mag -dulcolax supp x 2 and mineral oil enema were not effective. 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 meds as above (6) Diabetic peripheral neuropathy associated with type 2 diabetes mellitus: Plan: Type II DM Last A1c 7.4%, on glipizide. Metformin deferred due to renal function Patient had been attempting to taper off insulin, previously on basal only 8 to 10 units daily Weight-based basal bolus ordered - (7) Benign prostatic hyperplasia: Plan: Bladder scan as needed, continue doxazosin (8) Atrial fibrillation, permanent: Plan: A-fib, rate controlled on admission cont apixaban metoprolol Plan acute on chronic low back pain - see above, seems likely musculoskeletal pain. has some lumbar spinal and neuroforaminal stenoses. - schedule APAP, cont PRN tramadol - consider reimaging soon hyponatremia, mild - sodium has been in low 130s. 132 today elevated bilirubin - possibly related to sepsis or HF, RUQ US and CT without evidence of biliary obstruction or GB pathology, improved 2.3-->1.5. 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 Follows with neurology. Reviewed cognitive testing fall 2022 - short term memory extremely poor, reasoning and judgment more intact compared to that Has deferred memantine and other similar medications No acute change in management Anemia - at his chronic baseline. ferritin recently normal Hyperlipidemia: Continue statin DVT prophylaxis: Anticoagulated Dispo - anticipate rehab stay I updated his jaja by phone today Admission and Anticipated Discharge Date Admission Date: December 29, 2023 Subjective continues with significant ileus no flatus or bm, no nausea or vomiting very distended Physical Exam 2 Physical Exam: PHYSICAL EXAMINATION Last 24h vital signs reviewed, see documentation in flowsheet General: sitting up in chair per his habit HEENT: some dermatitis on forehead R>L but cellulitis resolved, nasal erythema and induration much improved, nearly resolved. acne rosacea of nose and both cheeks Lungs: Normal respiratory effort. Clear to auscultation bilaterally. No RRW Heart: Regular rate and rhythm, systolic murmur. No JVD Abdomen: Soft, nontender, distended and tympanic. no rrg. normal active bowel tones present Extremities: Warm, dry, well-perfused. No extremity edema. Neuro: Alert and oriented x hospital and basic situation but very forgetful, face symmetric, speech intact, moves 4 ext equally Psych: Normal affect and behavior Results & Data Results & Data Vital Signs (Past 12 Hours) Vital Signs Temp Pulse Pulse Resp BP Pulse Ox O2 Del Method 01/04/24 12:00 36.7 C 77 18 128/76 95 Room Air 01/04/24 09:46 Room Air 01/04/24 07:54 74 01/04/24 07:25 36.6 C 79 18 132/78 95 Room Air Laboratory Results 01/04/24 12:27 01/04/24 12:27 PG Care Time/CCT Total # of Minutes Spent Total Time Spent with Patient: Total time spent is greater than 50% in coordination of care (as documented) at patient's floor/unit and/or counseling patient: Coding Level of Care Code 81498 SUB INP/OBS CARE 2/35MIN Diagnoses Sepsis A41.9 Ileus K56.7 CKD (chronic kidney disease) N18.9 NYHA class 2 heart failure with preserved ejection fraction, with improvement of ejection fraction from prior measurement I50.30 Primary hypertension I10 Hypertension type: primary hypertension Diabetic peripheral neuropathy associated with type 2 diabetes mellitus E11.42 Benign prostatic hyperplasia N40.0 Atrial fibrillation, permanent I48.21 (5) Hypertension Hypertension type: primary hypertension Qualified Code(s): I10 - Essential (primary) hypertension
[2024-01-04] MEDS: OLANZapine ZYDIS 5 MG ORALLY DIS. TAB PO ONE (18:40)
[2024-01-05] MEDS: SOD PHOSPHATE/SOD BIPHOSPHATE ENEMA 132 ML BTL PR PRN (00:31)
[2024-01-05 08:06] LABS: Hematocrit (blood only) 33.9 % (42.0-52.0); Hemoglobin 11.4 g/dl (14.0-18.0); Mean Corpuscular Hgb Conc 33.6 g/dL (32.0-36.0); Mean Corpuscular Volume 89.2 fL (80.0-100.0); Mean Platelet Volume 11.4 fL (9.4-12.4); Platelet Count 220 K/uL (130-400); RDW Coefficient of Variation 12.6 % (11.5-14.5); RDW Standard Deviation 41.2 fL (36.4-46.3); White Blood Count 9.36 K/ul (4.8-10.8)
[2024-01-05 09:24] LABS: Albumin Globulin Ratio 1.1 (0.9-2); Albumin Level 3.5 gm/dl (3.4-5.0); BUN Creatinine Ratio 15.7 (10-20); Bilirubin,Total 0.9 mg/dl (0.2-1.0); Calcium 9.3 mg/dl (8.6-10.3); Est GFR (African American) 35.4 ml/min; Est GFR (Non-African American) 30.6 ml/min; Globulin 3.3 gm/dl (2.5-4.0); Potassium 3.8 mmol/L (3.5-5.1); Total Protein 6.8 gm/dl (6.0-8.3)
--- NOTE | 2024-01-05 15:28 | Hospitalist Progress Note ---
Date of Service January 05, 2024 Assessment & Plan (1) Sepsis: Plan: 83-year-old man admitted with sepsis due to Group G Streptococcus bacteremia related to facial/nasal SSTI noncontrast abdominal CT notable for bilateral perinephric stranding and bladder wall thickening and back pain could be pyelonephritis, however UA was completely normal, so no strong evidence of UTI. he has had bilateral ORIF of his ankles in the past, no joint replacements, no pacemaker, no central venous access. RUQ ultrasound unrevealing. MRI of T and L spine (noncontrast due to CKD 4) - did not look suspicious for SEA or discitis/OM. There is mild T2 signal at L3-4 disc that appears degenerative but consider repeat imaging at interval to make sure not progressing to look more like a discitis. ESR is low at 30 arguing against osteomyelitis/discitis, CRP elevated at 14.6 which is expected. Leukocytosis resolved W 12-->8 he has mild aortic stenosis, no vegetations seen on TTE - facial / nasal erythema and induration significantly improved since admission - repeat blood cultures 12/30 for clearance ngtd. - continue PCN G - should be 14d treatment from clearance of blood cultures (12/30-01/13) (2) Ileus: Plan: started 12/31, KUB 12/31, 01/01 with dilated bowel c/w ileus. no nausea/vomiting or abdominal pain CT abdomen/pelvis with oral contrast 01/02 significant distention of bowel c/w ileus but no obstruction, no fecal impaction noted -dulcolax supp x 2 and mineral oil enema were not effective. cont simethicone -clear liquid diet - tolerating well but this is day 4 of CLD, I think he has turned the corner and passing more gas today with better bowel tones. Consider PPN -potassium and mag normal today -AM BMP and mag (3) CKD (chronic kidney disease): Plan: CKD stage IV Baseline creatinine 2.452.6, admitting creatinine 2.56 Cr better than baseline at <2. Reflects holding diuretics. No pulmonary edema or dyspnea - AM BMP (4) NYHA class 2 heart failure with preserved ejection fraction, with improvement of ejection fraction from prior measurement: Plan: CAD, ischemic cardiomyopathy, history of A-fib EKG on admission: Right bundle branch block redemonstrated, A-fib, no acute ischemic changes S/p CABG times 08/1999 EF 25 to 30% 2021, subsequently normalized 60% 2022 Continue metoprolol held Entresto half tablet twice daily held simvastatin Continue aspirin held bumetanide --meds held because of ileus, no evidence of pulmonary edema at this time (5) Diabetic peripheral neuropathy associated with type 2 diabetes mellitus: Plan: Type II DM Last A1c 7.4%, on glipizide. Metformin deferred due to renal function Patient had been attempting to taper off insulin, previously on basal only 8 to 10 units daily Weight-based basal bolus ordered - well controlled 01/04 Plan acute on chronic low back pain - see above, seems likely musculoskeletal pain. has some lumbar spinal and neuroforaminal stenoses. - schedule APAP, cont PRN tramadol - consider reimaging soon hyponatremia, mild - sodium has been in low 130s. 135 today elevated bilirubin - possibly related to sepsis or HF, RUQ US and CT without evidence of biliary obstruction or GB pathology, improved 2.3-->1.5. 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 Follows with neurology. Reviewed cognitive testing fall 2022 - short term memory extremely poor, reasoning and judgment more intact compared to that. Has deferred memantine and other similar medications. Had some agitation last night responded to olanzapine 5 mg x 1 po A-fib, rate controlled cont apixaban metoprolol Anemia - at his chronic baseline. ferritin recently normal Hypertension. Borderline hypotensive on admission, resolved. meds as above Hyperlipidemia: Continue statin BPH - cont doxazosin DVT prophylaxis: Anticoagulated Dispo - anticipate rehab stay I updated his jaja by phone 01/03, 01/04. I've been updating his daughter Fer by phone or tiger. Admission and Anticipated Discharge Date Admission Date: December 29, 2023 Subjective Passing more gas starting overnight. No stools. A little less distended Tolerating clears. No N/V Physical Exam 2 Physical Exam: PHYSICAL EXAMINATION Last 24h vital signs reviewed, see documentation in flowsheet General: sitting in chair at window HEENT: some dermatitis on forehead R>L but cellulitis resolved, nasal erythema significantly improved and induration resolved. acne rosacea of nose and both cheeks Lungs: Normal respiratory effort. Clear to auscultation bilaterally. No RRW Heart: Regular rate and rhythm, systolic murmur. No JVD Abdomen: Soft, nontender, distended but a bit less so. no rrg. very active normal bowel tones present Extremities: Warm, dry, well-perfused. No extremity edema. Neuro: Alert and oriented x hospital and basic situation but very forgetful, face symmetric, speech intact, moves 4 ext equally Psych: Normal affect and behavior Results & Data Results & Data Vital Signs (Past 12 Hours) Vital Signs Temp Pulse Pulse Resp BP Pulse Ox O2 Del Method 01/05/24 15:11 36.5 C 79 18 163/83 H 97 Room Air 01/05/24 10:54 36.5 C 81 18 179/96 H 95 Room Air 01/05/24 08:07 Room Air 01/05/24 07:34 36.3 C L 78 18 179/93 H 94 Room Air 01/05/24 07:09 68 Laboratory Results 01/05/24 07:07 01/05/24 07:07 PG Care Time/CCT Total # of Minutes Spent Total Time Spent with Patient: Total time spent is greater than 50% in coordination of care (as documented) at patient's floor/unit and/or counseling patient: Coding Level of Care Code 61561 SUB INP/OBS CARE 2/35MIN Diagnoses Sepsis A41.9 Ileus K56.7 CKD (chronic kidney disease) N18.9 NYHA class 2 heart failure with preserved ejection fraction, with improvement of ejection fraction from prior measurement I50.30 Diabetic peripheral neuropathy associated with type 2 diabetes mellitus E11.42
[2024-01-05] MEDS: SIMETHICONE 80 MG CHEW PO SCH (18:40)
[2024-01-06 07:39] LABS: Hematocrit (blood only) 33.8 % (42.0-52.0); Hemoglobin 11.2 g/dl (14.0-18.0); Mean Corpuscular Hemoglobin 29.6 pg (25.0-34.0); Mean Corpuscular Hgb Conc 33.1 g/dL (32.0-36.0); Mean Corpuscular Volume 89.2 fL (80.0-100.0); Mean Platelet Volume 11.1 fL (9.4-12.4); Platelet Count 259 K/uL (130-400); RDW Coefficient of Variation 12.5 % (11.5-14.5); RDW Standard Deviation 40.8 fL (36.4-46.3); Red Blood Count 3.79 M/uL (4.70-6.10); White Blood Count 6.94 K/ul (4.8-10.8)
[2024-01-06 07:53] LABS: BUN Creatinine Ratio 12.9 (10-20); Calcium 9.3 mg/dl (8.6-10.3); Creatinine Clr Calc Pharmacy 40.1 ml/min; Est GFR (African American) 40.3 ml/min; Est GFR (Non-African American) 34.8 ml/min; Magnesium 1.9 mg/dl (1.7-2.4); Potassium 3.7 mmol/L (3.5-5.1)
--- NOTE | 2024-01-06 19:06 | Hospitalist Progress Note ---
Date of Service January 06, 2024 Assessment & Plan (1) Sepsis: Plan: 2nd to facial/nasal cellulitis presumed culprit pathogen - Group G Streptococcus as his admission blood cx's were all positive for such echo w/o endocarditis patient without joint replacements, pacemaker, or ports repeat blood cultures 12/30 were negative ensuring sterility continue IV PCN - should be 14d treatment from clearance of blood cultures (12/30-01/13) (2) Ileus: Plan: started 12/31 clinically and radiographically c/w ileus no nausea/emesis passing some flatus allow full liquids give another dulcolax suppos today (3) CKD (chronic kidney disease): Plan: CKD stage IV Baseline creatinine 2.452.6, admitting creatinine 2.56 Cr remains better than baseline at <2. repeat BMP am tomorrow (4) NYHA class 2 heart failure with preserved ejection fraction, with improvement of ejection fraction from prior measurement: Plan: h/o ischemic cardiomyopathy previous EF 25 to 30% 2021, subsequently normalized 60% 2022 Continue metoprolol succ 50mg am Entresto, bumex, simvastatin on hold Compensated on exam (5) Diabetic peripheral neuropathy associated with type 2 diabetes mellitus: Plan: Last A1c 7.4% holding oral agents cont basal-bolus insulin control satisfactory (6) Bacteremia: Plan: 2nd group G strep see #1 above (7) History of coronary artery bypass graft: Plan acute on chronic low back pain 2nd to lumbar spinal and neuroforaminal stenoses. cont scheduled tylenol cont tramadol prn consider re-imaging due to previous MR findings hyponatremia - resolved elevated bilirubin - 2nd Gilbert's? other LFTs wnl Chronic stable issues: Mild cognitive impairment A-fib - cont Eliquis + metoprolol Anemia Hypertension Hyperlipidemia BPH - cont doxazosin DVT prophylaxis - Eliquis Dispo - anticipate rehab stay at [facility] updated at bedside today Sent Sanders correspondence to pt's daughter, Dr Monroe ([facility]) Admission and Anticipated Discharge Date Admission Date: December 29, 2023 Subjective still no BM passing little flatus but he is hungry no nausea/vomiting mild amount of abdominal discomfort asks multiple questions about the facial cellulitis and how he can prevent such in the future Review of Systems Review of Systems: gen - no fevers cv - no chest pain pulm - no dyspnea GI - see HPI Physical Exam Physical Exam: gen - sitting in chair, NAD face - mild erythema/swelling of nose; rosacea changes b/l cheeks and/or bebeto derm; no cellulitis of cheeks or forehead neck - no jvd mouth - MMM heart - irregularly irregular, s1 s2 lungs - CTA b/l abd - mildly distended but nontender; BS+ but decreased; no HSM ext - no edema, pulses 2+ b/l Results & Data Results & Data Vital Signs (Past 12 Hours) Vital Signs Temp Pulse Pulse Resp BP Pulse Ox O2 Del Method 01/06/24 16:23 36.4 C L 70 16 155/74 H 98 Room Air 01/06/24 15:18 75 01/06/24 11:47 36.7 C 77 18 168/89 H 97 Room Air 01/06/24 07:25 36.6 C 66 18 167/89 H 96 Room Air 01/06/24 07:07 77 Laboratory Results Laboratory Results - last 48 hr 01/05/24 01/05/24 01/05/24 07:07 08:01 12:00 WBC 9.36 RBC 3.80 L Hgb 11.4 L Hct 33.9 L MCV 89.2 MCH 30.0 MCHC 33.6 RDW Std Deviation 41.2 RDW Coeff of Mario 12.6 Plt Count 220 MPV 11.4 Sodium 135 L Potassium 3.8 Chloride 98 Carbon Dioxide 26 Anion Gap 11 BUN 31 H Creatinine 1.98 H Est Cr Clr Drug Dosing 36.0 Est GFR ( Amer) 35.4 Est GFR (Non-Af Amer) 30.6 BUN/Creatinine Ratio 15.7 Glucose 152 H POC Glucose 183 H 162 H Calcium 9.3 Magnesium 2.0 Total Bilirubin 0.9 AST 19 ALT 16 Alkaline Phosphatase 56 Total Protein 6.8 Albumin 3.5 Globulin 3.3 Albumin/Globulin Ratio 1.1 01/05/24 01/05/24 01/06/24 17:04 20:09 06:23 WBC 6.94 RBC 3.79 L Hgb 11.2 L Hct 33.8 L MCV 89.2 MCH 29.6 MCHC 33.1 RDW Std Deviation 40.8 RDW Coeff of Mario 12.5 Plt Count 259 MPV 11.1 Sodium 136 Potassium 3.7 Chloride 100 Carbon Dioxide 29 Anion Gap 7 BUN 23 Creatinine 1.78 H Est Cr Clr Drug Dosing 40.1 Est GFR ( Amer) 40.3 Est GFR (Non-Af Amer) 34.8 BUN/Creatinine Ratio 12.9 Glucose 150 H POC Glucose 149 H 178 H Calcium 9.3 Magnesium 1.9 Total Bilirubin AST ALT Alkaline Phosphatase Total Protein Albumin Globulin Albumin/Globulin Ratio 01/06/24 01/06/24 01/06/24 07:52 12:04 16:51 WBC RBC Hgb Hct MCV MCH MCHC RDW Std Deviation RDW Coeff of Mario Plt Count MPV Sodium Potassium Chloride Carbon Dioxide Anion Gap BUN Creatinine Est Cr Clr Drug Dosing Est GFR ( Amer) Est GFR (Non-Af Amer) BUN/Creatinine Ratio Glucose POC Glucose 155 H 183 H 156 H Calcium Magnesium Total Bilirubin AST ALT Alkaline Phosphatase Total Protein Albumin Globulin Albumin/Globulin Ratio PG Care Time/CCT Total # of Minutes Spent Total Time Spent with Patient: Total time spent is greater than 50% in coordination of care (as documented) at patient's floor/unit and/or counseling patient: Coding Level of Care Code 25988 SUB INP/OBS CARE 2/35MIN Diagnoses Sepsis A41.9 Ileus K56.7 CKD (chronic kidney disease) N18.9 NYHA class 2 heart failure with preserved ejection fraction, with improvement of ejection fraction from prior measurement I50.30 Diabetic peripheral neuropathy associated with type 2 diabetes mellitus E11.42 Bacteremia R78.81 History of coronary artery bypass graft Z95.1
[2024-01-07 07:56] LABS: BUN Creatinine Ratio 10.7 (10-20); Calcium 9.5 mg/dl (8.6-10.3); Creatinine Clr Calc Pharmacy 38.1 ml/min; Est GFR (African American) 37.9 ml/min; Est GFR (Non-African American) 32.7 ml/min; Potassium 3.9 mmol/L (3.5-5.1)
--- NOTE | 2024-01-07 15:15 | Hospitalist Progress Note ---
Date of Service January 07, 2024 Assessment & Plan (1) Sepsis: Plan: 2nd to facial/nasal cellulitis presumed culprit pathogen - Group G Streptococcus as his admission blood cx's were all positive for such echo w/o endocarditis patient without joint replacements, pacemaker, or ports repeat blood cultures 12/30 were negative ensuring sterility continue IV PCN - should be 14d treatment from clearance of blood cultures (12/30-01/13) consider ID consult - could we transition to PO amox/augmentin ? (2) Ileus: Plan: improving started 12/31 clinically and radiographically c/w ileus no nausea/emesis passing some flatus tiny stool overnight tolerating full liquids allow low fiber diet give another enema today re-eval tomorrow (3) CKD (chronic kidney disease): Plan: CKD stage IV Baseline creatinine 2.452.6, admitting creatinine 2.56 Cr remains better than baseline at <2. Today is 1.8. repeat BMP am diuretics remain on hold and he is compensated (4) NYHA class 2 heart failure with preserved ejection fraction, with improvement of ejection fraction from prior measurement: Plan: h/o ischemic cardiomyopathy previous EF 25 to 30% 2021, subsequently normalized 60% 2022 Continue metoprolol succ 50mg am Continue Entresto Bumex is still on hold; consider resumption tomorrow Compensated on exam (5) Diabetic peripheral neuropathy associated with type 2 diabetes mellitus: Plan: Last A1c 7.4% holding oral agents cont basal-bolus insulin pre-prandial readings a little high; consider increasing parameters of his novolog (6) Bacteremia: Plan: 2nd group G strep see #1 above (7) History of coronary artery bypass graft: Plan: noted can resume statin cont asa cont meto succ no ischemic sx's at this time Plan acute on chronic low back pain 2nd to lumbar spinal and neuroforaminal stenoses. cont scheduled tylenol cont tramadol prn MRI this admission -- IMPRESSION: 1. No MRI evidence for an acute infectious process within the lumbar spine. 2. Mild increased T2 signal within the L3-L4 disc which is likely degenerative. Discitis is considered less likely. 3. 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 Multilevel central canal and neural foraminal stenosis, as above. 4. No lumbar spine fractures. consider re-imaging due to previous MR findings at L3-L4 but doubt there is infection there hyponatremia - resolved elevated bilirubin - chronic for years - 2nd Gilbert's? other LFTs wnl Chronic stable issues: Mild cognitive impairment A-fib - cont Eliquis + metoprolol Anemia - stable Hypertension - mildly elevated but acceptable Hyperlipidemia - can resume statin (ast/alt stable; only t.bili is high and this is chronic) BPH - cont doxazosin DVT prophylaxis - Eliquis Dispo - rehab stay at [facility] /son updated at bedside today Admission and Anticipated Discharge Date Admission Date: December 29, 2023 Subjective no events overnight passing flatus had "3 luis e" of hard/firm stool per staff overnight no other stool since has mild abdominal discomfort but not pain tolerating full liquids without nausea/emesis or worsening abdominal discomfort asks multiple questions about rehab, utility of such, why he can't go home, etc , son at bedside during the visit Review of Systems Review of Systems: gen - weak, fatigue cv - no chest pain, no orthopnea pulm - no dyspnea musculo - chronic low back pain neuro - paresthesias of distal legs - chronic Physical Exam Physical Exam: gen - laying in bed comfortably, NAD face - mild erythema/swelling of nose - mildly improved from yesterday; rosacea changes b/l cheeks and/or bebeto derm; scattered actinic keratoses on face/forehead; no cellulitis of cheeks or forehead neck - no JVD mouth - MMM heart - irregularly irregular, s1 s2, no murmur lungs - CTA b/l abd - remains mildly distended but nontender; BS+ and more robust today; no HSM ext - no edema, pulses 2+ b/l psych - easily confused, asks same questions repeatedly at times Results & Data Results & Data Vital Signs (Past 12 Hours) Vital Signs Temp Pulse Pulse Resp BP Pulse Ox O2 Del Method 01/07/24 11:12 36.6 C 72 18 158/85 H 93 Room Air 01/07/24 07:50 87 01/07/24 07:42 36.4 C L 78 18 145/77 H Laboratory Results Laboratory Results - last 24 hr 01/07/24 01/07/24 01/07/24 05:57 08:23 12:07 Sodium 137 Potassium 3.9 Chloride 98 Carbon Dioxide 29 Anion Gap 10 BUN 20 Creatinine 1.87 H Est Cr Clr Drug Dosing 38.1 Est GFR ( Amer) 37.9 Est GFR (Non-Af Amer) 32.7 BUN/Creatinine Ratio 10.7 Glucose 131 H POC Glucose 162 H 216 H Calcium 9.5 PG Care Time/CCT Total # of Minutes Spent Total Time Spent with Patient: Total time spent is greater than 50% in coordination of care (as documented) at patient's floor/unit and/or counseling patient: Coding Level of Care Code 07973 SUB INP/OBS CARE 2/35MIN Diagnoses Sepsis A41.9 Ileus K56.7 CKD (chronic kidney disease) N18.9 NYHA class 2 heart failure with preserved ejection fraction, with improvement of ejection fraction from prior measurement I50.30 Diabetic peripheral neuropathy associated with type 2 diabetes mellitus E11.42 Bacteremia R78.81 History of coronary artery bypass graft Z95.1
[2024-01-07] MEDS: bisacodyL 10 MG SUPP PR PRN (21:29)
[2024-01-07] MEDS: MINERAL OIL ENEMA 133 ML BTL PR ONE (21:29)
--- NOTE | 2024-01-08 14:46 | Infectious Disease Consult ---
Date of Consultation January 08, 2024 Assessment & Plan (1) Bacteremia: (2) Cellulitis: (3) Ileus: (4) CKD (chronic kidney disease): Plan 83yo M with h/o CHF, CKD IV, afib, ICM, cardiac cirrhosis, HTN, HLD who presented on 12/28 with fever, fatigue, low back pain, nausea/vomiting. Here he has been afebrile, vss. Initial labs with WBC 17.60, Cr 2.56, AST/ALT wnl, ESR 30, CR 14.62. UA with 0-5 WBC. Lyme Ab screen positive, IgG pos, IgM neg, reflex pending. CXR negative. CTAP noted perinephric stranding bl, diffuse homogenous bladder wall thickening. RUQ u/s questionable nodular contour of liver. He was admitted with sepsis and found with bacteremia 2/2 group G strep. MRI T and L spine without infectious process, there was some L3-L4 increased signal likely degenerative, discitis less likely. TTE with mild valvular , moderate mitral annular calcification. Was noticed to have some facial/nose cellulitis. Course c/b abdominal distention. KUB 12/31 with ileus. ID consulted 01/07. No other sources for bacteremia noted on examination. I dont see much redness on face, but he has been on abx for some time and this could have improved. No hardware and spinal imaging did not show acute infectious process. TTE was negative and since bacteremia quickly resolved, will hold on JACKY. Would complete 14 days of antibiotics, which can be changed to PO amoxicillin. He does have CKD, CrCl 38.1. Regarding positive lyme titer, he has a prior h/o Lyme and he thinks he was treated at that time. No new exposures. Titer would therefore suggest prior infection and no need for further treatment. # Group G strep bacteremia # Facial cellulitis resolved # Ileus # Positive Lyme titer - likely prior infection # CKD IV - can continue on PCN G 2mil IV q4h while inpatient - when hes ready for discharge, can change abx to amoxicillin 1g PO tid (dose for CrCl > 30, renally adjust if worsening renal function) - complete 14 days of abx (start 12/30, end through 01/13) - management of ileus per primary team ID will discontinue active follow up at this time. Please do not hesitate to reconsult the Infectious Diseases service as needed. Autumn Heath MD [facility], Division of Infectious Diseases [facility]: [phone] Consultation Information Consultation was provided via telemedicine using two-way real-time interactive telecommunication between the patient and the telemedicine provider. For the duration of the visit, the provider was performing the assessment from a different facility than the patient. This includesuse of bluetooth stethoscope forauscultationperformed by the telepresenter that the telemedicine provider c an hear if described in the physical exam. Etcher Apprentice contact information: Please call [facility] Call Center . (Phone Number For Physician Use Only) After establishing a telemedicine visit, patient was: Patient was verified with two unique identifiers, Patient/authorized rep acknowledged consent and understanding and Gave permission to continue telehealth session Time Spent with Patient: Initial => 75 min History of Present Illness Reason for Consultation: Group G Strep bacteremia, facial cellulitis Attending Physician: Mt Blackman MD History of Present Illness 83yo M with h/o CHF, CKD IV, afib, ICM, cardiac cirrhosis, HTN, HLD who presented on 12/28 with fever and fatigue. He had woke up around noon and noted pain across his lower back and was hypoxic with somnolence earlier. Also with nausea and vomiting. He noticed deep breathing caused discomfort in lower back. No dysuria, SOB had improved. Here he has been afebrile, vss. Initial labs with WBC 17.60, Cr 2.56, AST/ALT wnl, ESR 30, CR 14.62. UA with 0-5 WBC. Lyme Ab screen positive, IgG pos, IgM neg, reflex pending. CXR negative. CTAP noted perinephric stranding bl, diffuse homogenous bladder wall thickening. RUQ u/s questionable nodular contour of liver. He was admitted with sepsis and found with bacteremia 2/2 group G strep. MRI T and L spine without infectious process, there was some L3-L4 increased signal likely degenerative, discitis less likely. TTE with mild valvular , moderate mitral annular calcification. Was noticed to have some facial/nose cellulitis. Course c/b abdominal distention. KUB 12/31 with ileus. ID consulted 01/07. On evaluation, patient complains of constipation and abdominal distention. Denies having any abdominal pain. He denies having back pain, new joint pains/swelling, no new rashes. He was unaware of his facial rash but says his daughter had pointed it out to him. He does not have any hardware or devices. Denies any dysuria. He says he had a tick bite a very long time ago and is not sure if he had doxycycline back then, but thinks so. No new exposures or tick bites. Allergies Allergy/AdvReac Type Severity Reaction Status Date / Time No Known Allergies Allergy Verified 12/18/23 13:04 Home Medications Medication Instructions Recorded Confirmed Type coenzyme Q10 100 mg capsule 100 mg PO QAM 11/23/20 12/29/23 History (CoQ-10) ferrous sulfate 325 mg (65 mg 325 mg PO BID #180 tabs 04/19/21 12/29/23 Rx iron) tablet,delayed release aspirin 81 mg tablet,delayed 81 mg PO QAM 30 days #30 tabs 11/16/22 12/29/23 Rx release hydrocortisone 2.5 % topical cream 1 applic topical BID PRN flaring 12/23/22 12/29/23 History ketoconazole 2 % topical cream 1 applic topical BID PRN flaring 12/23/22 12/29/23 History simvastatin 20 mg tablet 20 mg PO QPM #90 tabs 02/03/23 12/29/23 Rx apixaban 2.5 mg tablet (Eliquis) 2.5 mg PO BID #180 tabs 03/17/23 12/29/23 Rx doxazosin 2 mg tablet 2 mg PO BID #180 tabs 03/17/23 12/29/23 Rx sacubitril 49 mg-valsartan 51 mg 0.5 tab PO BID #180 tabs 03/17/23 12/29/23 Rx tablet (Entresto) pantoprazole 40 mg tablet,delayed 40 mg PO QAM #90 tabs 04/22/23 12/29/23 Rx release pen needle, diabetic 32 gauge x #100 ea 09/26/23 12/29/23 Rx 5/32" (BD Nalini 2nd Gen Pen Needle) bumetanide 2 mg tablet 2 mg PO QAM 10/31/23 12/29/23 History cholecalciferol (vitamin D3) 25 25 mcg PO QAM 11/28/23 12/29/23 History mcg (1,000 unit) capsule blood-glucose sensor (FreeStyle 12/18/23 12/29/23 History Juni 3 Sensor device) calcitriol 0.25 mcg capsule 0.25 mcg PO QAM 12/29/23 12/29/23 History glipizide 5 mg tablet 5 mg PO UD 12/29/23 12/29/23 History metoprolol succinate 50 mg 50 mg PO QAM 12/29/23 12/29/23 History tablet,extended release 24 hr psyllium husk 0.52 gram capsule 0.52 g PO QAM 12/29/23 12/29/23 History vit C 250 mg-vit E 90 mg-zinc 40 1 tab PO QAM 12/29/23 12/29/23 History mg-copper 1 [id number] capsule (PreserVision AREDS-2) Patient History Medical History Occlusion of right posterior cerebral artery Ischemic cerebrovascular accident (CVA) Pain, foot, left, chronic Rosacea Need for pneumococcal vaccine Medicare annual wellness visit, subsequent Medication care plan discussed with patient Acute on chronic systolic CHF (congestive heart failure) Right-sided congestive heart failure Discharge planning issues DVT prophylaxis Cirrhosis Ascites Abdominal pain Acute UTI Acute hyponatremia NIGEL (acute kidney injury) Weakness UTI (urinary tract infection) History of bleeding ulcers (~1984) Anemia From GI Bleed History of squamous cell carcinoma Arteriosclerosis of coronary artery Arthralgia of multiple sites Type 2 diabetes mellitus NIDDM Surgical History S/P right knee arthroscopy History of appendectomy History of colonoscopy History of surgical removal of skin lesion History of tonsillectomy H/O oral surgery dental implants History of ankle surgery ORIF Bilateral ankle Family History Mother Cardiac disorder Hypertension Father Cardiac disorder Stroke Hypertension Grandmother (Maternal) Stroke Denies family history of Ovarian cancer Prostate cancer Myocardial infarction Breast cancer Colorectal cancer Social History Smoking Status: Never smoker Second Hand Exposure: No; Do You Dip or Chew Tobacco: No; Tobacco Cessation Education Requested by Patient: No Hx Alcohol Use: No Hx Substance Use: No Preferred Language: Malay Communication Ability: Effective Event Marketing Specialist Required: No Beliefs That Will Affect Care: None marital status: Current Living Situation: Spouse Current Living Situation Comment: With spouse current occupational status: retired Other Information That Helps Us Care for You: No Feels Safe at Home: Yes Safety Concerns: Feels Safe At This Time Diet: low carbohydrate and low salt Seatbelt Use: always Assistive Devices: Cane Review of System 10-point review of systems reviewed and are negative except for as above. Physical Exam Physical Exam: General: Awake, alert, no acute distress HEENT: NC/AT, EOMI, mmm, no bright redness on face Neck: supple Lungs: respirations non-labored Heart: nl peripheral perfusion Abdomen: soft, distended, nontender Back: no spinal tenderness Ext: no LE edema Skin: no rash Neuro: moving all extremities Results & Data Vital Signs (Past 12 Hours) Vital Signs Temp Pulse Pulse Pulse Resp BP BP 01/08/24 14:14 77 01/08/24 12:02 74 01/08/24 11:38 36.4 C L 64 18 139/83 01/08/24 07:24 36.5 C 89 18 172/86 H 01/08/24 04:00 36.6 C 76 18 160/91 H Pulse Ox O2 Del Method 01/08/24 14:14 01/08/24 12:02 01/08/24 11:38 98 Room Air 01/08/24 07:24 95 Room Air 01/08/24 04:00 95 Room Air Laboratory Results Labs reviewed. Diagnostic Findings Imaging reviewed.
--- NOTE | 2024-01-08 20:17 | Hospitalist Progress Note ---
Date of Service January 08, 2024 Assessment & Plan (1) Sepsis: Plan: 2nd to facial/nasal cellulitis presumed culprit pathogen - Group G Streptococcus as his admission blood cx's were all positive for such echo w/o endocarditis patient without joint replacements, pacemaker, or ports repeat blood cultures 12/30 were negative ensuring sterility continue IV PCN - should be 14d treatment from clearance of blood cultures (12/30-01/13) ID consult appreciated; can transition to PO amoxicillin to finish her abx course (2) Ileus: Plan: started 01/01/24 improved/resolved had moderate stool overnight w/o use of suppositories or enema tolerating low fiber diet gave dulcolax PO x 1 today for bowel maintenance - miralax + senna (3) CKD (chronic kidney disease): Plan: CKD stage IV Baseline creatinine 2.452.6, admitting creatinine 2.56 Cr today stable repeat BMP am diuretics remain on hold and he is compensated consider resuming bumex tomorrow (4) NYHA class 2 heart failure with preserved ejection fraction, with improvement of ejection fraction from prior measurement: Plan: h/o ischemic cardiomyopathy previous EF 25 to 30% 2021, subsequently normalized 60% 2022 Continue metoprolol succ 50mg am Continue Entresto Bumex is still on hold; consider resumption tomorrow Compensated (5) Diabetic peripheral neuropathy associated with type 2 diabetes mellitus: Plan: Last A1c 7.4% holding oral agents cont basal-bolus insulin (6) Bacteremia: Plan: 2nd group G strep see #1 above (7) History of coronary artery bypass graft: Plan: noted can resume statin cont asa cont meto succ no ischemic sx's at this time Plan acute on chronic low back pain 2nd to lumbar spinal and neuroforaminal stenoses. cont scheduled tylenol cont tramadol prn MRI this admission -- IMPRESSION: 1. No MRI evidence for an acute infectious process within the lumbar spine. 2. Mild increased T2 signal within the L3-L4 disc which is likely degenerative. Discitis is considered less likely. 3. 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 Multilevel central canal and neural foraminal stenosis, as above. 4. No lumbar spine fractures. consider re-imaging due to previous MR findings at L3-L4 but doubt there is infection there if we re-image would do so in a few weeks hyponatremia - resolved elevated bilirubin - chronic for years - 2nd Gilbert's? other LFTs wnl Chronic stable issues: Mild cognitive impairment A-fib - cont Eliquis + metoprolol Anemia - stable Hypertension - mildly elevated but acceptable Hyperlipidemia - can resume statin (ast/alt stable; only t.bili is high and this is chronic) BPH - cont doxazosin DVT prophylaxis - Eliquis Dispo - rehab stay at [facility] d/ on Friday?? updated by phone today Admission and Anticipated Discharge Date Admission Date: December 29, 2023 Subjective pt sitting in chair by the window eating his meal feels good no N/V no abd pain feels "full" in his abdomen, however had moderate sized BM overnight in the middle of the night passing flatus asks multiple questions about rehab Review of Systems Review of Systems: gen - no fevers or chills; better energy, tolerating solids and has appetite cv - no chest pain pulm - no dyspnea GI - no n/v Physical Exam Physical Exam: gen - sitting in chair; looks well; NAD face - mild erythema/swelling of nose - again improved; rosacea changes b/l cheeks and/or bebeto derm neck - no JVD mouth - MMM heart - irregularly irregular, s1 s2, no murmur lungs - CTA b/l abd - mild distension only, nontender; BS+, no HSM ext - no edema, pulses 2+ b/l psych - awake, alert, recall is better today Results & Data Results & Data Vital Signs (Past 12 Hours) Vital Signs Temp Pulse Pulse Pulse Resp BP Pulse Ox 01/08/24 19:04 37.3 C 79 18 148/79 H 96 01/08/24 15:41 36.9 C 67 18 110/67 97 01/08/24 14:14 77 01/08/24 12:02 74 01/08/24 11:38 36.4 C L 64 18 139/83 98 O2 Del Method 01/08/24 19:04 Room Air 01/08/24 15:41 Room Air 01/08/24 14:14 01/08/24 12:02 01/08/24 11:38 Room Air Laboratory Results Laboratory Results - last 48 hr 06/19/24 06/19/24 06/19/24 12:07 17:12 20:39 Sodium Potassium Chloride Carbon Dioxide Anion Gap BUN Creatinine Est Cr Clr Drug Dosing Est GFR ( Amer) Est GFR (Non-Af Amer) BUN/Creatinine Ratio Glucose POC Glucose 216 H 123 H 209 H Calcium 01/08/24 01/08/24 01/08/24 08:04 11:58 16:56 Sodium Potassium Chloride Carbon Dioxide Anion Gap BUN Creatinine Est Cr Clr Drug Dosing Est GFR ( Amer) Est GFR (Non-Af Amer) BUN/Creatinine Ratio Glucose POC Glucose 155 H 203 H 149 H Calcium PG Care Time/CCT Total # of Minutes Spent Total Time Spent with Patient: Total time spent is greater than 50% in coordination of care (as documented) at patient's floor/unit and/or counseling patient: Coding Level of Care Code 96822 SUB INP/OBS CARE 2/35MIN Diagnoses Sepsis A41.9 Ileus K56.7 CKD (chronic kidney disease) N18.9 NYHA class 2 heart failure with preserved ejection fraction, with improvement of ejection fraction from prior measurement I50.30 Diabetic peripheral neuropathy associated with type 2 diabetes mellitus E11.42 Bacteremia R78.81 History of coronary artery bypass graft Z95.1
[2024-01-08] MEDS: bisacodyL 5 MG TABEC PO ONE (20:49)
[2024-01-09 08:03] LABS: BUN Creatinine Ratio 10.2 (10-20); Calcium 9.3 mg/dl (8.6-10.3); Creatinine Clr Calc Pharmacy 32.9 ml/min; Est GFR (African American) 31.9 ml/min; Est GFR (Non-African American) 27.5 ml/min; Potassium 4.2 mmol/L (3.5-5.1)
[2024-01-09] MEDS: POLYETHYLENE (MIRALAX) 17 GM PACK PO SCH (09:10)
--- NOTE | 2024-01-09 13:37 | Discharge Summary ---
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 Woke up around noon. Has had back pain across the lower back. +Nausea and vomiting. Poor appetite since this morning. no blood or bile. 4-6 episodes of vomiting. Flushed, sweaty earlier in the day. Did feel short of breath earlier today. Was hypoxic and somnolent this morning. SpO2 85% at home. Called Dr. bales/ Recommended ER evaluation, pt transported by EMS. BSG elevated, temp elevated. No falls No chest pain. No shortness of breath at tiem of visit, improved with oxygen from this morning. Deep breathing causes some discomfort in his low back. Has been peeing less than normal. No dysuria. No difficulty peeing. has been eating and drinking less. +nausea at exam. Endorses mild abdominal. Did not take any medicines this Am except glipizide has been taking eliquis, did not take this morning due to feeling poorly slight headache. Feels generally achy all over most prominently in his back bilaterally Medical History: Reviewed Medications: Reviewed Surgical History: Reviewed Family history: Reviewed Allergies: Reviewed Social History: Deneis tobacco use, rare social etoh use Code Status: DNR/DNi Discharge Exam gen - sitting in chair; looks well; NAD face - mild erythema/swelling of nose - again improved; rosacea changes b/l cheeks and/or bebeto derm neck - no JVD mouth - MMM heart - irregularly irregular, s1 s2, no murmur lungs - CTA b/l abd - mild distension only, nontender; BS+, no HSM ext - no edema, pulses 2+ b/l psych - awake, alert, recall is better today Discharge Data Allergies Allergy/AdvReac Type Severity Reaction Status Date / Time No Known Allergies Allergy Verified 12/18/23 13:04 Consultations 12/29/23 17:43 ED Decision to Admit Stat 01/08/24 10:39 Consult Infectious Diseases Routine Ordered Studies 12/29/23 16:10 CT abd pelvis wo con Stat 12/30/23 10:21 MR lumbar spine wo con Stat MR thoracic spine wo con Stat 12/30/23 10:42 US abdomen limited Stat 01/02/24 18:02 CT Abd and Pelvis [CT abd pelvis oral con only] Urgent Hospital Course (1) Sepsis: 2nd to facial/nasal cellulitis presumed culprit pathogen - Group G Streptococcus as his admission blood cx's were all positive for such echo w/o endocarditis patient without joint replacements, pacemaker, or ports repeat blood cultures 12/30 were negative ensuring sterility continue IV PCN - should be 14d treatment from clearance of blood cultures (12/30-01/13) ID consult appreciated; can transition to PO amoxicillin to finish her abx course (2) Ileus: started 01/01/24 improved/resolved had moderate stool overnight w/o use of suppositories or enema tolerating low fiber diet gave dulcolax PO x 1 today for bowel maintenance - miralax + senna (3) CKD (chronic kidney disease): CKD stage IV Baseline creatinine 2.452.6, admitting creatinine 2.56 Cr today stable repeat BMP am diuretics remain on hold and he is compensated consider resuming bumex tomorrow (4) NYHA class 2 heart failure with preserved ejection fraction, with improvement of ejection fraction from prior measurement: h/o ischemic cardiomyopathy previous EF 25 to 30% 2021, subsequently normalized 60% 2022 Continue metoprolol succ 50mg am Continue Entresto Bumex is still on hold; consider resumption tomorrow Compensated (5) Diabetic peripheral neuropathy associated with type 2 diabetes mellitus: Last A1c 7.4% holding oral agents cont basal-bolus insulin (6) Bacteremia: 2nd group G strep see #1 above (7) History of coronary artery bypass graft: noted can resume statin cont asa cont meto succ no ischemic sx's at this time Plan acute on chronic low back pain 2nd to lumbar spinal and neuroforaminal stenoses. cont scheduled tylenol cont tramadol prn MRI this admission -- IMPRESSION: 1. No MRI evidence for an acute infectious process within the lumbar spine. 2. Mild increased T2 signal within the L3-L4 disc which is likely degenerative. Discitis is considered less likely. 3. 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 Multilevel central canal and neural foraminal stenosis, as above. 4. No lumbar spine fractures. consider re-imaging due to previous MR findings at L3-L4 but doubt there is infection there if we re-image would do so in a few weeks hyponatremia - resolved elevated bilirubin - chronic for years - 2nd Gilbert's? other LFTs wnl Chronic stable issues: Mild cognitive impairment A-fib - cont Eliquis + metoprolol Anemia - stable Hypertension - mildly elevated but acceptable Hyperlipidemia - can resume statin (ast/alt stable; only t.bili is high and this is chronic) BPH - cont doxazosin DVT prophylaxis - Eliquis Dispo - rehab stay at [facility] - d/c on Friday?? updated by phone today Discharge Plan Discharge Items Patient Disposition: Transfer Inpatient Rehab Fac Reason For Visit: SEPSIS Discharge Diagnosis: 1. streptococcal bacteremia - likely due to cellulitis - resolved 2. facial/nasal cellulitis - resolved 3. ileus - resolved 4. permanent atrial fibrillation 5. chronic diastolic CHF - compensated 6. CAD with history of CABG 7. CKD stage 4 8. type 2 diabetes 9. chronic low back pain 10. cognitive impairment 11. abnormal MRI lumbar spine (L3-L4) - follow-up needed Activity: Resume your previous activity Non-emergency contact: Primary Care Provider Call non-emergency contact if: you have any medication questions and your symptoms worsen Follow-up/Referrals: Pro,Valentín Guevara MD [Primary Care Provider] - (see within 1 week of discharge from [facility] ) Diet: Carb Consistent or DM2, Heart Healthy and Low Fiber Addtl Attending Provider Instructions: Mr Brar was hospitalized due to group G streptococcal bacteremia that was secondary to facial/nasal cellulitis. He improved with IV antibiotics. Course was complicated by colonic ileus - now resolved. Seen by infectious diseases - IV penicillin was transitioned to oral amoxicillin on day of discharge for his cellulitis/bacteremia. Last day of antibiotic therapy - 01/14/24. Repeat blood cultures later in the stay were negative ensuring resolution of his bacteremia. MRI of the lumbar spine showed the following - 1. No MRI evidence for an acute infectious process within the lumbar spine. 2. Mild increased T2 signal within the L3-L4 disc which is likely degenerative. Discitis is considered less likely. 3. 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 Multilevel central canal and neural foraminal stenosis, as above. 4. No lumbar spine fractures. In 2-3 weeks, if clinically indicated, could consider repeat MRI of the lumbar spine to re-examine the L3-L4 disc to ensure there is not a brewing discitis. Defer to his outpatient providers. However, suspicion for discitis remains very low at this time. Recommendations - 1. Check BSGs AC/HS. 2. Check BMP in 2-3 days for stability; results to medical office rep. 3. Daily AM weights; notify provider if any weight gain of more than 2-3 pounds over 1-2 days is seen. 4. f/u with Dr Bales 1 week after discharge from [facility]. It was our pleasure to care for Mr Brar! -Dr Blackman Pending Studies at Discharge: No Stand-Alone Forms: My [facility] Skilled Items Patient informed of condition?: Yes DNR: Yes Discharge Level of Care: Acute rehab Communicable Disease: No Discharge Prognosis: Stable Lines: None Urinary Catheter: No Medications and DC Order Prescriptions: New amoxicillin 500 mg Capsule 500 mg PO BID 6 Days Qty: 12 0RF polyethylene glycol 3350 [Miralax] 17 gram Powder In Packet 17 g PO DAILY Qty: 30 0RF sennosides [Senokot] 8.6 mg Tablet 17.2 mg PO QAM Qty: 60 0RF insulin glargine [Lantus U-100 Insulin] 100 unit/mL Solution 5 unit subcut BID Qty: 10 0RF tramadol 50 mg Tablet 50 mg PO Q8H PRN (Reason: pain) Qty: 30 0RF insulin aspart U-100 [Novolog U-100 Insulin aspart] 100 unit/mL Solution See Rx Instructions .ROUTE .COMPLEX Qty: 10 0RF Rx Instructions: BSG goal range 120 to 160. Correction factor - 35. Carbohydrate ratio - 1 unit of novolog for every 13 grams of carbs consumed. Saccharomyces boulardii 250 mg capsule 250 mg PO DAILY 7 Days Qty: 7 0RF acetaminophen [Tylenol Extra Strength] 500 mg tablet 1,000 mg PO Q6H PRN (Reason: fever or pain) Qty: 30 0RF Rx Instructions: maximum 3000mg in 24 hours. Continued simvastatin 20 mg tablet 20 mg PO QPM Qty: 90 3RF doxazosin 2 mg tablet 2 mg PO BID Qty: 180 3RF Hold Instructions: low BP pantoprazole 40 mg tablet,delayed release (DR/EC) 40 mg PO QAM Qty: 90 3RF coenzyme Q10 [CoQ-10] 100 mg capsule 100 mg PO QAM Entresto 49-51 mg tablet 0.5 tab PO BID Qty: 180 3RF Eliquis 2.5 mg tablet 2.5 mg PO BID Qty: 180 3RF cholecalciferol (vitamin D3) 25 mcg (1,000 unit) capsule 25 mcg PO QAM (DME) FreeStyle Juni 3 Sensor Device See Rx Instructions .ROUTE Rx Instructions: Change sensor every 14 days hydrocortisone 2.5 % cream 1 applic topical BID PRN (Reason: flaring) Rx Instructions: Apply to areas of the skin folds twice daily x 10 days as needed for flaring. ketoconazole 2 % cream 1 applic topical BID PRN (Reason: flaring) Rx Instructions: Apply to areas of the skin folds twice daily x 10 days as needed for flaring. bumetanide 2 mg tablet 2 mg PO QAM Rx Instructions: Increase to 2 mg daily for weight gain, edema, SOB (DME) pen needle, diabetic [BD Nalini 2nd Gen Pen Needle] 32 gauge x 5/32" needle See Rx Instructions .Route Qty: 100 5RF Rx Instructions: use daily for insulin injection aspirin 81 mg Tablet,Delayed Release (Dr/Ec) 81 mg PO QAM 30 Days Qty: 30 2RF metoprolol succinate 50 mg tablet extended release 24 hr 50 mg PO QAM calcitriol 0.25 mcg capsule 0.25 mcg PO QAM PreserVision AREDS-2 250-90-40-1 mg Capsule 1 tab PO QAM Changed ferrous sulfate 325 mg (65 mg iron) tablet,delayed release (DR/EC) 325 mg PO DAILY Qty: 180 0RF Held psyllium husk 0.52 gram Capsule 0.52 g PO QAM Hold Instructions: hold x 1 week Discontinued glipizide 5 mg tablet 5 mg PO UD Rx Instructions: take 2 tablets in the morning (10mg) then take 1 tablet in the pm (5mg) Discharge Orders: Discharge Order (Routine); Ordered 01/09/24 Ordered By: Mt Blackman Admission Data Admit Date/Time: 12/29/23 18:41 Attending Provider: Mt Blackman Admit Provider: Reed Melton Primary Care Provider: Pro,Valentín W. Other Providers: Reed Melton; [facility] Coding Diagnoses Sepsis A41.9 Ileus K56.7 CKD (chronic kidney disease) N18.9 NYHA class 2 heart failure with preserved ejection fraction, with improvement of ejection fraction from prior measurement I50.30 Diabetic peripheral neuropathy associated with type 2 diabetes mellitus E11.42 Bacteremia R78.81 History of coronary artery bypass graft Z95.1
[2024-01-09] MEDS: AMOXICILLIN 500 MG CAP PO STA (14:14)
[2024-01-09] MEDS ORDERED: AMOXICILLIN 500 MG CAP PO SCH (21:00)
== END 2024-01-09 14:45 | DRG 872 ==
LOC: ED 15:05 → SUATTDRO 18:41 → EDINP 18:41 → 2N 21:00